=== PATIENT | female | born 1995 | race Caucasian/White ===

== ENCOUNTER 2018-11-03 19:02 | Emergency (ER) | payer BC ==
--- OUTSIDE RECORDS SUMMARY | 2018-11-03 19:05 | XMS REPORT ---
:1995 Author Organization eClinicalWorks Care Team Providers Name Role Phone Robert Gutierrez Provider Role Unavailable Allergies, Adverse Reactions, Alerts Substance Reaction Event Type N.K.D.A. Info Not Available Non Drug Allergy Problems Problem Type Condition Code Onset Dates Condition Status Assessment Generalized anxiety disorder F41.1 Active Assessment Attention deficit hyperactivity F90.2 Active disorder (ADHD), combined type Assessment 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 episode Problem Attention deficit hyperactivity F90.2 Active disorder (ADHD), combined type Problem 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 episode Problem Generalized anxiety disorder F41.1 Active Problem Migraine, unspecified, not G43.901 Active intractable, with status migrainosus Problem Low back pain, unspecified back M54.5 Active pain laterality, unspecified chronicity, with sciatica presence unspecified Problem Lumbar radiculopathy M54.16 Active Medications Medication Code System Code Instructions Start End Date Status Dosage Date Imitrex [facility] [id number] 50 MG Orally Active 1 tablet as Once a day needed Vyvanse [facility] [id number] 30 MG Orally May 15, Active 1 capsule Once a day 2018 in the morning Results No Known Results Summary Purpose eClinicalWorks Submission
--- OUTSIDE RECORDS SUMMARY | 2018-11-03 19:05 | XMS REPORT ---
:1995 Author Organization eClinicalWorks Care Team Providers Name Role Phone Matt Robert Provider Role Unavailable Allergies No Known Allergies Problems Problem Type Condition Code Onset Dates [...] Start End Date Status Dosage Date Imitrex [facility] 74612666990 50 MG Orally Active 1 tablet as Once a day needed Vyvanse [facility] [id number] 40 MG Orally Active 1 capsule Once a day in the morning Results No Known Results Summary Purpose eClinicalWorks Submission
[2018-11-03] MEDS ORDERED: DEXAMETHASONE 10 MG/ML VIAL ONE (19:44)
[2018-11-03] MEDS ORDERED: DIPHENHYDRAMINE 50 MG/ML VIAL ONE (19:45)
[2018-11-03] MEDS ORDERED: METOCLOPRAMIDE 10 MG/2mL INJ ONE (19:45)
[2018-11-03] MEDS ORDERED: KETOROLAC 30 MG/ML INJ ONE (19:45)
[2018-11-03] MEDS ORDERED: MAGNESIUM SULFATE 1 gm IVPB 1 GM/100 ML BAG IV ONE (19:45)
[2018-11-03 20:12] LABS: Urine Blood NEGATIVE (NEG); Urine Glucose NEGATIVE (NEG); Urine Protein NEGATIVE (NEG); Urine Specific Gravity 1.015 (1.005-1.030)
[2018-11-03 20:22] LABS: Absolute Lymphocytes (CBC) 2.4 K/uL (0.7-4.9); Absolute Monocytes 0.7 K/uL (0.1-1.3); Absolute Neutrophil 3.8 K/uL (1.8-8.0); Basophils % 0.4 % (0-1.3); Hematocrit 39.4 % (36.0-45.0); Lymphocytes % 34.1 % (15.3-44.8); MCH 29.1 pg (27.0-35.0); MCV 86.6 fL (80-100); MPV 9.4 fL (7.6-11.3); Monocytes % 9.2 % (3.3-12.3); RBC Red Blood Cell Count 4.55 M/uL (3.86-4.86)
--- NOTE | 2018-11-03 21:40 | RAD REPORT ---
EXAM DESCRIPTION: CT - Head Brain Wo Cont - 11/03/2018 9:34 pm CLINICAL HISTORY: Severe headache, "Worst headache of my life" COMPARISON: MRI November 2016 TECHNIQUE: Axial 5 mm thick images of the head were obtained without IV contrast. All CT scans are performed using dose optimization technique as appropriate and may include automated exposure control or mA/KV adjustment according to patient size. FINDINGS: No intracranial hemorrhage, mass, edema or shift of mid-line structures. No acute infarcti on changes seen. No abnormal extra-axial fluid collections. Ventricles are normal. Mastoid air cells and visualized portions of the paranasal sinuses are clear. No acute bony findings. No significant change from comparison. IMPRESSION: Negative non-contrast CT head examination.
[2018-11-03] MEDS ORDERED: MEPERIDINE HCL 25 MG/0.5 ML ONE (22:13)
[2018-11-03] MEDS ORDERED: NA CHLORIDE 0.9% 1,000 ML ONE (22:13)
[2018-11-03] MEDS ORDERED: ONDANSETRON 4 MG/2 ML VIAL ONE (22:13)
[2018-11-04] MEDS ORDERED: LIDOCAINE 1% MPF 5 ML VIAL ONE (00:47)
[2018-11-04] MEDS ORDERED: ONDANSETRON 4 MG/2 ML VIAL ONE (01:08)
[2018-11-04] MEDS ORDERED: HYDROMORPHONE HCL 0.5 MG/0.5 ML INJ ONE (01:08)
[2018-11-04 01:11] LABS: CSF Glucose 63 mg/dL (40-70)
[2018-11-04 01:47] LABS: Body Fluid Source CSF; Color of fluid Colorless (COLORLESS); Fluid Total Volume 7.5 ml
[2018-11-04 01:48] LABS: Appearance CLEAR (CLEAR); Body Fluid WBC 0 /mm^3
[2018-11-04 01:56] LABS: Appearance CLEAR (CLEAR); Body Fluid Source CSF; Body Fluid WBC 0 /mm^3; Color of fluid Colorless (COLORLESS)
--- NOTE | 2018-11-04 02:03 | ER ---
Nurse's Notes [facility] Name: Manuela Garzon Age: 22 yrs Sex: Female : 1995 Arrival Date: 11/03/2018 Time: 19:05 Bed 7 Private MD: Robert Gutierrez Diagnosis: Migraine without aura, intractable, with status migrainosus Presentation: 11/03 19:10 Presenting complaint: Patient states: Worst headache of life, started 8 days ago. tl2 Presenting with right sided weakness and right cheek numbness. Pt reports near syncopal episode today. Pt AOx4. speech is normal. Pt reports history of migraines but this episode is worse than previous. Transition of care: patient was not received from another setting of care. Onset of symptoms was October 26, 2018. Risk Assessment: Do you want to hurt yourself or someone else? Patient reports no desire to harm self or others. Initial Sepsis Screen: Does the patient meet any 2 criteria? No. Patient's initial sepsis screen is negative. Does the patient have a suspected source of infection? No. Patient's initial sepsis screen is negative. Care prior to arrival: None. 19:10 Method Of Arrival: Ambulatory tl2 19:10 Acuity: FRANCHESCA 3 tl2 Triage Assessment: 19:10 General: Appears in no apparent distress. uncomfortable, Behavior is cooperative, tl2 appropriate for age, anxious. General:. Pain: Complains of pain in headache, substernal chest pain Pain does not radiate. Pain currently is 10 out of 10 on a pain scale. Neuro: Level of Consciousness is awake, alert, obeys commands, Oriented to person, place, time, situation. Cardiovascular: Chest pain is described as severe, quality is pressure, is located in substernal area. Respiratory: Airway is patent Respiratory effort is even, unlabored, Respiratory pattern is regular, symmetrical. GI: No signs and/or symptoms were reported involving the gastrointestinal system. : No signs and/or symptoms were reported regarding the genitourinary system. Derm: Skin is pink, warm \T\ dry. 19:15 Headache History: The patient has had previous headaches and this one is more severe tl2 than previous episodes. 19:15 Pain: Also complains of nausea, inability to concentrate, right sided weakness and tl2 numbness in right cheek. Historical: - Allergies: 19:33 No Known Allergies; tl2 - Home Meds: 19:33 Adderall XR 10 mg Oral cp24 1 cap once daily [Active]; tl2 - PMHx: 19:33 Migraines; ADD/ADHD; tl2 - Immunization history:: Adult Immunizations up to date. - Social history:: Smoking status: Patient/guardian denies using tobacco. - Ebola Screening: : No symptoms or risks identified at this time. Screenin:16 Abuse screen: Denies threats or abuse. Nutritional screening: No deficits noted. tl2 Tuberculosis screening: No symptoms or risk factors identified. Fall Risk Gait- Impaired (20 pts.). Assessment: 19:17 Pain: Pain began 8 days ago, chest pain started today. tl2 21:02 Reassessment: Patient appears in no apparent distress at this time. Patient and/or tl2 family updated on plan of care and expected duration. Pain level reassessed. Patient is alert, oriented x 3, equal unlabored respirations, skin warm/dry/pink. Pt is resting, states the pain has decreased slightly but is still there. 22:09 Reassessment: Patient appears in no apparent distress at this time. Medicated pt per PA tl2 orders, will reevaluate in 30 minutes and notify PA. 23:00 Reassessment: Patient appears in no apparent distress at this time. Pt is to go to CT tl2 before LP procedure. Setup is at bedside. 11/04 00:07 Reassessment: awaiting PA to do LP procedure. tl2 01:30 Reassessment: Patient appears in no apparent distress at this time. Patient and/or tl2 family updated on plan of care and expected duration. Pain level reassessed. Patient is alert, oriented x 3, equal unlabored respirations, skin warm/dry/pink. Pt states pain has decreased, awaiting on CSF results. 02:36 Reassessment: Patient appears in no apparent distress at this time. Patient and/or tl2 family updated on plan of care and expected duration. Pain level reassessed. Patient is alert, oriented x 3, equal unlabored respirations, skin warm/dry/pink. pt verbalized understanding of discharge instructions, need for follow up and prescription usage Patient states feeling better. Vital Signs: 11/03 19:15 BP 137 / 94; Pulse 105; Resp 18; Temp 98.4(O); Pulse Ox 100% on R/A; Weight 77.11 kg; tl2 Height 5 ft. 8 in. (172.72 cm); Pain 10/10; 21:02 BP 106 / 64; Pulse 88; Resp 18; Pulse Ox 100% on R/A; tl2 21:56 BP 107 / 60; Pulse 74; Resp 18; Pulse Ox 98% on R/A; tl2 22:58 BP 123 / 72; Pulse 78; Resp 18; Pulse Ox 98% on R/A; tl2 11/04 00:03 BP 111 / 65; Pulse 80; Resp 18; Pulse Ox 97% ; ea 01:41 BP 119 / 67; Pulse 88; Resp 18; Pulse Ox 98% on R/A; tl2 01:52 Pain 4/10; ea 02:36 BP 125 / 51; Pulse 78; Resp 18; Pulse Ox 99% on R/A; Pain 2/10; tl2 11/03 19:15 Body Mass Index 25.85 (77.11 kg, 172.72 cm) tl2 ED Course: 11/03 19:05 Patient arrived in ED. mr 19:05 Robert Gutierrez DO is Private Physician. mr 19:13 Triage completed. tl2 19:15 Arm band placed on right wrist. tl2 19:16 Patient has correct armband on for positive identification. Bed in low position. Call tl2 light in reach. Side rails up X 1. Adult w/ patient. property assessment monitor on. Pulse ox on. NIBP on. 19:16 Patient maintains SpO2 saturation greater than 95% on room air. tl2 19:21 Jonn Ramirez PA is PHCP. jr8 19:21 Douglas Rios MD is Attending Physician. jr8 19:40 Inserted saline lock: 20 gauge in right antecubital area, using aseptic technique. tl2 Blood collected. 19:57 Anusha Bell, [place] is Primary Nurse. tl2 21:33 CT Head Brain wo Cont In Process Unspecified. EDMS 21:33 CT completed. Patient tolerated procedure well. Patient moved back from CT. bq 23:32 Head angio In Process Unspecified. EDMS 11/04 00:20 Assist provider with lumbar puncture: Set up LP tray. Performed by Jonn WEBSTER CSF tl2 is clear. Puncture site dressed with band aid, Procedure was successful. Patient tolerated well. 02:02 Alexander Rivera MD is Referral Physician. jr8 02:37 IV discontinued, intact, bleeding controlled, No redness/swelling at site. Pressure tl2 dressing applied. Administered Medications: 11/03 19:57 Drug: Magnesium Sulfate 1 grams Route: IVPB; Infused Over: 1 hrs; Site: right tl2 antecubital; 19:58 Drug: TORadol 30 mg Route: IVP; Site: right antecubital; tl2 22:12 Follow up: Response: No adverse reaction; Pain is unchanged, physician notified tl2 19:58 Drug: Benadryl 25 mg Route: IVP; Site: right antecubital; tl2 22:12 Follow up: Response: No adverse reaction tl2 19:58 Drug: Reglan 10 mg Route: IVP; Site: right antecubital; tl2 22:13 Follow up: Response: No adverse reaction tl2 19:58 Drug: Decadron - Dexamethasone 10 mg Route: IVP; Site: right antecubital; tl2 22:13 Follow up: Response: No adverse reaction tl2 22:09 Drug: Demerol 25 mg Route: IVP; Site: right antecubital; tl2 23:00 Follow up: Response: No adverse reaction; Pain is unchanged, physician notified tl2 22:10 Drug: Zofran 4 mg Route: IVP; Site: right antecubital; tl2 23:00 Follow up: Response: No adverse reaction tl2 22:11 Drug: NS 0.9% 1000 ml Route: IV; Rate: 1 bolus; Site: right antecubital; tl2 23:00 Follow up: IV Status: Completed infusion; IV Intake: 1000ml tl2 11/04 01:05 Drug: Zofran 4 mg Route: IVP; Site: right antecubital; ea 01:53 Follow up: Response: No adverse reaction ea 01:07 Drug: Dilaudid 0.5 mg Route: IVP; Site: right antecubital; ea 01:52 Follow up: Pain 4/10 Adult; Response: No adverse reaction; Pain is decreased ea Intake: 11/03 23:00 IV: 1000ml; Total: 1000ml. tl2 Outcome: 11/04 02:03 Discharge ordered by . jr8 02:37 Discharged to home ambulatory, with family. tl2 02:37 Condition: stable 02:37 Discharge instructions given to patient, Instructed on discharge instructions, follow up and referral plans. medication usage, Demonstrated understanding of instructions, follow-up care, medications, Prescriptions given X 2. 02:40 Patient left the ED. tl2 Signatures: Dispatcher [employer] EDPA Alta Herbert mr Jeannie, Jonn Gary PA PA jr8 Anusha Bell RN RN tl2 Raisa England RN RN ea Corrections: (The following items were deleted from the chart) 11/03 19:33 19:15 BP 137 / 94; Pulse 105bpm; Resp 18bpm; Pulse Ox 100% RA; 77.11 kg; Height 5 ft. 8 tl2 in.; BMI: 25.8; Pain 10/10; tl2 21:56 21:02 BP 106 / 64; Pulse 100bpm; Resp 18bpm; Pulse Ox 100% RA; tl2 tl2
--- NOTE | 2018-11-04 02:03 | EDPHYS ---
Physician Documentation [facility] Name: Manuela Garzon Age: 22 yrs Sex: Female : 1995 Arrival Date: 11/03/2018 Time: 19:05 Bed 7 Private MD: [facility] ED Physician Douglas Rios HPI: 11/03 22:03 This 22 yrs old Female presents to ER via Ambulatory with complaints of jr8 Migraine. 22:07 The patient describes the headache as pounding, a pressure, throbbing. Onset: The jr8 symptoms/episode began/occurred acutely, 8 day(s) ago. Associated signs and symptoms: Pertinent positives: nausea, paresthesias, Photophobia visual field changes, weakness. Severity of symptoms: At its worst the pain was moderate, in the emergency department the pain is unchanged. Headache History: The patient has had previous headaches and this one is different than previous episodes, and this one is more severe than previous episodes. The symptoms are alleviated by nothing. the symptoms are aggravated by lights, movement, noise, stress. The patient has not experienced similar symptoms in the past. The patient has not recently seen a physician. Had chest pain with it today. Historical: - Allergies: 19:33 No Known Allergies; tl2 - Home Meds: 19:33 Adderall XR 10 mg Oral cp24 1 cap once daily [Active]; tl2 - PMHx: 19:33 Migraines; ADD/ADHD; tl2 - Immunization history:: Adult Immunizations up to date. - Social history:: Smoking status: Patient/guardian denies using tobacco. - Ebola Screening: : No symptoms or risks identified at this time. ROS: 22:07 Eyes: Negative for injury, pain, redness, and discharge, ENT: Negative for injury, jr8 pain, and discharge, Neck: Negative for injury, pain, and swelling, Respiratory: Negative for shortness of breath, cough, wheezing, and pleuritic chest pain, Abdomen/GI: Negative for abdominal pain, nausea, vomiting, diarrhea, and constipation, Back: Negative for injury and pain, MS/Extremity: Negative for injury and deformity, Skin: Negative for injury, rash, and discoloration. 22:07 Cardiovascular: Positive for chest pain, Negative for edema, orthopnea, palpitations, paroxysmal nocturnal dyspnea. 22:07 Neuro: Positive for headache. Exam: 22:07 Eyes: Pupils equal round and reactive to light, extra-ocular motions intact. Lids and jr8 lashes normal. Conjunctiva and sclera are non-icteric and not injected. Cornea within normal limits. Periorbital areas with no swelling, redness, or edema. ENT: Nares patent. No nasal discharge, no septal abnormalities noted. Tympanic membranes are normal and external auditory canals are clear. Oropharynx with no redness, swelling, or masses, exudates, or evidence of obstruction, uvula midline. Mucous membranes moist. Neck: Trachea midline, no thyromegaly or masses palpated, and no cervical lymphadenopathy. Supple, full range of motion without nuchal rigidity, or vertebral point tenderness. No Meningismus. Cardiovascular: Regular rate and rhythm with a normal S1 and S2. No gallops, murmurs, or rubs. Normal PMI, no JVD. No pulse deficits. Respiratory: Lungs have equal breath sounds bilaterally, clear to auscultation and percussion. No rales, rhonchi or wheezes noted. No increased work of breathing, no retractions or nasal flaring. Abdomen/GI: Soft, non-tender, with normal bowel sounds. No distension or tympany. No guarding or rebound. No evidence of tenderness throughout. Back: No spinal tenderness. No costovertebral tenderness. Full range of motion. Skin: Warm, dry with normal turgor. Normal color with no rashes, no lesions, and no evidence of cellulitis. MS/ Extremity: Pulses equal, no cyanosis. Neurovascular intact. Full, normal range of motion. Neuro: Awake and alert, GCS 15, oriented to person, place, time, and situation. Cranial nerves II-XII grossly intact. Motor strength 5/5 in all extremities. Sensory grossly intact. Cerebellar exam normal. Normal gait. Vital Signs: 19:15 BP 137 / 94; Pulse 105; Resp 18; Temp 98.4(O); Pulse Ox 100% on R/A; Weight 77.11 kg; tl2 Height 5 ft. 8 in. (172.72 cm); Pain 10/10; 21:02 BP 106 / 64; Pulse 88; Resp 18; Pulse Ox 100% on R/A; tl2 21:56 BP 107 / 60; Pulse 74; Resp 18; Pulse Ox 98% on R/A; tl2 22:58 BP 123 / 72; Pulse 78; Resp 18; Pulse Ox 98% on R/A; tl2 11/04 00:03 BP 111 / 65; Pulse 80; Resp 18; Pulse Ox 97% ; ea 01:41 BP 119 / 67; Pulse 88; Resp 18; Pulse Ox 98% on R/A; tl2 01:52 Pain 4/10; ea 02:36 BP 125 / 51; Pulse 78; Resp 18; Pulse Ox 99% on R/A; Pain 2/10; tl2 11/03 19:15 Body Mass Index 25.85 (77.11 kg, 172.72 cm) tl2 MDM: 11/03 19:21 Patient medically screened. jr8 22:07 Data reviewed: vital signs, nurses notes, lab test result(s), EKG, radiologic studies, jr8 CT scan. Data interpreted: Pulse oximetry: on room air is 98 %. Interpretation: normal. Counseling: I had a detailed discussion with the patient and/or guardian regarding: the historical points, exam findings, and any diagnostic results supporting the discharge/admit diagnosis, lab results, radiology results. ED course: Initial treatment had helped but now coming back. Will try narcotic based medicine at this point. If with no relief, patient has been advised that lumbar puncture may be necessary . 11/04 02:01 Response to treatment: the patient's symptoms have mildly improved after treatment. ED jr8 course: Opening pressure was 17.5. No viral or bacterial CSF findings. Feeling better. Will have her f/u with [facility]. Knows to come back if worse . 11/03 19:22 Order name: CBC with Diff; Complete Time: 20:46 jr8 11/03 19:22 Order name: Basic Metabolic Panel; Complete Time: 20:13 jr8 11/03 20:03 Order name: Urine Dipstick--Ancillary (enter results); Complete Time: 20:13 eb 11/03 20:03 Order name: Urine --Ancillary (enter results); Complete Time: 20:13 eb 11/04 00:30 Order name: CSF Bacterial Antigens (tube 1); Complete Time: 01:54 tl2 11/04 00:30 Order name: Csf Culture tl2 11/03 21:13 Order name: CT Head Brain wo Cont; Complete Time: 21:44 tl2 11/03 22:49 Order name: Head angio EDMS 11/04 00:30 Order name: Fluid Cell Count,Body; Complete Time: 02:01 tl2 11/04 00:30 Order name: Spinal Fluid Profile; Complete Time: 01:54 2 11/03 19:22 Order name: IV; Complete Time: 19:32 8 11/03 19:22 Order name: Urine Test (obtain specimen); Complete Time: 19:59 8 11/03 19:22 Order name: Urine Dipstick-Ancillary (obtain specimen); Complete Time: 19:59 jr8 11/03 19:22 Order name: EKG - Nurse/Tech; Complete Time: 19:32 jr8 11/03 22:49 Order name: Lumbar Puncture Consent; Complete Time: 22:54 jr8 11/03 22:49 Order name: Lumbar Puncture Setup; Complete Time: 22:54 jr8 Administered Medications: 11/03 19:57 Drug: Magnesium Sulfate 1 grams Route: IVPB; Infused Over: 1 hrs; Site: right tl2 antecubital; 19:58 Drug: TORadol 30 mg Route: IVP; Site: right antecubital; tl2 22:12 Follow up: Response: No adverse reaction; Pain is unchanged, physician notified tl2 19:58 Drug: Benadryl 25 mg Route: IVP; Site: right antecubital; tl2 22:12 Follow up: Response: No adverse reaction tl2 19:58 Drug: Reglan 10 mg Route: IVP; Site: right antecubital; tl2 22:13 Follow up: Response: No adverse reaction tl2 19:58 Drug: Decadron - Dexamethasone 10 mg Route: IVP; Site: right antecubital; tl2 22:13 Follow up: Response: No adverse reaction tl2 22:09 Drug: Demerol 25 mg Route: IVP; Site: right antecubital; tl2 23:00 Follow up: Response: No adverse reaction; Pain is unchanged, physician notified tl2 22:10 Drug: Zofran 4 mg Route: IVP; Site: right antecubital; tl2 23:00 Follow up: Response: No adverse reaction tl2 22:11 Drug: NS 0.9% 1000 ml Route: IV; Rate: 1 bolus; Site: right antecubital; tl2 23:00 Follow up: IV Status: Completed infusion; IV Intake: 1000ml tl2 11/04 01:05 Drug: Zofran 4 mg Route: IVP; Site: right antecubital; ea 01:53 Follow up: Response: No adverse reaction ea 01:07 Drug: Dilaudid 0.5 mg Route: IVP; Site: right antecubital; ea 01:52 Follow up: Pain 4/10 Adult; Response: No adverse reaction; Pain is decreased ea Disposition: 11/04/18 02:03 Discharged to Home. Impression: Migraine without aura, intractable, with status migrainosus. - Condition is Stable. - Discharge Instructions: Migraine Headache, Recurrent Migraine Headache. - Prescriptions for Fioricet 50- 325-40 mg Oral tablet - take 2 tablet by ORAL route every 4 hours as needed not to exceed 6 tablets per 24hrs; 20 tablet. ketorolac 10 mg Oral tablet - take 1 tablet by ORAL route every 6 hours not to exceed 40mg in 24hrs for up to 5 days total use; 20 tablet. - Medication Reconciliation Form, Thank You Letter, Antibiotic Education, Prescription Opioid Use form. - Follow up: Alexander Rivera MD; When: 2 - 3 days; Reason: Recheck today's complaints, Continuance of care, Re-evaluation by your physician. - Problem is new. - Symptoms have improved. Addendum: 11/05/2018 06:11 Addendum: Procedure: Lumbar puncture. Dressed and cleaned with sterile technique. Lying j r8 in left lateral decubitus position. Opening pressure 17.5. Took approximately 8 ml of CSF for lab specimen. Band aid applied post procedure and was told to lay flat on back for 45 minutes. Patient tolerated procedure well . Signatures: Dispatcher [employer] EDMS Jonn Ramirez PA PA jr8 Anusha Bell RN RN tl2 Raisa England RN RN jos Corrections: (The following items were deleted from the chart) 11/03 22:08 22:03 The patient's problem is reported as jr8 jr8 11/04 02:40 02:03 11/04/2018 02:03 Discharged to Home. Impression: Migraine without aura, tl2 intractable, with status migrainosus. Condition is Stable. Forms are Medication Reconciliation Form, Thank You Letter, Antibiotic Education, Prescription Opioid Use. Follow up: Alexander Rivera; When: 2 - 3 days; Reason: Recheck today's complaints, Continuance of care, Re-evaluation by your physician. Problem is new. Symptoms have improved. jr8
--- NOTE | 2018-11-04 12:50 | RAD REPORT ---
EXAM DESCRIPTION: CT - Head angio - 11/04/2018 3:28 am CLINICAL HISTORY: headache Worst headache of life COMPARISON: Head Brain Wo Cont dated 11/03/2018 TECHNIQUE: CT angiography of the head was performed with MIPs. All CT scans are performed using dose optimization technique as appropriate and may include automated exposure control or mA/KV adjustment according to patient size. FINDINGS: No evidence of aneurysm is detected. No flow-limiting stenosis or vascular malformation id entified. Antegrade flow is seen in the vertebral arteries. The vertebral arteries are codominant. The visualized dural venous sinuses are patent. IMPRESSION: No significant flow abnormality is detected.
--- NOTE | 2018-11-04 17:28 | EKG ---
Test Date: 2018-11-03 Test Time: 19:28:18 Glass Driller: ELEANOR MEASUREMENT RESULTS: Intervals: Rate: 83 NH: 158 QRSD: 84 QT: 352 QTc: 413 [place]: P: 42 NH: 158 QRS: 52 T: 18 INTERPRETIVE STATEMENTS: Normal sinus rhythm Normal ECG Compared to ECG 06/08/2018 16:40:18 No significant changes Electronically Signed On 11-04-18 17:18:10 PHYSICAL THERAPY INSTRUCTOR by Leon Dudley
== END 2018-11-04 02:40 | disposition home or self-care (01) ==
LOC: ER 19:02
PROC: 009U3ZX Drainage of Spinal Canal, Percutaneous Approach, Diagnostic (ICD-10-PCS; principal; 2018-11-04)
DX: G43.911 Migraine, unspecified, intractable, with status migrainosus (principal); F90.9 Attention-deficit hyperactivity disorder, unspecified type
CPT/HCPCS: 36415; 62270; 70450; 70496; 80048; 81003; 81025; 82945; 84157; 85025; 86403; 87070; 89050; 93005; 96361; 96374; 96375; 99285; J1100; J1170; J2175; J2405; J2765; J3475; J7030; Q9967

== ENCOUNTER 2018-11-09 08:42 | Emergency (ER) | payer BC ==
--- OUTSIDE RECORDS SUMMARY | 2018-11-09 08:44 | XMS REPORT ---
[...] Dosage Date Imitrex [facility] [id number] 50 MG Orally Active 1 tablet as Once a day needed Vyvanse [facility] 06059391085 30 MG Orally May 15, Active 1 capsule Once a day 2018 in the morning Results No Known Results Summary Purpose eClinicalWorks Submission
--- OUTSIDE RECORDS SUMMARY | 2018-11-09 08:44 | XMS REPORT ---
[...] Date Imitrex [facility] 07259054481 50 MG Orally Active 1 tablet as Once a day needed Vyvanse [facility] 23867691853 40 MG Orally Active 1 capsule Once a day in the morning Results No Known Results Summary Purpose eClinicalWorks Submission
[2018-11-09] MEDS ORDERED: KETOROLAC 30 MG/ML INJ ONE (10:07)
[2018-11-09] MEDS ORDERED: ONDANSETRON 4 MG/2 ML VIAL ONE (10:07)
[2018-11-09] MEDS ORDERED: NA CHLORIDE 0.9% 1,000 ML ONE (10:08)
[2018-11-09 10:09] LABS: Absolute Lymphocytes (CBC) 2.4 K/uL (0.7-4.9); Absolute Monocytes 0.4 K/uL (0.1-1.3); Absolute Neutrophil 2.8 K/uL (1.8-8.0); Basophils % 0.3 % (0-1.3); Eosinophils % 2.5 % (0-4.4); Hematocrit 40.1 % (36.0-45.0); Lymphocytes % 41.2 % (15.3-44.8); MPV 8.5 fL (7.6-11.3); Monocytes % 7.5 % (3.3-12.3); RBC Red Blood Cell Count 4.62 M/uL (3.86-4.86)
[2018-11-09 10:25] LABS: ALT/SGPT 60 U/L (12-78); AST/SGOT 33 U/L (15-37); Albumin 3.7 g/dL (3.4-5.0); Alkaline Phosphatase 72 U/L (45-117); BUN Blood Urea Nitrogen 13 mg/dL (7-18); Bicarbonate 28 mmol/L (21-32); Bilirubin Total 0.1 mg/dL (0.2-1.0); C-Reactive Protein 3.12 mg/L (<3.00); Glucose Level 80 mg/dL (74-106); Potassium 4.2 mmol/L (3.5-5.1); Protein, Total 7.4 g/dL (6.4-8.2); Sodium Level 140 mmol/L (136-145)
--- NOTE | 2018-11-09 10:41 | RAD REPORT ---
EXAM DESCRIPTION: MRI - MRA Head Wo Cont - 11/09/2018 10:33 am CLINICAL HISTORY: Headache TECHNIQUE: Magnetic resonance angiogram was performed. 3D MIPS reconstruction performed FINDINGS: The anterior cerebral, middle cerebral, posterior cerebral, distal internal carotid and ba silar arteries do not demonstrate a significant stenosis. An aneurysm is not displayed. IMPRESSION: Unremarkable MRA brain.
[2018-11-09] MEDS ORDERED: DIPHENHYDRAMINE 50 MG/ML VIAL ONE (11:16)
[2018-11-09 12:26] LABS: Urine Blood 2+ (NEG); Urine Glucose NEGATIVE (NEG); Urine Protein NEGATIVE (NEG)
--- NOTE | 2018-11-09 12:53 | EDPHYS ---
Physician Documentation [facility] Name: Manuela Garzon Age: 22 yrs Sex: Female : 1995 Arrival Date: 11/09/2018 Time: 08:46 Bed 15 Private MD: Matt Count Includes [facility] ED Physician Douglas Rios HPI: 11/09 10:14 This 22 yrs old Female presents to ER via Ambulatory with complaints of sierra Headache, Dizziness, Nausea. 10:14 The patient complains of pain to the forehead, left temporal area and right temporal sierra area. The patient describes the headache as aching, a pressure. Onset: The symptoms/episode began/occurred 14 day(s) ago. Associated signs and symptoms: The patient has no apparent associated signs or symptoms. Severity of symptoms: At its worst the pain was moderate, severe, in the emergency department the pain is unchanged. Headache History: The patient has had previous headaches and this one is similar to previous episodes. The symptoms are alleviated by nothing. the symptoms are aggravated by nothing. The patient has not experienced similar symptoms in the past. Historical: - Allergies: 09:05 No Known Allergies; ss - Home Meds: 09:05 Adderall XR 10 mg Oral cp24 1 cap once daily [Active]; ss - PMHx: 09:05 ADD/ADHD; Migraines; ss - PSHx: 09:05 None; ss - Immunization history:: Adult Immunizations up to date. - Ebola Screening: : Patient denies exposure to infectious person Patient denies travel to an Ebola-affected area in the 21 days before illness onset. - Family history:: not pertinent. - Social history:: Smoking status: Patient/guardian denies using tobacco. ROS: 10:14 Constitutional: Negative for fever, chills, and weight loss, Eyes: Negative for injury, sierra pain, redness, and discharge, ENT: Negative for injury, pain, and discharge, Neck: Negative for injury, pain, and swelling, Cardiovascular: Negative for chest pain, palpitations, and edema, Respiratory: Negative for shortness of breath, cough, wheezing, and pleuritic chest pain, Abdomen/GI: Negative for abdominal pain, nausea, vomiting, diarrhea, and constipation, Back: Negative for injury and pain, : Negative for injury, bleeding, discharge, and swelling, MS/Extremity: Negative for injury and deformity, Skin: Negative for injury, rash, and discoloration, Psych: Negative for depression, anxiety, suicide ideation, homicidal ideation, and hallucinations, Allergy/Immunology: Negative for hives, rash, and allergies, Endocrine: Negative for neck swelling, polydipsia, polyuria, polyphagia, and marked weight changes, Hematologic/Lymphatic: Negative for swollen nodes, abnormal bleeding, and unusual bruising. 10:14 Neuro: Positive for headache, of the face and right temporal area and forehead. Exam: 10:14 Constitutional: This is a well developed, well nourished patient who is awake, alert, sierra and in no acute distress. Head/Face: Normocephalic, atraumatic. Eyes: Pupils equal round and reactive to light, extra-ocular motions intact. Lids and lashes normal. Conjunctiva and sclera are non-icteric and not injected. Cornea within normal limits. Periorbital areas with no swelling, redness, or edema. ENT: Nares patent. No nasal discharge, no septal abnormalities noted. Tympanic membranes are normal and external auditory canals are clear. Oropharynx with no redness, swelling, or masses, exudates, or evidence of obstruction, uvula midline. Mucous membranes moist. Neck: Trachea midline, no thyromegaly or masses palpated, and no cervical lymphadenopathy. Supple, full range of motion without nuchal rigidity, or vertebral point tenderness. No Meningismus. Chest/axilla: Normal chest wall appearance and motion. Nontender with no deformity. No lesions are appreciated. Cardiovascular: Regular rate and rhythm with a normal S1 and S2. No gallops, murmurs, or rubs. Normal PMI, no JVD. No pulse deficits. Respiratory: Lungs have equal breath sounds bilaterally, clear to auscultation and percussion. No rales, rhonchi or wheezes noted. No increased work of breathing, no retractions or nasal flaring. Abdomen/GI: Soft, non-tender, with normal bowel sounds. No distension or tympany. No guarding or rebound. No evidence of tenderness throughout. Back: No spinal tenderness. No costovertebral tenderness. Full range of motion. Female : Normal external genitalia. Skin: Warm, dry with normal turgor. Normal color with no rashes, no lesions, and no evidence of cellulitis. MS/ Extremity: Pulses equal, no cyanosis. Neurovascular intact. Full, normal range of motion. Neuro: Awake and alert, GCS 15, oriented to person, place, time, and situation. Cranial nerves II-XII grossly intact. Motor strength 5/5 in all extremities. Sensory grossly intact. Cerebellar exam normal. Normal gait. Psych: Awake, alert, with orientation to person, place and time. Behavior, mood, and affect are within normal limits. 10:14 Neck: ROM/movement: is normal, no acute changes, Meningeal signs: are not present, Kernig's sign is negative, Brudzinski's sign is negative. Vital Signs: 09:01 BP 122 / 71; Pulse 72; Resp 16; Temp 97.5(TE); Pulse Ox 100% on R/A; Pain 8/10; ss 10:00 BP 116 / 83; Pulse 73; Resp 14; Pulse Ox 98% on R/A; mh5 10:57 BP 110 / 80; Pulse 56; Resp 15; Pulse Ox 99% on R/A; mh5 12:30 BP 111 / 63; Pulse 65; Resp 17; Pulse Ox 100% ; mh5 14:02 BP 103 / 53; Pulse 68; Resp 15; Temp 98.2(O); Pulse Ox 100% on R/A; mh5 MDM: 08:49 Patient medically screened. [facility] 10:16 Data reviewed: vital signs, nurses notes, lab test result(s), EKG, radiologic studies, [facility] CT scan, plain films. 11/09 09:22 Order name: CBC with Diff; Complete Time: 10:[address] [facility] 11/09 09:22 Order name: Comprehensive Metabolic Panel; Complete Time: 10:[address] [facility] 11/09 09:22 Order name: Sed Rate; Complete Time: 10:[address] [facility] 11/09 09:22 Order name: CRP; Complete Time: 10:39 sierra 11/09 10:54 Order name: Urine Dipstick--Ancillary (enter results); Complete Time: 12:40 11/09 10:54 Order name: Urine --Ancillary (enter results); Complete Time: 12:40 11/09 09:50 Order name: MRA Head Wo Cont; Complete Time: 11:02 EDMS 11/09 09:22 Order name: Urine Dipstick-Ancillary (obtain specimen); Complete Time: 11: [facility] 11/09 09:22 Order name: Urine Test (obtain specimen); Complete Time: [facility] Administered Medications: 09:58 Drug: TORadol 30 mg Route: IVP; Site: right antecubital; ph 10:30 Follow up: Response: No adverse reaction; Pain is decreased ph 09:58 Drug: Zofran 4 mg Route: IVP; Site: right antecubital; ph 10:30 Follow up: Response: No adverse reaction; Nausea is decreased ph 11:22 Drug: NS 0.9% 1000 ml Route: IV; Rate: 1 bolus; Site: right antecubital; ph 13:00 Follow up: Response: No adverse reaction; IV Status: Completed infusion ph 11:22 Drug: Benadryl 50 mg Route: IVP; Site: right antecubital; ph 11:30 Follow up: Response: No adverse reaction ph 11:58 Not Given (Medication unavailable): Dihydroergotamine 1 mg IV at per protocol once ph 13:32 Drug: Reglan 10 mg Route: IVP; Site: right antecubital; ph 14:15 Follow up: Response: No adverse reaction; Pain is decreased ph 14:17 Drug: Topamax 25 mg Route: PO; ph 14:17 Follow up: Response: No adverse reaction; Medication administered at discharge. ph Disposition: 11/09/18 12:52 Discharged to Home. Impression: Headache, Migraine. - Condition is Stable. - Discharge Instructions: General Headache Without Cause, Migraine Headache, Migraine Headache, [id number], General Headache Without Cause, Acec-as-Iajq. - Prescriptions for Fioricet with Codeine 50- 325-40-30 mg Oral capsule - take 1 capsule by ORAL route every 4 hours as needed not to exceed 6 capsules per 24hrs; 30 capsule. Topamax 25 mg Oral tablet - take 1 tablet by ORAL route At bedtime in the morning and evening; 20 tablet. Zofran 4 mg Oral Tablet - take 1 tablet by ORAL route every 12 hours As needed; 20 tablet. - Work release form, Medication Reconciliation Form, Thank You Letter, Antibiotic Education, Prescription Opioid Use form. - Follow up: Count Includes [facility] Matt; When: 2 - 3 days; Reason: Recheck today's complaints, Continuance of care, Re-evaluation by your physician. - Problem is new. - Symptoms have improved. Signatures: Dispatcher [employer] EDDouglas Carrizales MD MD cha Smirch, Shelby, RN RN ss Anya Ndiaye RN RN ph Corrections: (The following items were deleted from the chart) 14:17 12:52 11/09/2018 12:52 Discharged to Home. Impression: Headache; Migraine. Condition is ph Stable. Discharge Instructions: General Headache Without Cause, Migraine Headache, Migraine Headache, [id number], General Headache Without Cause, [id number]. Prescriptions for Fioricet with Codeine 28-247-25-30 mg Oral capsule - take 1 capsule by ORAL route every 4 hours as needed not to exceed 6 capsules per 24hrs; 30 capsule, Topamax 25 mg Oral tablet - take 1 tablet by ORAL route At bedtime in the morning and evening; 20 tablet, Zofran 4 mg Oral Tablet - take 1 tablet by ORAL route every 12 hours As needed; 20 tablet. and Forms are Medication Reconciliation Form, Thank You Letter, Antibiotic Education, Prescription Opioid Use. Follow up: Robert Gutierrez; When: 2 - 3 days; Reason: Recheck today's complaints, Continuance of care, Re-evaluation by your physician. Problem is new. Symptoms have improved. sierra
--- NOTE | 2018-11-09 12:53 | ER ---
Nurse's Notes [facility] Name: Manuela Garzon Age: 22 yrs Sex: Female : 1995 Arrival Date: 11/09/2018 Time: 08:46 Bed 15 Private MD: Robert Gutierrez Diagnosis: Headache;Migraine Presentation: 11/09 09:02 Presenting complaint: Patient states: Severe headache x 14 days. Pt reports she was ss seen recently in ER for headache, but states that it is now much worse with nausea. Transition of care: patient was not received from another setting of care. Onset of symptoms was October 19, 2018. Risk Assessment: Do you want to hurt yourself or someone else? Patient reports no desire to harm self or others. Initial Sepsis Screen: Does the patient meet any 2 criteria? No. Patient's initial sepsis screen is negative. Does the patient have a suspected source of infection? No. Patient's initial sepsis screen is negative. Care prior to arrival: None. 09:02 Method Of Arrival: Ambulatory ss 09:02 Acuity: FRANCHESCA 3 ss Triage Assessment: 09:30 Headache History: The patient has had previous headaches and this one is similar to ph previous episodes, and this one is more severe than previous episodes. Historical: - Allergies: 09:05 No Known Allergies; ss - Home Meds: 09:05 Adderall XR 10 mg Oral cp24 1 cap once daily [Active]; ss - PMHx: 09:05 ADD/ADHD; Migraines; ss - PSHx: 09:05 None; ss - Immunization history:: Adult Immunizations up to date. - Ebola Screening: : Patient denies exposure to infectious person Patient denies travel to an Ebola-affected area in the 21 days before illness onset. - Family history:: not pertinent. - Social history:: Smoking status: Patient/guardian denies using tobacco. Screenin:37 Abuse screen: Denies threats or abuse. Denies injuries from another. Nutritional ph screening: No deficits noted. Tuberculosis screening: No symptoms or risk factors identified. Fall Risk None identified. Assessment: 09:10 General: Appears in no apparent distress. uncomfortable, slender, well groomed, ph Behavior is calm, cooperative, appropriate for age, Denies fever. Pain: Complains of pain in back and right temporal area and left temporal area and forehead. Neuro: Level of Consciousness is awake, alert, obeys commands, Oriented to person, place, time, situation, [place]ner are equal bilaterally Facial symmetry appears normal, Facial symmetry: tongue is midline, Pupils are PERRLA, Reports dizziness, headache photophobia. Cardiovascular: Capillary refill < 3 seconds in bilateral fingers Patient's skin is warm and dry. Respiratory: Airway is patent Respiratory effort is even, unlabored, Respiratory pattern is regular, symmetrical. GI: Reports nausea, vomiting, Patient currently denies abdominal pain. Derm: Skin is intact, is healthy with good turgor, Skin is pink, warm \\T\\ dry. Musculoskeletal: Circulation, motion, and sensation intact. Range of motion: intact in all extremities, Reports pain in lumbar area. 10:25 Reassessment: Patient appears in no apparent distress at this time. Patient and/or ph family updated on plan of care and expected duration. Pain level reassessed. Patient is alert, oriented x 3, equal unlabored respirations, skin warm/dry/pink. Pt taken to radiology via wheelchair for MRI. 11:35 Reassessment: Patient appears in no apparent distress at this time. Patient and/or ph family updated on plan of care and expected duration. Pain level reassessed. Patient is alert, oriented x 3, equal unlabored respirations, skin warm/dry/pink. Pt resting quietly w/ lights off in room, reports that back pain and nausea has improved after IV medications but still reports headache, VSS, awaiting MRI results, SO at bedside. 12:30 Reassessment: Patient appears in no apparent distress at this time. Patient and/or ph family updated on plan of care and expected duration. Pain level reassessed. Patient is alert, oriented x 3, equal unlabored respirations, skin warm/dry/pink. 13:33 Reassessment: Patient appears in no apparent distress at this time. Patient and/or ph family updated on plan of care and expected duration. Pain level reassessed. Patient is alert, oriented x 3, equal unlabored respirations, skin warm/dry/pink. Awaiting medication from pharmacy before d/c. 14:15 Reassessment: Patient appears in no apparent distress at this time. Patient and/or ph family updated on plan of care and expected duration. Pain level reassessed. Patient is alert, oriented x 3, equal unlabored respirations, skin warm/dry/pink. Pt reports that headache is still present but has improved, states, " I still feel it some but it's much better than it was." Pt d/s home w/ SO. Vital Signs: 09:01 BP 122 / 71; Pulse 72; Resp 16; Temp 97.5(TE); Pulse Ox 100% on R/A; Pain 8/10; ss 10:00 BP 116 / 83; Pulse 73; Resp 14; Pulse Ox 98% on R/A; mh5 10:57 BP 110 / 80; Pulse 56; Resp 15; Pulse Ox 99% on R/A; mh5 12:30 BP 111 / 63; Pulse 65; Resp 17; Pulse Ox 100% ; mh5 14:02 BP 103 / 53; Pulse 68; Resp 15; Temp 98.2(O); Pulse Ox 100% on R/A; mh5 ED Course: 08:46 Patient arrived in ED. sb2 08:46 Robert Gutierrez DO is Private Physician. sb2 08:49 Douglas Rios MD is Attending Physician. sierra 08:53 Anya Ndiaye, [place] is Primary Nurse. ph 09:04 Triage completed. ss 09:05 Arm band placed on right wrist. ss 09:30 Patient has correct armband on for positive identification. Bed in low position. Call ph light in reach. Side rails up X 1. Pulse ox on. NIBP on. Door closed. Noise minimized. Lights dimmed. Warm blanket given. 10:00 Initial lab(s) drawn, by me, sent to lab. Inserted saline lock: 20 gauge in right sv antecubital area, using aseptic technique. Blood collected. Flushed right antecubital with 5 ml normal saline. 10:20 MRA Head Wo Cont In Process Unspecified. EDMS 10:21 Patient moved to MRI via wheelchair. lc 12:52 Robert Gutierrez DO is Referral Physician. sierra 13:33 No provider procedures requiring assistance completed. ph 14:17 IV discontinued, intact, bleeding controlled, No redness/swelling at site. Pressure ph dressing applied. Administered Medications: 09:58 Drug: TORadol 30 mg Route: IVP; Site: right antecubital; ph 10:30 Follow up: Response: No adverse reaction; Pain is decreased ph 09:58 Drug: Zofran 4 mg Route: IVP; Site: right antecubital; ph 10:30 Follow up: Response: No adverse reaction; Nausea is decreased ph 11:22 Drug: NS 0.9% 1000 ml Route: IV; Rate: 1 bolus; Site: right antecubital; ph 13:00 Follow up: Response: No adverse reaction; IV Status: Completed infusion ph 11:22 Drug: Benadryl 50 mg Route: IVP; Site: right antecubital; ph 11:30 Follow up: Response: No adverse reaction ph 11:58 Not Given (Medication unavailable): Dihydroergotamine 1 mg IV at per protocol once ph 13:32 Drug: Reglan 10 mg Route: IVP; Site: right antecubital; ph 14:15 Follow up: Response: No adverse reaction; Pain is decreased ph 14:17 Drug: Topamax 25 mg Route: PO; ph 14:17 Follow up: Response: No adverse reaction; Medication administered at discharge. ph Outcome: 12:52 Discharge ordered by MD. esquivel 14:17 Patient left the ED. ph 14:17 Discharged to home ambulatory, with significant other. ph 14:17 Condition: good 14:17 Discharge instructions given to patient, Instructed on discharge instructions, follow up and referral plans. medication usage, Demonstrated understanding of instructions, follow-up care, medications, Prescriptions given X 2. Signatures: Dispatcher [employer] Lorri Zhu RN RN sv Anderson, Corey, MD MD cha Compean, Lorena lc Smirch, Shelby, RN RN ss Hall, Patricia, RN RN Fatimah Murillo [facility] Sari Rae
[2018-11-09] MEDS ORDERED: TOPIRAMATE 25 MG TAB PO SCH (13:30)
[2018-11-09] MEDS ORDERED: METOCLOPRAMIDE 10 MG/2mL INJ ONE (13:32)
[2018-11-09] MEDS ORDERED: NA CHLORIDE 0.9% 100 ML IV ONE (13:32)
== END 2018-11-09 14:17 | disposition home or self-care (01) ==
LOC: ER 08:42
DX: G43.909 Migraine, unspecified, not intractable, without status migrainosus (principal); F90.9 Attention-deficit hyperactivity disorder, unspecified type; Z79.899 Other long term (current) drug therapy
CPT/HCPCS: 36415; 70544; 80053; 81003; 81025; 85025; 85652; 86140; 96361; 96374; 96375; 99284; J2405; J2765; J7030

== ENCOUNTER 2019-10-14 09:43 | Emergency (ER) | payer BC ==
--- OUTSIDE RECORDS SUMMARY | 2019-10-14 09:45 | XMS REPORT ---
:1995 Author Organization [employer] Care Team Providers Name Role Phone Lola Gutierrezh Provider Role Unavailable Allergies, Adverse Reactions, Alerts Substance Reaction Event Type N.K.D.A. Info Not Available Non Drug Allergy Problems Problem Type Condition Code Onset Dates Condition Status Problem Migraine, unspecified, not G43.901 Active intractable, with status migrainosus Problem Low back pain, unspecified back M54.5 Active pain laterality, unspecified chronicity, with sciatica presence unspecified Problem Allergic rhinitis, unspecified J30.9 Active seasonality, unspecified trigger Problem 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 Active Problem Mild intermittent asthma without J45.20 Active complication Problem Generalized anxiety disorder F41.1 Active Problem Lumbar radiculopathy M54.16 Active Problem Attention deficit hyperactivity F90.2 Active disorder (ADHD), combined type Problem 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 episode Assessment Adult BMI 29.0-29.9 kg/sq m Z68.29 Active Assessment Allergic rhinitis, unspecified J30.9 Active seasonality, unspecified trigger Assessment Migraine, unspecified, not G43.901 Active intractable, with status migrainosus Assessment Generalized anxiety disorder F41.1 Active Assessment 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 Active Assessment 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 episode Assessment Mild intermittent asthma without J45.20 Active complication Assessment Attention deficit hyperactivity F90.2 Active disorder (ADHD), combined type Medications Medication Code Code Instructions Start End Status Dosage System Date Date Amphetamine-De [facility] 89184528161 10 MG Orally Sep 16, Active 1 tablet xtroamphetamin Twice a day 2018 e Fioricet/Codei [facility] 53007468554 06-114-10-30 MG Active 1 capsule ne Orally every 4 as needed hrs PRN SEVERE PAIN Imitrex [facility] 59597141038 50 MG Orally Active 1 tablet Once a day as needed at onset of migraine, may repeat after 2 hours. max 2 doses/24 hours Singulair [facility] 06995140407 10 MG Orally Active 1 tablet Once a day Albuterol [facility] [id number] 108 (90 Base) Active 2 puffs as Sulfate HFA MCG/ACT needed Inhalation every 6 hrs Results No Known Results Summary Purpose [employer] Submission
[2019-10-14] MEDS ORDERED: METHYLPREDNISOLONE 125 MG INJ ONE (10:18)
[2019-10-14] MEDS ORDERED: ALBUTEROL 2.5 MG/3 ML NEB SOL ONE (10:19)
[2019-10-14] MEDS ORDERED: IPRATROPIUM BROM 0.5MG/2.5ML ONE (10:19)
[2019-10-14 10:38] LABS: Basophils % 0.6 % (0-1.3); Hematocrit 38.3 % (36.0-45.0); Lymphocytes % 29.1 % (15.3-44.8); MPV 8.7 fL (7.6-11.3); RBC Red Blood Cell Count 4.43 M/uL (3.86-4.86)
[2019-10-14 10:53] LABS: BUN Blood Urea Nitrogen 7 mg/dL (7-18); Bicarbonate 28 mmol/L (21-32); Glucose Level 84 mg/dL (74-106); Potassium 3.8 mmol/L (3.5-5.1); Sodium Level 141 mmol/L (136-145)
[2019-10-14 11:18] LABS: Urine Blood NEGATIVE (NEG); Urine Glucose NEGATIVE (NEG); Urine Protein NEGATIVE (NEG); Urine pH 7.5 (5.0-7.0)
[2019-10-14] MEDS ORDERED: KETOROLAC 30 MG/ML INJ ONE (11:26)
--- NOTE | 2019-10-14 11:34 | RAD REPORT ---
EXAM DESCRIPTION: RAD - Chest Single View - 10/14/2019 11:27 am CLINICAL HISTORY: CHEST PAIN Chest pain. COMPARISON: No comparisonsChest Single View dated 08/04/2016 FINDINGS: Portable technique limits examination quality. The lungs are grossly clear. The heart is normal in size. No displaced fractures. IMPRESSION: No acute intrathoracic process suspected.
--- NOTE | 2019-10-14 12:04 | ER ---
Nurse's Notes [facility] Name: Manuela Garzon Age: 23 yrs Sex: Female : 1995 Arrival Date: 10/14/2019 Time: 09:46 Bed 16 Private MD: Robert Gutierrez Diagnosis: Bronchitis, not specified as acute or chronic;Reactive airway disease;Chest pain, unspecified Presentation: 10/14 09:50 Presenting complaint: Patient states: "Last week I had some hives but I am allergic to aa5 a lot of trees so I just thought it was allergies and then I started with a sinus headache, feeling a little short of breath, and sneezing". Pt reports being sent here by PCP for possible need of chest x-ray. Pt states "I always get bronchitis around this time of year". 09:50 Transition of care: patient was not received from another setting of care. Onset of aa5 symptoms was 2018. Care prior to arrival: None. 09:50 Acuity: FRANCHESCA 4 aa5 09:50 Method Of Arrival: Ambulatory aa5 09:59 Risk Assessment: Do you want to hurt yourself or someone else? Patient reports no tw2 desire to harm self or others. Care prior to arrival: None. 10:12 Initial Sepsis Screen: Does the patient meet any 2 criteria? No. Patient's initial tw2 sepsis screen is negative. Does the patient have a suspected source of infection? No. Patient's initial sepsis screen is negative. Triage Assessment: 10:13 General: Appears in no apparent distress. Behavior is calm, cooperative, appropriate tw2 for age. Pain: Denies pain. Respiratory: Reports shortness of breath cough that is Onset: The symptoms/episode began/occurred couple of days., the patient has mild shortness of breath. 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 - Social history:: Smoking status: . - Ebola Screening: : Patient denies travel to an Ebola-affected area in the 21 days before illness onset. Screenin:58 Abuse screen: Denies threats or abuse. Nutritional screening: No deficits noted. tw2 Tuberculosis screening: No symptoms or risk factors identified. Fall Risk None identified. Assessment: 09:50 General: Appears in no apparent distress. Behavior is calm, cooperative, appropriate tw2 for age. Neuro: Level of Consciousness is awake, alert, obeys commands, Oriented to person, place, time, situation. Cardiovascular: Heart tones S1 S2 Patient's skin is warm and dry. Rhythm is regular. Respiratory: Reports shortness of breath at rest cough that is non-productive, Airway is patent Respiratory effort is even, unlabored, Respiratory pattern is regular, symmetrical, Breath sounds are clear bilaterally. GI: No signs and/or symptoms were reported involving the gastrointestinal system. Abdomen is flat, Bowel sounds present X 4 quads. : No signs and/or symptoms were reported regarding the genitourinary system. EENT: Reports nasal congestion nasal discharge. Derm: No signs and/or symptoms reported regarding the dermatologic system. Musculoskeletal: Range of motion: intact in all extremities. 10:56 Reassessment: Patient appears in no apparent distress at this time. No changes from tw2 previously documented assessment. Patient and/or family updated on plan of care and expected duration. Pain level reassessed. Patient is alert, oriented x 3, equal unlabored respirations, skin warm/dry/pink. 11:59 Reassessment: Patient appears in no apparent distress at this time. No changes from tw2 previously documented assessment. Patient and/or family updated on plan of care and expected duration. Pain level reassessed. Patient is alert, oriented x 3, equal unlabored respirations, skin warm/dry/pink. Vital Signs: 10:12 BP 122 / 74; Pulse 78; Resp 17; Pulse Ox 99% on R/A; tw2 10:39 Temp 97.9(TE); tw2 10:56 BP 133 / 72; Pulse 100; Resp 17; Pulse Ox 100% on Nebulizer Mask; tw2 11:59 BP 119 / 72; Pulse 91; Resp 17; Pulse Ox 99% on R/A; tw2 ED Course: 09:46 Patient arrived in ED. mr 09:47 Robert Gutierrez DO is Private Physician. mr 09:58 Ana Grande, RN is Primary Nurse. tw2 09:58 Bed in low position. Call light in reach. tw2 09:59 Arm band placed on. tw2 10:01 Triage completed. aa5 10:03 Michael Irwin MD is Attending Physician. kdr 10:25 Inserted saline lock: 20 gauge in right antecubital area, using aseptic technique. tw2 Blood collected. 10:26 EKG done, by dialysis patient care technician. reviewed by Michael Irwin MD. at1 10:40 Radiology exam delayed due to patient receiving breathing treatment at this time. mh1 patient is not appropriately dressed for the exam at this time. 11:28 CXR XRAY In Process Unspecified. EDMS 12:01 Robert Gutierrez DO is Referral Physician. kdr 12:12 No provider procedures requiring assistance completed. IV discontinued, intact, tw2 bleeding controlled, No redness/swelling at site. Pressure dressing applied. Administered Medications: 10:30 Drug: Albuterol - atroVENT (3:1) (2.5 mg - 0.5 mg) 3 ml Route: Nebulizer; tw2 11:13 Follow up: Response: No adverse reaction tw2 10:30 Drug: SOLU-Medrol 125 mg Route: IVP; Site: right antecubital; tw2 11:13 Follow up: Response: No adverse reaction tw2 11:25 Drug: TORadol - Ketorolac 15 mg Route: IVP; Site: right antecubital; tw2 12:13 Follow up: Response: No adverse reaction tw2 Outcome: 12:03 Discharge ordered by . kdr 12:13 Discharged to home ambulatory. tw2 12:13 Condition: stable 12:13 Discharge instructions given to patient, Instructed on discharge instructions, follow up and referral plans. medication usage, Demonstrated understanding of instructions, follow-up care, medications, Prescriptions given X 3. 12:14 Patient left the ED. tw2 Signatures: Dispatcher [employer] EDMD Michael Irwin MD MD kdr Rivera, Alta Shayan Abarcaha 1 Rose Toro, RN RN aa5 Evonne Damon, deburring technician EKG Tat1 Ana Grande, RN RN tw2
--- NOTE | 2019-10-14 12:04 | EDPHYS ---
Physician Documentation [facility] Name: Manuela Garzon Age: 23 yrs Sex: Female : 1995 Arrival Date: 10/14/2019 Time: 09:46 Bed 16 Private MD: Matt [facility] ED Physician Michael Irwin HPI: 10/14 11:57 This 23 yrs old Female presents to ER via Ambulatory with complaints of kdr Breathing Difficulty. 11:57 The patient has shortness of breath at rest, with light activity. Onset: The kdr symptoms/episode began/occurred gradually, 1 week(s) ago. Duration: The symptoms are continuous, and are steadily getting worse. The patient's shortness of breath is aggravated by exertion, light activity. Associated signs and symptoms: Pertinent positives: chest pain, Headache and sinus congestion.. Severity of symptoms: At their worst the symptoms were moderate in the emergency department the symptoms are unchanged. The patient has experienced similar episodes in the past, a few times, States that she normally gets bronchitis around this time of year but that she thought this was just her allergies acting up since she has been exposed to allergens last week. Headache and sinus pressure has improved since yesterday but still feels generally weak and with diffuse anterior chest pain. The patient has not recently seen a physician. 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 - Social history:: Smoking status: . - Ebola Screening: : Patient denies travel to an Ebola-affected area in the 21 days before illness onset. ROS: 11:57 Constitutional: Negative for fever, chills, and weight loss, Eyes: Negative for injury, kdr pain, redness, and discharge, Neck: Negative for injury, pain, and swelling, Abdomen/GI: Negative for abdominal pain, nausea, vomiting, diarrhea, and constipation, Back: Negative for injury and pain, : Negative for injury, bleeding, discharge, and swelling, MS/Extremity: Negative for injury and deformity, Skin: Negative for injury, rash, and discoloration, Neuro: Negative for headache, weakness, numbness, tingling, and seizure activity. Psych: Negative for depression, anxiety, suicide ideation, homicidal ideation, and hallucinations, Allergy/Immunology: Negative for hives, rash, and allergies, Endocrine: Negative for neck swelling, polydipsia, polyuria, polyphagia, and marked weight changes, Hematologic/Lymphatic: Negative for swollen nodes, abnormal bleeding, and unusual bruising. 11:57 Cardiovascular: Positive for chest pain, with cough, with movement, Negative for edema, orthopnea, palpitations, paroxysmal nocturnal dyspnea. Exam: 11:57 Constitutional: This is a well developed, well nourished patient who is awake, alert, kdr and in no acute distress. Head/Face: Normocephalic, atraumatic. Eyes: Pupils equal round and reactive to light, extra-ocular motions intact. Lids and lashes normal. Conjunctiva and sclera are non-icteric and not injected. Cornea within normal limits. Periorbital areas with no swelling, redness, or edema. ENT: Nares patent. No nasal discharge, no septal abnormalities noted. Tympanic membranes are normal and external auditory canals are clear. Oropharynx with no redness, swelling, or masses, exudates, or evidence of obstruction, uvula midline. Mucous membranes moist. Neck: Trachea midline, no thyromegaly or masses palpated, and no cervical lymphadenopathy. Supple, full range of motion without nuchal rigidity, or vertebral point tenderness. No Meningismus. Chest/axilla: Normal chest wall appearance and motion. Nontender with no deformity. No lesions are appreciated. Cardiovascular: Regular rate and rhythm with a normal S1 and S2. No gallops, murmurs, or rubs. Normal PMI, no JVD. No pulse deficits. Respiratory: Lungs have equal breath sounds bilaterally, clear to auscultation and percussion. No rales, rhonchi or wheezes noted. No increased work of breathing, no retractions or nasal flaring. Abdomen/GI: Soft, non-tender, with normal bowel sounds. No distension or tympany. No guarding or rebound. No evidence of tenderness throughout. Back: No spinal tenderness. No costovertebral tenderness. Full range of motion. Skin: Warm, dry with normal turgor. Normal color with no rashes, no lesions, and no evidence of cellulitis. MS/ Extremity: Pulses equal, no cyanosis. Neurovascular intact. Full, normal range of motion. Neuro: Awake and alert, GCS 15, oriented to person, place, time, and situation. Cranial nerves II-XII grossly intact. Motor strength 5/5 in all extremities. Sensory grossly intact. Cerebellar exam normal. Normal gait. Psych: Awake, alert, with orientation to person, place and time. Behavior, mood, and affect are within normal limits. Vital Signs: 10:12 BP 122 / 74; Pulse 78; Resp 17; Pulse Ox 99% on R/A; tw2 10:39 Temp 97.9(TE); tw2 10:56 BP 133 / 72; Pulse 100; Resp 17; Pulse Ox 100% on Nebulizer Mask; tw2 11:59 BP 119 / 72; Pulse 91; Resp 17; Pulse Ox 99% on R/A; tw2 MDM: 11:57 Differential diagnosis: asthma, Bronchitis Myocardial Infarction Pulmonary Embolism. kdr Data reviewed: vital signs, nurses notes, lab test result(s), EKG, radiologic studies. Data interpreted: waste/materials exchange specialist: rate is 80 beats/min, Pulse oximetry: on room air is 100 %. Test interpretation: by ED physician or midlevel provider: ECG, plain radiologic studies. Counseling: I had a detailed discussion with the patient and/or guardian regarding: the historical points, exam findings, and any diagnostic results supporting the discharge/admit diagnosis, lab results, radiology results, the need for outpatient follow up. 12:03 Patient medically screened. [facility] 10/14 10:16 Order name: CBC with Diff; Complete Time: 11:07 kdr 10/14 10:16 Order name: Chem 7; Complete Time: 11:07 kdr 10/14 10:15 Order name: CXR XRAY kdr 10/14 11:13 Order name: Urine Dipstick--Ancillary (enter results); Complete Time: 11:52 em1 10/14 11:13 Order name: Urine --Ancillary (enter results); Complete Time: 11:52 em1 10/14 11:14 Order name: Flu; Complete Time: 11:52 kdr 10/14 10:15 Order name: EKG - Nurse/Tech; Complete Time: 10:15 kdr 10/14 10:16 Order name: IV Start; Complete Time: 11:13 tw2 10/14 10:16 Order name: Urine Dipstick-Ancillary (obtain specimen); Complete Time: 11:12 kdr 10/14 10:16 Order name: Urine Test (obtain specimen); Complete Time: 11:12 kdr Administered Medications: 10:30 Drug: Albuterol - atroVENT (3:1) (2.5 mg - 0.5 mg) 3 ml Route: Nebulizer; tw2 11:13 Follow up: Response: No adverse reaction tw2 10:30 Drug: SOLU-Medrol 125 mg Route: IVP; Site: right antecubital; tw2 11:13 Follow up: Response: No adverse reaction tw2 11:25 Drug: TORadol - Ketorolac 15 mg Route: IVP; Site: right antecubital; tw2 12:13 Follow up: Response: No adverse reaction tw2 Disposition: 10/14/19 12:03 Discharged to Home. Impression: Bronchitis, not specified as acute or chronic, Reactive airway disease, Chest pain, unspecified. - Condition is Stable. - Discharge Instructions: Chest Wall Pain, [id number], Acute Bronchitis, [id number]-hb-Gmav, Nonspecific Chest Pain, [id number]. - Prescriptions for ketorolac 10 mg Oral tablet - take 1 tablet by ORAL route every 6 hours As needed not to exceed 40 mg in 24hrs; 12 tablet. Pepcid 20 mg Oral Tablet - take 1 tablet by ORAL route every 12 hours for 5 days; 10 tablet. Albuterol Sulfate 90 mcg/actuation Inhalation - inhale 1-2 puff by INHALATION route every 4-6 hours As needed; 2 Inhaler. - Medication Reconciliation Form, Thank You Letter, School release form, Work release form form. - Follow up: Robert Gutierrez, DO; When: 2 - 3 days; Reason: If symptoms return, Further diagnostic work-up, Recheck today's complaints, Continuance of care, Re-evaluation by your physician. - Problem is an acute exacerbation. - Symptoms have improved. Signatures: Dispatcher [employer] EDMS Michael Irwin MD MD kdr Calderon, Audri RN RN aa5 Ana Grande RN RN tw2 Corrections: (The following items were deleted from the chart) 12:03 12:03 10/14/2019 12:03 Discharged to Home. Impression: Bronchitis, not specified as kdr acute or chronic; Reactive airway disease. Condition is Stable. Forms are Work release form, Medication Reconciliation Form, Thank You Letter, Antibiotic Education, Prescription Opioid Use. Follow up: [facility] Gutierrez; When: 2 - 3 days; Reason: If symptoms return, Further diagnostic work-up, Recheck today's complaints, Continuance of care, Re-evaluation by your physician. Problem is an acute exacerbation. Symptoms have improved. kdr 12:14 12:03 10/14/2019 12:03 Discharged to Home. Impression: Bronchitis, not specified as tw2 acute or chronic; Reactive airway disease; Chest pain, unspecified. Condition is Stable. Forms are Work release form, Medication Reconciliation Form, Thank You Letter, Antibiotic Education, Prescription Opioid Use. Follow up: [facility] Gutierrez; When: 2 - 3 days; Reason: If symptoms return, Further diagnostic work-up, Recheck today's complaints, Continuance of care, Re-evaluation by your physician. Problem is an acute exacerbation. Symptoms have improved. kdr
[2019-10-14 12:30] VITALS: TEMP 97.9
[2019-10-14 12:32] VITALS: BP 119/72; O2SAT 99
--- NOTE | 2019-10-14 16:46 | EKG ---
Test Date: 2019-10-14 Test Time: 10:19:34 Embroidery Cutter: DAYNA MEASUREMENT RESULTS: Intervals: Rate: 76 MO: 148 QRSD: 86 QT: 364 QTc: 409 [place]: P: 38 MO: 148 QRS: 30 T: 15 INTERPRETIVE STATEMENTS: Normal sinus rhythm with sinus arrhythmia Normal ECG Compared to ECG 11/03/2018 19:28:18 No significant changes Electronically Signed On 10-14-19 16:45:19 STOCKHOLDER by Josef Robles
== END 2019-10-14 12:14 | disposition home or self-care (01) ==
LOC: ER 09:43
DX: J40 Bronchitis, not specified as acute or chronic (principal); Z91.013 Allergy to seafood
CPT/HCPCS: 93005; 85025; 80048; 36415; 81025; 81003; 87804 ×2; 71045; 94640; 96375; 96374; 99284; J2930

== ENCOUNTER 2019-12-22 18:01 | Emergency (ER) | payer BC ==
--- OUTSIDE RECORDS SUMMARY | 2019-12-22 18:03 | XMS REPORT ---
:1995 Author Organization e[employer] Care Team Providers Name Role Phone Lola Gutierrezh Provider Role Unavailable Allergies, Adverse Reactions, Alerts Substance Reaction Event Type shellfish Info Not Available Drug Allergy Problems Problem Type Condition Code Onset Dates Condition Status Problem Migraine, unspecified, not G43.901 Active intractable, with status migrainosus Problem Low back pain, unspecified back M54.5 Active pain laterality, unspecified chronicity, with sciatica presence unspecified Assessment Attention deficit hyperactivity F90.2 Active disorder (ADHD), combined type Problem Allergic rhinitis, unspecified J30.9 Active seasonality, unspecified trigger Problem 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 19456275413 18-061-40-30 MG Active 1 capsule ne Orally every 4 as needed hrs PRN SEVERE PAIN Imitrex [facility] 34338559344 50 MG Orally Active 1 tablet Once a day as needed at onset of migraine, may repeat after 2 hours. max 2 doses/24 hours Amphetamine-De ND 33081530002 10 MG Orally Nov 26, Active 1 tablet xtroamphetamin Twice a day 2019 e Albuterol [facility] [id number] 108 (90 Base) Active 2 puffs as Sulfate HFA MCG/ACT needed Inhalation every 6 hrs Singulair [facility] 14343975094 10 MG Orally Active 1 tablet Once a day Results No Known Results Summary Purpose eClinicalWorks Submission
--- OUTSIDE RECORDS SUMMARY | 2019-12-22 18:03 | XMS REPORT ---
[...] End Status Dosage System Date Date Amphetamine-De [facility] [id number] 10 MG Orally Sep 16, Active 1 tablet xtroamphetamin Twice a day 2018 e Fioricet/Codei [facility] 85746051489 70-300-03-30 MG Active 1 capsule ne Orally every 4 as needed hrs PRN SEVERE PAIN Imitrex [facility] 47595610818 50 MG Orally Active 1 tablet Once a day as needed at onset of migraine, may repeat after 2 hours. max 2 doses/24 hours Singulair [facility] 37343431445 10 MG Orally Active 1 tablet Once a day Albuterol [facility] 33175383477 108 (90 Base) Active 2 puffs as Sulfate HFA MCG/ACT needed Inhalation every 6 hrs Results No Known Results Summary Purpose eClinicalWorks Submission
--- OUTSIDE RECORDS SUMMARY | 2019-12-22 18:03 | XMS REPORT ---
[...] Start End Status Dosage System Date Date Singulair [facility] 18731063163 10 MG Orally Active 1 tablet Once a day Fioricet/Codei [facility] 00293738937 27-880-71-30 MG Active 1 capsule ne Orally every 4 as needed hrs PRN SEVERE PAIN Imitrex [facility] 37372644865 50 MG Orally Active 1 tablet Once a day as needed at onset of migraine, may repeat after 2 hours. max 2 doses/24 hours Amphetamine-De ND 82650711652 10 MG Orally Oct 16, Active 1 tablet xtroamphetamin Twice a day 2018 e Albuterol [facility] 13889913723 108 (90 Base) Active 2 puffs as Sulfate HFA MCG/ACT needed Inhalation every 6 hrs Results No Known Results Summary Purpose eClinicalWorks Submission
[2019-12-22 18:28] LABS: Absolute Lymphocytes (CBC) 2.5 K/uL (0.7-4.9); Basophils % 0.5 % (0-1.3); Lymphocytes % 26.4 % (15.3-44.8); MPV 8.8 fL (7.6-11.3); RBC Red Blood Cell Count 4.67 M/uL (3.86-4.86)
[2019-12-22 18:46] LABS: ALT/SGPT 30 U/L (12-78); AST/SGOT 22 U/L (15-37); Albumin 3.9 g/dL (3.4-5.0); Alkaline Phosphatase 68 U/L (45-117); BUN Blood Urea Nitrogen 11 mg/dL (7-18); Bicarbonate 27 mmol/L (21-32); Bilirubin Direct < 0.1 mg/dL (0-0.2); Bilirubin Total 0.3 mg/dL (0.2-1.0); Glucose Level 91 mg/dL (74-106); Lipase 112 U/L (73-393); Potassium 3.6 mmol/L (3.5-5.1); Protein, Total 7.8 g/dL (6.4-8.2); Sodium Level 139 mmol/L (136-145)
[2019-12-22 18:54] LABS: Urine Bacteria <20 /HPF (<20); Urine Culture Reflex Order NOT NEEDED; Urine Mucus MOD /HPF (NONE SEEN); Urine RBC NONE SEEN /HPF (NONE SEEN)
[2019-12-22 19:06] LABS: Urine Blood NEGATIVE (NEG); Urine Glucose NEGATIVE (NEG); Urine Protein NEGATIVE (NEG); Urine Specific Gravity 1.025 (1.005-1.030); Urine pH 5.5 (5.0-7.0)
--- NOTE | 2019-12-22 19:29 | RAD REPORT ---
EXAM DESCRIPTION: CTAbdomen Pelvis W Contrast - 12/22/2019 7:22 pm CLINICAL HISTORY: Abdominal pain. ABD PAIN COMPARISON: CT ABD PELVIS W CONTRAST dated 12/06/2013 TECHNIQUE: Biphasic CT imaging of the abdomen and pelvis was performed with 100 ml non-ionic IV cont rast. All CT scans are performed using dose optimization technique as appropriate and may include automated exposure control or mA/KV adjustment according to patient size. FINDINGS: The lung bases are clear. The liver, spleen, pancreas, adrenal glands and kidneys are within normal limits. No bowel obstruction, free air, free fluid or abscess. Prominent stool is present in the colon. The a ppendix is normal. Small fat containing umbilical hernia. No evidence of significant lymphadenopathy. No suspicious bony findings. IMPRESSION: No acute intra-abdominal or pelvic finding.
--- NOTE | 2019-12-22 19:52 | RAD REPORT ---
EXAM DESCRIPTION: US - Pelvis Complete - 12/22/2019 7:39 pm CLINICAL HISTORY: RLQ abd pain, rule out torsion/cyst Pelvic pain. COMPARISON: Transvaginal Study Probe dated 09/11/2018; Abdomen Pelvis W Contrast dated 12/22/2019 FINDINGS: The uterus is normal in size, shape and echotexture. The uterus measures 6.2 x 4.3 x 3.1 c m. The endometrial stripe measures 8 mm, normal. Both ovaries are normal in size, shape and echotexture. The right ovary measures 3.7 x 2.9 x 2.6 cm. The left ovary measures 3.2 x 2.5 x 2.1 cm. No ovarian or parovarian lesions. No adnexal masses. Normal Doppler blood flow was demonstrated to both ovaries. No significant pelvic ascites. IMPRESSION: Unremarkable study.
--- NOTE | 2019-12-22 20:00 | ER ---
Nurse's Notes [facility] Name: Manuela Garzon Age: 24 yrs Sex: Female : 1995 Arrival Date: 12/22/2019 Time: 18:06 Bed 7 Private MD: Diagnosis: Unspecified abdominal pain;Nausea and vomiting Presentation: 12/22 18:07 Presenting complaint: Patient states: Woke up 1 hour ago with sudden onset of abdominal ss pain just above umbilicus. Pt also reports vomiting x 2. Phenergan 12.5 IVP and Toradol 30 mg IVP given en route to ED. Transition of care: patient was not received from another setting of care. Onset of symptoms was December 22, 2019. Risk Assessment: Do you want to hurt yourself or someone else? Patient reports no desire to harm self or others. Initial Sepsis Screen: Does the patient meet any 2 criteria? No. Patient's initial sepsis screen is negative. Does the patient have a suspected source of infection? No. Patient's initial sepsis screen is negative. Care prior to arrival: SEE TRIAGE NOTE. 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 - Coronavirus screen:: The patient has NOT traveled to [place], [place], or [place] in the past 14 days. Proceed with normal triage process as indicated. - Social history:: Smoking status: Patient denies any tobacco usage or history of. - Ebola Screening: : Patient denies exposure to infectious person Patient denies travel to an Ebola-affected area in the 21 days before illness onset. Screenin:25 Abuse screen: Denies threats or abuse. Denies injuries from another. Nutritional ph screening: No deficits noted. Tuberculosis screening: No symptoms or risk factors identified. Fall Risk None identified. Assessment: 18:23 General: Appears in no apparent distress. uncomfortable, slender, well groomed, ph Behavior is calm, cooperative, appropriate for age, Denies fever, chills. Pain: Complains of pain in umbilical area Pain radiates to abdomen diffusely. Neuro: Level of Consciousness is awake, alert, obeys commands, Oriented to person, place, time, situation. Cardiovascular: Capillary refill < 3 seconds in bilateral fingers Patient's skin is warm and dry. Respiratory: Airway is patent Respiratory effort is even, unlabored, Respiratory pattern is regular, symmetrical. GI: Abdomen is flat, non-distended, Bowel sounds present X 4 quads. Abd is soft X 4 quads Reports lower abdominal pain, upper abdominal pain, nausea, vomiting, Patient currently denies diarrhea. Derm: Skin is intact, is healthy with good turgor, Skin is pink, warm \T\ dry. Musculoskeletal: Circulation, motion, and sensation intact. Range of motion: intact in all extremities. 19:30 Reassessment: Patient appears in no apparent distress at this time. Patient and/or aa1 family updated on plan of care and expected duration. Pain level reassessed. Patient is alert, oriented x 3, equal unlabored respirations, skin warm/dry/pink. Awaiting CT results. 20:06 Reassessment: Patient appears in no apparent distress at this time. Patient is alert, aa1 oriented x 3, equal unlabored respirations, skin warm/dry/pink. Discussed d/c \T\ f/u instructions with pt; denies questions or concerns at this time. Ambulatory upon discharge with steady gait Patient states feeling better. Patient states symptoms have improved. Vital Signs: 18:10 BP 129 / 80; Pulse 85; Resp 15; Temp 98.3; Pulse Ox 100% on R/A; Weight 99.79 kg; Height 6 ft. 0 in. (182.88 cm); 18:10 Body Mass Index 29.84 (99.79 kg, 182.88 cm) ED Course: 18:06 Patient arrived in ED. ag5 18:09 Triage completed. 18:09 Kashif Stanford NP is PHCP. pm1 18:09 Cas Abdul MD is Attending Physician. pm1 18:10 Arm band placed on right wrist. ss 18:18 Anya Ndiaye, RN is Primary Nurse. ph 18:19 Inserted saline lock: 20 gauge in right antecubital area, using aseptic technique. ph Blood collected. 18:26 Patient has correct armband on for positive identification. Placed in gown. Bed in low ph position. Call light in reach. Side rails up X 1. Pulse ox on. NIBP on. Door closed. Noise minimized. Warm blanket given. Pillow given. 19:22 CT completed. Patient tolerated procedure well. Patient moved back from CT. bq 19:23 CT Abd/Pelvis - IV Contrast Only In Process Unspecified. EDMS 19:40 US Pelvis Complete In Process Unspecified. EDMS 20:07 No provider procedures requiring assistance completed. IV discontinued, intact, aa1 bleeding controlled, No redness/swelling at site. Pressure dressing applied. Administered Medications: 18:18 Drug: NS 0.9% 1000 ml Route: IV; Rate: 1000 ml; Site: right antecubital; ph 19:05 Follow up: IV Status: Completed infusion; IV Intake: 1000ml aa1 Intake: 19:05 IV: 1000ml; Total: 1000ml. aa1 Outcome: 19:59 Discharge ordered by MD. pm1 20:07 Discharged to home with family. aa1 20:07 Condition: good 20:07 Discharge instructions given to patient, family, Instructed on discharge instructions, follow up and referral plans. medication usage, Demonstrated understanding of instructions, follow-up care, medications, Prescriptions given X 3. 20:08 Patient left the ED. aa1 Signatures: Dispatcher [employer] EDNC Samantha Barahona RN RN aa1 Tana Dennis Shelby, RN RN ss Hall, Patricia, RN RN ph Kashif Stanford, PRESSFITTER PRESSFITTER pm1 Zeferino Schmitz ag5
--- NOTE | 2019-12-22 20:00 | EDPHYS ---
Physician Documentation [facility] Name: Manuela Garzon Age: 24 yrs Sex: Female : 1995 Arrival Date: 12/22/2019 Time: 18:06 Bed 7 Private MD: ED Physician Cas Abdul HPI: 12/22 18:10 This 24 yrs old Female presents to ER via EMS with complaints of Abdominal pm1 Pain. 18:10 The patient presents with abdominal pain in the epigastric area, in the left lower pm1 quadrant. Onset: The symptoms/episode began/occurred just prior to arrival. The symptoms do not radiate. Associated signs and symptoms: Pertinent positives: nausea and vomiting, Pertinent negatives: chest pain, constipation, diarrhea, dysuria, fever, shortness of breath. The symptoms are described as achy. Modifying factors: The symptoms are alleviated by Toradol and Phenergan in route. Severity of pain: in the emergency department the pain has improved. The patient has not experienced similar symptoms in the past. Patient woke up with pain to the epigastric area that moved down to her LLQ. Patient felt the sensation that is was gas and attempted to go to the restroom. She did not have a bowel movement at the restroom but had an episode of vomiting. 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 - Coronavirus screen:: The patient has NOT traveled to [place], [place], or [place] in the past 14 days. Proceed with normal triage process as indicated. - Social history:: Smoking status: Patient denies any tobacco usage or history of. - Ebola Screening: : Patient denies exposure to infectious person Patient denies travel to an Ebola-affected area in the 21 days before illness onset. ROS: 18:10 Constitutional: Negative for fever, chills, and weight loss, Cardiovascular: Negative pm1 for chest pain, palpitations, and edema, Respiratory: Negative for shortness of breath, cough, wheezing, and pleuritic chest pain. 18:10 Back: Negative for injury and pain, : Negative for injury, bleeding, discharge, and swelling, MS/Extremity: Negative for injury and deformity, Skin: Negative for injury, rash, and discoloration, Neuro: Negative for headache, weakness, numbness, tingling, and seizure. 18:10 Abdomen/GI: Positive for abdominal pain, nausea and vomiting, Negative for diarrhea, constipation. 18:10 All other systems are negative. Exam: 18:10 Constitutional: This is a well developed, well nourished patient who is awake, alert, pm1 and in no acute distress. Head/Face: Normocephalic, atraumatic. Neck: Trachea midline, no thyromegaly or masses palpated, and no cervical lymphadenopathy. Supple, full range of motion without nuchal rigidity, or vertebral point tenderness. No Meningismus. Chest/axilla: Normal chest wall appearance and motion. Nontender with no deformity. No lesions are appreciated. Cardiovascular: Regular rate and rhythm with a normal S1 and S2. No gallops, murmurs, or rubs. Normal PMI, no JVD. No pulse deficits. Respiratory: Lungs have equal breath sounds bilaterally, clear to auscultation and percussion. No rales, rhonchi or wheezes noted. No increased work of breathing, no retractions or nasal flaring. 18:10 Skin: Warm, dry with normal turgor. Normal color with no rashes, no lesions, and no evidence of cellulitis. MS/ Extremity: Pulses equal, no cyanosis. Neurovascular intact. Full, normal range of motion. 18:10 Abdomen/GI: Inspection: abdomen appears normal, Bowel sounds: normal, Palpation: soft, in all quadrants, mild abdominal tenderness, in the epigastric area and right lower quadrant, mass, is not appreciated, rebound tenderness, is not appreciated. 18:10 Back: pain, that is mild, of the left low back and right low back, normal spinal alignment noted. 18:10 Neuro: Orientation: is normal, Motor: is normal, moves all fours. Vital Signs: 18:10 BP 129 / 80; Pulse 85; Resp 15; Temp 98.3; Pulse Ox 100% on R/A; Weight 99.79 kg; ss Height 6 ft. 0 in. (182.88 cm); 18:10 Body Mass Index 29.84 (99.79 kg, 182.88 cm) ss MDM: 18:09 Patient medically screened. pm1 19:52 Data reviewed: vital signs. Data interpreted: Pulse oximetry: on room air is 100 %. pm1 Interpretation: normal. Counseling: I had a detailed discussion with the patient and/or guardian regarding: the historical points, exam findings, and any diagnostic results supporting the discharge/admit diagnosis, lab results, radiology results, the need for outpatient follow up, to return to the emergency department if symptoms worsen or persist or if there are any questions or concerns that arise at home. 12/22 18:10 Order name: Basic Metabolic Panel; Complete Time: 18:47 pm1 12/22 18:10 Order name: CBC with Diff; Complete Time: 18:38 pm1 12/22 18:10 Order name: Creatinine for Radiology; Complete Time: 18:41 pm1 12/22 18:10 Order name: Hepatic Function; Complete Time: 18:47 pm1 12/22 18:10 Order name: Lipase; Complete Time: 18:47 pm1 12/22 18:39 Order name: Urine Microscopic Only; Complete Time: 19:14 pm1 12/22 18:10 Order name: Urine Dipstick-Ancillary (obtain specimen); Complete Time: 18:45 pm1 12/22 18:10 Order name: Urine Test (obtain specimen); Complete Time: 18:44 pm1 12/22 18:10 Order name: IV Saline Lock; Complete Time: 18:18 pm1 12/22 18:10 Order name: CT Abd/Pelvis - IV Contrast Only; Complete Time: 19:34 pm1 12/22 18:45 Order name: US Pelvis Complete; Complete Time: 20:00 rn 12/22 18:46 Order name: Urine Dipstick--Ancillary (enter results); Complete Time: 19:14 ms 12/22 18:46 Order name: Urine --Ancillary (enter results); Complete Time: 19:14 ms 12/22 18:10 Order name: Labs collected and sent; Complete Time: 18:18 pm1 Administered Medications: 18:18 Drug: NS 0.9% 1000 ml Route: IV; Rate: 1000 ml; Site: right antecubital; ph 19:05 Follow up: IV Status: Completed infusion; IV Intake: 1000ml aa1 Disposition: 12/22/19 19:59 Discharged to Home. Impression: Unspecified abdominal pain, Nausea and vomiting. - Condition is Stable. - Discharge Instructions: Abdominal Pain, Adult, Nausea and Vomiting, Adult. - Prescriptions for Bentyl 20 mg Oral Tablet - take 1 tablet by ORAL route every 6 hours As needed; 20 tablet. Phenergan 25 mg Rectal Suppository - insert 1 suppository by RECTAL route every 6 hours As needed; 12 suppository. promethazine 25 mg Oral Tablet - take 1 tablet by ORAL route every 6 hours As needed; 20 tablet. - Medication Reconciliation Form, Thank You Letter, Antibiotic Education, Prescription Opioid Use form. - Follow up: Emergency Department; When: As needed; Reason: Worsening of condition. Follow up: Private Physician; When: 2 - 3 days; Reason: Recheck today's complaints, Continuance of care, Re-evaluation by your physician. - Problem is new. - Symptoms have improved. Addendum: 12/25/2019 22:09 Co-signature as Attending Physician, Cas Abdul MD. r n Signatures: Dispatcher [employer] EDSamantha Cline RN RN aa1 Cas Abdul MD MD rn Smirch, Shelby, RN RN ss Hall, Patricia, RN RN ph Marinas, Patrick, NIESHA BOTANY TECHNICIAN pm1 Corrections: (The following items were deleted from the chart) 12/22 20:02 19:59 12/22/2019 19:59 Discharged to Home. Impression: Other ovarian cysts - right; pm1 Unspecified abdominal pain; Nausea and vomiting. Condition is Stable. Forms are Medication Reconciliation Form, Thank You Letter, Antibiotic Education, Prescription Opioid Use. Follow up: Emergency Department; When: As needed; Reason: Worsening of condition. Follow up: Private Physician; When: 2 - 3 days; Reason: Recheck today's complaints, Continuance of care, Re-evaluation by your physician. Problem is new. Symptoms have improved. pm1 20:08 20:02 12/22/2019 19:59 Discharged to Home. Impression: Unspecified abdominal pain; aa1 Nausea and vomiting. Condition is Stable. Discharge Instructions: Abdominal Pain, Adult, Nausea and Vomiting, Adult, Ovarian Cyst. Prescriptions for Bentyl 20 mg Oral Tablet - take 1 tablet by ORAL route every 6 hours As needed; 20 tablet, Phenergan 25 mg Rectal Suppository - insert 1 suppository by RECTAL route every 6 hours As needed; 12 suppository, promethazine 25 mg Oral Tablet - take 1 tablet by ORAL route every 6 hours As needed; 20 tablet. and Forms are Medication Reconciliation Form, Thank You Letter, Antibiotic Education, Prescription Opioid Use. Follow up: Emergency Department; When: As needed; Reason: Worsening of condition. Follow up: Private Physician; When: 2 - 3 days; Reason: Recheck today's complaints, Continuance of care, Re-evaluation by your physician. Problem is new. Symptoms have improved. pm1
[2019-12-22 20:24] VITALS: BP 129/80; TEMP 98.3; O2SAT 100
== END 2019-12-22 20:08 | disposition home or self-care (01) ==
LOC: ER 18:01
DX: R11.2 Nausea with vomiting, unspecified (principal); F90.9 Attention-deficit hyperactivity disorder, unspecified type; J30.2 Other seasonal allergic rhinitis
CPT/HCPCS: 85025; 80048; 36415; 81025; 80076; 83690; 74177; 76856; 96360; 99284; Q9967; 81003; 81015

== ENCOUNTER 2020-09-21 13:13 | Emergency (ER) | payer BC ==
--- OUTSIDE RECORDS SUMMARY | 2020-09-21 13:14 | XMS REPORT | Continuity of Care Document ---
:1995 Author Organization [facility] t Address [address] [place] [address] Care Team Providers Name Role Phone Unavailable Unavailable Unavailable Payers Payer Name Policy Type Policy Number Effective Date Expiration Date S ource Problems This patient has no known problems. Allergies, Adverse Reactions, Alerts Allergy Allergy Status Severity Reaction(s) Onset Inactive Treating Comm ents Source Name Type Date Date Clinician iodine DA Active [place] 2019-11 [facility] 0-27 Clear 00:00: Russell 00 [facility] gluten FA Active SV 2019-11 [facility] 0-27 Clear 00:00: Russell 00 [facility] shellfis FA Active SV 2019-11 [facility] h 0-27 Clear derived 00:00: Russell 00 [facility] shellfis Adverse Active Info Not [facility] Reaction Available [facility] Medications Ordered Filled Start Stop Current Ordering Indication Dosage Frequency Signature Comments Components Source Medication Medication Date Date Medication? Clinician (SIG) Name Name Amoxicillin Amoxicillin 2019-0 2020- Yes Robert [address] [facility] 9- 09-14 Gutierrez [facility] Clavulanate Cl[facility]anate 00:00: 00:00 [facility] Albuterol Albuterol Yes Robert [address] [facility] Sulfate HFA Sulfate HFA 8-22 Gutierrez needed [facility] Imitrex Imitrex Yes Robert [address] [facility] Gutierrez as needed [facility] at onset [facility] migraine, Outpati may repeat ent after 2 Clinics hours. max 2 doses/24 hours Fioricet/Co Fioricet/Co Yes Robert [address] [facility] deine deine Gutierrez as needed [facility] Singulair Singulair Yes Robert [address] [facility] Gutierrez [facility] Procedures This patient has no known procedures. Encounters Start End Encounter Admission Attending Care Care Encounter Source Date/Time Date/Time Type Type Clinicians Facility Department ID 2020-09-18 2020-09-18 Outpatient [facility] [id number] 2020-09-18 2020-09-18 Outpatient [facility] [id number] [facility] 2020-08-08 2020-08-08 [facility] [id number] 2020-08-07 2020-08-07 Outpatient [facility] [id number] [facility] 2020-07-17 2020-07-17 [facility] [id number] [facility] 11:15:00 11:15:00 [facility] [employer] [facility] l Medicine Outpati ent Clinics 2020-07-17 2020-07-17 [facility] [id number] [facility] 11:10:00 11:10:00 t [employer] [facility] Family Medicine l Medicine Outpati ent Clinics 2020-06-24 2020-06-24 [facility] [id number] [facility] 16:00:00 16:00:00 t [employer] [facility] l Medicine Outpati ent Clinics 2020-03-24 2020-03-24 [facility] [id number] 13:00:00 13:00:00 t [employer] [facility] Medicine Medicine Outpati ent Clinics 2020-01-21 2020-01-21 [facility] [id number] 13:26:00 13:26:00 [place] [employer] s - Drive [facility] l Medicine Outpati ent Clinics 2019-12-24 2019-12-24 [facility] [id number] [address] 16:00:00 16:00:00 [place] [employer] [employer] - Drive [facility] Medicine Outpati ent Clinics 2019-11-26 2019-11-26 [facility] [id number] 10:30:00 10:30:00 [place] [employer] - Drive [facility] Medicine Outpati ent Clinics 2019-10-16 2019-10-16 [facility] [id number] 08:00:00 08:00:00 [place] [employer] [facility] Medicine Outpati ent Clinics 2019-09-16 2019-09-16 [facility] [id number] 15:15:00 15:15:00 [place] [employer] [facility] - Drive [facility] Medicine l Medicine Outpati ent Clinics 2019-09-11 2019-09-11 [facility] [id number] 17:08:00 17:08:00 [place] [employer] - Drive [facility] Medicine Outpati ent Clinics 2019-08-06 2019-08-06 [facility] [id number] [address] 08:00:00 08:00:00 [place] [employer] - Drive [facility] Medicine Medicine Outpati ent Clinics 2019-07-04 2019-07-04 [facility] [id number] 09:30:00 09:30:00 [place] [employer] - Drive [facility] Medicine Outpati ent Clinics 2019-06-25 2019-06-25 [facility] [id number] 14:45:00 14:45:00 [place] [employer] - Drive [facility] Medicine Outpati ent Clinics 2019-06-05 2019-06-05 [facility] [id number] 13:00:00 13:00:[address] Luke [address] - [address] [facility] Medicine l Medicine Outpati ent Clinics 2019-04-24 2019-04-24 [facility] [id number] 10:15:00 10:15:[address] Luke [address] - Drive [facility] Medicine l Medicine Outpati ent Clinics 2019-03-21 2019-03-21 [facility] [id number] 09:15:00 09:15:[address] Luke s - Drive [facility] Medicine l Medicine Outpati ent Clinics 2019-02-27 2019-02-27 [facility] [id number] 09:00:00 09:00:[address] Luke s - Drive [facility] Medicine l Medicine Outpati ent Clinics 2019-02-22 2019-02-22 [facility] [id number] 15:16:00 15:16:[address] Luke [address] - Drive [facility] Medicine l Medicine Outpati ent Clinics 2019-01-10 2019-01-10 [facility] [id number] 08:45:00 08:45:[address] Luke [address] - Drive [facility] Medicine l Medicine Outpati ent Clinics 2018-12-13 2018-12-13 [facility] [id number] 10:00:00 10:00:[address] Luke [address] - Drive [facility] Medicine l Medicine Outpati ent Clinics 2018-11-19 2018-11-19 [facility] [id number] 14:51:00 14:51:[address] Luke s - Drive [facility] Medicine l Medicine Outpati ent Clinics 2018-11-15 2018-11-15 [facility] [id number] 10:45:00 10:45:[address] Luke s - Drive [facility] Medicine l Medicine Outpati ent Clinics 2018-10-26 2018-10-26 [facility] [id number] 10:29:00 10:29:[address] Luke s - Drive [facility] Medicine l Medicine Outpati ent Clinics 2018-07-02 2018-07-02 [facility] [id number] [facility] 14:45:00 14:45:00 [facility] ent [facility] 2018-05-15 2018-05-15 Outpatient Timothy Aguirret [id number] [facility] [address] 14:15:00 14:15:00 [facility] Results Test Description Test Time Test Comments Results Result Comments Source Novel Coronavirus 2018 Inhouse 2020-09-09 09:59:00 Test Item Value Reference Range Interpretation Comme nts Novel Coronavirus 2018 Negative Negative Posit juan results are indicative of the Inhouse (test code = presenc e [id number] RNA, clinical COVNONPUI) correlation wit h patient historyand other diagnosti c information is necessary to de terminepatient infection status. Positiv e results do not rule outbacterial in fection or co-infection with other viru ses. Negative results do not preclude SA RS-CoV-2 infection andshould not b e used as the sole basis for patient man agementdecisions. Negative result s must be combined with otherclinical o bservations, patient history, and ep idemiologicalinformation. Detection of SA RS-CoV-2 RNA may be affected bysamp le collection methods, storage conditi ons, and/or stageof infection. Amber l RNA mutations, vaccinations, a ntiviraltherapeutics, antibiotics, ch emotherapeutic orimmunosuppres travis drugs have not been evaluated for e ffectson detection. Results are for the identification of SARS-CoV-2 RNA usingthe Electronifie M2000 System under th e FDA Emergency UseAuthorizatio n. The testing is performed by jamin eagleonnarielrained in the procedures for the Jorge M2000 moleculardiagno stic SARS-CoV-2 assay in vitro. Novel Coronavirus 2018 [id number] 09:58:00 Test Item Value Reference Range Interpretation Comments Novel Coronavirus Negative Negative Positive r esults are 2019 Inhouse (test indicativ e of the presence code = COVNONPUI) ofSARS-CoV -2 RNA, clinical correlation wit h patient historyand othe r diagnostic info rmation is necessary to determinepatien t infection status. Positiv e results do not rule out bacterial infection or co -infection with other viru ses. Negative result s do not preclude SARS-C oV-2 infection andsh ould not be used as the iliana e basis for patient managementdecis ions. Negative result s must be combined with otherclinical observations, p atient history, and epidemiological information . Detection of SARS-CoV-2 RNA may be affe cted bysample collec tion methods, storag e conditions, and /or stageof infection. Amber l RNA mutations, vacc inations, antiviraltherap eutics, antibiotics, chemotherapeuti c orimmunosuppres travis drugs have not been e valuated for effectson d etection. Results are for the identification of SARS-CoV-2 RNA usingthe FrameBuzz000 Sy stem under the FDA Emergen cy UseAuthorizatio n. The testing is perf ormed by personneltraine d in the procedures for the FrameBuzz000 molecular diagnostic SARS-CoV-2 assa y in vitro.
--- OUTSIDE RECORDS SUMMARY | 2020-09-21 13:14 | XMS REPORT ---
:1995 Author Organization [employer] Care Team Providers Name Role Phone Lola Gutierrezh Provider Role Unavailable Allergies, Adverse Reactions, Alerts Substance Reaction Event Type shellfish Info Not Available Drug Allergy Problems Problem Type Condition Code Onset Dates Condition Statu s Problem Migraine, unspecified, not G43.901 A ctive intractable, with status migrainosus Problem Low back pain, unspecified back M54.5 Active pain laterality, unspecified chronicity, with sciatica presence unspecified Problem Allergic rhinitis, unspecified J30.9 Active seasonality, unspecified trigger Problem 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 Problem Mild intermittent asthma without J45.20 Active [...] unspecified trigger Assessment Migraine, unspecified, not G43.901 A ctive intractable, with status migrainosus Assessment Generalized anxiety disorder F41.1 Active Assessment 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 Assessment 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 episode Assessment Mild intermittent asthma without J45.20 Active complication Assessment Attention deficit hyperactivity F90.2 Active disorder (ADHD), combined type Medications Medication Code Code Instructions Start End Status Dosage System Date Date Singulair [facility] 02274484336 10 MG Orally Active 1 tab let Once a day Amphetamine-De [facility] 62127791088 10 MG Orally Inactive 1 tablet xtroamphetamin Twice a day e Imitrex [facility] 24169818496 50 MG Orally Active 1 table t Once a day as needed at onset of migraine, may repeat after 2 hours. max 2 doses/24 hours Fioricet/Codei [facility] 38702468377 11-163-06-30 MG Activ e 1 capsule ne Orally every 4 as needed hrs PRN SEVERE PAIN Amphetamine-De [facility] 50345823031 10 MG Orally Inactive 1 tablet xtroamphetamin Twice a day e Albuterol [facility] 49497070670 108 (90 Base) Active 2 pu ffs as Sulfate HFA MCG/ACT needed Inhalation every 6 hrs Results No Known Results Summary Purpose [employer]ClinicalWorks Submission
--- OUTSIDE RECORDS SUMMARY | 2020-09-21 13:15 | XMS REPORT ---
:1995 Author Organization [facility] Address [address] [place] [place] [address] Care Team Providers Name Role Phone Gutierrez Unavailable [phone] PROBLEMS Type Condition ICD9-CM [id number] Onset Condition SNOMED Code Notes Code Code Dates Status Problem Low back pain, M54.5 Active 304832148 unspecified back pain laterality, unspecified chronicity, with sciatica presence unspecified Problem Migraine, G43.901 Active 245607730 unspecified, not intractable, with status migrainosus Problem Lumbar M54.16 Active 732647346 Involving radiculopathy RLE. Problem Allergic J30.9 Active 70194807 rhinitis, unspecified seasonality, unspecified trigger Problem Mild J45.20 Active 505184367 intermittent asthma without complication Problem Generalized F41.1 Active 86339127 anxiety disorder Problem Current moderate F32.1 Active 91375928 episode of major depressive disorder without prior episode Problem Attention F90.2 Active 09997480 deficit hyperactivity disorder (ADHD), combined type Problem Food sensitivity G44.89 Active 02046700 headache ALLERGIES Allergen (clinical drug Drug/Non Drug Allergy Reaction Allergy Type Onset Date Status ingredient) documented on EMR shellfish Unknown Drug Allergy Active ENCOUNTERS from 1996 to 2020-09-18 Encounter [facility] Date [facility] [address], [place] [address] IMMUNIZATIONS Vaccine Route Administration Date Status Kenalog (Triamcinolone) IM Intramuscular Oct 15, 2018 Adminis tered SOCIAL HISTORY Tobacco Use: Social History Observation Description Date Details (start date - stop date) Former Smoker Sex Assigned At : Social History Observation Description Sex Assigned At Unknown PHQ9 Question Answer Notes Little interest or pleasure in doing things Several days Feeling down, depressed, or hopeless Several days Trouble falling or staying asleep or sleeping too much Sever al days Feeling tired or having little energy Several days Poor appetite or overeating Several days Feeling bad about yourself, or that you are a failure, or barbosa ve Several days let yourself or your family down Trouble concentrating on things, such as reading the newspap er Several days or watching television Moving or speaking so slowly that other people could have Se veral days noticed; or the opposite, being so fidgety or restless that you have been moving around a lot more than usual Total Score 8 Interpretation Mild Depression Thoughts that you would be better off or of hurting Not at all yourself in some way Alcohol Screen Question Answer Notes Did you have a drink containing alcohol in the past year? No Points 0 Interpretation Negative Tobacco Use/Smoking Question Answer Notes Are you a former smoker REASON FOR REFERRAL No Information VITAL SIGNS No information MEDICATIONS Medication SIG (Take, Route, Start Date End Date Status Frequency, Duration) Albuterol Sulfate HFA 108 2 puffs as needed Active (90 Base) MCG/ACT Inhalation every 6 hrs for 30 days Imitrex 50 MG 1 tablet as needed at Activ e onset of migraine, may repeat after 2 hours. max 2 doses/24 hours Orally Once a day Singulair 10 MG 1 tablet Orally Once a Ac tive day for 90 days NEUROTIN Active Azithromycin 500 MG 1 tablet Orally Once a Sep, Sep, 0 Active day for 5 day(s) Symbicort 80-4.5 MCG/ACT 2 puffs Inhalation Once a Active day for 30 days Fioricet/Codeine 1 capsule as needed Acti ve 87-546-75-30 MG Orally every 4 hrs PRN SEVERE PAIN PROCEDURES No Information RESULTS No Results REASON FOR VISIT Headache MEDICAL (GENERAL) HISTORY Type Description Date Medical History Migraine, unspecified, not intractable, with status migrainosus Medical History Current moderate episode of major depres sive disorder without prior episode Medical History Generalized anxiety disorder Medical History Attention deficit hyperactivity disorder (ADHD), combined type Surgical History No Surgical history information Goals Section No Information Health Concerns No Information MEDICAL EQUIPMENT No Information MENTAL STATUS No Information FUNCTIONAL STATUS No Information ASSESSMENTS No Information PLAN OF TREATMENT Medication Medication Name Sig Start Date Stop Date Azithromycin 500 MG 1 tablet Orally Once a day for 5 day(s) 06 N 2019Sep, Next Appt Details Provider Name:Robert Gutierrez, 2020-12-04 0 8:30:00 AM, [address], [place], [address], Insurance Providers Payer Name Payer Payer Insured Name Patient Coverage Covera End Address Phone Relationship to Start Date Salvador e Insured [employer] [phone] Claudia Garzon [id number] [facility] [id number]
--- OUTSIDE RECORDS SUMMARY | 2020-09-21 13:15 | XMS REPORT ---
:1995 Author Organization [employer] Care Team Providers Name Role Phone Lola Gutierrezh Provider Role Unavailable Allergies No Known Allergies [...] Active depressive disorder without prior episode Medications No Known Medications Results No Known Results Summary Purpose eClinicalWorks Submission
--- OUTSIDE RECORDS SUMMARY | 2020-09-21 13:15 | XMS REPORT ---
:1995 Author Organization [facility] Address [address] [place], [address] [place] [address] Care Team Providers Name Role Phone Gutierrez Unavailable [phone] PROBLEMS Type Condition ICD9-CM RBQ30-RN Onset Condition SNOMED Code Notes Code Code Dates Status Problem Low back pain, M54.5 Active 785330055 unspecified back pain laterality, unspecified chronicity, with sciatica presence unspecified Problem Migraine, G43.901 Active 423731476 unspecified, not intractable, with status migrainosus Problem Lumbar M54.16 Active 428541807 Involving radiculopathy RLE. Problem Allergic J30.9 Active 67476540 rhinitis, unspecified seasonality, unspecified trigger Problem Mild J45.20 Active 210825677 intermittent asthma without complication Problem Generalized F41.1 Active 21155215 anxiety disorder Problem Current moderate F32.1 Active 16178285 episode of major depressive disorder without prior episode Problem Attention F90.2 Active 61634371 deficit hyperactivity disorder (ADHD), combined type Problem Food sensitivity G44.89 Active 54082703 headache ALLERGIES Allergen (clinical drug Drug/Non Drug Allergy Reaction Allergy Type Onset Date Status ingredient) documented on EMR shellfish Unknown Drug Allergy Active ENCOUNTERS from 1996 to 2020-08-12 Encounter Location Date Provider Diagnosis [facility] [address] [place] Jul, Robert Gutierrez Wel l adult on routine Family Medicine [address], health check Z00.00 ; [place] [address] Attention defi cit hyperactivity d isorder (ADHD), combine d type F90.2 ; Current moderate episod e of major depressiv e disorder withou t prior episode F32.1 ; Generalized anx iety disorder F41.1 ; Migraine, unspe cified, not intractable , with status migraino ariel G43.901 ; Mild intermittent as thma without complic ation J45.20 ; Food sensitivity hea dache G44.89 ; Allerg ic rhinitis, unspe cified seasonality, unspecified tri gger J30.9 and Adult BMI 29.0-29.9 kg/sq m Z68.29 IMMUNIZATIONS Vaccine Route Administration Date Status Kenalog [...] REASON FOR REFERRAL No Information VITAL SIGNS Height 70.00 in Jul, Weight 229.7 lbs Jul, Temperature 98.4 degrees Fahrenheit Jul, BMI 32.95 kg/m2 Jul, Oximetry 97 % Jul, Respiratory Rate 19 /min Jul, Blood pressure systolic 132 mm Hg Jul, Blood pressure diastolic 65 mm Hg Jul, MEDICATIONS Medication SIG (Take, Route, Frequency, Start Date End Date Status Duration) Imitrex 50 MG 1 tablet as needed at onset Active of migraine, may repeat after 2 hours. max 2 doses/24 hours Orally Once a day Albuterol Sulfate HFA 108 (90 2 puffs as needed Inhalation Active Base) MCG/ACT every 6 hrs for 30 days Symbicort 80-4.5 MCG/ACT 2 puffs Inhalation Once a day Active for 30 days Fioricet/Codeine 20-860-73-30 1 capsule as needed Orally Active MG every 4 hrs PRN SEVERE PAIN NEUROTIN Active Singulair 10 MG 1 tablet Orally Once a day Active for 90 days PROCEDURES No Information RESULTS Component Value Reference Range Lipid Panel With LDL/HDL Ratio Reviewed date:08/08/2020 17:53:38 Interpretation: Performing Lab:, [facility] [place], [facility] [place], [place] [id number], Phone - [phone], Director - Huy Cholesterol, Total 197 100-199 Triglycerides 109 0-149 HDL Cholesterol 51 >39 VLDL Cholesterol Gagandeep 20 5-40 LDL Chol Calc ([facility]) 126 0-99 Comment: LDL/HDL Ratio 2.5 0.0-3.2 Hemoglobin A1c Reviewed date:08/08/2020 17:53:38 Interpretation: Performing Lab:, [facility] [place], [facility] [place] [address], Phone - [phone], Director - Huy Hemoglobin A1c 5.0 4.8-5.6 Comp. Metabolic Panel (14) ([facility]) Reviewed date:08/08/2020 17:53:38 Interpretation: Performing Lab:, [facility] [place], [facility] [place], [place] [address], Phone - [phone], Director - Huy Glucose 80 65-99 BUN 9 6-20 Creatinine 0.73 0.57-1.00 eGFR If NonAfricn Am 116 >59 eGFR If Africn Am 134 >59 BUN/Creatinine Ratio 12 9-23 Sodium 139 134-144 Potassium 4.5 3.5-5.2 Chloride 103 96-106 Carbon Dioxide, Total 22 20-29 Calcium 9.7 8.7-10.2 Protein, Total 7.3 6.0-8.5 Albumin 4.5 3.9-5.0 Globulin, Total 2.8 1.5-4.5 A/G Ratio 1.6 1.2-2.2 Bilirubin, Total 0.4 0.0-1.2 Alkaline Phosphatase 71 39-117 AST (SGOT) 24 0-40 ALT (SGPT) 28 0-32 Uric Acid, Serum Reviewed date:08/08/2020 17:53:38 Interpretation: Performing Lab:, [facility] [address] [place], [place] [id number], Phone - [phone], Director - Huy Uric Acid 3.7 2.5-7.1 CBC With Differential/Platelet Reviewed date:08/08/2020 17:53:38 Interpretation: Performing Lab:, [facility] [address] [place], [place] [address], Phone - [phone], Director - Huy WBC 7.4 3.4-10.8 RBC 4.68 3.77-5.28 Hemoglobin 13.7 11.1-15.9 Hematocrit 41.6 34.0-46.6 MCV 89 79-97 MCH 29.3 26.6-33.0 MCHC 32.9 31.5-35.7 RDW 13.0 11.7-15.4 Platelets 358 150-450 Neutrophils 59 Not Estab. Lymphs 28 Not Estab. Monocytes 6 Not Estab. Eos 6 Not Estab. Basos 1 Not Estab. Immature Cells Neutrophils (Absolute) 4.4 1.4-7.0 Lymphs (Absolute) 2.1 0.7-3.1 Monocytes(Absolute) 0.5 0.1-0.9 Eos (Absolute) 0.4 0.0-0.4 Baso (Absolute) 0.0 0.0-0.2 Immature Granulocytes 0 Not Estab. Immature Grans (Abs) 0.0 0.0-0.1 NRBC Hematology Comments: Unable to Void Reviewed date:08/08/2020 17:53:38 Interpretation: Performing Lab:, [facility] [address] [place], [place] [address], Phone - [phone], Director - Huy Unable to Void TSH reflex to T4F Reviewed date:08/08/2020 17:53:38 Interpretation:miteshpa Performing Lab:, [facility], [facility] [address] [place], [place] [address], Phone - [phone], Director - Huy TSH 2.250 0.450-4.500 REASON FOR VISIT wellness + labs [facility] MEDICAL (GENERAL) HISTORY Type Description Date Medical [...] No Information FUNCTIONAL STATUS No Information ASSESSMENTS Encounter Date Diagnosis Notes Jul, Migraine, unspecified, not intractable, with status migrainosus (ICD-10 - G43.901) Jul, Generalized anxiety disorder (ICD-10 - F 41.1) Jul, Food sensitivity headache (ICD-10 - G44. 89) Jul, Well adult on routine health check (ICD- 10 - Z00.00) Jul, Mild intermittent asthma without complic ation (ICD-10 - J45.20) Jul, Current moderate episode of major depres sive disorder without prior episode (ICD-10 - F32.1) Jul, Attention deficit hyperactivity disorder (ADHD), combined type (ICD-10 - F90.2) Jul, Adult BMI 29.0-29.9 kg/sq m (ICD-10 - Z6 8.29) Jul, Allergic rhinitis, unspecified seasonali ty, unspecified trigger (ICD-10 - J30.9) PLAN OF TREATMENT Medication Medication Name Sig Start Date Stop Date Fioricet/Codeine 08-525-63-30 MG 1 capsule as needed Orally ever y 4 hrs PRN SEVERE PAIN Imitrex 50 MG 1 tablet as needed at onset of migraine, may repeat after 2 hours. max 2 doses/24 hours Orally Once a day Symbicort 80-4.5 MCG/ACT 2 puffs Inhalation Once a day for 30 days Singulair 10 MG 1 tablet Orally Once a day for 90 days Albuterol Sulfate HFA 108 (90 2 puffs as needed Inhalation Base) MCG/ACT every 6 hrs for 30 days Treatment Notes Assessment Notes Clinical Notes Well adult on routine health check -- Well Woman exam done w ithout Pap.-- Discussed importance of adequate calcium (3793-6541 mg per day) and vitamin D (5365-[address]98 units per day), regular aerobic exercise of 30-45 minutes of something aerobic at least 3-4 days per week, following healthy diet which is high in fruits and vegetables and limits saturated fats/ fried foods and processed foods/ carbohydrates.-- Encouraged monthly breast self exams. Discussed mammograms and compliance to [employer] [place] [employer] guidelines.-- Take daily Aspirin 81 mg (N/A)-- Consider having a flu vaccine every August or September.-- Reminder to always wear seat belts.-- A complete exam is suggested annually.-- PAP smears should be done q1-3 years depending on history. May decrease to 2-3 years after three consecutive normal PAP''''s as long as HPV negative.-- For colorectal cancer screening, return 1 stool hemoccult card (test for hidden blood). The [employer] [place] [employer] also suggests colonoscopy at age 50 and then every 5-10 years.-- It is suggested that lipids (fat and cholesterol) be checked on a yearly basis. The goal here would be to keep the bad cholesterol level (LDL) below 100.-- It is a good idea to have a complete eye exam a minimum of every 3 years. Increased eye pressure is called glaucoma and it is a common cause of blindness.-- Every 10 years, it is lewis to have a Adacel.-- Avoid excessive sun exposure. Discussed sunscreen. Denies abnormal moles. Attention deficit hyperactivity STOPPED ADDERALL 10 mg BID. Temp disorder (ADHD), combined type stopped while out of school. Extensively discussed side effect panel. Patient acceptable of risks. Will monitor closely. Rx monitored. -- Taking the medication exactly as prescribed (both the dose and the frequency) -- Letting the clinician know if the medication does not seem to be working -- Avoiding alcohol, tobacco, marijuana, and other illicit substances (may interact with stimulants and exacerbate attentional problems) -- Keeping the medication in a safe location-and not being coerced/tempted into selling it or giving it Current moderate episode of major Will monitor. No medicatio ns. , -- depressive disorder without prior Depression Education: Depr ession is episode a brain disease that makes you sad, but it is different than normal sadness. Depressed people feel down most of the time for at least 2 weeks. They also have at least one of these 2 symptoms: 1. They no longer enjoy or care about doing the things they used to like to do. 2. They feel sad, down, hopeless, or cranky most of the day, almost every day. It can also make you: lose or gain weight; sleep too much or too little; fell tired or like you have no energy; feel guilty or like you are worth nothing; forget things or feel confused; and think about or suicide. Medication and/or seeing a counselor (such as a psychiatrist, psychologist, nurse or hospice social worker) may be necessary to treat depression. Both treatments take time to work. If you ever feel like you might hurt yourself or some else, then call your doctor or call 911 or go to the ER. Generalized anxiety disorder Stable. Education given. -- Anx iety Education: Anxiety is a feeling of anxiousness or nervousness. Being extremely anxious or worried on most days for 6 months or longer is not normal. This is a type of anxiety disorder. This disorder can make it hard to do everyday tasks. Other types of anxiety include: post traumatic stress disorder, panic disorder, and phobias. Symptoms of anxiety may include: feeling worried or on the edge, trouble sleeping, or forgetting things. Feelings of stomach aches or chest tightness is another common symptom. Medicine, exercise, and other treatments like counseling, talk therapy, yoga, and massages maybe necessary to treat this disorder. Migraine, unspecified, not On Fioricet/Codiene + Imitrax. intractable, with status Managed by . Doing well. migrainosus Making dietary changes. Mild intermittent asthma without Start Symbicort and titrate as complication tolerated. Sample given. Side effect discussed. Education given. Food sensitivity headache Positive for Shrimp and environmental triggers. Unable to afford immunotherapy injections. Will look into sublingual. ?Lactose vs. Gluten intolerant. Will make dietary changes Allergic rhinitis, unspecified Continue. Ok to add antihista mine. seasonality, unspecified trigger Education given. Unable to get allergy drops treatment Only can make 1/3 Adult BMI 29.0-29.9 kg/sq m Counseling given. Treatment Notes Test Name Order Date UA/M w/rflx Culture, Comp 2020-08-12 Next Appt Details 4 Months TV Reason: Provider Name:Robert Gutierrez, 2020-12-04 0 8:30:00 AM, [address], [address], [place], [address], Insurance Providers Payer Name Payer Payer Insured Name Patient Coverage Covera ge End Address Phone Relationship to Start Date Salvador e Insured [employer] [phone] Claudia Garzon [id number] [address] [facility] [address]
--- OUTSIDE RECORDS SUMMARY | 2020-09-21 13:15 | XMS REPORT ---
:1995 Author Organization [facility] Address [address] [place], [place] [place] [address] Care Team Providers Name Role Phone Gutierrez Unavailable [phone] PROBLEMS Type Condition ICD9-CM [id number] Onset Condition SNOMED Code Notes Code Code Dates Status Problem Low back pain, M54.5 Active 559812665 unspecified back pain laterality, unspecified chronicity, with sciatica presence unspecified Problem Migraine, G43.901 Active 223367840 unspecified, not intractable, with status migrainosus Problem Lumbar M54.16 Active 348174296 Involving radiculopathy RLE. Problem Allergic J30.9 Active 62770865 rhinitis, unspecified seasonality, unspecified trigger Problem Mild J45.20 Active 394164932 intermittent asthma without complication Problem Generalized F41.1 Active 24454998 anxiety disorder Problem Current moderate F32.1 Active 87074299 episode of major depressive disorder without prior episode Problem Attention F90.2 Active 01746685 deficit hyperactivity disorder (ADHD), combined type Problem Food sensitivity G44.89 Active 93730800 headache ALLERGIES Allergen (clinical drug Drug/Non Drug Allergy Reaction Allergy Type Onset Date Status ingredient) documented on EMR shellfish Unknown Drug Allergy Active ENCOUNTERS from 1996 to 2020-08-10 Encounter Location Date Provider [facility] [address] Jul, [place] [address] IMMUNIZATIONS Vaccine Route Administration Date Status Kenalog [...] No information MEDICATIONS Medication SIG (Take, Route, Frequency, Start [...] a day Active for 30 days Fioricet/Codeine 10-060-19-30 1 capsule as needed Orally Active MG every 4 hrs PRN SEVERE PAIN NEUROTIN Active Singulair 10 MG 1 tablet Orally Once a day Active for 90 days PROCEDURES No Information RESULTS No Results REASON FOR VISIT Labs LDL MEDICAL (GENERAL) HISTORY Type Description Date Medical [...] Name Sig Start Date Stop Date Fioricet/Codeine 59-450-53-30 MG 1 capsule as needed Orally ever [...] MCG/ACT every 6 hrs for 30 days Next Appt Details Provider Name:[facility] Matt, 2020-12-04 0 8:30:00 AM, [address], [address], [place], [address], Insurance Providers Payer Name Payer Payer Insured Name Patient Coverage Covera End Address Phone Relationship to Start Date Salvador e Insured [employer] [phone] Claudia Garzon [id number] [address] [facility] [phone]
--- OUTSIDE RECORDS SUMMARY | 2020-09-21 13:15 | XMS REPORT ---
[...] unspecified chronicity, with sciatica presence unspecified Assessment Upper respiratory tract infection, J06.9 Active unspecified type Assessment Acute non-recurrent maxillary J01.00 Active sinusitis Problem Allergic rhinitis, unspecified J30.9 Active seasonality, [...] Start End Status Dosage System Date Date Fioricet/Codein [facility] 84152535385 08-781-48-30 MG Acti ve 1 capsule e Orally every 4 as needed hrs PRN SEVERE PAIN Albuterol [facility] 89840301643 108 (90 Base) Active 2 pu ffs as Sulfate HFA MCG/ACT needed Inhalation every 6 hrs Singulair [facility] 56712192673 10 MG Orally Active 1 tab let Once a day Amoxicillin-Pot [facility] 67343730378 875-125 MG Jul 17, Jul Active 1 tablet Clavulanate Orally every 12 2019 14, hrs 2019 Imitrex [facility] 38717342825 50 MG Orally Active 1 table t Once a day as needed at onset of migraine, may repeat after 2 hours. max 2 doses/24 hours Results No Known Results Summary Purpose eClinicalWorks Submission
--- OUTSIDE RECORDS SUMMARY | 2020-09-21 13:15 | XMS REPORT ---
:1995 Author Organization [facility] Address [address] [place], [place] [place] [address] Care Team Providers Name Role Phone Gutierrez Unavailable [phone] PROBLEMS Type Condition ICD9-CM RBY76-CR Onset Condition SNOMED Code Notes Code Code Dates Status Problem Low back pain, M54.5 Active 695205923 unspecified back pain laterality, unspecified chronicity, with sciatica presence unspecified Problem Migraine, G43.901 Active 801283193 unspecified, not intractable, with status migrainosus Problem Lumbar M54.16 Active 226193247 Involving radiculopathy RLE. Problem Allergic J30.9 Active 93294737 rhinitis, unspecified seasonality, unspecified trigger Problem Mild J45.20 Active 732398511 intermittent asthma without complication Problem Generalized F41.1 Active 39444625 anxiety disorder Problem Current moderate F32.1 Active 58313410 episode of major depressive disorder without prior episode Problem Attention F90.2 Active 40223679 deficit hyperactivity disorder (ADHD), combined type Problem Food sensitivity G44.89 Active 03916848 headache ALLERGIES Allergen (clinical drug Drug/Non Drug Allergy Reaction Allergy Type Onset Date Status ingredient) documented on EMR shellfish Unknown Drug Allergy Active ENCOUNTERS from 1996 to 2020-09-18 Encounter [facility] Date [facility] [address] [place] Sep, Robert Gutierrez Acu te non-recurrent Family Medicine [address] [place], [place] [address] J01.[address] respiratory tra ct infection, unspecified typ e J06.9 IMMUNIZATIONS Vaccine Route Administration Date Status Kenalog [...] slowly that other people could have Se ver days noticed; or the opposite, being so [...] No Information VITAL SIGNS Height 70.00 in Sep, Weight 230 lbs Sep, BMI 33.00 kg/m2 Sep, MEDICATIONS Medication SIG (Take, Route, Start Date [...] 500 MG 1 tablet Orally Once a Sep,Sep, 0 Active day for 5 day(s) Symbicort 80-4.5 MCG/ACT 2 puffs Inhalation Once a Active day for 30 days Fioricet/Codeine 1 capsule as needed Acti ve 86-697-24-30 MG Orally every 4 hrs PRN SEVERE PAIN PROCEDURES No Information RESULTS No Results REASON FOR VISIT sinus headache/pressure MEDICAL (GENERAL) HISTORY Type Description Date Medical [...] No Information ASSESSMENTS Encounter Date Diagnosis Notes Sep, Acute non-recurrent maxillary sinusitis (ICD-10 - J01.00) Sep, Upper respiratory tract infection, unspe cified type (ICD-10 - J06.9) PLAN OF TREATMENT Medication Medication Name Sig Start Date Stop Date Azithromycin 500 MG 1 tablet Orally Once a day for 5 day(s) 06 2019Sep, Treatment Notes Assessment Notes Clinical Notes Acute non-recurrent maxillary With the duration and severity of sinusitis symptoms/PE, will treat with Zithromax 5 days. Side effect discussed with patient. In addition, discussed supportive measures and home remedies for symptomatic relief. Increase hydration. Advised on signs/symptoms to monitor. If able to take, OK to use OTC Tylenol and/or NSAIDs for pain and fever, temporarily. It is important to rest and take your medication as recommended by the doctor. You should clean your hands frequently. You should remain indoors and cover your mouth when coughing. If necessary you may have to wear a mask to keep from infecting others. You should also change your toothbrush within 24-48 hours of starting any antibiotics. Salt water gargles three times a day is recommended for pharyngeal irritation and congestion. Nasal saline sprays three times a day to the nostrils may help with the nasal congestion. You may also take Mucinex OTC for chest congestion. If the symptoms persists or worsen after 24-48 hours especially if taking medication, then you are to call back for reevaluation or go to the ER. Next Appt Details prn Reason: Provider Name:Robert Gutierrez, 2020-12-04 0 8:30:00 AM, [address], [place], [address], Insurance Providers Payer Name Payer Payer Insured Name Patient Coverage Covera ge End Address Phone Relationship to Start Date Salvador e Insured [employer] [phone] Claudia Garzon [id number] [address] [facility] [id number]
[2020-09-21 14:07] LABS: Absolute Lymphocytes (CBC) 2.1 K/uL (0.7-4.9); Basophils % 0.3 % (0-1.3); Hematocrit 36.3 % (36.0-45.0); Lymphocytes % 22.1 % (15.3-44.8); MPV 8.9 fL (7.6-11.3); RBC Red Blood Cell Count 4.18 M/uL (3.86-4.86)
[2020-09-21 14:23] LABS: Potassium 3.8 mmol/L (3.5-5.1)
--- NOTE | 2020-09-21 14:27 | RAD REPORT ---
EXAM DESCRIPTION: CT - Facial Bones W/ Mpr - 09/21/2020 2:00 pm CLINICAL HISTORY: Nontraumatic right-sided facial swelling COMPARISON: None. TECHNIQUE: Axial 2 millimeter thick images of the facial bones were obtained with sagittal and coron al reconstruction imaging. All CT scans are performed using dose optimization technique as appropriate and may include automated exposure control or mA/KV adjustment according to patient size. FINDINGS: No facial bone fracture is identified. No acute facial bone finding seen. Frontal, ethmoid and sphenoid sinuses are clear. Left maxillary sinus is clear. Right maxillary sinus shows mucosal t hickening with an air-fluid level. No expansile or sclerotic bone change to the sinus trujillo. No globe or orbital content abnormality seen. No air or foreign body in the soft tissues. Patient has a piercing through the left-side of the nose. Soft tissues are prominent at the right-side base the nose extending to the medial upper lip on the right. Baseline for the patient is unknown. There is no abscess or drainable fluid collection. No ariel picious periodontal finding identifiable. Into the upper neck there are no abnormal lymph nodes. Parotid and submandibular glands show no suspi cious findings. Visualized nasopharynx soft tissues are unremarkable. Right-sided inferior turbinate is enlarged relative to the left mostly obscuring or obstructing the r ight nasal passage. No suspicious mass or polyposis appearance. IMPRESSION: Right maxillary acute sinusitis findings with no acute or destructive sinus wall finding . Soft tissues are prominent at the right-side base of the nose without air or foreign body identified. Inferior right turbinate is enlarged relative to the left partially obscuring the right nasal passage .
[2020-09-21] MEDS ORDERED: METOCLOPRAMIDE 10 MG/2mL INJ ONE (14:36)
[2020-09-21] MEDS ORDERED: MORPHINE 4 MG/ML SYR ONE (14:36)
--- NOTE | 2020-09-21 15:05 | EDPHYS ---
Physician Documentation [facility] Name: Manuela Garzon Age: 24 yrs Sex: Female : 1995 Arrival Date: 09/21/2020 Time: 13:14 Bed 2 Private MD: Matt [facility] ED Physician Michael Irwin HPI: 09/21 13:39 This 24 yrs old Female presents to ER via Ambulatory with complaints of kdr Facial Swelling. 13:39 The patient or guardian reports swelling. The complaints affect the right cheek. kdr Context of injury: The problem was sustained at home, resulted from. Onset: The symptoms/episode began/occurred gradually, 3 day(s) ago. Associated signs and symptoms: Pertinent positives: nausea, generalized weakness. Severity of symptoms: At their worst the symptoms were mild, moderate, in the emergency department the symptoms. The patient has not experienced similar symptoms in the past. The patient has not recently seen a physician. Historical: - Allergies: 13:36 SHELLFISH; bp 13:36 Iodine; bp 13:36 Gluten Protein; bp - Home Meds: 13:36 Zofran (as hydrochloride) 4 mg Oral tab 2 tabs every 8 hours [Active]; Phenergan Oral bp 12.5 mg as needed [Active]; Tramadol Oral [Active]; Neurontin Oral [Active]; Symbicort 160-4.5 mcg/actuation inhalation HFAA 2 puffs 2 times per day [Active]; - PMHx: 13:36 ADD/ADHD; Asthma; Migraines; seasonal allergies; bp - Immunization history:: Adult Immunizations up to date. - Social history:: Smoking status: Patient denies any tobacco usage or history of. ROS: 13:39 Constitutional: Negative for fever, chills, and weight loss, Eyes: Negative for injury, kdr pain, redness, and discharge, Neck: Negative for injury, pain, and swelling, Cardiovascular: Negative for chest pain, palpitations, and edema, Respiratory: Negative for shortness of breath, cough, wheezing, and pleuritic chest pain, Abdomen/GI: Negative for abdominal pain, nausea, vomiting, diarrhea, and constipation, Back: Negative for injury and pain, : Negative for injury, bleeding, discharge, and swelling, MS/Extremity: Negative for injury and deformity, Skin: Negative for injury, rash, and discoloration, Neuro: Negative for headache, weakness, numbness, tingling, and seizure activity. Psych: Negative for depression, anxiety, suicide ideation, homicidal ideation, and hallucinations, Allergy/Immunology: Negative for hives, rash, and allergies, Endocrine: Negative for neck swelling, polydipsia, polyuria, polyphagia, and marked weight changes, Hematologic/Lymphatic: Negative for swollen nodes, abnormal bleeding, and unusual bruising. 13:39 ENT: Positive for dental pain, sinus pain, Teeth pain Exam: 13:39 Constitutional: This is a well developed, well nourished patient who is awake, alert, kdr and in no acute distress. Eyes: Pupils equal round and reactive to light, extra-ocular motions intact. Lids and lashes normal. Conjunctiva and sclera are non-icteric and not injected. Cornea within normal limits. Periorbital areas with no swelling, redness, or edema. ENT: Nares patent. No nasal discharge, no septal abnormalities noted. Tympanic membranes are normal and external auditory canals are clear. Oropharynx with no redness, swelling, or masses, exudates, or evidence of obstruction, uvula midline. Mucous membranes moist. Neck: Trachea midline, no thyromegaly or masses palpated, and no cervical lymphadenopathy. Supple, full range of motion without nuchal rigidity, or vertebral point tenderness. No Meningismus. Chest/axilla: Normal chest wall appearance and motion. Nontender with no deformity. No lesions are appreciated. Cardiovascular: Regular rate and rhythm with a normal S1 and S2. No gallops, murmurs, or rubs. Normal PMI, no JVD. No pulse deficits. 13:39 Head/face: Noted is swelling, of the right cheek, Sinus tenderness, that is mild, is located over the right maxillary sinus. Vital Signs: 13:27 BP 110 / 69; Pulse 109; Resp 17; Temp 98.8; Pulse Ox 99% ; Weight 99.79 kg; Height 5 bp ft. 11 in. (180.34 cm); 14:45 BP 104 / 56; Pulse 72; Resp 16; Pulse Ox 96% ; bp 15:15 BP 100 / 53; Pulse 77; Resp 18; Temp 98.3; Pulse Ox 98% ; bp 13:27 Body Mass Index 30.68 (99.79 kg, 180.34 cm) bp MDM: 15:05 Patient medically screened. kdr 17:16 Data reviewed: vital signs, nurses notes, lab test result(s), radiologic studies. kdr Counseling: I had a detailed discussion with the patient and/or guardian regarding: the historical points, exam findings, and any diagnostic results supporting the discharge/admit diagnosis, lab results, radiology results, the need for outpatient follow up. 09/21 13:37 Order name: CBC with Diff; Complete Time: 14:30 kdr 09/21 13:37 Order name: Chem 7; Complete Time: 14:30 kdr 09/21 13:37 Order name: CT Facial Bones W/O Con; Complete Time: 14:30 kdr Administered Medications: 14:22 Drug: Reglan 10 mg Route: IVP; Site: right antecubital; aa5 15:26 Follow up: Response: No adverse reaction bp 14:24 Drug: morphine 4 mg Route: IVP; Site: right antecubital; aa5 15:25 Follow up: Response: No adverse reaction; Medication administered at discharge. bp 15:26 Follow up: Response: Pain is decreased bp 15:10 Drug: Augmentin 875 mg Route: PO; bp 15:26 Follow up: Response: No adverse reaction; Medication administered at discharge. bp Disposition: 09/21/20 15:05 Discharged to Home. Impression: Acute frontal sinusitis, unspecified, Acute frontal sinusitis. - Condition is Stable. - Discharge Instructions: Sinusitis, Adult, [id number]. - Prescriptions for Augmentin XR 1,000- 62.5 mg Oral Tablet Sustained Release 12 hr - take 2 tablet by ORAL route every 12 hours for 10 days; 40 tablet. - Medication Reconciliation Form, Thank You Letter, Antibiotic Education form. - Follow up: Robert Gutierrez DO; When: 2 - 3 days; Reason: If symptoms return, Further diagnostic work-up, Recheck today's complaints, Continuance of care, Re-evaluation by your physician. Follow up: Lorri Gallagher MD; When: 2 - 3 days; Reason: If symptoms return, Further diagnostic work-up, Recheck today's complaints, Continuance of care, Re-evaluation by your physician. - Problem is new. - Symptoms have improved. Signatures: Dispatcher [employer] EDMichael Julian, MD MD kdr Rose Toro, RN RN aa5 Bhanu Alvarado, RN RN bp Corrections: (The following items were deleted from the chart) 15:27 15:05 09/21/2020 15:05 Discharged to Home. Impression: Acute frontal sinusitis, bp unspecified; Acute frontal sinusitis. Condition is Stable. Forms are Medication Reconciliation Form, Thank You Letter, Antibiotic Education, Prescription Opioid Use. Follow up: Robert Gutierrez; When: 2 - 3 days; Reason: If symptoms return, Further diagnostic work-up, Recheck today's complaints, Continuance of care, Re-evaluation by your physician. Follow up: Lorri Gallagher; When: 2 - 3 days; Reason: If symptoms return, Further diagnostic work-up, Recheck today's complaints, Continuance of care, Re-evaluation by your physician. Problem is new. Symptoms have improved. kdr
--- NOTE | 2020-09-21 15:05 | ER ---
Nurse's Notes [facility] Name: Manuela Garzon Age: 24 yrs Sex: Female : 1995 Arrival Date: 09/21/2020 Time: 13:14 Bed 2 Private MD: Robert Gutierrez Diagnosis: Acute frontal sinusitis, unspecified;Acute frontal sinusitis Presentation: 09/21 13:27 Chief complaint: Patient states: R FACIAL SWELLING. Coronavirus screen: At this time, bp the client does not indicate any symptoms associated with coronavirus-19. Ebola Screen: No symptoms or risks identified at this time. Initial Sepsis Screen: Does the patient meet any 2 criteria? HR > 90 bpm. No. Patient's initial sepsis screen is negative. Does the patient have a suspected source of infection? No. Patient's initial sepsis screen is negative. Risk Assessment: Do you want to hurt yourself or someone else? Patient reports no desire to harm self or others. Onset of symptoms is unknown. 13:27 Method Of Arrival: Ambulatory bp 13:27 Acuity: FRANCHESCA 3 bp Triage Assessment: 13:36 General: Appears distressed, uncomfortable, ill, Behavior is cooperative, appropriate bp for age, anxious. Pain: Denies pain. EENT: SWELLING TO R FACE. Neuro: No deficits noted. Cardiovascular: Rhythm is sinus tachycardia. Respiratory: No deficits noted. GI: No signs and/or symptoms were reported involving the gastrointestinal system. : No signs and/or symptoms were reported regarding the genitourinary system. Derm: No deficits noted. Musculoskeletal: No deficits noted. Historical: - Allergies: 13:36 SHELLFISH; bp 13:36 Iodine; bp 13:36 Gluten Protein; bp - Home Meds: 13:36 Zofran (as hydrochloride) 4 mg Oral tab 2 tabs every 8 hours [Active]; Phenergan Oral bp 12.5 mg as needed [Active]; Tramadol Oral [Active]; Neurontin Oral [Active]; Symbicort 160-4.5 mcg/actuation inhalation HFAA 2 puffs 2 times per day [Active]; - PMHx: 13:36 ADD/ADHD; Asthma; Migraines; seasonal allergies; bp - Immunization history:: Adult Immunizations up to date. - Social history:: Smoking status: Patient denies any tobacco usage or history of. Screenin:30 Abuse screen: Denies threats or abuse. Denies injuries from another. Nutritional bp screening: No deficits noted. Tuberculosis screening: No symptoms or risk factors identified. Fall Risk None identified. Assessment: 13:30 General: SEE TRIAGE NOTE. bp 13:53 Reassessment: Patient is alert, oriented x 3, equal unlabored respirations, skin aa5 warm/dry/pink. Pt transported to CT via wheelchair. . 14:49 Reassessment: Patient appears in no apparent distress at this time. Patient and/or bp family updated on plan of care and expected duration. Pain level reassessed. Patient is alert, oriented x 3, equal unlabored respirations, skin warm/dry/pink. ALL CURRENT ORDERS COMPLETE. 15:22 Reassessment: PT D/C HOME AMBULATORY WITH FAMILY, DX WITH ACUTE FRONTAL SINUSITIS. bp Vital Signs: 13:27 BP 110 / 69; Pulse 109; Resp 17; Temp 98.8; Pulse Ox 99% ; Weight 99.79 kg; Height 5 bp ft. 11 in. (180.34 cm); 14:45 BP 104 / 56; Pulse 72; Resp 16; Pulse Ox 96% ; bp 15:15 BP 100 / 53; Pulse 77; Resp 18; Temp 98.3; Pulse Ox 98% ; bp 13:27 Body Mass Index 30.68 (99.79 kg, 180.34 cm) bp ED Course: 13:14 Patient arrived in ED. ag5 13:14 Robert Gutierrez DO is Private Physician. ag5 13:20 Bhanu Alvarado, [place] is Primary Nurse. bp 13:21 Michael Irwin MD is Attending Physician. kdr 13:28 Triage completed. bp 13:30 Patient has correct armband on for positive identification. Bed in low position. Call bp light in reach. Side rails up X2. 13:38 Arm band placed on. bp 13:50 Initial lab(s) drawn, by me, sent to lab. Inserted saline lock: 20 gauge in right aa5 antecubital area, using aseptic technique. Blood collected. 14:01 CT Facial Bones W/O Con In Process Unspecified. EDMS 14:[address] jg6 15:01 Robert Gutierrez DO is Referral Physician. kdr 15:05 Lorri Gallagher MD is Referral Physician. kdr 15:15 No provider procedures requiring assistance completed. IV discontinued, intact, bp bleeding controlled, No redness/swelling at site. Pressure dressing applied. Administered Medications: 14:22 Drug: Reglan 10 mg Route: IVP; Site: right antecubital; aa5 15:26 Follow up: Response: No adverse reaction bp 14:24 Drug: morphine 4 mg Route: IVP; Site: right antecubital; aa5 15:25 Follow up: Response: No adverse reaction; Medication administered at discharge. bp 15:26 Follow up: Response: Pain is decreased bp 15:10 Drug: Augmentin 875 mg Route: PO; bp 15:26 Follow up: Response: No adverse reaction; Medication administered at discharge. bp Outcome: 15:05 Discharge ordered by . kdr 15:15 Discharged to home ambulatory, with family. bp 15:15 Condition: stable 15:15 Discharge instructions given to patient, Instructed on discharge instructions, follow up and referral plans. medication usage, Demonstrated understanding of instructions, follow-up care, medications, Prescriptions given X 1. 15:27 Patient left the ED. bp Signatures: Dispatcher [employer] EDMS Michael Irwin MD MD kdr Rose Toro, RN RN aa5 Bhanu Alvarado, [place] RN Gissel Pompa [facility] [place]
[2020-09-21] MEDS ORDERED: AMOX/K CLAV 875 MG TAB ONE (15:29)
[2020-09-21 16:43] VITALS: BP 100/53; TEMP 98.3; O2SAT 98
== END 2020-09-21 15:27 | disposition home or self-care (01) ==
LOC: ER 13:13
DX: J01.10 Acute frontal sinusitis, unspecified (principal); J30.2 Other seasonal allergic rhinitis; F90.9 Attention-deficit hyperactivity disorder, unspecified type; Z91.013 Allergy to seafood; Z91.018 Allergy to other foods; Z91.048 Other nonmedicinal substance allergy status
CPT/HCPCS: 85025; 80048; 36415; 70486; 76377; 96375; 96374; 99285; J2765

== ENCOUNTER 2022-05-17 13:31 | Emergency (ER) | payer BC, OTHER ==
[2022-05-17 14:03] LABS: Urine Blood 1+ (Negative); Urine Glucose Negative (Negative); Urine Protein Negative (Negative); Urine Specific Gravity <=1.005 (1.005-1.030)
[2022-05-17] MEDS ORDERED: MORPHINE 4 MG/ML SYR ONE (14:09)
[2022-05-17] MEDS ORDERED: DIAZEPAM 5 MG TABLET ONE (14:09)
[2022-05-17] MEDS ORDERED: ONDANSETRON 4 MG/2 ML VIAL ONE (14:10)
[2022-05-17 14:14] LABS: Absolute Lymphocytes (CBC) 3.1 K/uL (0.7-4.9); Hematocrit 36.8 % (36.0-45.0); Lymphocytes % 38.6 % (15.3-44.8); MCV 85.9 fL (80-100); MPV 8.1 fL (7.6-11.3); RBC Red Blood Cell Count 4.28 M/uL (3.86-4.86)
--- NOTE | 2022-05-17 14:22 | RAD REPORT ---
EXAM DESCRIPTION: CT - Abdomen Pelvis Wo Contrast - 05/17/2022 2:09 pm CLINICAL HISTORY: Abdominal pain. Right flank pain COMPARISON: Abdomen Pelvis W Contrast dated 12/22/2019 TECHNIQUE: CT imaging of the abdomen and pelvis was performed without contrast. Solid organ, bowel a nd vascular assessment is limited due to lack of IV and oral contrast. All CT scans are performed using dose optimization technique as appropriate and may include automated exposure control or mA/KV adjustment according to patient size. FINDINGS: The lower lung muhammad are clear. The liver, spleen, pancreas, adrenal glands and kidneys are within normal limits for a limited non-co ntrast examination. No bowel obstruction, free air, free fluid or abscess. The appendix is normal. The osseous structures are within normal limits. IMPRESSION: No acute intra-abdominal or pelvic findings. A limited non-contrast examination was performed as detailed.
[2022-05-17 14:32] LABS: Albumin 3.8 g/dL (3.4-5.0); Bilirubin Total 0.3 mg/dL (0.2-1.0); Potassium 3.7 mmol/L (3.5-5.1); Protein, Total 7.6 g/dL (6.4-8.2)
[2022-05-17 15:13] LABS: Urine Bacteria <20 /HPF (<20); Urine RBC NONE SEEN /HPF (NONE SEEN)
--- NOTE | 2022-05-17 15:59 | RAD REPORT ---
EXAM DESCRIPTION: US - Pelvis Complete - 05/17/2022 3:42 pm CLINICAL HISTORY: ABD PAIN Pelvic pain. COMPARISON: Pelvis Complete dated 12/22/2019 FINDINGS: The uterus is normal in size, shape and echotexture. The uterus measures 6.8 x 5.6 x 3.2 c m. The endometrial stripe measures 8 mm, normal. Both ovaries are normal in size, shape and echotexture. The right ovary measures 3.2 x 2.7 x 2.1 cm. The left ovary measures 2.7 x 1.8 x 1.8 cm. No ovarian or parovarian lesions. No adnexal masses. Normal Doppler blood flow was demonstrated to both ovaries. No significant pelvic ascites. IMPRESSION: Unremarkable study.
--- NOTE | 2022-05-17 16:21 | EDPHYS ---
Physician Documentation [facility] Name: Manuela Garzon Age: 26 yrs Sex: Female : 1995 Arrival Date: 05/17/2022 Time: 13:33 Bed 19 Private MD: ED Physician Gilmer Siu HPI: 05/17 16:31 This 26 yrs old Female presents to ER via Ambulatory with complaints of Flank Pain. ms3 16:31 The patient complains of pain in the Right flank. The pain does not radiate. Onset: The ms3 symptoms/episode began/occurred 1 week(s) ago. Modifying factors: The symptoms are alleviated by nothing. the symptoms are aggravated by nothing. Associated signs and symptoms: Pertinent positives: nausea, Pertinent negatives: dysuria, fever, urinary frequency, vomiting. Severity of pain: At its worst the pain was severe in the emergency department the pain is unchanged. Patient seen at [facility] on 05/12/2022 and told she had hydronephrosis and possible passed kidney stone. She was also started on 10 days of Levoquin for UTI.. Historical: ROS: 16:32 Constitutional: Negative for fever, and chills. Eyes: Negative for injury, pain, ms3 redness, and discharge, Neck: Negative for injury, pain, and swelling, Cardiovascular: Negative for chest pain, and palpitations. Respiratory: Negative for shortness of breath, cough, wheezing, and pleuritic chest pain, Abdomen/GI: Negative for abdominal pain, nausea, vomiting, diarrhea, and constipation, MS/Extremity: Negative for injury and deformity, Skin: Negative for injury, rash, and discoloration, Psych: Negative for depression, anxiety, suicide ideation, homicidal ideation, and hallucinations. 16:32 Back: Positive for right flank pain. 16:32 All other systems are negative. Exam: 16:32 Constitutional: This is a well developed, well nourished patient who is awake, alert, ms3 and in no acute distress. Head/Face: Normocephalic, atraumatic. Neck: Trachea midline, no cervical lymphadenopathy. Supple, full range of motion without nuchal rigidity, or vertebral point tenderness. No Meningismus. Chest/axilla: Normal chest wall appearance and motion. Nontender with no deformity. Cardiovascular: Regular rate and rhythm with a normal S1 and S2. No gallops, murmurs, or rubs. Normal PMI, no JVD. No pulse deficits. Respiratory: Lungs have equal breath sounds bilaterally, clear to auscultation and percussion. No rales, rhonchi or wheezes noted. No increased work of breathing, no retractions or nasal flaring. 16:32 Skin: Warm, dry with normal turgor. Normal color with no rashes, no lesions, and no evidence of cellulitis. Neuro: Awake and alert, GCS 15, oriented to person, place, time, and situation. Cranial nerves II-XII grossly intact. Motor strength 5/5 in all extremities. Sensory grossly intact. Cerebellar exam normal. Normal gait. Psych: Awake, alert, with orientation to person, place and time. Behavior, mood, and affect are within normal limits. 16:32 Abdomen/GI: Inspection: abdomen appears normal, Bowel sounds: normal, Palpation: moderate abdominal tenderness, in the right lower quadrant and left lower quadrant. 16:32 Back: pain, that is moderate, of the right low back, CVA tenderness, is absent, muscle spasm, is appreciated in the right low back. MDM: 13:53 Patient medically screened. ms3 16:32 Differential diagnosis: nephrolithiasis, pyelonephritis, UTI. Data reviewed: vital ms3 signs, nurses notes, lab test result(s), radiologic studies, CT scan, ultrasound, and as a result, I will discharge patient. Counseling: I had a detailed discussion with the patient and/or guardian regarding: the historical points, exam findings, and any diagnostic results supporting the discharge/admit diagnosis, lab results, radiology results, the need for outpatient follow up, to return to the emergency department if symptoms worsen or persist or if there are any questions or concerns that arise at home. ED course: Discussed labs, US, CT, physical exam findings with patient. Patient to follow-up with primary care physician in 2 to 3 days. Patient understands and agrees with plan. All questions were answered. Return precautions discussed include worsening symptoms, or any other concerns. On reevaluation patient is alert and oriented x4, in no apparent distress, nontoxic-appearing, speaking full sentences, ambulatory in emergency department.. 05/17 13:37 Order name: CBC with Diff; Complete Time: 14:36 ms3 05/17 13:37 Order name: CMP; Complete Time: 14:36 ms3 05/17 13:54 Order name: CT Abd/Pelvis - Without Contrast; Complete Time: 14:36 ms3 05/17 14:03 Order name: Urine Dipstick-Ancillary; Complete Time: 14:36 EDMS 05/17 14:44 Order name: Urine Microscopic Only; Complete Time: 15:25 EDMS 05/17 13:37 Order name: IV Saline Lock; Complete Time: 13:58 ms3 05/17 13:37 Order name: Labs collected and sent; Complete Time: 13:58 ms3 05/17 15:43 Order name: Pelvis Complete; Complete Time: 16:10 EDMS Administered Medications: 14:15 Drug: morphine 4 mg Route: IVP; Infused Over: 4 mins; Site: right antecubital; barbosa 14:28 Follow up: Response: No adverse reaction barbosa 14:15 Drug: Valium (diazepam) 5 mg Route: PO; barbosa 14:28 Follow up: Response: No adverse reaction barbosa 14:28 Drug: Zofran (Ondansetron) 4 mg Route: IVP; Site: right antecubital; barbosa 14:28 Follow up: Response: No adverse reaction barbosa Disposition Summary: 05/17/22 16:20 Discharge Ordered Location: Home ms3 Problem: new ms3 Symptoms: are unchanged ms3 Condition: Stable ms3 Diagnosis - Low back pain ms3 - Muscle spasm of back ms3 - Lower abdominal pain, unspecified ms3 Followup: ms3 - With: Private Physician - When: 2 - 3 days - Reason: Re-evaluation by your physician Discharge Instructions: - Discharge Summary Sheet ms3 - Abdominal Pain, Adult ms3 - Acute Back Pain, Adult ms3 - Spasticity ms3 Forms: - Medication Reconciliation Form ms3 - Thank You Letter ms3 - Antibiotic Education ms3 - Prescription Opioid Use ms3 Prescriptions: - Cyclobenzaprine 5 mg Oral Tablet - take 1 tablet by ORAL route 3 times per day As needed; 15 tablet; Refills: 0, ms3 Product Selection Permitted - Tylenol-Codeine #3 300 mg-30 mg Oral - take 1 tablet by ORAL route every 4-6 hours; 18 tablet; Refills: 0, Product ms3 Selection Permitted Signatures: Dispatcher [facility] Gilmer Martínez DO DO ms3 Vonda Mix RN RN barbosa Corrections: (The following items were deleted from the chart) 14:44 13:37 URINALYSIS+U.LAB.BRZ ordered. EDMS EDMS 15:18 15:05 Pelvis Complete+US.RAD.BRZ ordered. EDMS EDMS 15:43 15:18 Transvaginal Study Probe ordered. EDMS EDMS 16:36 16:32 PMHx: Migraines; ms3 ms3 16:36 16:32 PMHx: ADD/ADHD; ms3 ms3 16:36 16:32 PMHx: Asthma; ms3 ms3 16:36 16:32 PMHx: seasonal allergies; ms3 ms3
--- NOTE | 2022-05-17 16:21 | ER ---
Nurse's Notes [facility] Name: Manuela Garzon Age: 26 yrs Sex: Female : 1995 Arrival Date: 05/17/2022 Time: 13:33 Bed 19 Private MD: Diagnosis: Low back pain;Muscle spasm of back;Lower abdominal pain, unspecified Presentation: 05/17 13:48 Chief complaint: Patient states: recently diagnosed with pyelonephritis, has been on iw antibiotics, still having a lot of kidney pain. Coronavirus screen: At this time, the client does not indicate any symptoms associated with coronavirus-19. Ebola Screen: Patient negative for fever greater than or equal to 101.5 degrees Fahrenheit, and additional compatible Ebola Virus Disease symptoms Patient denies exposure to infectious person. Patient denies travel to an Ebola-affected area in the 21 days before illness onset. No symptoms or risks identified at this time. Initial Sepsis Screen: Does the patient meet any 2 criteria? No. Patient's initial sepsis screen is negative. Does the patient have a suspected source of infection? No. Patient's initial sepsis screen is negative. Risk Assessment: Do you want to hurt yourself or someone else?. Onset of symptoms was May 17, 2022. 13:48 Method Of Arrival: Ambulatory iw 13:48 Acuity: FRANCHESCA 3 iw Historical: ED Course: 13:33 Patient arrived in ED. iw 13:35 Gilmer Siu DO is Attending Physician. ms3 13:48 Vonda Mix, RN is Primary Nurse. barbosa 13:49 Triage completed. iw 13:49 Arm band placed on. iw 13:58 Inserted saline lock: 20 gauge in right antecubital area, using aseptic technique. ld1 Blood collected. 14:11 CT Abd/Pelvis - Without Contrast In Process Unspecified. EDMS 15:43 Pelvis Complete In Process Unspecified. EDMS Administered Medications: 14:15 Drug: morphine 4 mg Route: IVP; Infused Over: 4 mins; Site: right antecubital; barbosa 14:28 Follow up: Response: No adverse reaction barbosa 14:15 Drug: Valium (diazepam) 5 mg Route: PO; barbosa 14:28 Follow up: Response: No adverse reaction barbosa 14:28 Drug: Zofran (Ondansetron) 4 mg Route: IVP; Site: right antecubital; barbosa 14:28 Follow up: Response: No adverse reaction barbosa Outcome: 16:20 Discharge ordered by ms3 17:35 Patient left the ED. iw Signatures: Dispatcher [employer] EDAmna Victoria RN RN iw Gilmer Siu DO DO ms3 Dawna uHff RN RN ld1 Vonda Mix RN RN barbosa Corrections: (The following items were deleted from the chart) 16:36 16:32 PMHx: Migraines; ms3 ms3 16:36 16:32 PMHx: ADD/ADHD; ms3 ms3 16:36 16:32 PMHx: Asthma; ms3 ms3 16:36 16:32 PMHx: seasonal allergies; ms3 ms3
== END 2022-05-17 17:35 | disposition home or self-care (01) ==
LOC: ER 13:31
DX: M62.830 Muscle spasm of back (principal); R10.30 Lower abdominal pain, unspecified
CPT/HCPCS: 85025; 36415; 80053; 74176; 76856; J2405; 81003; 81015

== ENCOUNTER 2023-03-21 01:12 | Emergency (ER) | payer OTHER ==
--- OUTSIDE RECORDS SUMMARY | 2023-03-21 01:16 | XMS REPORT | Continuity of Care Document ---
:1995 Author Organization [facility] t Address [address] [facility] [address] [place] [address] Care Team Providers Name Role Phone Robert Gutierrez Attending Clinician Unavailable Tito Sy Attending Clinician Unavailable SISSON_C Attending Clinician Unavailable Corkran_T Attending Clinician Unavailable Kirsten Gillespie Admitting Clinician Unavailable SISSON_C Admitting Clinician Unavailable Corkran_T Admitting Clinician Unavailable Payers Payer Name Policy Type Policy Number Effective Date Expiration Date S cherie [employer] 6 [id number] Common Spiri t [facility] Problems Condition Condition Condition Status Onset Resolution Last Treating Co mments Source Name Details Category Date Date Treatment Clinician Date Posttrauma Posttrauma Problem Active S weeny tic stress tic Stress - Co mmuni disorder Disorder 00:00: ty 00 [facility]osp[facility] Clin[facility] 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 Disorder - Commun i 00:00: ty 00 [facility] Clin[facility] Attention Attention Problem Active Swe john deficit Deficit - Communi hyperactiv Hyperactiv 00:00: ty ity ity 00 Hospita disorder Disorder l Clinics [id number] Adult BMI Problem Com mon 31.0-31.9 Spirit kg/sq [facility] [id number] Low back Problem Comm on pain, Spirit unspecifie - [facility]I d back pain [facility] laterality Medica l , Center unspecifie d chronicity , with sciatica presence unspecifie d [id number] Lumbar Problem Common radiculopa Spirit thy [facility] Status Migraine, Problem Common migrainosu unspecifie Sp madhu s d, not - [facility]I intractabl [facility], with [facility] status Medical migrainosu Center s [id number] Attention Problem Comm on deficit Spirit hyperactiv - CHI ity St disorder [facility] (ADHD), Medical combined Center type [id number] Generalize Problem Com mon d anxiety Spirit disorder - [facility] [id number] Allergic Problem Commo n rhinitis, Spirit unspecifie - CHI d St seasonalit [facility] y, Medical unspecifie Center d trigger [id number] Mild Problem Common intermitte Spirit nt asthma - [facility]I without complicati [facility] on Medical Center [id number] Chronic Problem Common maxillary Spirit sinusitis - [facility] [id number] Nausea Problem Common Spirit - [facility] [id number] Food Problem Common sensitivit Spirit y headache - [facility] [id number] Gastroente Problem Com mon ritis Spirit [facility] [id number] Current Problem Common moderate Spirit episode of - [facility] major [facility] prior episode [id number] Insomnia, Problem Com mon unspecifie Spirit d type - [facility] [id number] Spasm of Problem Comm on GI tract [facility] [id number] Bloody Problem Common diarrhea [facility] Allergies, Adverse Reactions, Alerts Allergy Allergy Status Severity Reaction(s) Onset Inactive Treating Comm ents Source Name Type Date Date Clinician iodine DA Active [place] 2019-11 [facility] 0-27 Clear 00:00: Russell [facility] gluten FA Active SV 2019-11 [facility] 0-27 Clear 00:00: Russell [facility] shellfis FA Active SV 2019-11 [facility] h 0-27 Clear derived 00:00: Russell [facility] iodine DA Active [place] itching 2019-11 [facility] 0-27 Clear 00:00: Russell [facility] gluten FA Active SV NAUSEA,VOMIT 2019-11 [facility] ING, GI 0-27 Clear IRRITATION, 00:00: Russell HEADACHE, 00 [facility] JOINT l SWELLING [facility] shellfis FA Active SV TONGUE 2019- [facility] h SWELLS, MILD 0-27 Nyla r derived SOB, 00:00: Russell SCRATCHY 00 [facility] Shells Shellfis Active Unknown Commo n h h [facility] Iodine Allergy Active [place] [facility] Hospita l Clinics Social History Social Habit Start Date Stop Date Quantity Comments Source History of Tobacco Use Co mmon [facility] Sex Assigned At Com mon [facility] Smoking Status Start Date Stop Date Source Current Some Day [place] [facility] Sm[facility] Clinics Former Smoker 2022-08-26 00:00:00 2022-08-26 00:00:00 Common S [facility] nter Medications Ordered Filled Start Stop Current Ordering Indication Dosage Frequency Signature Comments Components Source Medication Medication Date Date Medication? Clinician (SIG) Name Name Adderall XR Adderall XR No 1{capsu QD Adderall 10 MG 10 MG 9-16 le_in_t XR 10 MG 00:00: he_morn 00 ing} Adderall XR Adderall XR 2021- No 1{capsu QD Adderall 10 MG 10 MG 9-16 le_in_t XR 10 MG 00:00: he_morn 00 ing} Adderall XR Adderall XR 2021-0 No 1{capsu QD Adderall 20 MG 20 MG 2-18 le_in_t XR 20 MG 00:00: he_morn 00 ing} Adderall XR Adderall XR 2021-0 No 1{capsu QD Adderall 20 MG 20 MG 2-18 le_in_t XR 20 MG 00:00: he_morn 00 ing} Adderall XR Adderall XR 2021-0 No 1{capsu QD Adderall 20 MG 20 MG 1-19 le_in_t XR 20 MG 00:00: he_morn 00 ing} Adderall XR Adderall XR 2021-0 No 1{capsu QD Adderall 20 MG 20 MG 1-19 le_in_t XR 20 MG 00:00: he_morn 00 ing} Adderall XR Adderall XR 2020-11 No 1{capsu QD Adderall 20 MG 20 MG 2-13 le_in_t XR 20 MG 00:00: he_morn 00 ing} Adderall XR Adderall XR 2020-11 No 1{capsu QD Adderall 20 MG 20 MG 2-13 le_in_t XR 20 MG 00:00: he_morn 00 ing} Adderall XR Adderall XR 2020-11 No 1{capsu QD Adderall 20 MG 20 MG 0-27 le_in_t XR 20 MG 00:00: he_morn 00 ing} Adderall XR Adderall XR No 1{capsu QD Adderall 20 MG 20 MG 9-27 le_in_t XR 20 MG 00:00: he_morn 00 ing} Lyrica 50 Lyrica 50 No 1{capsu QD Lyrica 50 MG MG 9-09 le} MG 00:00: 00 Ondansetron Ondansetron No 1{table Ondansetro HCl 4 MG HCl 4 MG 6-09 t} n HCl 4 MG 00:00: 00 Ondansetron Ondansetron No 1{table Ondansetro HCl 4 MG HCl 4 MG 6-09 t} n HCl 4 MG 00:00: 00 Ondansetron Ondansetron No 1{table Ondansetro HCl 4 MG HCl 4 MG 6-09 t} n HCl 4 MG 00:00: 00 Amoxicillin Amoxicillin 2020-0 2020- No Robert 1 tablet Common -Pot -Pot 07-17 09-14 Gutierrez Spirit Clavulanate Clavulanate 00:00: 00:00 - CHI 00 :[address] [facility] Albuterol Albuterol 2018-0 Yes Robert 2 puffs as Common Sulfate HFA Sulfate HFA 07-04 Gutierrez needed Spirit 00:00: - CHI [address] [facility] Kenalog Kenalog 2017-11 No 40mg Common (Triamcinol (Triamcinol 2-03 S pirit one) one) 00:00: - CHI [address] [facility] Kenalog Kenalog 2017-11 No 40mg Common (Triamcinol (Triamcinol 2-03 S pirit one) one) 00:00: - CHI [address] [facility] Kenalog Kenalog 2018-1 No 40mg Common (Triamcinol (Triamcinol 2-03 S pirit one) one) 00:00: - CHI [address] [facility] Abilify 5 Abilify 5 No 1 Q1D Abilify 5 [place] mg tablet mg tablet mg tablet Communi Take 1 Take 1 Take 1 ty tablet tablet tablet Hospita every day every day every day l by oral by oral by oral Clinic s route. route. route. compounded compounded No compounded [place] medication medication medication Communi Semaglutide Semaglutide Semaglutid ty /B12 0.3 ml /B12 0.3 ml e/B12 0.3 Hospita SQ QW, SQ QW, ml SQ QW, l start at start at start at Cli nics 0.075 and 0.075 and 0.075 and increase increase increase weekly as weekly as weekly as tolerated. tolerated. tolerated. ondansetron ondansetron No 1 Q7H ondansetro [place] 4 mg 4 mg n 4 mg Communi disintegrat disintegrat disintegra ty ing tablet ing tablet ting Hos tim Place 1 Place 1 tablet l tablet tablet Place 1 Clinics every 6-8 every 6-8 tablet hours by hours by every 6-8 translingua translingua hours by l route as l route as translingu needed. needed. al route as needed. Xanax 0.5 Xanax 0.5 No 1 Xanax 0.5 [place] mg tablet mg tablet mg tablet Communi Take 1 Take 1 Take 1 ty tablet by tablet by tablet by Hospita oral route oral route oral route l as needed. as needed. as needed. Clinics Zoloft 50 Zoloft 50 No 1 Q1D Zoloft 50 [place] mg tablet mg tablet mg tablet Communi Take 1 Take 1 Take 1 ty tablet tablet tablet Hospita every day every day every day l by oral by oral by oral Clinic s route. route. route. Imitrex Imitrex Yes Robert 1 tablet Com mon Gutierrez as needed Spirit at onset - [facility] [place] may repeat Medical after 2 Center hours. max 2 doses/24 hours Fioricet/Co Fioricet/Co Yes Robert 1 capsule Common deine deine Gutierrez as needed [facility] Singulair Singulair Yes Robert 1 tablet Common Gutierrez [facility] Imitrex 50 Imitrex 50 No QD Imitrex 50 MG MG MG Symbicort Symbicort No 2{puffs QD Symbicort 80-4.5 80-4.5 } 80-4.5 MCG/ACT MCG/ACT MCG/ACT Singulair Singulair No 1{table QD Singulair 10 MG 10 MG t} 10 MG NEUROTIN NEUROTIN No NEUROTIN traZODone traZODone No 1{table QD traZODone HCl 50 MG HCl 50 MG t_at_be HCl 50 MG dtime_a s_neede d} Vistaril 50 Vistaril 50 No 1{capsu QID Vistaril MG MG le_as_n 50 MG eeded} Fioricet/Co Fioricet/Co No 1{capsu Fioricet/C deine deine le_as_n odeine 50-300-40-3 50-300-40-3 eeded} 50-300-40- 0 MG 0 MG 30 MG Ambien 10 Ambien 10 No 1{table QD Ambien 10 MG MG t_at_be MG dtime} Albuterol Albuterol No 2{puffs QID Albuterol Sulfate HFA Sulfate HFA _as_nee Sulfate 108 (90 108 (90 ded} HFA 108 Base) Base) (90 Base) MCG/ACT MCG/ACT MCG/ACT Adderall XR Adderall XR No 1{capsu QD Adderall 20 MG 20 MG le_in_t XR 20 MG he_morn ing} CeleXA 20 CeleXA 20 No 1{table QD CeleXA 20 MG MG t} MG Imitrex 50 Imitrex 50 No QD Imitrex 50 MG MG MG Symbicort Symbicort No 2{puffs QD Symbicort 80-4.5 80-4.5 } 80-4.5 MCG/ACT MCG/ACT MCG/ACT Singulair Singulair No 1{table QD Singulair 10 MG 10 MG t} 10 MG NEUROTIN NEUROTIN No NEUROTIN traZODone traZODone No 1{table QD traZODone HCl 50 MG HCl 50 MG t_at_be HCl 50 MG dtime_a s_neede d} Vistaril 50 Vistaril 50 No 1{capsu QID Vistaril MG MG le_as_n 50 MG eeded} Fioricet/Co Fioricet/Co No 1{capsu Fioricet/C deine deine le_as_n odeine 50-300-40-3 50-300-40-3 eeded} 50-300-40- 0 MG 0 MG 30 MG Ambien 10 Ambien 10 No 1{table QD Ambien 10 MG MG t_at_be MG dtime} Albuterol Albuterol No 2{puffs QID Albuterol Sulfate HFA Sulfate HFA _as_nee Sulfate 108 (90 108 (90 ded} HFA 108 Base) Base) (90 Base) MCG/ACT MCG/ACT MCG/ACT Adderall XR Adderall XR No 1{capsu QD Adderall 20 MG 20 MG le_in_t XR 20 MG he_morn ing} CeleXA 20 CeleXA 20 No 1{table QD CeleXA 20 MG MG t} MG Phenergan Phenergan No Phenergan 25mg 25mg 25mg traZODone traZODone No 1{table QD traZODone HCl 50 MG HCl 50 MG t_at_be HCl 50 MG dtime_a s_neede d} Vistaril 25 Vistaril 25 No 1{capsu QID Vistaril MG MG le_as_n 25 MG eeded} Singulair Singulair No 1{table QD Singulair 10 MG 10 MG t} 10 MG Albuterol Albuterol No 2{puffs QID Albuterol Sulfate HFA Sulfate HFA _as_nee Sulfate 108 (90 108 (90 ded} HFA 108 Base) Base) (90 Base) MCG/ACT MCG/ACT MCG/ACT Ambien 10 Ambien 10 No 1{table QD Ambien 10 MG MG t_at_be MG dtime} CeleXA 20 CeleXA 20 No 1{table QD CeleXA 20 MG MG t} MG Fioricet/Co Fioricet/Co No 1{capsu Fioricet/C deine deine le_as_n odeine 50-300-40-3 50-300-40-3 eeded} 50-300-40- 0 MG 0 MG 30 MG Toradol 10 Toradol 10 No Toradol 10 MG MG MG Phenergan Phenergan No Phenergan 25mg 25mg 25mg traZODone traZODone No 1{table QD traZODone HCl 50 MG HCl 50 MG t_at_be HCl 50 MG dtime_a s_neede d} Vistaril 25 Vistaril 25 No 1{capsu QID Vistaril MG MG le_as_n 25 MG eeded} Singulair Singulair No 1{table QD Singulair 10 MG 10 MG t} 10 MG Albuterol Albuterol No 2{puffs QID Albuterol Sulfate HFA Sulfate HFA _as_nee Sulfate 108 (90 108 (90 ded} HFA 108 Base) Base) (90 Base) MCG/ACT MCG/ACT MCG/ACT Ambien 10 Ambien 10 No 1{table QD Ambien 10 MG MG t_at_be MG dtime} CeleXA 20 CeleXA 20 No 1{table QD CeleXA 20 MG MG t} MG Fioricet/Co Fioricet/Co No 1{capsu Fioricet/C deine deine le_as_n odeine 50-300-40-3 50-300-40-3 eeded} 50-300-40- 0 MG 0 MG 30 MG Toradol 10 Toradol 10 No Toradol 10 MG MG MG Vistaril 25 Vistaril 25 No 1{capsu QID Vistaril MG MG le_as_n 25 MG eeded} Zoloft 50 Zoloft 50 No 1.5{tab QD Zoloft 50 MG MG let} MG Ambien 10 Ambien 10 No 1{table QD Ambien 10 MG MG t_at_be MG dtime} Albuterol Albuterol No 2{puffs QID Albuterol Sulfate HFA Sulfate HFA _as_nee Sulfate 108 (90 108 (90 ded} HFA 108 Base) Base) (90 Base) MCG/ACT MCG/ACT MCG/ACT Phenergan Phenergan No Phenergan 25mg 25mg 25mg Adderall XR Adderall XR No 1{capsu QD Adderall 20 MG 20 MG le_in_t XR 20 MG he_morn ing} Fioricet/Co Fioricet/Co No 1{capsu Fioricet/C deine deine le_as_n odeine 50-300-40-3 50-300-40-3 eeded} 50-300-40- 0 MG 0 MG 30 MG traZODone traZODone No 1{table QD traZODone HCl 50 MG HCl 50 MG t_at_be HCl 50 MG dtime_a s_neede d} Singulair Singulair No 1{table QD Singulair 10 MG 10 MG t} 10 MG Toradol 10 Toradol 10 No Toradol 10 MG MG MG Vistaril 25 Vistaril 25 No 1{capsu QID Vistaril MG MG le_as_n 25 MG eeded} Zoloft 50 Zoloft 50 No 1.5{tab QD Zoloft 50 MG MG let} MG Ambien 10 Ambien 10 No 1{table QD Ambien 10 MG MG t_at_be MG dtime} Albuterol Albuterol No 2{puffs QID Albuterol Sulfate HFA Sulfate HFA _as_nee Sulfate 108 (90 108 (90 ded} HFA 108 Base) Base) (90 Base) MCG/ACT MCG/ACT MCG/ACT Phenergan Phenergan No Phenergan 25mg 25mg 25mg Adderall XR Adderall XR No 1{capsu QD Adderall 20 MG 20 MG le_in_t XR 20 MG he_morn ing} Fioricet/Co Fioricet/Co No 1{capsu Fioricet/C deine deine le_as_n odeine 50-300-40-3 50-300-40-3 eeded} 50-300-40- 0 MG 0 MG 30 MG traZODone traZODone No 1{table QD traZODone HCl 50 MG HCl 50 MG t_at_be HCl 50 MG dtime_a s_neede d} Singulair Singulair No 1{table QD Singulair 10 MG 10 MG t} 10 MG Toradol 10 Toradol 10 No Toradol 10 MG MG MG NEUROTIN NEUROTIN No NEUROTIN Vistaril 50 Vistaril 50 No 1{capsu QID Vistaril MG MG le_as_n 50 MG eeded} CeleXA 20 CeleXA 20 No 1{table QD CeleXA 20 MG MG t} MG traZODone traZODone No 1{table QD traZODone HCl 50 MG HCl 50 MG t_at_be HCl 50 MG dtime_a s_neede d} Symbicort Symbicort No 2{puffs QD Symbicort 80-4.5 80-4.5 } 80-4.5 MCG/ACT MCG/ACT MCG/ACT Fioricet/Co Fioricet/Co No 1{capsu Fioricet/C deine deine le_as_n odeine 50-300-40-3 50-300-40-3 eeded} 50-300-40- 0 MG 0 MG 30 MG Singulair Singulair No 1{table QD Singulair 10 MG 10 MG t} 10 MG Albuterol Albuterol No 2{puffs QID Albuterol Sulfate HFA Sulfate HFA _as_nee Sulfate 108 (90 108 (90 ded} HFA 108 Base) Base) (90 Base) MCG/ACT MCG/ACT MCG/ACT Ambien 10 Ambien 10 No 1{table QD Ambien 10 MG MG t_at_be MG dtime} Imitrex 50 Imitrex 50 No QD Imitrex 50 MG MG MG Immunizations Ordered Immunization Filled Immunization Date Status Commen ts Source Name Name Sumeet Fay 2018-10-15 Completed [facility] (Triamcinolone) (Triamcinolone) 11:33:00 - CH I [facility] Vital Signs Vital Name Observation Time Observation Value Comments Source BP Diastolic 2023-01-11 00:00:00 81 mm[Hg] [facility] s Height 2023-01-11 00:00:00 72 [in_i] [facility] s BMI (Body Mass 2023-01-11 00:00:00 32.8 kg/m2 [facility] s BP Systolic 2023-01-11 00:00:00 124 mm[Hg] [facility] s Body Weight 2023-01-11 00:00:00 3872 [oz_av] [facility] s height 2022-07-29 08:00:00 70.00 [in_i] Common S pirit [facility] weight 2022-07-29 08:00:00 220 [lb_av] Common S pirit [facility] bmi 2022-07-29 08:00:00 31.56 kg/m2 Common S pirit - [facility] blood pressure 2022-07-29 08:00:00 122 mm[Hg] Common Spirit - systolic [facility] blood pressure 2022-07-29 08:00:00 67 mm[Hg] Common Spirit - diastolic [facility] height 2021-12-01 13:50:00 70.00 [in_i] [facility] weight 2021-12-01 13:50:00 220.2 [lb_av] [facility] Spirit - [facility] temperature 2021-12-01 13:50:00 98.1 [degF] [facility] bmi 2021-12-01 13:50:00 31.59 kg/m2 [facility] oximetry 2021-12-01 13:50:00 97 % [facility] respiratory rate 2021-12-01 13:50:00 17 /min Comm on [facility] blood pressure 2021-12-01 13:50:00 121 mm[Hg] Common Spirit - systolic [facility] blood pressure 2021-12-01 13:50:00 65 mm[Hg] Common Spirit - diastolic [facility] height 2021-10-25 08:40:00 70.00 [in_i] [facility] weight 2021-10-25 08:40:00 220 [lb_av] [facility] temperature 2021-10-25 08:40:00 98.3 [degF] [facility] S pirit [facility] bmi 2021-10-25 08:40:00 31.56 kg/m2 [facility] blood pressure 2021-10-25 08:40:00 118 mm[Hg] Common [facility] - systolic [facility] blood pressure 2021-10-25 08:40:00 72 mm[Hg] Common [facility] - diastolic [facility] height 2021-08-09 08:00:00 70.00 [in_i] [facility] weight 2021-08-09 08:00:00 227 [lb_av] [facility] temperature 2021-08-09 08:00:00 97 [degF] [facility] bmi 2021-08-09 08:00:00 32.57 kg/m2 [facility] Procedures This patient has no known procedures. Encounters Start End Encounter Admission Attending Care Care Encounter Source Date/Time Date/Time Type Type Clinicians Facility Department ID 2022-08-26 Outpatient Gutierrez, STLMLC STLMLC [id number] Common 10:26:01 [facility] [address] [facility] 2021-12-08 Outpatient Gutierrez, STLMLC STLMLC [id number] Common 13:19:33 Robert [facility] 2021-12-08 Outpatient Gutierrez, STLMLC STLMLC [id number] Common 13:18:51 Robert 10810 [facility] 2021-12-08 Outpatient Gutierrez, STLMLC STLMLC [id number] Common 13:17:54 Robert 03399 [facility] 2021-12-08 Outpatient Gutierrez, STLMLC STLMLC [id number] Common 12:59:24 Robert 08338 [facility] 2021-12-08 Outpatient Gutierrez, STLMLC STLMLC [id number] Common 12:58:49 Robert 64416 [facility] 2021-12-08 Outpatient Gutierrez, STLMLC STLMLC [id number] Common 12:26:05 Robert 40482 [facility] 2021-12-08 Outpatient Gutierrez, STLMLC STLMLC [id number] Common 12:23:58 Robert 27379 [facility] 2021-12-08 Outpatient Gutierrez, STLMLC STLMLC [id number] Common 12:13:27 Robert 13461 [facility] 2021-12-08 Outpatient Gutierrez, STLMLC STLMLC [id number] Common 12:08:34 Robert 09749 [facility] 2021-12-08 Outpatient Gutierrez, STLMLC STLMLC [id number] Common 11:20:59 Robert 06775 [facility] 2021-12-08 Outpatient Gutierrez, STLMLC STLMLC [id number] Common 11:06:22 Robert 98090 [facility] 2021-12-08 Outpatient Gutierrez, STLMLC STLC [id number] Common 11:06:13 Robert 05853 [facility] 2021-12-08 Outpatient Gutierrez, STLMLC STLC [id number] Common 11:00:26 Robert 33703 [facility] 2020-09-11 Inpatient Tito Anne HCATO DAYS [id number] [facility] 11:30:00 [facility] 2023-01-11 2023-01-11 [facility] 2022 [place] 00:00:00 00:00:00 0301 Commun i ty Hospita l [facility] 2023-01-11 2023-01-11 [facility] [place] - Lori [place] 00:00:00 00:00:00 Isidoro Maradiaga MSN, LAND LEVELER, Hospital - ty SPEARER-C: [address] [place] [facility] s [address], [facility] [address], [place] Maradi[place] MSN, SPEARER-C [id number] , Ph. 2023-01-03 2023-01-03 Outpatient JALEN_C [facility] 2022 [place] 00:00:00 00:00:00 0221 Commun i ty Hospita l [facility] 2022-08-29 2022-08-29 (TEL) STLMLC STLMLC [id number] Co mmon 00:00:00 00:00:00 [facility] 2022-07-29 2022-07-29 OFFICE STLMLC STLMLC [id number] Co mmon 00:00:00 00:00:00 VISIT EST Spir it PT LEVEL 3 - [facility] 2022-05-17 2022-05-17 (TEL) STLMLC STLMLC [id number] Co mmon 00:00:00 00:00:00 [facility] 2021-12-01 2021-12-01 PREV VISIT STLMLC STLMLC [id number] Common 00:00:00 00:00:00 EST AGE Jovanni 18-39 - [facility] 2021-10-29 2021-10-29 (TEL) STLMLC STLMLC [id number] Co mmon 00:00:00 00:00:00 [facility] 2021-10-25 2021-10-25 OFFICE STLMLC STLMLC [id number] Co mmon 00:00:00 00:00:00 VISIT Spirit ESTAB PT - CHI LEVEL [address] [facility] 2021-08-09 2021-08-09 OFFICE STLMLC STLMLC [id number] Co mmon 00:00:00 00:00:00 VISIT Spirit ESTAB PT - CHI LEVEL [address] [facility] 2021-07-28 2021-07-28 Outpatient Corkran_T VFP VFP [id number] [facility] 04:34:00 04:34:00 [id number] Family Practic e 2021-07-21 2021-07-21 Outpatient STLMLC STLMLC [id number] Common 00:00:00 00:00:00 [facility] 2021-05-24 2021-05-24 Outpatient STLMLC STLMLC [id number] Common 00:00:00 00:00:00 [facility] 2021-05-07 2021-05-07 Outpatient STLMLC STLMLC [id number] Common 00:00:00 00:00:00 [facility] 2021-04-26 2021-04-26 Outpatient STLMLC STLMLC [id number] Common 00:00:00 00:00:00 [facility] 2021-04-21 2021-04-21 Outpatient STLMLC STLMLC [id number] Common 00:00:00 00:00:00 [facility] 2021-03-29 2021-03-29 Outpatient STLMLC STLMLC [id number] Common 00:00:00 00:00:00 [facility] 2021-03-16 2021-03-16 Outpatient STLMLC STLMLC [id number] Common 00:00:00 00:00:00 [facility] 2020-12-11 2020-12-11 Outpatient STLMLC STLMLC [id number] Common 00:00:00 00:00:00 [facility] 2020-10-28 2020-10-28 Outpatient STLMLC STLMLC [id number] Common 00:00:00 00:00:00 [facility] 2020-10-27 2020-10-27 Outpatient STLMLC STLMLC [id number] Common 00:00:00 00:00:00 [facility] 2020-10-27 2020-10-27 Outpatient STLMLC STLMLC [id number] Common 00:00:00 00:00:00 [facility] 2020-10-05 2020-10-05 Outpatient STLMLC STLMLC [id number] Common 00:00:00 00:00:00 [facility] 2020-09-18 2020-09-18 Outpatient STLMLC STLMLC [id number] Common 00:00:00 00:00:00 [facility] 2020-09-18 2020-09-18 Outpatient STLMLC STLMLC [id number] Common 00:00:00 00:00:00 [facility] 2020-09-08 2020-09-08 Outpatient Tito Sy HCACL LABO [id number] [facility] 18:47:00 18:47:00 29 [facility] 2020-08-08 2020-08-08 Outpatient STLMLC STLMLC [id number] Common 00:00:00 00:00:00 [facility] 2020-08-07 2020-08-07 Outpatient STLMLC STLMLC [id number] Common 00:00:00 00:00:00 [facility] 2020-07-17 2020-07-17 [facility] [id number] Common 11:15:00 11:15:[address] [facility] 2020-07-17 2020-07-17 [facility] [id number] Common 11:10:00 11:10:[address] [facility] 2020-06-24 2020-06-24 [facility] [id number] Common 16:00:00 16:00:[address] [facility] 2020-03-24 2020-03-24 [facility] [id number] Common 13:00:00 13:00:[address] [facility] 2020-01-21 2020-01-21 [facility] [id number] Common 13:26:00 13:26:[address] [facility] 2019-12-24 2019-12-24 [facility] [id number] Common 16:00:00 16:00:[address] [facility] 2019-11-26 2019-11-26 [facility] [id number] Common 10:30:00 10:30:[address] [facility] 2019-10-16 2019-10-16 [facility] [id number] Common 08:00:00 08:00:[address] [facility] 2019-09-16 2019-09-16 [facility] [id number] Common 15:15:00 15:15:[address] [facility] 2019-09-11 2019-09-11 [facility] [id number] Common 17:08:00 17:08:[address] [facility] 2019-08-06 2019-08-06 [facility] [id number] Common 08:00:00 08:00:[address] [facility] 2019-07-04 2019-07-04 [facility] [id number] Common 09:30:00 09:30:[address] [facility] 2019-06-25 2019-06-25 [facility] [id number] Common 14:45:00 14:45:[address] [facility] 2019-06-05 2019-06-05 [facility] [id number] Common 13:00:00 13:00:[address] [facility] 2019-04-24 2019-04-24 [facility] [id number] Common 10:15:00 10:15:[address] [facility] 2019-03-21 2019-03-21 [facility] [id number] Common 09:15:00 09:15:[address] [facility] 2019-02-27 2019-02-27 [facility] [id number] Common 09:00:00 09:00:[address] [facility] 2019-02-22 2019-02-22 [facility] [id number] Common 15:16:00 15:16:[address] [facility] 2019-01-10 2019-01-10 [facility] [id number] Common 08:45:00 08:45:[address] [facility] 2018-12-13 2018-12-13 [facility] [id number] Common 10:00:00 10:00:[address] [facility] 2018-11-19 2018-11-19 [facility] [id number] Common 14:51:00 14:51:[address] [facility] 2018-11-15 2018-11-15 Outpatient [facility] [id number] Common 10:45:00 10:45:[address] [facility] 2018-10-26 2018-10-26 [facility] [id number] Common 10:29:00 10:29:[address] [facility] 2018-07-02 2018-07-02 [facility] [id number] Common 14:45:00 14:45:[address] [facility] 2018-05-15 2018-05-15 Outpatient [facility] [id number] Common 14:15:00 14:15:[address] [facility] Results Test Description Test Time Test Comments Results Result Comments Source Novel Coronavirus 2019 Inhouse 2020-09-09 09:59:00 Test Item Value Reference Range Interpretation Comme nts Novel Coronavirus 2019 Negative Negative Posit juan results are indicative of the Inhouse (test code = presenc e [id number] RNA, clinical COVNONPUI) correlation wit h patient [...] for the identification of SARS-CoV-2 RNA usingthe [employer] System under th e FDA Emergency UseAuthorizatio n. The testing is performed by jamin pittman in the procedures for the Jorge M2000 moleculardiagno stic SARS-CoV-2 assay in vitro. Novel Coronavirus 2018 [id number] 09:58:00 Test Item Value Reference Range Interpretation [...] for the identification of SARS-CoV-2 RNA usingthe [employer] Sy stem under the FDA Emergen cy UseAuthorizatio n. The testing is perf ormed by brnat parikh in the procedures for the Jorge M2000 molecular diagnostic SARS-CoV-2 assa y in vitro.
[2023-03-21 01:48] LABS: Specific Gravity 1.015 (1.005-1.030)
[2023-03-21 01:49] LABS: Specific Gravity 1.015 (1.005-1.030); Urine Bacteria None Seen /HPF (<20); Urine Bilirubin NEGATIVE (Negative); Urine Blood 3+ (OVER) (Negative); Urine Clarity Clear (Clear); Urine Color Light-Yellow (Yellow); Urine Glucose NEGATIVE (Negative); Urine Protein NEGATIVE (Negative); Urine Urobilinogen Normal (Normal); Urine pH 7.5 (5.0-7.0)
[2023-03-21 01:53] LABS: Absolute Lymphocytes (CBC) 3.2 K/uL (0.7-4.9); Hematocrit 38.8 % (36.0-45.0); Lymphocytes % 29.7 % (15.3-44.8); MCV 85.1 fL (80-100); RBC Red Blood Cell Count 4.57 M/uL (3.86-4.86)
[2023-03-21 02:19] LABS: Potassium 3.6 mEq/L (3.5-5.1)
--- NOTE | 2023-03-21 02:42 | EDPHYS ---
Physician Documentation [facility] Name: Manuela Garzon Age: 27 yrs Sex: Female : 1995 Arrival Date: 03/21/2023 Time: 01:12 Bed 13 Private MD: ED Physician Viktor Calvo HPI: 03/21 01:41 This 27 yrs old Female presents to ER via Ambulatory with complaints of Vaginal kb Bleeding. 01:41 The patient presents to the emergency department with abdominal pain, that started kb today, described as crampy, vaginal bleeding, that is light, with clots. The estimated gestational age is 11 weeks. course: care: private OB physician, Ultrasound: the patient had an ultrasound, which was normal. Previous pregnancies: in previous pregnancies patient has had. Associated signs and symptoms: Pertinent positives: abdominal pain, vaginal bleeding. The patient has not experienced similar symptoms in the past. The patient has not recently seen a physician. Pt reports she has had intermittent spotting, but tonight she passed a clot and some bright red blood so she wanted to get checked. Last US was at 6 weeks and had FHT present. Has follow up with OB today. 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 - Social history:: Smoking status: Patient denies any tobacco usage or history of. ROS: 01:40 Constitutional: Negative for fever, chills, and weight loss. kb 01:40 Abdomen/GI: Positive for abdominal cramps. 01:40 : Positive for vaginal bleeding. 01:40 All other systems are negative. Exam: 01:40 Constitutional: This is a well developed, well nourished patient who is awake, alert, kb and in no acute distress. Head/Face: Normocephalic, atraumatic. ENT: Moist Mucous membranes Cardiovascular: Regular rate and rhythm with a normal S1 and S2. No gallops, murmurs, or rubs. No pulse deficits. Respiratory: Respirations even and unlabored. No increased work of breathing. Talking in full sentences Abdomen/GI: Soft, non-tender. No distention Skin: Warm, dry with normal turgor. Normal color. MS/ Extremity: Pulses equal, no cyanosis. Neurovascular intact. Full, normal range of motion. Neuro: Awake and alert, GCS 15, oriented to person, place, time, and situation. Moves all extremities. Normal gait. Vital Signs: 01:23 BP 127 / 93; Pulse 104; Resp 19; Pulse Ox 100% ; kd3 01:32 Resp 19; Temp 98.8(O); Weight 108.86 kg; Height 6 ft. 0 in. ; kd3 03:09 BP 139 / 77; Pulse 82; Resp 18 S; Pulse Ox 100% on R/A; as6 01:32 Body Mass Index 32.55 (108.86 kg, 182.88 cm) kd3 MDM: 01:15 Patient medically screened. kb 01:40 Data reviewed: vital signs, nurses notes. kb 01:42 Differential diagnosis: threatened Ab, inevitable Ab, complete Ab. Transition of care: kb After a detail discussion of the patient's case, care is transferred to Viktor Calvo MD. 02:37 Differential diagnosis: ectopic , menometrorrhagia, molar preganancy, ovarian sp4 cyst. Data reviewed: lab test result(s), Beta HCG: CBC, electrolytes, hepatic panel, radiologic studies, ultrasound. Consideration of Admission/Observation Escalation of care including admission/observation considered. ED course: He blood counts are normal, hCG level 3905 , ultrasound revealed an intrauterine 8 weeks 6 days estimated gestational age with no heart tones consistent with loss/miscarriage in progress. ED course: Patient was advised to see her [employer]ACH [employer] doctor as scheduled today this morning. . 03/21 01:15 Order name: Abo/rh Typing; Complete Time: 02:33 kb 03/21 01:15 Order name: Basic Metabolic Panel; Complete Time: 02:33 kb 03/21 01:15 Order name: CBC with Diff; Complete Time: 01:57 kb 03/21 01:15 Order name: Test, Urine; Complete Time: 01:53 kb 03/21 01:15 Order name: Quantitative Hcg; Complete Time: 02:33 kb 03/21 01:15 Order name: Urinalysis w/ reflexes; Complete Time: 01:53 kb 03/21 01:15 Order name: US Transvaginal Ob kb 03/21 01:15 Order name: IV Saline Lock; Complete Time: 01:38 kb 03/21 01:15 Order name: Labs collected and sent; Complete Time: 01:38 kb 03/21 01:15 Order name: NPO; Complete Time: 01:25 kb Administered Medications: No medications were administered Disposition: 02:37 Co-signature as Attending Physician, Viktor Calvo MD I agree with the assessment sp4 and plan of care. I reviewed the patient's care provided by Advanced Practice Provider \T\ agree w/ the diagnosis \T\ care plan. I personally saw the pt \T\ performed a substantive portion of the visit, incldng all aspects of the (History/Exam/Medical Decision Making). Disposition Summary: 03/21/23 02:42 Discharge Ordered Location: Home sp4 Problem: new sp4 Symptoms: are unchanged sp4 Condition: Stable sp4 Diagnosis - Incomplete spontaneous without complication sp4 - Incomplete miscarriage. Vaginal bleeding in sp4 Followup: sp4 - With: Private Physician - When: Today - Reason: Recheck today's complaints Discharge Instructions: - Discharge Summary Sheet sp4 - Incomplete Miscarriage sp4 Forms: - Work release form kd3 - Thank You Letter sp4 Signatures: Dispatcher [employer] Vanessa Gonzalez, JESSICA-Feliz LOPEZ-Shanice Stringer RN RN kd3 Viktor Calvo MD MD sp4
--- NOTE | 2023-03-21 02:42 | ER ---
Nurse's Notes [facility] Name: Manuela Garzon Age: 27 yrs Sex: Female : 1995 Arrival Date: 03/21/2023 Time: 01:12 Bed 13 Private MD: Diagnosis: Incomplete spontaneous without complication;Incomplete miscarriage. Vaginal bleeding in Presentation: 03/21 01:23 Chief complaint: Patient states: I am 11 and a half weeks and I started kd3 bleeding a lot with clots. I have had some spotting here and there but tonight it has suddenly gotten worse. Coronavirus screen: Vaccine status:. Ebola Screen: No symptoms or risks identified at this time. Initial Sepsis Screen: Does the patient meet any 2 criteria? No. Patient's initial sepsis screen is negative. Does the patient have a suspected source of infection? No. Patient's initial sepsis screen is negative. Risk Assessment: Do you want to hurt yourself or someone else? Patient reports no desire to harm self or others. Onset of symptoms was March 21, 2023. 01:23 Method Of Arrival: Ambulatory kd3 01:23 Acuity: FRANCHESCA 3 kd3 Triage Assessment: 01:25 General: Appears in no apparent distress. Behavior is calm, cooperative. Pain: kd3 Complains of pain in right lower quadrant and left lower quadrant. : Reports vaginal bleeding that is with clots. 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 - Social history:: Smoking status: Patient denies any tobacco usage or history of. Screenin:08 [facility] ED Fall Risk Assessment (Adult) Score/Fall Risk Level 0 - 2 = Low Risk. Abuse as6 screen: Denies threats or abuse. Denies injuries from another. Nutritional screening: No deficits noted. Tuberculosis screening: No symptoms or risk factors identified. Assessment: 01:30 General: Appears in no apparent distress. Behavior is calm, cooperative, Smells of. as6 Pain: Complains of pain in left lower quadrant and right lower quadrant Quality of pain is described as crampy. : Reports cramping, in bilateral lower quadrant(s) lower back vaginal bleeding that is with clots. Vital Signs: 01:23 BP 127 / 93; Pulse 104; Resp 19; Pulse Ox 100% ; kd3 01:32 Resp 19; Temp 98.8(O); Weight 108.86 kg; Height 6 ft. 0 in. ; kd3 03:09 BP 139 / 77; Pulse 82; Resp 18 S; Pulse Ox 100% on R/A; as6 01:32 Body Mass Index 32.55 (108.86 kg, 182.88 cm) kd3 ED Course: 01:15 Patient arrived in ED. ag3 01:15 Vanessa Preston FNP-C is PHCP. kb 01:15 Viktor Calvo MD is Attending Physician. kb 01:24 Nitesh Messina, RN is Primary Nurse. as6 01:25 Triage completed. kd3 01:25 Arm band placed on left wrist. kd3 01:32 Urinalysis w/ reflexes Sent. kd3 01:32 Test, Urine Sent. kd3 01:38 Inserted saline lock: 20 gauge in right antecubital area, using aseptic technique. as6 Blood collected. 02:06 US Transvaginal Ob In Process Unspecified. EDMS 03:08 No provider procedures requiring assistance completed. IV discontinued, intact, as6 bleeding controlled, No redness/swelling at site. Pressure dressing applied. 03:09 Placed in gown. Bed in low position. Call light in reach. as6 Administered Medications: No medications were administered Medication: 03:09 VIS not applicable for this client. as6 Outcome: 02:42 Discharge ordered by . sp4 03:10 Discharged to home ambulatory. as6 03:10 Condition: stable 03:10 Discharge instructions given to patient, Instructed on discharge instructions, follow up and referral plans. Demonstrated understanding of instructions, follow-up care. 03:11 Patient left the ED. as6 Signatures: Dispatcher [employer] EDNV Vanessa Preston FNP-C FNP-Ivana Mckeon 3 Nitesh Messina, RN RN as6 Shanice Carbone RN [place] kd3 Viktor Calvo MD MD sp4
[2023-03-21 03:25] VITALS: O2SAT 100
[2023-03-21 03:31] VITALS: TEMP 98.8
[2023-03-21 03:37] VITALS: BP 139/77
--- NOTE | 2023-03-21 16:06 | RAD REPORT ---
EXAM DESCRIPTION: US , Transvaginal CLINICAL HISTORY: The patient is 27 years old and is Female; Abd cramping, ;Vaginal bleeding [facility] MAIN TECHNIQUE: Real-time transvaginal obstetrical ultrasound of the maternal pelvis and a first trimeste r with image documentation. Transvaginal imaging was used for better evaluation of the fe tus and adnexa. COMPARISON: No relevant prior studies available. FINDINGS: GESTATION: Single IUP with no heart tones identified, estimated gestational age 8 weeks 6 days +/- 6 days by CRL (2.4 cm). Irregular gestational sac, extending into the inferior uterine segment. PLACENTA/AMNIOTIC FLUID: Small subchorionic hematoma. UTERUS/CERVIX: Unremarkable. No myometrial mass. The uterus measures 11.5 x 7 x 7.8 cm. OVARIES: Neither ovary is positively identified. No mass. FREE FLUID: No abnormal adnexal masses or free fluid. IMPRESSION: Single IUP with no heart tones identified, estimated gestational age 8 weeks 6 day s +/- 6 days by CRL (2.4 cm). Findings most consistent with first trimester loss. Electronically signed by: Armando Salvador MD 03/21/2023 2:31 AM CDT Due to temporary technical issues with the PACS/Fluency reporting system, reports are being signed by the in house radiologists without review as a courtesy to insure prompt reporting. The interpreting radiologist is fully responsible for the content of the report.
== END 2023-03-21 03:11 | disposition home or self-care (01) ==
LOC: ER 01:12
DX: O03.9 Complete or unspecified spontaneous abortion without complication (principal); Z3A.08 8 weeks gestation of pregnancy
CPT/HCPCS: 36415; 76817; 80048; 81001; 81025; 84702; 85025; 86900; 86901; 99284

== ENCOUNTER 2023-03-25 10:57 | Emergency (ER) | payer OTHER ==
--- OUTSIDE RECORDS SUMMARY | 2023-03-25 11:01 | XMS REPORT | Continuity of Care Document ---
:1995 Author Organization [facility] t Address [address] [place] [address] Care Team Providers Name Role Phone Robert Gutierrez Primary Care Physician Robert Gutierrez Attending Clinician Unavailable Tito Sy Attending Clinician Unavailable ANYI SANCHEZ Attending Clinician Unavailable Raj Jorgensen DO Attending Clinician Elise Pinedo Attending Clinician Anyi Sanchez MD Attending Clinician SISSON_Feliz Attending Clinician Unavailable Corkran_T Attending Clinician Unavailable Kirsten Gillespie Admitting Clinician Unavailable ANYI SANCHEZ Admitting Clinician Unavailable Anyi Sanchez MD Admitting Clinician SISSON_C Admitting Clinician Unavailable Corkran_T Admitting Clinician Unavailable Payers Payer Name Policy Type Policy Number Effective Date Expiration Date S cherie BAKER SAVERUSLAN [id number] 2023 00:00:00 [employer] 6 [id number] Common Spiri t [facility] Problems Condition Condition Condition Status Onset Resolution Last Treating Co mments Source Name Details Category Date Date Treatment Clinician Date Miscarriag Miscarriag Disease Active U nivers e e 03-21 ity of 00:00: [place] [facility] Obesity Obesity Disease Active Univers (BMI (BMI 03-21 ity of 30-39.9) 30-39.9) 00:00: [place] [facility] Posttrauma Posttrauma Problem Active S weeny tic stress tic Stress 01-11 Co mmuni disorder Disorder 00:00: [facility]osp[facility] Clinics 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 Disorder 01-11 Commun i 00:00: [facility] Clinics Attention Attention Problem Active Swe john deficit Deficit 01-11 Communi hyperactiv Hyperactiv 00:00: ty ity ity 00 Hospita disorder Disorder l Clinics [id number] Low back Problem Comm on pain, Spirit unspecifie - [facility]I d back [facility] pain [facility] laterality Medica l , Center unspecifie d chronicity , with sciatica presence unspecifie d [id number] Lumbar Problem Common radiculopa Spirit thy - [facility] Status Migraine, Problem Common migrainosu unspecifie Sp madhu s d, not - CHI intractabl [facility] e, with [facility] status Medical migrainosu Center s [id number] Attention Problem Comm on deficit Spirit hyperactiv - CHI ity St disorder [facility] (ADHD), Medical combined Center type [id number] Generalize Problem Com mon d anxiety Spirit disorder - [facility] [id number] Allergic Problem Commo n rhinitis, Spirit unspecifie - CHI d [facility] seasonalit [facility] y, Medical unspecifie Center d trigger [id number] Mild Problem Common intermitte Spirit nt asthma - CHI without St complicati [facility] on Medical Center [id number] Chronic Problem Common maxillary Spirit sinusitis - [facility] [id number] Nausea Problem Common Spirit - CHI [facility] [id number] Food Problem Common sensitivit Spirit y headache - [facility] [id number] Gastroente Problem Com mon ritis Spirit - [facility] [id number] Current Problem Common moderate Spirit episode of - CHI major St depressive [facility] disorder Medical without Center prior episode [id number] Insomnia, Problem Com mon unspecifie Spirit d type - [facility] [id number] Spasm of Problem Comm on GI tract [facility] [id number] Bloody Problem Common diarrhea [facility] Allergies, Adverse Reactions, Alerts Allergy Allergy Status Severity Reaction(s) Onset Inactive Treating Comm ents Source Name Type Date Date Clinician IODINE DRUG Active Other-Cmnt Univer s INGREDI 03-21 ity of 00:00: [place] 00 [facility] Iodine Propensi Active Other - See Uni vers ty to comments 03-21 ity of adverse 00:00: [place] reaction 00 [facility] Branch iodine DA Active [place] 2019-11 [facility] 0-27 Clear 00:00: [place] 00 [facility] gluten FA Active SV 2019-11 [facility] 0-27 Clear 00:00: [place] 00 [facility] shellfis FA Active SV 2019-11 [facility] h 0-27 Clear derived 00:00: [place] 00 [facility] iodine DA Active [place] itching 2019-11 [facility] 0-27 Clear 00:00: [place] 00 [facility] gluten FA Active SV NAUSEA,VOMIT 2019-11 [facility] ING, GI 0-27 Clear IRRITATION, 00:00: [place] HEADACHE, 00 [facility] JOINT SWELLING [facility] shellfis FA Active SV TONGUE 2019-11 [facility] h SWELLS, MILD 0-27 Nyla r derived SOB, 00:00: [place] [facility] Shellfis Shellfis Active Unknown Commo n h h [facility] Iodine Allergy Active [place] to Communi substan ty e Hospita l Clinics Social History Social Habit Start Date Stop Date Quantity Comments Source History of Common Spirit - Tobacco Use [facility] Exposure to 2023-03-11 2023-03-21 Not sure [facility] SARS-CoV-2 00:00:00 08:38:00 [facility] (event) Branch Alcohol intake 2023-03-21 2023-03-21 Ex-drinker [facility] 00:00:00 00:00:00 (finding) [facility] Sex Assigned At [birth year] Universit y of 00:00:00 00:00:00 [facility] Smoking Status Start Date Stop Date Source Current Some Day Smoker [facility] Tobacco smoking [facility] xa consumption unknown Medical Bran ch Former Smoker 2022-08-26 00:00:00 2022-08-26 Common Spiri t - [facility] St 00:00:00 [facility] Ce nter Medications Ordered Filled Start Stop Current Ordering Indication Dosage Frequency Signature Comments Components Source Medication Medication Date Date Medication? Clinician (SIG) Name Name SERTraline Yes 150mg Take 1.5 Un sherly (ZOLOFT) 5-10 tablets by ity o f 100 mg 09:03: mouth at [place] tablet 54 bedtime. Medical Branch [id number] IV Yes 1000mL at 125 [facility] ers infusion 5-10 mL/hr, IV ity of 1,000 mL 02:15: [place] CONTINUOUS Medical , Starting Branch on [facility] 03/21/23 at 2115, Until Discontinu ed, Routine SERTraline Yes 150mg 150 mg, Uni vers (ZOLOFT) 5-10 Oral, QHS, ity o f tablet 150 02:00: First dose [place] mg 00 on [facility] 03/21/23 at Branch 2100, Until Discontinu ed, Routine ondansetron Yes 4mg 4 mg, Slow Univers (ZOFRAN 5-10 IV Push, ity of (PF)) 01:47: Q6HPRN, [place] injection 4 43 Starting Medi ronda mg on [facility] 03/21/23 at 2046, Until Discontinu ed, Routine, Nausea and Vomiting (N/V) ibuprofen Yes 600mg 600 mg, [facility] ers (IBU) 5-10 Oral, ity of tablet 600 01:08: Q6[place]PRN, [place] mg [address] [facility] 03/21/23 at 2007, Until Discontinu ed, Routine, pain tranexamic 2022- No 1000mg 1,000 mg, Univers acid 03-21 Intravenou ity of (CYKLOKAPRO 18:45: 18:45 s, ONCE, 1 [place] N) 1,000 mg 00 :01 dose, On Medi ronda in NaCl [facility] 03/21/23 Branch 0.9% (NS) at 1345, 10 mL Administer piggyback over 10 Minutes, 10 mL miSOPROStoL 2022- No 800ug 800 mcg, Univers (CYTOTEC) 03-21 Vaginal, ity o f tablet 800 18:45: 18:18 ONCE, 1 [place] as mcg 00 :00 dose, On Medical Mon03/21/23 Branch at 1345, Routine ketorolac 2022- No 30mg 30 mg, Unive rs (TORADOL) 03-21 Slow IV ity of injection 18:45: 17:55 Push, ONCE [place] 30 mg 00 :00 NOW, 1 Medical dose, On Branch Mon03/21/23 at 1345, Routine ondansetron 2022- No 4mg 4 mg, Slow Univers (ZOFRAN 03-21 IV Push, ity of (PF)) 17:05: 17:05 ONCE, 1 [place] injection 4 00 :00 dose, On Medi ronda mg Mon03/21/23 Branch at 1215, VLADIMIR Adderall XR Adderall XR No 1{capsu QD Adderall 10 MG 10 MG 9-16 le_in_t XR 10 MG 00:00: he_morn 00 ing} Adderall XR Adderall XR No 1{capsu QD Adderall 10 MG 10 MG 9-16 le_in_t XR 10 MG 00:00: he_morn 00 ing} Adderall XR Adderall XR 2021- No 1{capsu QD Adderall 20 MG 20 MG 2-18 le_in_t XR 20 MG 00:00: he_morn 00 ing} Adderall XR Adderall XR 2021- No 1{capsu QD Adderall 20 MG 20 MG 2-18 le_in_t XR 20 MG 00:00: he_morn 00 ing} Adderall XR Adderall XR 2021- No 1{capsu QD Adderall 20 MG 20 MG 1-19 le_in_t XR 20 MG 00:00: he_morn 00 ing} Adderall XR Adderall XR 2021- No 1{capsu QD Adderall 20 MG 20 [...] Clavulanate 00:00: 00:00 - CHI 00 :00 [facility] Albuterol Albuterol 2018-0 Yes Robert 2 puffs as Common Sulfate HFA Sulfate HFA 8-22 Gutierrez needed Spirit 00:00: - CHI 00 [facility] 2017-11 No 40mg Common (Triamcinol (Triamcinol 2-03 S pirit one) one) 00:00: - CHI [facility] 2017-11 No 40mg Common (Triamcinol (Triamcinol 2-03 S pirit one) one) 00:00: - CHI [facility] Kenalog Kenalog 2018-1 No 40mg Common (Triamcinol (Triamcinol 2-03 S pirit one) one) 00:00: - CHI 00 [facility] Abilify 5 Abilify 5 No 1 Q1D Abilify 5 [place] mg tablet mg tablet mg tablet Communi Take 1 Take 1 Take 1 ty tablet tablet tablet Hospita every day every day every day l by oral by oral by oral Clinic s route. route. route. compounded compounded No compounded [place] medication medication medication Communi Semaglutide Semaglutide Semaglutid ty /B12 0.3 ml /B12 0.3 ml e/B12 0.3 Hospita SQ QW, SQ QW, ml SQ QW, l start at start at start at Cli nics 0.075 and 0.075 and 0.075 and increase increase increase weekly as weekly as weekly as tolerated. tolerated. tolerated. ondansetron ondansetron No 1 Q7H ondansetro [place] 4 mg 4 mg n 4 mg [...] 0.5 Xanax 0.5 No 1 Xanax 0.5 [place] mg tablet mg tablet mg tablet Communi Take 1 Take 1 Take 1 ty tablet by tablet by tablet by Hospita oral route oral route oral route l as needed. as needed. as needed. Clinics Zoloft 50 Zoloft 50 No 1 Q1D Zoloft 50 [place] mg tablet mg tablet mg tablet Communi Take 1 Take 1 Take 1 ty tablet tablet tablet Hospita every day every day every day l by oral by oral by oral Clinic s route. route. route. Imitrex Imitrex Yes Robert 1 tablet Com mon Gutierrez as needed Spirit at onset - [facility] of [facility] may repeat Medical after 2 Center hours. max 2 doses/24 hours Fioricet/Co Fioricet/Co Yes Robert 1 capsule Common deine deine Gutierrez as needed Spirit - [facility] Singulair Singulair Yes Robert 1 tablet Common Gutierrez Spirit - [facility] Imitrex 50 Imitrex 50 No [...] Completed Common Spirit (Triamcinolone) (Triamcinolone) 11:33:00 - [facility] Vital Signs Vital Name Observation Time Observation Value Comments Source Systolic blood 2023-03-22 12:48:00 109 mm[Hg] Univer sity of pressure [facility] Diastolic blood 2023-03-22 12:48:00 59 mm[Hg] Unive rsity of pressure [facility] Heart rate 2023-03-22 12:48:00 67 /min [facility] Respiratory rate 2023-03-22 12:48:00 14 /min [facility] Body temperature 2023-03-22 10:00:[address] [facility] Oxygen saturation in 2023-03-22 10:00:00 100 /min University of Arterial blood by [facility] Pulse oximetry Branch Body height 2023-03-21 13:40:00 182.9 [facility] weight 2023-03-21 13:40:00 108.863 kg [facility] BMI 2023-03-21 13:40:00 32.55 kg/m2 [facility] BP Diastolic 2023-01-11 00:00:00 81 mm[Hg] [facility] Height 2023-01-11 00:00:00 72 [in_i] [facility] BMI (Body Mass 2023-01-11 00:00:00 32.8 kg/m2 [facility] BP Systolic 2023-01-11 00:00:00 124 mm[Hg] [facility] Body Weight 2023-01-11 00:00:00 3872 [oz_av] [facility] height 2022-07-29 08:00:00 70.00 [in_i] [facility] weight 2022-07-29 08:00:00 220 [lb_av] [facility] bmi 2022-07-29 08:00:00 31.56 kg/m2 [facility] blood pressure 2022-07-29 08:00:00 122 mm[Hg] Common Spirit - systolic [facility] blood pressure 2022-07-29 08:00:00 67 mm[Hg] Common Spirit - diastolic [facility] height 2021-12-01 13:50:00 70.00 [in_i] Common S [facility] weight 2021-12-01 13:50:00 220.2 [lb_av] Common Spirit - [facility] temperature 2021-12-01 13:50:00 98.1 [degF] Common [facility] bmi 2021-12-01 13:50:00 31.59 kg/m2 [facility] oximetry 2021-12-01 13:50:00 97 % [facility] respiratory rate 2021-12-01 13:50:00 17 /min Comm on Spirit - [facility] blood pressure 2021-12-01 13:50:00 121 mm[Hg] Common [facility] - systolic [facility] blood pressure 2021-12-01 13:50:00 65 mm[Hg] Common Spirit - diastolic [facility] height 2021-10-25 08:40:00 70.00 [in_i] [facility] weight 2021-10-25 08:40:00 220 [lb_av] [facility] temperature 2021-10-25 08:40:00 98.3 [degF] [facility] bmi 2021-10-25 08:40:00 31.56 kg/m2 [facility] blood pressure 2021-10-25 08:40:00 118 mm[Hg] Common [facility] - systolic [facility] blood pressure 2021-10-25 08:40:00 72 mm[Hg] Common [facility] - diastolic [facility] height 2021-08-09 08:00:00 70.00 [in_i] [facility] weight 2021-08-09 08:00:00 227 [lb_av] [facility] temperature 2021-08-09 08:00:00 97 [degF] [facility] bmi 2021-08-09 08:00:00 32.57 kg/m2 [facility] Procedures Procedure Date / Time Performing Clinician Source Performed CBC WITH DIFF 2023-03-22 00:21:00 Anyi Sanchez [facility] PREPARE PACKED RBC 2023-03-21 20:29:31 Elise Rehman [facility] TRANSFUSE PACKED RBC 2023-03-21 18:48:00 Elise Rehman [facility] CBC WITH DIFF 2023-03-21 16:46:00 Elise Rehman [facility] US FIRST 2023-03-21 16:21:29 Elise Rehman [facility] TRIMESTER LESS THAN 14 Medical B ranch WEEKS WITH TRANSVAGINAL ABORH CONFIRMATION (LAB 2023-03-21 16:10:00 Elise Rehman [facility] ONLY) [facility] TOTAL BETA HCG ASSAY 2023-03-21 14:14:00 Elise Rehman [facility] CBC WITH DIFF 2023-03-21 14:14:00 Elise Rehman [facility] HB ABO GROUPING 2023-03-21 14:14:00 Elise Rehman [facility] COMP. METABOLIC PANEL 2023-03-21 14:14:00 Elise Rehman [facility] ([id number]) [facility] CRITICAL CARE 2023-03-21 13:32:00 Elise Rehman [facility] Encounters Start End Encounter Admission Attending Care Care Encounter Source Date/Time Date/Time Type Type Clinicians Facility Department ID 2022-08-26 Outpatient Gutierrez, STLMLC STLMLC [id number] Common 10:26:01 Robert [id number] [facility] 2021-12-08 Outpatient Gutierrez, STLMLC STLMLC [id number] Common 13:19:33 Robert [id number] [facility] 2021-12-08 Outpatient Gutierrez, STLMLC STLMLC [id number] Common 13:18:51 Robert [id number] [facility] 2021-12-08 Outpatient Gutierrez, STLMLC STLMLC [id number] Common 13:17:54 Robert [id number] [facility] 2021-12-08 Outpatient Gutierrez, STLMLC STLMLC [id number] Common 12:59:24 Robert [id number] [facility] 2021-12-08 Outpatient Gutierrez, STLMLC STLMLC [id number] Common 12:58:49 Robert [id number] [facility] 2021-12-08 Outpatient Gutierrez, STLMLC STLMLC [id number] Common 12:26:05 Robert [id number] [facility] 2021-12-08 Outpatient Gutierrez, STLMLC STLC [id number] Common 12:23:58 Robert [id number] [facility] 2021-12-08 Outpatient Gutierrez, STLMLC STLC [id number] Common 12:13:27 Robert [id number] [facility] 2021-12-08 Outpatient Gutierrez, STLMLC STLC [id number] Common 12:08:34 Robert [id number] [facility] 2021-12-08 Outpatient Gutierrez, STLMLC STLC [id number] Common 11:20:59 Robert [id number] [facility] 2021-12-08 Outpatient Gutierrez, STLMLC STLC [id number] Common 11:06:22 Robert [id number] [facility] 2021-12-08 Outpatient Gutierrez, STLMLC STLC [id number] Common 11:06:13 Robert [id number] [facility] 2021-12-08 [facility] [id number] Common 11:00:26 Robert [id number] [facility] 2020-09-11 Inpatient Tito Anne HCATO DAYS [id number] [facility] 11:30:00 [facility] [place] [facility] 2023-03-21 2023-03-22 Outpatient X DANIEL [facility] AYAAN [id number] Univers 08:37:00 08:30:00 ANYI ware [facility] 2023-03-21 2023-03-22 Emergency Raj Jorgensen [facility] [id number] Univers 08:37:00 08:30:00 Elise Rehman [id number] chaz Anyi Sanchez [id number] [facility] [id number] [facility] 083 Branch 2023-01-11 2023-01-11 Outpatient SISSON_C 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 2023-01-03 2023-01-03 Outpatient SISSON_[facility] 2022 [place] 00:00:00 00:00:00 0221 Commun i ty Hospita l [facility] 2022-08-29 2022-08-29 (TEL) STLMLC STLMLC [id number] Co mmon 00:00:00 00:00:00 [facility] 2022-07-29 2022-07-29 OFFICE STLMLC STLMLC [id number] Co mmon 00:00:00 00:00:00 VISIT EST Spir it PT LEVEL 3 - [facility] 2022-05-17 2022-05-17 (TEL) STLMLC STLMLC [id number] Co mmon 00:00:00 00:00:00 [facility] 2021-12-01 2021-12-01 PREV VISIT STLMLC STLMLC [id number] Common 00:00:00 00:00:00 EST AGE Spirit 18-39 - CHI [facility] 2021-10-29 2021-10-29 (TEL) STLMLC STLMLC [id number] Co mmon 00:00:00 00:00:00 [facility] 2021-10-25 2021-10-25 OFFICE STLMLC STLMLC [id number] Co mmon 00:00:00 00:00:00 VISIT Spirit ESTAB PT - CHI LEVEL 4 [facility] 2021-08-09 2021-08-09 OFFICE STLMLC STLMLC [id number] Co mmon 00:00:00 00:00:00 VISIT Spirit ESTAB PT - CHI LEVEL 4 [facility] 2021-07-28 2021-07-28 Outpatient Corkran_T VFP VFP [id number] Village 04:34:00 04:34:00 [id number] Family Practic e 2021-07-21 2021-07-21 Outpatient STLMLC STLMLC [id number] Common 00:00:00 00:00:00 [facility] 2021-05-24 2021-05-24 Outpatient STLMLC STLMLC [id number] Common 00:00:00 00:00:00 [facility] 2021-05-07 2021-05-07 Outpatient STLMLC STLMLC [id number] Common 00:00:00 00:00:00 [facility] 2021-04-26 2021-04-26 Outpatient STLMLC STLMLC [id number] Common 00:00:00 00:00:00 [facility] 2021-04-21 2021-04-21 Outpatient STLMLC STLMLC [id number] Common 00:00:00 00:00:00 [facility] 2021-03-29 2021-03-29 Outpatient STLMLC STLMLC [id number] Common 00:00:00 00:00:00 [facility] 2021-03-16 2021-03-16 Outpatient STLMLC STLMLC [id number] Common 00:00:00 00:00:00 [facility] 2020-12-11 2020-12-11 Outpatient STLMLC STLMLC [id number] Common 00:00:00 00:00:00 [facility] 2020-10-28 2020-10-28 Outpatient STLMLC STLMLC [id number] Common 00:00:00 00:00:00 [facility] 2020-10-27 2020-10-27 Outpatient STLMLC STLMLC [id number] Common 00:00:00 00:00:00 [facility] 2020-10-27 2020-10-27 Outpatient STLMLC STLMLC [id number] Common 00:00:00 00:00:00 [facility] 2020-10-05 2020-10-05 Outpatient STLMLC STLMLC [id number] Common 00:00:00 00:00:00 [facility] 2020-09-18 2020-09-18 Outpatient STLMLC STLMLC [id number] Common 00:00:00 00:00:00 [facility] 2020-09-18 2020-09-18 Outpatient STLMLC STLMLC [id number] Common 00:00:00 00:00:00 [facility] 2020-09-08 2020-09-08 Outpatient Tiot Sy HCACL LABO [id number] [id number] [facility] 18:47:00 18:47:00 29 [facility] 2020-08-08 2020-08-08 Outpatient STLMLC STLMLC [id number] Common 00:00:00 00:00:00 [facility] 2020-08-07 2020-08-07 Outpatient STLMLC STLMLC [id number] Common 00:00:00 00:00:00 [facility] 2020-07-17 2020-07-17 [facility] [id number] Common 11:15:00 11:15:00 [facility] Spir it Road [facility] 2020-07-17 2020-07-17 [facility] [id number] Common 11:10:00 11:10:[address] [facility] 2020-06-24 2020-06-24 [facility] [id number] Common 16:00:00 16:00:[address] [facility] 2020-03-24 2020-03-24 [facility] [id number] Common 13:00:00 13:00:[address] [facility] 2020-01-21 2020-01-21 [facility] [id number] Common 13:26:00 13:26:[address] [facility] 2019-12-24 2019-12-24 [facility] [id number] Common 16:00:00 16:00:[address] [facility] 2019-11-26 2019-11-26 [facility] [id number] Common 10:30:00 10:30:[address] [facility] 2019-10-16 2019-10-16 [facility] [id number] Common 08:00:00 08:00:[address] [facility] 2019-09-16 2019-09-16 [facility] [id number] Common 15:15:00 15:15:[address] [facility] 2019-09-11 2019-09-11 [facility] [id number] Common 17:08:00 17:08:[address] [facility] 2019-08-06 2019-08-06 [facility] [id number] Common 08:00:00 08:00:[address] [facility] 2019-07-04 2019-07-04 [facility] [id number] Common 09:30:00 09:30:[address] [facility] 2019-06-25 2019-06-25 [facility] [id number] Common 14:45:00 14:45:[address] [facility] 2019-06-05 2019-06-05 [facility] [id number] Common 13:00:00 13:00:[address] [facility] 2019-04-24 2019-04-24 [facility] [id number] Common 10:15:00 10:15:[address] [facility] 2019-03-21 2019-03-21 [facility] [id number] Common 09:15:00 09:15:[address] [facility] 2019-02-27 2019-02-27 [facility] [id number] Common 09:00:00 09:00:[address] [facility] 2019-02-22 2019-02-22 [facility] [id number] Common 15:16:00 15:16:[address] [facility] 2019-01-10 2019-01-10 [facility] [id number] Common 08:45:00 08:45:[address] [facility] 2018-12-13 2018-12-13 [facility] [id number] Common 10:00:00 10:00:[address] [facility] 2018-11-19 2018-11-19 [facility] [id number] Common 14:51:00 14:51:[address] [facility] 2018-11-15 2018-11-15 [facility] [id number] Common 10:45:00 10:45:[address] [facility] 2018-10-26 2018-10-26 [facility] [id number] Common 10:29:00 10:29:[address] [facility] 2018-07-02 2018-07-02 [facility] [id number] Common 14:45:00 14:45:[address] [facility] 2018-05-15 2018-05-15 [facility] [id number] Common 14:15:00 14:15:[address] Sp[address] [facility] Results Test Description Test Time Test Comments Results Result Comments Source Prepare Packed RBC (in units), 2 Units 2023-03-21 20:29:31 Test Item Value Reference Range Interpretation Comme nts Cross Match Result (test code = Compatible 4409) ISBT Blood Type Code (test code = 6200 552635) Unit Blood Type (test code = 4410) A Pos Unit Number (test code = 4411) [id number] Blood Expiration Date & Time (test [id number] code = 820318) Status Information (test code = Issued 4411) Product Identification (test code = Red Blood Cells 3) Product Code (test code = 4414) [id number] Performed at [facility] Laboratory Services - [facility] Blood [address] [place] [id number] Free: [phone] 266IA No. [id number] [facility] WITH [id number] 17:28:33 Test Item Value Reference Range Interpretation Comments WBC (test code = 10.02 See_Comment [Automated 3407-2) message] The sy stem which generated this result transmitted reference range : 4.30 - 11.10 10*3/?L. The reference range was not used to interpret this result as normal/abnormal . RBC (test code = 3.45 See_Comment L [Automated 819-8) message] The sy stem which generated this result transmitted reference range : 3.93 - 5.25 10*6/?L. The reference range was not used to interpret this result as normal/abnormal . HGB (test code = 9.8 g/dL 11.6-15.0 L 718-7) HCT (test code = 29.3 % 35.7-45.2 L 4544-3) MCV (test code = 84.9 fL 80.6-95.5 787-2) MCH (test code = 28.4 pg 25.9-32.8 785-6) MCHC (test code = 33.4 g/dL 31.6-35.1 786-4) RDW-SD (test code = 42.7 fL 39.0-49.9 73628-2) RDW-CV (test code = 13.6 % 12.0-15.5 788-0) PLT (test code = 324 See_Comment [Automated 777-3) message] The sy stem which generated this result transmitted reference range : 166 - 358 10*3/ ?L. The reference r christie was not used to interpret this result as normal/abnormal . MPV (test code = 11.0 fL 9.5-12.9 57042-0) NRBC/100 WBC (test 0.0 See_Comment [Automat ed code = 4575177636) message] The system which generated this result transmitted reference range : 0.0 - 10.0 /100 WBCs. The refer ence range was not u sed to interpret th is result as normal/abnormal . NRBC x10^3 (test code See_Comment [Auto mated = 2217384644) message] The s ystem which generated this result transmitted reference range : 10*3/?L. The reference range was not used to interpret this result as normal/abnormal . GRAN MAT (NEUT) % 74.5 % (test code = 770-8) IMM GRAN % (test code 0.40 % = 7530518805) LYMPH % (test code = 21.0 % 736-9) MONO % (test code = 3.8 % 5905-5) EOS % (test code = 0.1 % 713-8) BASO % (test code = 0.2 % 706-2) GRAN MAT x10^3(ANC) 7.47 10*3/uL 1.88-7.09 H (test code = 2255530723) IMM GRAN x10^3 (test 0.04 10*3/uL 0.00-0.06 code = 2594640591) LYMPH x10^3 (test code 2.10 10*3/uL 1.32-3.29 = 731-0) MONO x10^3 (test code 0.38 10*3/uL 0.33-0.92 = 742-7) EOS x10^3 (test code = 0.03-0.39 L 711-2) BASO x10^3 (test code 0.01-0.07 = 704-7) Lab Interpretation Abnormal (test code = 25993-8) [facility] BETA HCG [id number] 15:38:52 Test Item Value Reference Range Interpretation Comments BETA HCG (test 3120.10 See_Comment [Automated m essage] code = The system [facility] h 5730200631) generated this result transmit altagracia reference range : Non- fe male and male patien ts: <5 mIU/mL. The reference range was not used to interpret this result as normal/abnormal . IDRIS (test code Gestational Age ? ? = IDRIS) ?Range (mIU/mL) 1-10 ?Weeks ?[id number] Weeks ?59095-50888045-82 Weeks ?1069-86679379-00 Weeks ?2903-533217 Biotin has been reported to cause a negative bias, interpret results relative to patient's use of biotin. [facility]. METABOLIC PANEL (85610)2023-03-21 15:14:31 Test Item Value Reference Range Interpretation Comments NA (test code = 137 mmol/L 135-145 1331442802) K (test code = 4.1 mmol/L 3.5-5.0 1948727741) CL (test code = 107 mmol/L 98-108 9306520752) CO2 TOTAL (test code = 21 mmol/L 23-31 L 4852179585) AGAP (test code = 9 2-16 8101100704) BUN (test code = 6 mg/dL 7-23 L 6922492125) GLUCOSE (test code = 108 mg/dL 70-110 9866261295) CREATININE (test code = 0.60 mg/dL 0.50-1.04 5295062727) TOTAL BILI (test code = 0.5 mg/dL 0.1-1.4 2058118373) CALCIUM (test code = 8.7 mg/dL 8.6-10.6 3691361584) T PROTEIN (test code = 6.3 g/dL 6.3-8.2 6469937781) ALBUMIN (test code = 3.6 g/dL 3.5-5.0 9043382796) ALK PHOS (test code = 48 U/L 34-122 7706177026) ALTv (test code = 23 U/L 5-35 1742-6) AST(SGOT) (test code = 26 U/L 13-40 2237943484) eGFR (test code = 120.8 mL/min/1.73m2 8302743148) IDRIS (test code = IDRIS) Association of Glomerular Filtration Rate (GFR) and Staging of Kidney Disease* + --+ --+ ------+| GFR (mL/min/1.73 m2) ?| With Kidney Damage ?| ?Without Kidney Damage+ --------+ --------+ +| ?>90 ?| ?Stage one ?| ? Normal ?+ ---+ ---+ -------+| ?60-89 ?| ?Stage two ?| ? Decreased GFR ? + --+ --+ ------+| ?30-59 ?| ?Stage three ?| ? Stage three ? + --+ --+ ------+| ?15-29 ?| ?Stage four ? | ? Stage four ?+ ---+ ---+ -------+| ?<15 (or dialysis) ? ?| ?Stage five ? | ? Stage five ?+ ---+ ---+ -------+ *Each stage assumes the associated GFR level has been in effect for at least three months. ?Stages 1 to 5, with or without kidney disease, indicate chronic kidney disease. Notes: Determination of stages one and two (with eGFR >59mL/min/1.73 m2) requires estimation of kidney damage for at least three months as defined by structural or functional abnormalities of the kidney, manifested by either:Pathological abnormalities or Markers of kidney damage (including abnormalities in the composition of the blood or urine or abnormalities in imaging tests). Lab Interpretation Abnormal (test code = 35359-7) [facility] WITH [id number] 15:10:37 Test Item Value Reference Range Interpretation Comments WBC (test code = 10.84 See_Comment [Automated 8604-2) message] The sy stem which generated this result transmitted reference range : 4.30 - 11.10 10*3/?L. The reference range was not used to interpret this result as normal/abnormal . RBC (test code = 3.90 See_Comment L [Automated 165-8) message] The sy stem which generated this result transmitted reference range : 3.93 - 5.25 10*6/?L. The reference range was not used to interpret this result as normal/abnormal . HGB (test code = 11.4 g/dL 11.6-15.0 L 718-7) HCT (test code = 32.6 % 35.7-45.2 L 4544-3) MCV (test code = 83.6 fL 80.6-95.5 787-2) MCH (test code = 29.2 pg 25.9-32.8 785-6) MCHC (test code = 35.0 g/dL 31.6-35.1 786-4) RDW-SD (test code = 42.1 fL 39.0-49.9 06503-5) RDW-CV (test code = 13.8 % 12.0-15.5 788-0) PLT (test code = 348 See_Comment [Automated 777-3) message] The sy stem which generated this result transmitted reference range : 166 - 358 10*3/ ?L. The reference r christie was not used to interpret this result as normal/abnormal . MPV (test code = 10.5 fL 9.5-12.9 03807-7) NRBC/100 WBC (test 0.0 See_Comment [Automat ed code = 3965479009) message] The system which generated this result transmitted reference range : 0.0 - 10.0 /100 WBCs. The refer ence range was not u sed to interpret th is result as normal/abnormal . NRBC x10^3 (test code See_Comment [Auto mated = 4586754176) message] The s ystem which generated this result transmitted reference range : 10*3/?L. The reference range was not used to interpret this result as normal/abnormal . GRAN MAT (NEUT) % 77.7 % (test code = 770-8) IMM GRAN % (test code 0.40 % = 6397142047) LYMPH % (test code = 16.0 % 736-9) MONO % (test code = 5.2 % 5905-5) EOS % (test code = 0.4 % 713-8) BASO % (test code = 0.3 % 706-2) GRAN MAT x10^3(ANC) 8.44 10*3/uL 1.88-7.09 H (test code = 3685574704) IMM GRAN x10^3 (test 0.04 10*3/uL 0.00-0.06 code = 4324794825) LYMPH x10^3 (test code 1.73 10*3/uL 1.32-3.29 = 731-0) MONO x10^3 (test code 0.56 10*3/uL 0.33-0.92 = 742-7) EOS x10^3 (test code = 0.04 10*3/uL 0.03-0.39 711-2) BASO x10^3 (test code 0.03 10*3/uL 0.01-0.07 = 704-7) Lab Interpretation Abnormal (test code = 70318-0) [facility] [id number] 14:43:00 Test Item Value Reference Range Interpretation Comments ABO & RH (test code = 20) A Positive IAT (test code = 1185) Negative [facility] Coronavirus 2018 [id number] 09:59:00 Test Item Value Reference Range Interpretation Comments [...] the identification of SARS-CoV-2 RNA usingthe Jorge M2000 Sy stem under the FDA Emergen cy UseAuthorizatio n. The testing is perf ormed by personneltraleroy d in the procedures for the Jorge M2000 molecular diagnostic SARS-CoV-2 assa y in vitro. Novel Coronavirus 2018 [id number] 09:58:00 Test Item Value Reference Range Interpretation [...] for the identification of SARS-CoV-2 RNA usingthe travelfox M2000 Sy stem under the FDA Emergen cy UseAuthorizatio n. The testing is perf ormed by personneltraine d in the procedures for the travelfox M2000 molecular diagnostic SARS-CoV-2 assa y in vitro."
[2023-03-25] MEDS ORDERED: METOCLOPRAMIDE 10 MG/2mL INJ ONE (11:34)
[2023-03-25] MEDS ORDERED: KETOROLAC 30 MG/ML INJ ONE (11:35)
[2023-03-25] MEDS ORDERED: NA CHLORIDE 0.9% 500 ML ONE (11:35)
[2023-03-25 11:37] LABS: Absolute Lymphocytes (CBC) 2.7 K/uL (0.7-4.9); Hematocrit 30.5 % (36.0-45.0); MCV 85.7 fL (80-100); MPV 7.9 fL (7.6-11.3); RBC Red Blood Cell Count 3.56 M/uL (3.86-4.86)
--- NOTE | 2023-03-25 11:46 | RAD REPORT ---
EXAM DESCRIPTION: RAD - Chest Single View - 03/25/2023 11:36 am CLINICAL HISTORY: CHEST PAIN COMPARISON: Chest Single View dated 08/18/2022; Chest Single View dated 10/14/2019; Chest Single View dated 08/04/2016 FINDINGS: Lines: None. Lungs: No evidence of edema or pneumonia. Pleural: No significant pleural effusions or pneumothorax. Cardiac: The heart size is within normal limits. Mediastinum: Within normal limits. Bones: No acute fractures. Other: None IMPRESSION: No acute cardiopulmonary disease.
[2023-03-25 11:55] LABS: Albumin 3.5 g/dL (3.4-5.0); Bilirubin Total 0.2 mg/dL (0.2-1.0); Potassium 3.6 mEq/L (3.5-5.1); Protein, Total 7.2 g/dL (6.4-8.2)
--- NOTE | 2023-03-25 12:38 | RAD REPORT ---
EXAM DESCRIPTION: US - Transvaginal OB - 03/25/2023 12:28 pm CLINICAL HISTORY: sp miscarriage, eval retained POC COMPARISON: Transvaginal OB dated 03/21/2023 FINDINGS: The uterus measures 8.2 cm. Trace fluid within endometrial canal. No evidence of retained products. Left ovary visualized and measuring 1.8 x 1.4 x 1 cm volume of 1.3 cc. Vascular flow is pre sent. The right ovary was obscured by bowel gas. IMPRESSION: No evidence of retained products of conception. Trace fluid within the endometrial canal .
--- NOTE | 2023-03-25 13:40 | EDPHYS ---
Physician Documentation [facility] Name: Manuela Garzon Age: 27 yrs Sex: Female : 1995 Arrival Date: 03/25/2023 Time: 10:57 Bed 7 Private MD: ED Physician Marv Biswas HPI: 03/25 11:35 This 27 yrs old Female presents to ER via Ambulatory with complaints of bs3 Weakness and palpitations. 11:35 HerPatient notes that she was recently and had a miscarriage she was seen here bs3 several days ago, globin here was reportedly 12 and then she had increased bleeding and went to an outside facility where her hemoglobin was 9 they remove the clot from her os and kept her overnight and give her 2 units of blood her repeat hemoglobin was 9 upon discharge since then she has felt uneasy palpitations generalized weakness slight headache she felt cold last night as well as warm today she does palpitations and chest pain as well as dyspnea on exertion. Historical: - Allergies: 11:34 Iodine; ld1 - PMHx: 11:34 Anxiety; Asthma; depressive disorder; Migraine; PTSD; ld1 - Immunization history:: Adult Immunizations up to date, Client reports receiving the 2nd dose of the Covid vaccine. - Social history:: Smoking status: Reported history of juuling and/or vaping. Patient/guardian denies using alcohol. ROS: 11:39 Constitutional: Negative for fever, chills bs3 11:39 All other systems are negative. Exam: 11:39 Constitutional: This is a well developed, well nourished patient who is awake, alert, bs3 and in no acute distress. Head/Face: Normocephalic, atraumatic. Eyes: Pupils equal round and reactive to light, extra-ocular motions intact. Lids and lashes normal. ENT: mmm, no posterior phyarngeal erythema Neck: Trachea midline, no thyromegaly, no neck stiffness Chest/axilla: Normal chest wall appearance and motion. Nontender with no deformity. No lesions are appreciated. Cardiovascular: Regular rate and rhythm with a normal S1 and S2. symmetric pulses in upper extremities Respiratory: Lungs have equal breath sounds bilaterally, clear to auscultation, no respiratory distress Abdomen/GI: Soft, non-tender, no rebound or guarding Skin: Warm, dry with normal turgor. Normal color with no rashes, no lesions, and no evidence of cellulitis. MS/ Extremity: Pulses equal, no cyanosis. Neurovascular intact. Full, normal range of motion. Neuro: Awake and alert, GCS 15, oriented to person, place, time, and situation. Cranial nerves II-XII grossly intact. Motor strength 5/5 in all extremities. Sensory grossly intact. Psych: Awake, alert, with orientation to person, place and time. Behavior, mood, and affect are within normal limits. 11:39 Normal sinus rhythm at [address] elevations or depressions QTc 426 as interpreted by bs3 myself Vital Signs: 11:32 BP 120 / 81; Pulse 97; Resp 16; Temp 99(R); Pulse Ox 100% on R/A; Weight 108.86 kg; ld1 Height 6 ft. 0 in. ; Pain 0/10; 12:43 BP 100 / 53; Pulse 88; Resp 20; Pulse Ox 100% on R/A; ld1 13:27 BP 95 / 55; Pulse 73; Resp 18; Pulse Ox 98% on R/A; ld1 14:03 BP 97 / 62; Pulse 75; Resp 18; Temp 98.4(O); Pulse Ox 100% on R/A; ld1 11:32 Body Mass Index 32.55 (108.86 kg, 182.88 cm) ld1 11:32 Pain Scale: Adult ld1 MDM: 13:38 Data reviewed: vital signs, nurses notes. ED course: Work-up was nondiagnostic patient bs3 reassessed feeling better still not great unclear etiology she does get tachycardic with standing advised to take iron and given very strict return precautions. 13:39 Patient medically screened. [facility] 03/25 11:03 Order name: CBC with Diff; Complete Time: 12:00 [facility] 03/25 11:03 Order name: Comprehensive Metabolic Panel; Complete Time: 12:00 [facility] 03/25 11:03 Order name: HCG-Quantitative; Complete Time: 12:00 [facility] 03/25 11:03 Order name: Type And Screen; Complete Time: 13:38 [facility] 03/25 11:20 Order name: Troponin High Sensitivity; Complete Time: 12:56 [facility] 03/25 12:00 Order name: D-Dimer; Complete Time: 12:56 [facility] 03/25 11:20 Order name: XRAY Chest (1 view); Complete Time: 12:00 bs3 03/25 11:39 Order name: US Transvaginal Ob; Complete Time: 12:56 bs3 03/25 11:20 Order name: EKG - Nurse/Tech; Complete Time: 11:36 bs3 Administered Medications: 11:36 Drug: NS 0.9% IV 500 ml Route: IV; Rate: bolus; Site: right antecubital; ld1 13:07 Follow up: Response: No adverse reaction; IV Status: Completed infusion; IV Intake: kr3 500ml 11:36 Drug: metoCLOPramide IVP 10 mg Route: IVP; Site: right antecubital; ld1 13:06 Follow up: Response: No adverse reaction kr3 11:36 Drug: Ketorolac IVP 15 mg Route: IVP; Site: right antecubital; ld1 13:06 Follow up: Response: No adverse reaction kr3 Disposition Summary: 03/25/23 13:39 Discharge Ordered Location: Home bs3 Problem: new bs3 Symptoms: have improved bs3 Condition: Stable bs3 Diagnosis - Muscle weakness (generalized) bs3 Followup: bs3 - With: Private Physician - When: 2 - 3 days - Reason: Re-evaluation by your physician Discharge Instructions: - Discharge Summary Sheet bs3 - Weakness bs3 Forms: - Work release form bs3 - Medication Reconciliation Form bs3 - Thank You Letter bs3 - Antibiotic Education bs3 - Prescription Opioid Use bs3 Prescriptions: - ondansetron 8 mg Oral tablet,disintegrating - take 1 tablet by ORAL route every 8 hours for 5 days; 12 tablet; Refills: 0, bs3 Product Selection Permitted Signatures: Dispatcher [employer] EDDawna Talavera RN RN ld1 Marv Biswas MD MD bs3 Sherri Monzon RN kr3 Corrections: (The following items were deleted from the chart) 11:40 11:35 Patient notes that she was recently and had a miscarriage she was seen bs3 here several days ago. bs3
--- NOTE | 2023-03-25 13:40 | ER ---
Nurse's Notes [facility] Name: Manuela Garzon Age: 27 yrs Sex: Female : 1995 Arrival Date: 03/25/2023 Time: 10:57 Bed 7 Private MD: Diagnosis: Muscle weakness (generalized) Presentation: 03/25 11:32 Chief complaint: Patient states: Miscarriage on Monday03/21/23. C/O shortness of ld1 breath, abdominal cramping, chest pain. Coronavirus screen: At this time, the client does not indicate any symptoms associated with coronavirus-19. Ebola Screen: No symptoms or risks identified at this time. Initial Sepsis Screen: Does the patient meet any 2 criteria? No. Patient's initial sepsis screen is negative. Does the patient have a suspected source of infection? No. Patient's initial sepsis screen is negative. Risk Assessment: Do you want to hurt yourself or someone else? Patient reports no desire to harm self or others. Onset of symptoms was March 25, 2023. 11:32 Method Of Arrival: Ambulatory ld1 11:32 Acuity: FRANCHESCA 3 ld1 Triage Assessment: 11:34 General: Appears in no apparent distress. comfortable, Behavior is calm, cooperative, ld1 appropriate for age. Pain: Denies pain. EENT: No signs and/or symptoms were reported regarding the EENT system. Neuro: Level of Consciousness is awake, alert, obeys commands, Oriented to person, place, time, situation, Appropriate for age. Neuro: Reports headache weakness. Cardiovascular: Capillary refill < 3 seconds Patient's skin is warm and dry. Rhythm is sinus rhythm. Respiratory: Airway is patent Respiratory effort is even, unlabored. GI: Abdomen is flat, non-distended, Reports cramping. : Reports cramping, vaginal bleeding that is. Derm: No signs and/or symptoms reported regarding the dermatologic system. Musculoskeletal: No signs and/or symptoms reported regarding the musculoskeletal system. Historical: - Allergies: 11:34 Iodine; ld1 - PMHx: 11:34 Anxiety; Asthma; depressive disorder; Migraine; PTSD; ld1 - Immunization history:: Adult Immunizations up to date, Client reports receiving the 2nd dose of the Covid vaccine. - Social history:: Smoking status: Reported history of juuling and/or vaping. Patient/guardian denies using alcohol. Screenin:35 [facility] ED Fall Risk Assessment (Adult) History of falling in the last 3 months, ld1 including since admission No falls in past 3 months (0 pts). Abuse screen: Denies threats or abuse. Denies injuries from another. Nutritional screening: No deficits noted. Tuberculosis screening: No symptoms or risk factors identified. Assessment: 11:35 Reassessment: See triage assessment. ld1 12:42 Reassessment: Patient appears in no apparent distress at this time. No changes from ld1 previously documented assessment. Patient and/or family updated on plan of care and expected duration. Pain level reassessed. Vital Signs: 11:32 BP 120 / 81; Pulse 97; Resp 16; Temp 99(R); Pulse Ox 100% on R/A; Weight 108.86 kg; ld1 Height 6 ft. 0 in. ; Pain 0/10; 12:43 BP 100 / 53; Pulse 88; Resp 20; Pulse Ox 100% on R/A; ld1 13:27 BP 95 / 55; Pulse 73; Resp 18; Pulse Ox 98% on R/A; ld1 14:03 BP 97 / 62; Pulse 75; Resp 18; Temp 98.4(O); Pulse Ox 100% on R/A; ld1 11:32 Body Mass Index 32.55 (108.86 kg, 182.88 cm) ld1 11:32 Pain Scale: Adult ld1 ED Course: 11:00 Patient arrived in ED. eb 11:00 Marv Biswas MD is Attending Physician. eb 11:34 Triage completed. ld1 11:34 Arm band placed on right wrist. EKG completed in triage. Results shown to MD. ld1 11:35 Patient has correct armband on for positive identification. Placed in gown. Bed in low ld1 position. Call light in reach. Side rails up X2. cardiac monitor on. Pulse ox on. NIBP on. Door closed. Noise minimized. Warm blanket given. 11:35 No provider procedures requiring assistance completed. Inserted saline lock: 20 gauge ld1 in right antecubital area, using aseptic technique. Blood collected. 11:36 Type And Screen Sent. ld1 11:36 HCG-Quantitative Sent. ld1 11:36 CBC with Diff Sent. ld1 11:36 Comprehensive Metabolic Panel Sent. ld1 11:36 Troponin High Sensitivity Sent. ld1 11:37 XRAY Chest (1 view) In Process Unspecified. EDMS 12:30 US Transvaginal Ob In Process Unspecified. EDMS 12:42 Dawna Siu, RN is Primary Nurse. ld1 14:03 IV discontinued, intact, bleeding controlled, No redness/swelling at site. ld1 Administered Medications: 11:36 Drug: NS 0.9% IV 500 ml Route: IV; Rate: bolus; Site: right antecubital; ld1 13:07 Follow up: Response: No adverse reaction; IV Status: Completed infusion; IV Intake: kr3 500ml 11:36 Drug: metoCLOPramide IVP 10 mg Route: IVP; Site: right antecubital; ld1 13:06 Follow up: Response: No adverse reaction kr3 11:36 Drug: Ketorolac IVP 15 mg Route: IVP; Site: right antecubital; ld1 13:06 Follow up: Response: No adverse reaction kr3 Medication: 11:35 VIS not applicable for this client. ld1 Intake: 13:07 IV: 500ml; Total: 500ml. kr3 Outcome: 13:39 Discharge ordered by . bs3 14:03 Discharged to home ambulatory, with family. ld1 14:03 Condition: stable 14:03 Discharge instructions given to patient, family, Instructed on discharge instructions, follow up and referral plans. medication usage, Demonstrated understanding of instructions, follow-up care, medications, Prescriptions given X 1. 14:03 Patient left the ED. ld1 Signatures: Dispatcher [employer] [facility] Darlin Burch Dawna Siu, RN RN ld1 Sherri Monzon RN RN kr3 Marv Biswas MD MD bs3
[2023-03-25 14:14] VITALS: BP 97/62; TEMP 98.4; O2SAT 100
--- NOTE | 2023-03-28 07:50 | EKG ---
Test Date: 2023-03-25 Test Time: 11:07:20 Financial Manager: Yaritza CLEMENTE MEASUREMENT RESULTS: Intervals: Rate: 99 SC: 126 QRSD: 84 QT: 332 QTc: 426 [place]: P: 73 SC: 126 QRS: 90 T: 40 INTERPRETIVE STATEMENTS: Normal sinus rhythm ST abnormality, possible digitalis effect Abnormal ECG Compared to ECG 08/18/2022 22:53:24 ST (T wave) deviation now present Electronically Signed On 03-28-23 07:46:30 CDT by Leon Dudley
== END 2023-03-25 14:03 | disposition home or self-care (01) ==
LOC: ER 10:57
DX: M62.81 Muscle weakness (generalized) (principal); R00.2 Palpitations; Z91.048 Other nonmedicinal substance allergy status
CPT/HCPCS: 96361; 93005; 85025; 36415; 86900; 86850; 86901; 85379; 84702; 84484; 80053; 71045; 76817; 96375; 96374; 99285; J2765; J7040

== ENCOUNTER → 2023-11-28 | Emergency (ER) | payer OTHER ==
[~2023-11-28] MED LIST: ONDANSETRON 4 MG/2 ML VIAL ONE
--- OUTSIDE RECORDS SUMMARY | 2023-11-28 08:30 | XMS REPORT | Continuity of Care Document ---
Author Name Unknown Address [address] [facility] [address] [place] [address] [facility] thconnect Address [address] [facility] [place] [address] Care Team Providers Care Public Improvement Inspector Name Role Phone GutierrezLolakaushik Ruffin Primary Care Physician [phone] GutierrezRobert Attending Clinician Unavailable Tito Sy Attending Clinician Unavailable JUJU BOOKER Attending Clinician Unavailable Juju Booker MD Attending Clinician [phone] Doctor Unassigned, [place] Attending Clinician U Chelo Villa Attending Clinician UnavailANYI Chavira Attending Clinician Unavailable Raj Jorgensen DO Attending Clinician [phone] OriElise Nam Attending Clinician [phone] Anyi Hammer MD Attending Clinician [phone] BRODY Attending Clinician Unavailable Kg Attending Clinician Unavailable Kirsten Gillespie Admitting Clinician Unavailable JUJU BOOKER Admitting Clinician Unavailable Clotilde Robles Admitting Clinician UnavailANYI Vega Admitting Clinician Unavailable Anyi Hammer MD Admitting Clinician [phone] SISSON_C Admitting Clinician Unavailable Corkran_T Admitting Clinician Unavailable Payers Payer Name Policy Type Policy Number Effective Date Expirati on Date Source ALL ALBER 53 [id number] 2019 00:00:00 [facility] [place] [address] [id number] [facility] Problems Condition Name Condition Details Condition Category Status Onset Date Resolution Date Last Treatment Date Treating Clinician Comments Source Miscarriag e Miscarriag e Disease Active 03-21 00:00: 00 [facility] Obesity (BMI 30-39.9) Obesity (BMI 30-39.9) Disease Active 03-21 00:00: 00 [facility] Posttrauma tic stress disorder Posttrauma tic Stress Disorder Problem Active [facility] Depressive disorder Depressive Disorder Problem Active 01-11 [facility]: [facility] Attention deficit hyperactiv ity disorder Attention Deficit Hyperactiv ity Disorder Problem Active 01-11 00:00: 00 [facility] [id number] Chronic fatigue Problem [facility] [id number] Low back pain, unspecifie d back pain laterality , unspecifie d chronicity , with sciatica presence unspecifie d Problem [facility] [id number] Lumbar radiculopa thy Problem [facility] Status migrainosu s Migraine, unspecifie d, not intractabl e, with status migrainosu s Problem [facility] [id number] Attention deficit hyperactiv ity disorder (ADHD), combined type Problem [facility] [id number] Generalize d anxiety disorder Problem [facility] [id number] Allergic rhinitis, unspecifie d seasonalit y, unspecifie d trigger Problem [facility] [id number] Mild intermitte nt asthma without complicati on Problem [facility] [id number] Chronic maxillary sinusitis Problem [facility] [id number] Nausea Problem [facility] [id number] Food sensitivit y headache Problem [facility] [id number] Gastroente ritis Problem [facility] [id number] Current moderate episode of major depressive disorder without prior episode Problem [facility] [id number] Insomnia, unspecifie d type Problem [facility] [id number] Spasm of GI tract Problem [facility] [id number] Bloody diarrhea Problem [facility] Allergies, Adverse Reactions, Alerts Allergy Name Allergy Type Status Severity Reaction(s) Onset Date Inactive Date Treating Clinician Comments Source IODINE DRUG INGREDI Active Other-Cmnt 03-21 00:00: 00 [facility] Iodine Propensi ty to adverse reaction s Active Other - See comments 03-21 00:00: 00 [facility] iodine DA Active [place] itching 2019-11 0 00:00: 00 [facility] gluten FA Active SV 2019-11 00:00: 00 [facility] shellfis h derived FA Active SV 2019-11 00:00: 00 [facility] gluten FA Active SV NAUSEA,VOMIT ING, GI IRRITATION, HEADACHE, JOINT SWELLING 2019-11 0 00:00: 00 [facility] shellfis h derived FA Active SV TONGUE SWELLS, MILD SOB, SCRATCHY THROAT 2019-11 0 00:00: 00 [facility] iodine DA Active [place] 2019-11 00:00: 00 [facility] Shellfis h Shellfis h Active Unknown [facility] Iodine Allergy to substanc e Active [facility] Social History Social Habit Start Date Stop Date Quantity Comments Source Gender identity [facility] History of tobacco use Cigarette Smoker [facility] Alcohol intake 2023-04-19 00:00:00 2023-04-19 00:00:00 Ex-drinker (finding) [facility] History of Social function 2023-04-19 00:00:00 2023-04-19 00:00:00 [facility] Tobacco use and exposure 2023-04-19 00:00:00 2023-04-19 00:00:00 Smokeless tobacco non-user [facility] Exposure to SARS-CoV-2 (event) 2023-03-11 00:00:00 2023-03-21 08:38:[address] [facility] Sex Assigned At 1995 00:00:00 1995 00:00:00 [facility] Smoking Status Start Date Stop Date Source Current Some Day Smoker [facility] Ex-smoker 2023-04-19 00:00:00 2023-04-19 00:00:00 [facility] Tobacco smoking consumption unknown [facility] Medications Ordered Medication Name Filled Medication Name Start Date Stop Date Current Medication? Ordering Clinician Indication Dosage Frequency Signature (SIG) Comments Components Source Vitamin D3 1.25 MG (54957 UT) Vitamin D3 1.25 MG (90484 UT) 04-20 00:00: 00 No 1{capsu le} Vitamin D3 1.25 MG (41033 UT) Vitamin D3 1.25 MG (86780 UT) Vitamin D3 1.25 MG (77105 UT) 04-20 00:00: 00 No 1{capsu le} Vitamin D3 1.25 MG (81173 UT) Vitamin D3 1.25 MG (51567 UT) Vitamin D3 1.25 MG (11526 UT) 04-20 00:00: 00 No 1{capsu le} Vitamin D3 1.25 MG (92208 UT) Vitamin D3 1.25 MG (22138 UT) Vitamin D3 1.25 MG (38728 UT) 04-20 00:00: 00 No 1{capsu le} Vitamin D3 1.25 MG (57718 UT) ALPRAZolam 0.5 mg tablet 04-19 14:26: 38 Yes .5mg Take 1 tablet by mouth as needed. [facility] ALPRAZolam 0.5 mg tablet 04-19 14:26: 38 Yes .5mg Take 1 tablet by mouth as needed. [facility] ALPRAZolam 0.5 mg tablet 04-19 14:26: 38 Yes .5mg Take 1 tablet by mouth as needed. [facility] ALPRAZolam 0.5 mg tablet 04-19 14:26: 38 Yes .5mg Take 1 tablet by mouth as needed. [facility] ALPRAZolam 0.5 mg tablet 04-19 14:26: 38 Yes .5mg Take 1 tablet by mouth as needed. [facility] SERTraline 100 mg tablet 04-19 14:26: 37 Yes 150mg Take 1.5 tablets by mouth at bedtime. [facility] SERTraline 100 mg tablet 04-19 14:26: 37 Yes 150mg Take 1.5 tablets by mouth at bedtime. [facility] SERTraline 100 mg tablet 04-19 14:26: 37 Yes 150mg Take 1.5 tablets by mouth at bedtime. [facility] SERTraline 100 mg tablet 04-19 14:26: 37 Yes 150mg Take 1.5 tablets by mouth at bedtime. [facility] SERTraline 100 mg tablet 0 04-19 14:26: 37 Yes 150mg Take 1.5 tablets by mouth at bedtime. [facility] SERTraline (ZOLOFT) 100 mg tablet 0 03-22 09:03: 54 Yes 150mg Take 1.5 tablets by mouth at bedtime. [facility] SERTraline (ZOLOFT) 100 mg tablet 0 03-22 09:03: 54 Yes 150mg Take 1.5 tablets by mouth at bedtime. [facility] SERTraline (ZOLOFT) 100 mg tablet 0 03-22 09:03: 54 Yes 150mg Take 1.5 tablets by mouth at bedtime. [facility] SERTraline (ZOLOFT) 100 mg tablet 0 03-22 09:03: 54 Yes 150mg Take 1.5 tablets by mouth at bedtime. [facility] [id number] IV infusion 1,000 mL 03-22 02:15: 00 Yes 1000mL at 125 mL/hr, IV Infusion, CONTINUOUS , Starting on Mon03/21/23 at 211, Until Discontinu ed, Routine [facility] SERTraline (ZOLOFT) tablet 150 mg 03-22 02:00: 00 Yes 150mg 150 mg, Oral, QHS, First dose on Mon03/21/23 at 2100, Until Discontinu ed, Routine [facility] ondansetron (ZOFRAN (PF)) injection 4 mg 03-22 01:47: 43 Yes 4mg 4 mg, Slow IV Push, Q6HPRN, Starting on Mon03/21/23 at 2046, Until Discontinu ed, Routine, Nausea and Vomiting (N/V) [facility] ibuprofen (IBU) tablet 600 mg 03-22 01:08: 15 Yes 600mg 600 mg, Oral, Q6HPRN, Starting on Mon03/21/23 at 2007, Until Discontinu ed, Routine, pain [facility] tranexamic acid (CYKLOKAPRO N) 1,000 mg in NaCl 0.9% (NS) 10 mL piggyback 03-21 18:45: 00 03-21 18:45 :01 No 1000mg 1,000 mg, Intravenou s, ONCE, 1 dose, On Mon03/21/23 at 1345, Administer over 10 Minutes, 10 mL [facility] miSOPROStoL (CYTOTEC) tablet 800 mcg 03-21 18:45: 00 03-21 18:18 :00 No 800ug 800 mcg, Vaginal, ONCE, 1 dose, On Mon03/21/23 at 1345, Routine [facility] ketorolac (TORADOL) injection 30 mg 03-21 18:45: 00 03-21 17:55 :00 No 30mg 30 mg, Slow IV Push, ONCE NOW, 1 dose, On Mon03/21/23 at 1345, Routine [facility] ondansetron (ZOFRAN (PF)) injection 4 mg 03-21 17:05: 00 03-21 17:05 :00 No 4mg 4 mg, Slow IV Push, ONCE, 1 dose, On Mon03/21/23 at 1215, VLADIMIR [facility] Adderall XR 10 MG Adderall XR 10 MG 0 - 00:00: 00 No 1{capsu le_in_t he_morn ing} QD Adderall XR 10 MG Adderall XR 10 MG Adderall XR 10 MG 0 -16 00:00: 00 No 1{capsu le_in_t he_morn ing} QD Adderall XR 10 MG Adderall XR 20 MG Adderall XR 20 MG 2-18 00:00: 00 No 1{capsu le_in_t he_morn ing} QD Adderall XR 20 MG Adderall XR 20 MG Adderall XR 20 MG 2-18 00:00: 00 No 1{capsu le_in_t he_morn ing} QD Adderall XR 20 MG Adderall XR 20 MG Adderall XR 20 MG 1- 00:00: 00 No 1{capsu le_in_t he_morn ing} QD Adderall XR 20 MG Adderall XR 20 MG Adderall XR 20 MG 1- 00:00: 00 No 1{capsu le_in_t he_morn ing} QD Adderall XR 20 MG Adderall XR 20 MG Adderall XR 20 MG 2020-11 2- 00:00: 00 No 1{capsu le_in_t he_morn ing} QD Adderall XR 20 MG Adderall XR 20 MG Adderall XR 20 MG 2020-11 2- 00:00: 00 No 1{capsu le_in_t he_morn ing} QD Adderall XR 20 MG Adderall XR 20 MG Adderall XR 20 MG 2020-11 0- 00:00: 00 No 1{capsu le_in_t he_morn ing} QD Adderall XR 20 MG Adderall XR 20 MG Adderall XR 20 MG 9- 00:00: 00 No 1{capsu le_in_t he_morn ing} QD Adderall XR 20 MG Lyrica 50 MG Lyrica 50 MG - 00:00: 00 No 1{capsu le} QD Lyrica 50 MG Ondansetron HCl 4 MG Ondansetron HCl 4 MG 0 6 00:00: 00 No 1{table t} Ondansetro n HCl 4 MG Ondansetron HCl 4 MG Ondansetron HCl 4 MG 04-21 00:00: 00 No 1{table t} Ondansetro n HCl 4 MG Ondansetron HCl 4 MG Ondansetron HCl 4 MG 0 04-21 00:00: 00 No 1{table t} Ondansetro n HCl 4 MG Amoxicillin -Pot Clavulanate Amoxicillin -Pot Clavulanate 2019-0 9- 00:00: 00 07-27 00:00 :00 No Robert Gutierrez 1 tablet [facility] Albuterol Sulfate HFA Albuterol Sulfate HFA 2018-0 8-22 00:00: 00 Yes Robert Gutierrez 2 puffs as needed [facility] Kenalog (Triamcinol one) Kenalog (Triamcinol one) 2017-11 00:00: 00 No 40mg [facility] Kenalog (Triamcinol one) Kenalog (Triamcinol one) 2017-11 00:00: 00 No 40mg [facility] Kenalog (Triamcinol one) Kenalog (Triamcinol one) 2017-11 00:00: 00 No 40mg [facility] Kenalog (Triamcinol one) Kenalog (Triamcinol one) 2017-11 00:00: 00 No 40mg [facility] Kenalog (Triamcinol one) Kenalog (Triamcinol one) 2017-11 00:00: 00 No 40mg [facility] Kenalog (Triamcinol one) Kenalog (Triamcinol one) 2017-11 00:00: 00 No 40mg [facility] Kenalog (Triamcinol one) Kenalog (Triamcinol one) 2017-11 00:00: 00 No 40mg [facility] Abilify 5 mg tablet Take 1 tablet every day by oral route. Abilify 5 mg tablet Take 1 tablet every day by oral route. No 1 Q1D Abilify 5 mg tablet Take 1 tablet every day by oral route. [facility] compounded medication Semaglutide /B12 0.3 ml SQ QW, start at 0.075 and increase weekly as tolerated. compounded medication Semaglutide /B12 0.3 ml SQ QW, start at 0.075 and increase weekly as tolerated. No compounded medication Semaglutid e/B12 0.3 ml SQ QW, start at 0.075 and increase weekly as tolerated. [facility] ondansetron 4 mg disintegrat ing tablet Place 1 tablet every 6-8 hours by translingua l route as needed. ondansetron 4 mg disintegrat ing tablet Place 1 tablet every 6-8 hours by translingua l route as needed. No 1 Q7H ondansetro n 4 mg disintegra ting tablet Place 1 tablet every 6-8 hours by translingu al route as needed. [facility] Xanax 0.5 mg tablet Take 1 tablet by oral route as needed. Xanax 0.5 mg tablet Take 1 tablet by oral route as needed. No 1 Xanax 0.5 mg tablet Take 1 tablet by oral route as needed. [facility] Zoloft 50 mg tablet Take 1 tablet every day by oral route. Zoloft 50 mg tablet Take 1 tablet every day by oral route. No 1 Q1D Zoloft 50 mg tablet Take 1 tablet every day by oral route. [facility] Imitrex Imitrex Yes Robert Gutierrez 1 tablet as needed at onset of migraine, may repeat after 2 hours. max 2 doses/24 hours [facility] Fioricet/Co deine Fioricet/Co deine Yes Robert Gutierrez 1 capsule as needed [facility] Singulair Singulair Yes Robert Gutierrez 1 tablet [facility] Imitrex 50 MG Imitrex 50 MG No QD Imitrex 50 MG Symbicort 80-4.5 MCG/ACT Symbicort 80-4.5 MCG/ACT No 2{puffs } QD Symbicort 80-4.5 MCG/ACT Singulair 10 MG Singulair 10 MG No 1{table t} QD Singulair 10 MG NEUROTIN NEUROTIN No NEUROTIN traZODone HCl 50 MG traZODone HCl 50 MG No 1{table t_at_be dtime_a s_neede d} QD traZODone HCl 50 MG Vistaril 50 MG Vistaril 50 MG No 1{capsu le_as_n eeded} QID Vistaril 50 MG Fioricet/Co deine 50-300-40-3 0 MG Fioricet/Co deine 50-300-40-3 0 MG No 1{capsu le_as_n eeded} Fioricet/C odeine 50-300-40- 30 MG Ambien 10 MG Ambien 10 MG No 1{table t_at_be dtime} QD Ambien 10 MG Albuterol Sulfate HFA 108 (90 Base) MCG/ACT Albuterol Sulfate HFA 108 (90 Base) MCG/ACT No 2{puffs _as_nee ded} QID Albuterol Sulfate HFA 108 (90 Base) MCG/ACT Adderall XR 20 MG Adderall XR 20 MG No 1{capsu le_in_t he_morn ing} QD Adderall XR 20 MG CeleXA 20 MG CeleXA 20 MG No 1{table t} QD CeleXA 20 MG Imitrex 50 MG Imitrex 50 MG No QD Imitrex 50 MG Symbicort 80-4.5 MCG/ACT Symbicort 80-4.5 MCG/ACT No 2{puffs } QD Symbicort 80-4.5 MCG/ACT Singulair 10 MG Singulair 10 MG No 1{table t} QD Singulair 10 MG NEUROTIN NEUROTIN No NEUROTIN traZODone HCl 50 MG traZODone HCl 50 MG No 1{table t_at_be dtime_a s_neede d} QD traZODone HCl 50 MG Vistaril 50 MG Vistaril 50 MG No 1{capsu le_as_n eeded} QID Vistaril 50 MG Fioricet/Co deine 50-300-40-3 0 MG Fioricet/Co deine 50-300-40-3 0 MG No 1{capsu le_as_n eeded} Fioricet/C odeine 50-300-40- 30 MG Ambien 10 MG Ambien 10 MG No 1{table t_at_be dtime} QD Ambien 10 MG Albuterol Sulfate HFA 108 (90 Base) MCG/ACT Albuterol Sulfate HFA 108 (90 Base) MCG/ACT No 2{puffs _as_nee ded} QID Albuterol Sulfate HFA 108 (90 Base) MCG/ACT Adderall XR 20 MG Adderall XR 20 MG No 1{capsu le_in_t he_morn ing} QD Adderall XR 20 MG CeleXA 20 MG CeleXA 20 MG No 1{table t} QD CeleXA 20 MG Phenergan 25mg Phenergan 25mg No Phenergan 25mg traZODone HCl 50 MG traZODone HCl 50 MG No 1{table t_at_be dtime_a s_neede d} QD traZODone HCl 50 MG Vistaril 25 MG Vistaril 25 MG No 1{capsu le_as_n eeded} QID Vistaril 25 MG Singulair 10 MG Singulair 10 MG No 1{table t} QD Singulair 10 MG Albuterol Sulfate HFA 108 (90 Base) MCG/ACT Albuterol Sulfate HFA 108 (90 Base) MCG/ACT No 2{puffs _as_nee ded} QID Albuterol Sulfate HFA 108 (90 Base) MCG/ACT Ambien 10 MG Ambien 10 MG No 1{table t_at_be dtime} QD Ambien 10 MG CeleXA 20 MG CeleXA 20 MG No 1{table t} QD CeleXA 20 MG Fioricet/Co deine 50-300-40-3 0 MG Fioricet/Co deine 50-300-40-3 0 MG No 1{capsu le_as_n eeded} Fioricet/C odeine 50-300-40- 30 MG Toradol 10 MG Toradol 10 MG No Toradol 10 MG Phenergan 25mg Phenergan 25mg No Phenergan 25mg traZODone HCl 50 MG traZODone HCl 50 MG No 1{table t_at_be dtime_a s_neede d} QD traZODone HCl 50 MG Vistaril 25 MG Vistaril 25 MG No 1{capsu le_as_n eeded} QID Vistaril 25 MG Singulair 10 MG Singulair 10 MG No 1{table t} QD Singulair 10 MG Albuterol Sulfate HFA 108 (90 Base) MCG/ACT Albuterol Sulfate HFA 108 (90 Base) MCG/ACT No 2{puffs _as_nee ded} QID Albuterol Sulfate HFA 108 (90 Base) MCG/ACT Ambien 10 MG Ambien 10 MG No 1{table t_at_be dtime} QD Ambien 10 MG CeleXA 20 MG CeleXA 20 MG No 1{table t} QD CeleXA 20 MG Fioricet/Co deine 50-300-40-3 0 MG Fioricet/Co deine 50-300-40-3 0 MG No 1{capsu le_as_n eeded} Fioricet/C odeine 50-300-40- 30 MG Toradol 10 MG Toradol 10 MG No Toradol 10 MG Vistaril 25 MG Vistaril 25 MG No 1{capsu le_as_n eeded} QID Vistaril 25 MG Zoloft 50 MG Zoloft 50 MG No 1.5{tab let} QD Zoloft 50 MG Ambien 10 MG Ambien 10 MG No 1{table t_at_be dtime} QD Ambien 10 MG Albuterol Sulfate HFA 108 (90 Base) MCG/ACT Albuterol Sulfate HFA 108 (90 Base) MCG/ACT No 2{puffs _as_nee ded} QID Albuterol Sulfate HFA 108 (90 Base) MCG/ACT Phenergan 25mg Phenergan 25mg No Phenergan 25mg Adderall XR 20 MG Adderall XR 20 MG No 1{capsu le_in_t he_morn ing} QD Adderall XR 20 MG Fioricet/Co deine 50-300-40-3 0 MG Fioricet/Co deine 50-300-40-3 0 MG No 1{capsu le_as_n eeded} Fioricet/C odeine 50-300-40- 30 MG traZODone HCl 50 MG traZODone HCl 50 MG No 1{table t_at_be dtime_a s_neede d} QD traZODone HCl 50 MG Singulair 10 MG Singulair 10 MG No 1{table t} QD Singulair 10 MG Toradol 10 MG Toradol 10 MG No Toradol 10 MG Vistaril 25 MG Vistaril 25 MG No 1{capsu le_as_n eeded} QID Vistaril 25 MG Zoloft 50 MG Zoloft 50 MG No 1.5{tab let} QD Zoloft 50 MG Ambien 10 MG Ambien 10 MG No 1{table t_at_be dtime} QD Ambien 10 MG Albuterol Sulfate HFA 108 (90 Base) MCG/ACT Albuterol Sulfate HFA 108 (90 Base) MCG/ACT No 2{puffs _as_nee ded} QID Albuterol Sulfate HFA 108 (90 Base) MCG/ACT Phenergan 25mg Phenergan 25mg No Phenergan 25mg Adderall XR 20 MG Adderall XR 20 MG No 1{capsu le_in_t he_morn ing} QD Adderall XR 20 MG Fioricet/Co deine 50-300-40-3 0 MG Fioricet/Co deine 50-300-40-3 0 MG No 1{capsu le_as_n eeded} Fioricet/C odeine 50-300-40- 30 MG traZODone HCl 50 MG traZODone HCl 50 MG No 1{table t_at_be dtime_a s_neede d} QD traZODone HCl 50 MG Singulair 10 MG Singulair 10 MG No 1{table t} QD Singulair 10 MG Toradol 10 MG Toradol 10 MG No Toradol 10 MG traZODone HCl 50 MG traZODone HCl 50 MG No 1{table t_at_be dtime_a s_neede d} QD traZODone HCl 50 MG Adderall XR 20 MG Adderall XR 20 MG No 1{capsu le_in_t he_morn ing} QD Adderall XR 20 MG Vistaril 25 MG Vistaril 25 MG No 1{capsu le_as_n eeded} QID Vistaril 25 MG Adderall XR 10 MG Adderall XR 10 MG No 1{capsu le_in_t he_morn ing} QD Adderall XR 10 MG Zoloft 100 MG Zoloft 100 MG No 1.5{tab let} QD Zoloft 100 MG Albuterol Sulfate HFA 108 (90 Base) MCG/ACT Albuterol Sulfate HFA 108 (90 Base) MCG/ACT No 2{puffs _as_nee ded} QID Albuterol Sulfate HFA 108 (90 Base) MCG/ACT Ambien 10 MG Ambien 10 MG No 1{table t_at_be dtime} QD Ambien 10 MG Xanax 0.5 MG Xanax 0.5 MG No 1{table t} BID Xanax 0.5 MG Toradol 10 MG Toradol 10 MG No Toradol 10 MG Fioricet/Co deine 50-300-40-3 0 MG Fioricet/Co deine 50-300-40-3 0 MG No 1{capsu le_as_n eeded} Fioricet/C odeine 50-300-40- 30 MG Singulair 10 MG Singulair 10 MG No 1{table t} QD Singulair 10 MG Phenergan 25mg Phenergan 25mg No Phenergan 25mg traZODone HCl 50 MG traZODone HCl 50 MG No 1{table t_at_be dtime_a s_neede d} QD traZODone HCl 50 MG Adderall XR 20 MG Adderall XR 20 MG No 1{capsu le_in_t he_morn ing} QD Adderall XR 20 MG Vistaril 25 MG Vistaril 25 MG No 1{capsu le_as_n eeded} QID Vistaril 25 MG Adderall XR 10 MG Adderall XR 10 MG No 1{capsu le_in_t he_morn ing} QD Adderall XR 10 MG Zoloft 100 MG Zoloft 100 MG No 1.5{tab let} QD Zoloft 100 MG Albuterol Sulfate HFA 108 (90 Base) MCG/ACT Albuterol Sulfate HFA 108 (90 Base) MCG/ACT No 2{puffs _as_nee ded} QID Albuterol Sulfate HFA 108 (90 Base) MCG/ACT Ambien 10 MG Ambien 10 MG No 1{table t_at_be dtime} QD Ambien 10 MG Xanax 0.5 MG Xanax 0.5 MG No 1{table t} BID Xanax 0.5 MG Toradol 10 MG Toradol 10 MG No Toradol 10 MG Fioricet/Co deine 50-300-40-3 0 MG Fioricet/Co deine 50-300-40-3 0 MG No 1{capsu le_as_n eeded} Fioricet/C odeine 50-300-40- 30 MG Singulair 10 MG Singulair 10 MG No 1{table t} QD Singulair 10 MG Phenergan 25mg Phenergan 25mg No Phenergan 25mg traZODone HCl 50 MG traZODone HCl 50 MG No 1{table t_at_be dtime_a s_neede d} QD traZODone HCl 50 MG Adderall XR 20 MG Adderall XR 20 MG No 1{capsu le_in_t he_morn ing} QD Adderall XR 20 MG Vistaril 25 MG Vistaril 25 MG No 1{capsu le_as_n eeded} QID Vistaril 25 MG Adderall XR 10 MG Adderall XR 10 MG No 1{capsu le_in_t he_morn ing} QD Adderall XR 10 MG Zoloft 100 MG Zoloft 100 MG No 1.5{tab let} QD Zoloft 100 MG Albuterol Sulfate HFA 108 (90 Base) MCG/ACT Albuterol Sulfate HFA 108 (90 Base) MCG/ACT No 2{puffs _as_nee ded} QID Albuterol Sulfate HFA 108 (90 Base) MCG/ACT Ambien 10 MG Ambien 10 MG No 1{table t_at_be dtime} QD Ambien 10 MG Xanax 0.5 MG Xanax 0.5 MG No 1{table t} BID Xanax 0.5 MG Toradol 10 MG Toradol 10 MG No Toradol 10 MG Fioricet/Co deine 50-300-40-3 0 MG Fioricet/Co deine 50-300-40-3 0 MG No 1{capsu le_as_n eeded} Fioricet/C odeine 50-300-40- 30 MG Singulair 10 MG Singulair 10 MG No 1{table t} QD Singulair 10 MG Phenergan 25mg Phenergan 25mg No Phenergan 25mg traZODone HCl 50 MG traZODone HCl 50 MG No 1{table t_at_be dtime_a s_neede d} QD traZODone HCl 50 MG Adderall XR 20 MG Adderall XR 20 MG No 1{capsu le_in_t he_morn ing} QD Adderall XR 20 MG Vistaril 25 MG Vistaril 25 MG No 1{capsu le_as_n eeded} QID Vistaril 25 MG Adderall XR 10 MG Adderall XR 10 MG No 1{capsu le_in_t he_morn ing} QD Adderall XR 10 MG Zoloft 100 MG Zoloft 100 MG No 1.5{tab let} QD Zoloft 100 MG Albuterol Sulfate HFA 108 (90 Base) MCG/ACT Albuterol Sulfate HFA 108 (90 Base) MCG/ACT No 2{puffs _as_nee ded} QID Albuterol Sulfate HFA 108 (90 Base) MCG/ACT Ambien 10 MG Ambien 10 MG No 1{table t_at_be dtime} QD Ambien 10 MG Xanax 0.5 MG Xanax 0.5 MG No 1{table t} BID Xanax 0.5 MG Toradol 10 MG Toradol 10 MG No Toradol 10 MG Fioricet/Co deine 50-300-40-3 0 MG Fioricet/Co deine 50-300-40-3 0 MG No 1{capsu le_as_n eeded} Fioricet/C odeine 50-300-40- 30 MG Singulair 10 MG Singulair 10 MG No 1{table t} QD Singulair 10 MG Phenergan 25mg Phenergan 25mg No Phenergan 25mg NEUROTIN NEUROTIN No NEUROTIN Vistaril 50 MG Vistaril 50 MG No 1{capsu le_as_n eeded} QID Vistaril 50 MG CeleXA 20 MG CeleXA 20 MG No 1{table t} QD CeleXA 20 MG traZODone HCl 50 MG traZODone HCl 50 MG No 1{table t_at_be dtime_a s_neede d} QD traZODone HCl 50 MG Symbicort 80-4.5 MCG/ACT Symbicort 80-4.5 MCG/ACT No 2{puffs } QD Symbicort 80-4.5 MCG/ACT Fioricet/Co deine 50-300-40-3 0 MG Fioricet/Co deine 50-300-40-3 0 MG No 1{capsu le_as_n eeded} Fioricet/C odeine 50-300-40- 30 MG Singulair 10 MG Singulair 10 MG No 1{table t} QD Singulair 10 MG Albuterol Sulfate HFA 108 (90 Base) MCG/ACT Albuterol Sulfate HFA 108 (90 Base) MCG/ACT No 2{puffs _as_nee ded} QID Albuterol Sulfate HFA 108 (90 Base) MCG/ACT Ambien 10 MG Ambien 10 MG No 1{table t_at_be dtime} QD Ambien 10 MG Imitrex 50 MG Imitrex 50 MG No QD Imitrex 50 MG Vital Signs Vital Name Observation Time Observation Value Comments S ourthor Systolic blood pressure 2023-04-19 19:29:00 118 mm[Hg] [facility] Diastolic blood pressure 2023-04-19 19:29:00 78 mm[Hg] [facility] Heart rate 2023-04-19 19:29:00 85 /min [facility] Body temperature 2023-04-19 19:29:[address] [facility] Body height 2023-04-19 19:29:00 182.9 cm [facility] Body weight 2023-04-19 19:29:00 105.688 kg [facility] BMI 2023-04-19 19:29:00 31.60 kg/m2 [facility] Oxygen saturation in Arterial blood by Pulse oximetry 2023-04-19 19:29:00 100 /min [facility] height 2023-04-06 08:50:00 70.00 [in_i] Com [facility] weight 2023-04-06 08:50:00 230 [lb_av] Comm on [facility] temperature 2023-04-06 08:50:00 96.5 [degF] Com [facility] bmi 2023-04-06 08:50:00 33 kg/m2 Commo n [facility] oximetry 2023-04-06 08:50:00 100 % Commo n [facility] respiratory rate 2023-04-06 08:50:00 16 /min [facility] blood pressure systolic 2023-04-06 08:50:00 119 mm[Hg] [facility] blood pressure diastolic 2023-04-06 08:50:00 76 mm[Hg] [facility] Systolic blood pressure 2023-03-22 12:48:00 109 mm[Hg] [facility] Diastolic blood pressure 2023-03-22 12:48:00 59 mm[Hg] [facility] Heart rate 2023-03-22 12:48:00 67 /min [facility] rate 2023-03-22 12:48:00 14 /min [facility] Body temperature 2023-03-22 10:00:[address] [facility] Oxygen saturation in Arterial blood by Pulse oximetry 2023-03-22 10:00:00 100 /min [facility] Body height 2023-03-21 13:40:00 182.9 cm [facility] Body weight 2023-03-21 13:40:00 108.863 kg [facility] BMI 2023-03-21 13:40:00 32.55 kg/m2 [facility] BP Diastolic 2023-01-11 00:00:00 81 mm[Hg] [facility] Height 2023-01-11 00:00:00 72 [in_i] [facility] BMI (Body Mass Index) 2023-01-11 00:00:00 32.8 kg/m2 [facility] BP Systolic 2023-01-11 00:00:00 124 mm[Hg] [facility] Body Weight 2023-01-11 00:00:00 3872 [oz_av] [facility] height 2022-07-29 08:00:00 70.00 [in_i] Com [facility] weight 2022-07-29 08:00:00 220 [lb_av] Comm on [facility] bmi 2022-07-29 08:00:00 31.56 kg/m2 Comm on [facility] blood pressure systolic 2022-07-29 08:00:00 122 mm[Hg] Common [facility] blood pressure diastolic 2022-07-29 08:00:00 67 mm[Hg] Common [facility] height 2021-12-01 13:50:00 70.00 [in_i] Com [facility] weight 2021-12-01 13:50:00 220.2 [lb_av] Co mmon [facility] temperature 2021-12-01 13:50:00 98.1 [degF] Com [facility] bmi 2021-12-01 13:50:00 31.59 kg/m2 Comm on [facility] oximetry 2021-12-01 13:50:00 97 % Commo n [facility] respiratory rate 2021-12-01 13:50:00 17 /min Common [facility] blood pressure systolic 2021-12-01 13:50:00 121 mm[Hg] [facility] blood pressure diastolic 2021-12-01 13:50:00 65 mm[Hg] Common [facility] height 2021-10-25 08:40:00 70.00 [in_i] Com [facility] weight 2021-10-25 08:40:00 220 [lb_av] Comm on [facility] temperature 2021-10-25 08:40:00 98.3 [degF] Com [facility] bmi 2021-10-25 08:40:00 31.56 kg/m2 Comm on [facility] blood pressure systolic 2021-10-25 08:40:00 118 mm[Hg] Common [facility] blood pressure diastolic 2021-10-25 08:40:00 72 mm[Hg] Common [facility] height 2021-08-09 08:00:00 70.00 [in_i] Com [facility] weight 2021-08-09 08:00:00 227 [lb_av] Comm on [facility] temperature 2021-08-09 08:00:00 97 [degF] Comm on [facility] bmi 2021-08-09 08:00:00 32.57 kg/m2 Comm on [facility] Procedures Procedure Date / Time Performed Performing Clinician Source INSURANCE CORRESPONDENCE 2023-04-20 05:01:00 Doc tor Unassigned, [place] [facility] CONSENT/REFUSAL FOR DIAGNOSIS AND TREATMENT 2023-04-19 19:02:17 Doctor Unassigned, [place] [facility] REFERRAL- REQUEST/RESPONSE 2023-04-07 05:01:00 Doctor Unassigned, [place] [facility] CBC WITH DIFF 2023-03-22 00:21:00 Anyi [facility] PREPARE PACKED RBC 2023-03-21 20:29:[address] [facility] TRANSFUSE PACKED RBC 2023-03-21 18:48:[address] [facility] CBC WITH DIFF 2023-03-21 16:46:00 Elise Rehman [facility] US FIRST TRIMESTER LESS THAN 14 WEEKS WITH TRANSVAGINAL 2023-03-21 16:21:29 Elise Rehman [facility] ABORH CONFIRMATION (LAB ONLY) 2023-03-21 16:10:[address] [facility] COMP. METABOLIC PANEL (56143) 2023-03-21 14:14:[address] [facility] TOTAL BETA HCG ASSAY 2023-03-21 14:14:[address] [facility] CBC WITH DIFF 2023-03-21 14:14:00 Elise Rehman [facility] HB ABO GROUPING 2023-03-21 14:14:00 [facility] 2023-03-21 13:32:00 Elise Rehman [facility] Encounters Start Date/Time End Date/Time Encounter Type Admission Type Attending [facility] Care Facility Care Department Encounter ID Source 2023-05-23 09:03:00 Outpatient Gutierrez, Robert STLC STLC [id number] [facility] 2023-04-07 13:54:00 Outpatient Gutierrez, Robert STLC STLC [id number] [facility] 2023-04-06 08:51:00 Outpatient Gutierrez, Robert STLC STLC [id number] [facility] 2022-08-26 10:26:01 Outpatient Gutierrez, Robert STLC STLMLC [id number] [facility] 2021-12-08 13:19:33 Outpatient Gutierrez, Robert STLC STLMLC [id number] [facility] 2021-12-08 13:18:51 Outpatient Gutierrez, Robert STLC STLC [id number] [facility] 2021-12-08 13:17:54 Outpatient Gutierrez, Robert STLC STLMLC [id number] [facility] 2021-12-08 12:59:24 Outpatient Gutierrez, Robert STLMLC STLMLC [id number] [facility] 2021-12-08 12:58:49 Outpatient Gutierrez, Robert STLC STLMLC [id number] [facility] 2021-12-08 12:26:05 Outpatient Gutierrez, Robert STLC STLMLC [id number] [facility] 2021-12-08 12:23:58 Outpatient Gutierrez, Robert STLC STLMLC [id number] [facility] 2021-12-08 12:13:27 Outpatient Gutierrez, Robert STLC STLMLC [id number] [facility] 2021-12-08 12:08:34 Outpatient Gutierrez, Robert [facility] STLC [id number] [facility] 2021-12-08 11:20:59 Outpatient Gutierrez, Robert STLC STLMLC [id number] [facility] 2021-12-08 11:06:22 Outpatient Gutierrez, Robert STLC STLMLC [id number] [facility] 2021-12-08 11:06:13 Outpatient Gutierrez, Robert [facility] STLC [id number] [facility] 2021-12-08 11:00:26 Outpatient Gutierrez, Robert STLC STLC [id number] [facility] 2020-09-11 11:30:00 Inpatient Tito Anne HCATO DAYS [id number] [facility] 2023-05-05 00:00:00 2023-05-05 00:00:00 Patient Secure Pete Burkkennyrene [facility] [id number] 350.1.13.10 4.2.7.2.686 [id number] [facility] 2023-05-02 08:00:00 2023-05-02 23:59:00 [facility] [id number] [facility] 2023-04-25 10:45:18 2023-04-25 23:59:00 Outpatient R [facility] [id number] [facility] 2023-04-25 00:00:00 2023-04-25 00:00:00 Patient Secure Msg [facility] 1.840.114 350.1.13.10 4.2.7.2.686 [id number] [facility] 2023-04-20 00:00:00 2023-04-20 00:00:00 (TEL) STLMLC [facility] [id number] Common [facility] 2023-04-20 00:00:00 2023-04-20 00:00:00 Orders Only Doctor Unassigned, [place] [facility] 1.84.114 350.1.13.10 4.2.7.2.686 [id number] [facility] 2023-04-19 14:40:00 2023-04-19 15:12:16 Outpatient R [facility] [id number] [facility] 2023-04-19 14:40:00 2023-04-19 15:12:16 Office Visit [facility] 1.840.114 350.1.13.10 4.2.7.2.686 [id number] [facility] 2023-04-19 00:00:00 2023-04-19 00:00:00 Orders Only Doctor Unassigned, [place] [facility] 1.2840.114 350.1.13.10 4.2.7.2.686 [id number] [facility] 2023-04-07 00:00:00 2023-04-07 00:00:00 (TEL) [facility] STLC [id number] [facility] 2023-04-07 00:00:00 2023-04-07 00:00:00 Orders Only Doctor Unassigned, [place] [facility] 1..114 350.1.13.10 4.2.7.2.686 [id number] [facility] 2023-04-07 00:00:00 2023-04-07 00:00:00 Telephone Juju Booker [facility] 1..114 350.1.13.10 4.2.7.2.686 [id number] [facility] 2023-04-06 00:00:00 2023-04-06 00:00:00 OFFICE VISIT ESTAB PT LEVEL 4 STLC [facility] [id number] [facility] 2023-04-05 00:00:00 2023-04-05 00:00:00 (TEL) [facility] STLC [id number] [facility] 2023-04-04 12:57:00 2023-04-04 18:18:00 Emergency EM Chelo Barn[facility] [id number] 2023-03-21 08:37:00 2023-03-22 08:30:00 Outpatient X ANYI [facility] AYAAN [id number] [facility] 2023-03-21 08:37:00 2023-03-22 08:30:00 Emergency Raj Jorgensen K Paige Adum, Vivian L [facility] 1.84.114 350.1.13.10 4.2.7.2.686 [id number] [facility] 2023-01-11 00:00:00 2023-01-11 00:00:00 Outpatient SISSON_C [facility] [id number] [facility] 2023-01-11 00:00:00 2023-01-11 00:00:00 Abby Maradiaga, MSN, ICE CREAM FREEZER HELPER, PRINTING PRESSMAN-C: [address], [address] [place] [address] , Ph. [facility], Abby Maradiaga, MSN, PRINTING PRESSMAN-C [id number] [facility] 2023-01-03 00:00:00 2023-01-03 00:00:00 Outpatient SISSON_C [facility] 022 [facility] 2022-08-29 00:00:00 2022-08-29 00:00:00 (TEL) STLMLC STLMLC [id number] [facility] 2022-07-29 00:00:00 2022-07-29 00:00:00 OFFICE VISIT EST PT LEVEL 3 STLMLC STLMLC [id number] [facility] 2022-05-17 00:00:00 2022-05-17 00:00:00 (TEL) STLMLC STLMLC [id number] [facility] 2021-12-01 00:00:00 2021-12-01 00:00:00 PREV VISIT EST AGE 18-39 STLMLC STLMLC [id number] [facility] 2021-10-29 00:00:00 2021-10-29 00:00:00 (TEL) STLMLC STLMLC [id number] [facility] 2021-10-25 00:00:00 2021-10-25 00:00:00 OFFICE VISIT ESTAB PT LEVEL 4 STLMLC STLMLC [id number] [facility] 2021-08-09 00:00:00 2021-08-09 00:00:00 OFFICE VISIT ESTAB PT LEVEL 4 STLMLC STLMLC [id number] [facility] 2021-07-28 04:34:00 2021-07-28 04:34:00 Outpatient Corkran_T VFP VFP [id number] [facility] 2021-07-21 00:00:00 2021-07-21 00:00:00 Outpatient STLMLC STLMLC [id number] [facility] 2021-05-24 00:00:00 2021-05-24 00:00:00 Outpatient STLMLC STLMLC [id number] [facility] 2021-05-07 00:00:00 2021-05-07 00:00:00 Outpatient STLMLC STLMLC [id number] [facility] 2021-04-26 00:00:00 2021-04-26 00:00:00 Outpatient STLMLC STLMLC [id number] [facility] 2021-04-21 00:00:00 2021-04-21 00:00:00 Outpatient STLMLC STLMLC [id number] [facility] 2021-03-29 00:00:00 2021-03-29 00:00:00 Outpatient STLMLC STLMLC [id number] [facility] 2021-03-16 00:00:00 2021-03-16 00:00:00 Outpatient STLMLC STLMLC [id number] [facility] 2020-12-11 00:00:00 2020-12-11 00:00:00 Outpatient STLMLC STLMLC [id number] [facility] 2020-10-28 00:00:00 2020-10-28 00:00:00 Outpatient STLMLC STLMLC [id number] [facility] 2020-10-27 00:00:00 2020-10-27 00:00:00 Outpatient STLMLC STLMLC [id number] [facility] 2020-10-27 00:00:00 2020-10-27 00:00:00 Outpatient STLMLC STLMLC [id number] [facility] 2020-10-05 00:00:00 2020-10-05 00:00:00 Outpatient STLMLC STLMLC [id number] [facility] 2020-09-18 00:00:00 2020-09-18 00:00:00 Outpatient STLMLC STLMLC [id number] [facility] 2020-09-18 00:00:00 2020-09-18 00:00:00 Outpatient STLMLC STLMLC [id number] [facility] 2020-09-08 18:47:00 2020-09-08 18:47:00 Outpatient Tito Sy HCACL LABO [id number] [facility] 2020-08-08 00:00:00 2020-08-08 00:00:00 Outpatient STLMLC STLMLC [id number] [facility] 2020-08-07 00:00:00 2020-08-07 00:00:00 Outpatient STLMLC STLMLC [id number] [facility] 2020-07-17 11:15:00 2020-07-17 11:15:[address] [facility] [address] [facility] [place] [facility] [id number] [facility] 2020-07-17 11:10:00 2020-07-17 11:10:[address] [facility] [facility] [id number] [facility] 2020-06-24 16:00:00 2020-06-24 16:00:[address] [facility] [address] [id number] [facility] 2020-03-24 13:00:00 2020-03-24 13:00:[address] [facility] [address] [facility] [id number] [facility] 2020-01-21 13:26:00 2020-01-21 13:26:[address] [facility] [address] [id number] [facility] 2019-12-24 16:00:00 2019-12-24 16:00:[address] [facility] [address] [place] [facility] [id number] [facility] 2019-11-26 10:30:00 2019-11-26 10:30:[address] [facility] [address] [place] [facility] [id number] [facility] 2019-10-16 08:00:00 2019-10-16 08:00:[address] [facility] [address] [place] [facility] [id number] [facility] 2019-09-16 15:15:00 2019-09-16 15:15:[address] [facility] [facility] [address] [facility] [place] [facility] [id number] [facility] 2019-09-11 17:08:00 2019-09-11 17:08:[address] [facility] [address] [facility] [place] [facility] [id number] [facility] 2019-08-06 08:00:00 2019-08-06 08:00:[address] [facility] [address] [facility] [place] [facility] [id number] [facility] 2019-07-04 09:30:00 2019-07-04 09:30:[address] [facility] [facility] [address] [place] [facility] [id number] [facility] 2019-06-25 14:45:00 2019-06-25 14:45:[address] [facility] [address] [place] [facility] [id number] [facility] 2019-06-05 13:00:00 2019-06-05 13:00:[address] [facility] [address] [facility] [place] [facility] [id number] [facility] 2019-04-24 10:15:00 2019-04-24 10:15:[address] [facility] [facility] [address] [facility] [facility] [id number] [facility] 2019-03-21 09:15:00 2019-03-21 09:15:[address] [facility] [facility] [address] [place] [facility] [id number] [facility] 2019-02-27 09:00:00 2019-02-27 09:00:[address] [facility] [address] [place] [facility] [id number] [facility] 2019-02-22 15:16:00 2019-02-22 15:16:[address] [facility] [facility] [address] [facility] [place] [facility] [id number] [facility] 2019-01-10 08:45:00 2019-01-10 08:45:[address] [facility] [address] [id number] [facility] 2018-12-13 10:00:00 2018-12-13 10:00:[address] [facility] [address] [place] [facility] [id number] [facility] 2018-11-19 14:51:00 2018-11-19 14:51:[address] [facility] [facility] [id number] [facility] 2018-11-15 10:45:00 2018-11-15 10:45:[address] [facility] [facility] [address] [facility] [id number] [facility] 2018-10-26 10:29:00 2018-10-26 10:29:[address] [facility] [facility] [address] [facility] [facility] [id number] [facility] 2018-07-02 14:45:00 2018-07-02 14:45:[address] [facility] [facility] [address] [facility] [id number] [facility] 2018-05-15 14:15:00 2018-05-15 14:15:[address] [facility] [facility] [address] [facility] [facility] [id number] [facility] Results Test Description Test Time Test Comments Results Result Co mments Source Comp. Metabolic Panel (14) (CMP)2023-04-06 00:00:00* Test Item Value Reference Range Interpretation Comme nts A/G Ratio (test code = 1759-0) 2.1 1.2-2.2 Albumin (test code = 1751-7) 4.4 g/dL See_Comment [Automated messa ge] The system which generated this result transmitted reference range: 3.9-5.0 g/dL. The reference range was not used to interpret this result as normal/abnormal. Alkaline Phosphatase (test code = 6768-6) 75 IU/L See_Comment [Automated message] The system which generated this result transmitted reference range: 44-121 IU/L. The reference range was not used to interpret this result as normal/abnormal. ALT (SGPT) (test code = 1742-6) 12 IU/L See_Comment [Automated messa ge] The system which generated this result transmitted reference range: 0-32 IU/L. The reference range was not used to interpret this result as normal/abnormal. AST (SGOT) (test code = 1920-8) 14 IU/L See_Comment [Automated official.fma ge] The system which generated this result transmitted reference range: 0-40 IU/L. The reference range was not used to interpret this result as normal/abnormal. Bilirubin, Total (test code = 1975-2) <0.2 mg/dL See_Comment [Automated official.fma ge] The system which generated this result transmitted reference range: 0.0-1.2 mg/dL. The reference range was not used to interpret this result as normal/abnormal. BUN (test code = 3094-0) 10 mg/dL See_Comment [Automated official.fma ge] The system which generated this result transmitted reference range: 6-20 mg/dL. The reference range was not used to interpret this result as normal/abnormal. BUN/Creatinine Ratio (test code = 3097-3) 13 9-23 Calcium (test code = 18807-9) 9.9 mg/dL See_Comment [Automated official.fma ge] The system which generated this result transmitted reference range: 8.7-10.2 mg/dL. The reference range was not used to interpret this result as normal/abnormal. Carbon Dioxide, Total (test code = 2027-9) 24 mmol/L See_Comment [Automated message] The system which generated this result transmitted reference range: 20-29 mmol/L. The reference range was not used to interpret this result as normal/abnormal. Chloride (test code = 2075-0) 104 mmol/L See_Comment [Automated official.fma ge] The system which generated this result transmitted reference range: 96-106 mmol/L. The reference range was not used to interpret this result as normal/abnormal. Creatinine (test code = 2160-0) 0.75 mg/dL See_Comment [Automated messa ge] The system which generated this result transmitted reference range: 0.57-1.00 mg/dL. The reference range was not used to interpret this result as normal/abnormal. Globulin, Total (test code = 44859-9) 2.1 g/dL See_Comment [Automated messa ge] The system which generated this result transmitted reference range: 1.5-4.5 g/dL. The reference range was not used to interpret this result as normal/abnormal. Glucose (test code = 2345-7) 88 mg/dL See_Comment [Automated messa ge] The system which generated this result transmitted reference range: 70-99 mg/dL. The reference range was not used to interpret this result as normal/abnormal. Potassium (test code = 2823-3) 5.3 mmol/L See_Comment H [Automated messa ge] The system which generated this result transmitted reference range: 3.5-5.2 mmol/L. The reference range was not used to interpret this result as normal/abnormal. Protein, Total (test code = 2885-2) 6.5 g/dL See_Comment [Automated messa ge] The system which generated this result transmitted reference range: 6.0-8.5 g/dL. The reference range was not used to interpret this result as normal/abnormal. Sodium (test code = 2951-2) 139 mmol/L See_Comment [Automated messa ge] The system which generated this result transmitted reference range: 134-144 mmol/L. The reference range was not used to interpret this result as normal/abnormal. CBC With Differential/[id number] 00:00:00* Test Item Value Reference Range Interpretation Comme nts Baso (Absolute) (test code = 704-7) 0.0 x10E3/uL See_Comment [Automated messa ge] The system which generated this result transmitted reference range: 0.0-0.2 x10E3/uL. The reference range was not used to interpret this result as normal/abnormal. Basos (test code = 706-2) 0 % Not Estab. % Eos (test code = 713-8) 2 % Not Estab. % Eos (Absolute) (test code = 711-2) 0.1 x10E3/uL See_Comment [Automated messa ge] The system which generated this result transmitted reference range: 0.0-0.4 x10E3/uL. The reference range was not used to interpret this result as normal/abnormal. Hematocrit (test code = 4544-3) 35.0 % See_Comment [Automated messa ge] The system which generated this result transmitted reference range: 34.0-46.6 %. The reference range was not used to interpret this result as normal/abnormal. Hematology Comments: (test code = 04308-8) Hemoglobin (test code = 718-7) 11.0 g/dL See_Comment L [Automated messa ge] The system which generated this result transmitted reference range: 11.1-15.9 g/dL. The reference range was not used to interpret this result as normal/abnormal. Immature Cells (test code = UNLOINC) Immature Grans (Abs) (test code = 56264-1) 0.0 x10E3/uL See_Comment [Automated message] The system which generated this result transmitted reference range: 0.0-0.1 x10E3/uL. The reference range was not used to interpret this result as normal/abnormal. Immature Granulocytes (test code = 25949-2) 0 % Not Estab. % Lymphs (test code = 736-9) 35 % Not Estab. % Lymphs (Absolute) (test code = 731-0) 2.7 x10E3/uL See_Comment [Automated m essage] The system which generated this result transmitted reference range: 0.7-3.1 x10E3/uL. The reference range was not used to interpret this result as normal/abnormal. MCH (test code = 785-6) 27.7 pg See_Comment [Automated messa ge] The system which generated this result transmitted reference range: 26.6-33.0 pg. The reference range was not used to interpret this result as normal/abnormal. MCHC (test code = 786-4) 31.4 g/dL See_Comment L [Automated messa ge] The system which generated this result transmitted reference range: 31.5-35.7 g/dL. The reference range was not used to interpret this result as normal/abnormal. MCV (test code = 787-2) 88 fL See_Comment [Automated messa ge] The system which generated this result transmitted reference range: 79-97 fL. The reference range was not used to interpret this result as normal/abnormal. Monocytes (test code = 5905-5) 7 % Not Estab. % Monocytes(Absolute) (test code = 742-7) 0.5 x10E3/uL See_Comment [Automated m essage] The system which generated this result transmitted reference range: 0.1-0.9 x10E3/uL. The reference range was not used to interpret this result as normal/abnormal. Neutrophils (test code = 770-8) 56 % Not Estab. % Neutrophils (Absolute) (test code = 751-8) 4.3 x10E3/uL See_Comment [Automated messa ge] The system which generated this result transmitted reference range: 1.4-7.0 x10E3/uL. The reference range was not used to interpret this result as normal/abnormal. NRBC (test code = 46466-6) Platelets (test code = 777-3) 537 x10E3/uL See_Comment H [Automated messa ge] The system which generated this result transmitted reference range: 150-450 x10E3/uL. The reference range was not used to interpret this result as normal/abnormal. RBC (test code = 789-8) 3.97 x10E6/uL See_Comment [Automated messa ge] The system which generated this result transmitted reference range: 3.77-5.28 x10E6/uL. The reference range was not used to interpret this result as normal/abnormal. RDW (test code = 788-0) 13.4 % See_Comment [Automated messa ge] The system which generated this result transmitted reference range: 11.7-15.4 %. The reference range was not used to interpret this result as normal/abnormal. WBC (test code = 6690-2) 7.8 x10E3/uL See_Comment [Automated messa ge] The system which generated this result transmitted reference range: 3.4-10.8 x10E3/uL. The reference range was not used to interpret this result as normal/abnormal. Vitamin D, 92-Jzapwhx9418-70-25 00:00:00* Test Item Value Reference Range Interpretation Comme [facility] Vitamin D, 25-Hydroxy (test code = 1989-3) 17.9 ng/mL See_Comment L [Automated [employer]] The system which generated this result transmitted reference range: 30.0-100.0 ng/mL. The reference range was not used to interpret this result as normal/abnormal. TSH reflex to [id number] 00:00:00* Test Item Value Reference Range Interpretation Comme [facility] TSH (test code = 79507-0) 3.580 uIU/mL See_Comment [Automated official.fma MDVIP] The system which generated this result transmitted reference range: 0.450-4.500 uIU/mL. The reference range was not used to interpret this result as normal/abnormal. TROPONIN-I (HIGH SENSITIVITY)2023-04-04 16:15:00* Test Item Value Reference Range Interpretation Comme [facility] TROPONIN-I (HIGH SENSITIVITY) (test code = TROPI) 5.7 pg/mL <51.4 N Please Note:New method is in use for measuring Troponin Oct 28 2021Units are pg/mL which differs from the prior testmethodology (ng/mL) by a factor of 1000. [id number] 16:08:00* Test Item Value Reference Range Interpretation Comme [facility] LIPASE (test code = LIP) 131 units/L 73-393 N B-TYPE NATRIURETIC [id number] 15:43:00* Test Item Value Reference [facility]ation [facility] NATRI[facility]TIC PEPTIDE ( test code = BNP) 2.69 pg/mL 0-100 N D-DIMER [id number] 15:09:00* Test Item Value Reference Range Interpretation Comme [facility] D-DIMER QUANT (test code = DDIMER) 219 ng/mLDDU <255 Reference Range in : <570 ng/ml A positive test does not provide a definitive diagnosis ofDVT and indicates the need for follow up clinical studies. The predictive value of a negative test is 98% for rulingout DVT. HCG [id number] 15:05:00* Test Item Value Reference Range Interpretation Comme nts HCG SERUM (test code = HCG) 7 INTERPRETATION:V ALUES BETWEEN 15-20 milliInternational units/mL NEED TO BERETESTED WITHIN 48 HOURS. All units for these ranges are in milliInternationalunits/mL0-1 WK AFTER CONCEPTION 0-50 1-2 WKS AFTER CONCEPTION 40-3002-3 WKS AFTER CONCEPTION 100-1,0003-4 WKS AFTER CONCEPTION 500-6,0001-2 MONTHS AFTER CONCEPTION 5,000-200,0002-3 MONTHS AFTER CONCEPTION 10,000-100,0002ND TRIMESTER 3,000-50,0003RD TRIMESTER 1,000-50,000 SPECIMENS WITH AN HCG LEVEL FROM 0-6 milliInternationalunits/mL SHOULD BE CONSIDERED NEGATIVE COMPREHENSIVE METABOLIC [id number] 14:57:00* Test Item Value Reference Range Interpretation Comme nts SODIUM (test code = NA) 140 mEq/L 135-145 N POTASSIUM (test code = K) 4.0 mEq/L 3.5-5.0 N CHLORIDE (test code = CL) 104 mEq/L 100-115 N CARBON DIOXIDE (test code = CO2) 28 mEq/L 22-31 N ANION GAP (test code = GAP) 12.20 10-20 N GLUCOSE (test code = GLU) 93 mg/dL 65-110 N BLOOD UREA NITROGEN (test code = BUN) 7 mg/dL 7-18 N GLOMERULAR FILTRATION RATE (test code = GFR) 104 ml/min >60 N The Glomerular Filtration Rate is a calculated parameterbased on serum Creatinine, patient age and sex. GFR valuesless than 60 mL/min/1.73 square meters are indicative ofChronic Kidney Disease. Values less than 15 mL/min/1.73square meters indicate Kidney failure. The calculation forGFR is based on the CKD-EPI (2020) calculation. This formulais race indifferent and is the recommended formula for GFRby the National Kidney Foundation for Adults.The GFR will not calculate if the sex is unknown or if thepatient's age is <18 years. CREATININE (test code = CREAT) 0.8 mg/dL 0.5-1.0 N TOTAL PROTEIN (test code = PROT) 7.7 gm/dL 6.3-8.2 N ALBUMIN (test code = ALB) 3.9 gm/dL 3.4-4.8 N CALCIUM (test code = CA) 9.8 mg/dL 8.4-10.2 N BILIRUBIN TOTAL (test code = BILT) 0.2 mg/dL 0.2-1.0 N SGOT/AST (test code = AST) 14 units/L 15-37 L SGPT/ALT (test code = ALT) 19 units/L 12-78 N ALKALINE PHOSPHATASE TOTAL (test code = ALKP) 80 units/L 46-116 N URINALYSIS [id number] 14:49:00* Test Item Value Reference Range Interpretation Comme nts UA COLOR (test code = COLU) STRAW YELLOW UA APPEARANCE (test code = APPU) CLEAR CLEAR UA GLUCOSE DIPSTICK (test co de = DGLUU) NEGATIVE NEG UA BILIRUBIN DIPSTICK (test code = BILU) NEGATIVE NEG UA KETONE DIPSTICK (test cod e = KETU) NEGATIVE NEG UA SPECIFIC GRAVITY (test co de = SGU) 1.004 1.001-1.035 N UA BLOOD DIPSTICK (test code = TAMMI) NEG NEG UA PH DIPSTICK (test code = JOE) 7.0 5-9 UA PROTEIN DIPSTICK (test co de = PROU) NEGATIVE NEG UA UROBILINIOGEN DIPSTICK (test code = URO) NEGATIVE mg/dL NEG UA NITRITE DIPSTICK (test co de = SHANI) NEG NEG UA LEUKOCYTE ESTERASE DIPSTI CK (test code = LEUU) 2+ NEG A UA WBC (test code = WBCU) 6-10 #/hpf NONE SEEN A UA RBC (test code = RBCU) 0-2 #/hpf NONE SEEN UA EPITHELIAL CELLS (test co de = EPIU) RARE #/HPF RARE-FEW CBC W/AUTO [id number] 14:38:00* Test Item Value Reference Range Interpretation Comme nts WHITE BLOOD CELL (test code = WBC) 8.4 K/mm3 6.5-12.3 N RED BLOOD CELL (test code = RBC) 3.98 M/mm3 3.51-4.69 N HEMOGLOBIN (test code = HGB) 11.2 g/dL 10.1-13.8 N HEMATOCRIT (test code = HCT) 34.2 % 32.5-41.8 N MEAN CELL VOLUME (test code = MCV) 85.9 fL 84.6-96.6 N MEAN CELL HGB (test code = MCH) 28.1 pg 27.3-33.9 N MEAN CELL HGB CONCETRATION ( test code = MCHC) 32.7 gm/dL 32.0-34.2 N RED CELL DISTRIBUTION WIDTH (test code = RDW) 13.3 % 12.2-16.3 N PLATELET COUNT (test code = PLT) 537 K/mm3 134-363 H MEAN PLATELET VOLUME (test c ode = MPV) 9.9 fL 9.2-12.7 N NEUTROPHIL % (test code = NT%) 65.1 % 57.9-77.3 N LYMPHOCYTE % (test code = LY%) 28.7 % 14.5-29.7 N MONOCYTE % (test code = MO%) 4.5 % 3.6-10.2 N EOSINOPHIL % (test code = EO%) 1.1 % 0.0-3.0 N BASOPHIL % (test code = BA%) 0.4 % 0.1-0.9 N NEUTROPHIL # (test code = NT#) 5.4 K/mm3 LYMPHOCYTE # (test code = LY#) 2.4 K/mm3 MONOCYTE # (test code = MO#) 0.4 K/mm3 EOSINOPHIL # (test code = EO#) 0.09 K/mm3 BASOPHIL # (test code = BA#) 0.0 K/mm3 RBC MORPHOLOGY REQUIRED (bhavana t code = RBCM) NORMAL NORMAL PLATELET MORPHOLOGY REQUIRED (test code = PLTMR) NORMAL NORMAL - XR CHEST 2 [id number] 00:00:00 [facility] 1995 Sex: F Patient Name: LUIS MANUEL GARZON Unit No: [id number] EXAMS: CPT CODE: [id number] XR CHEST 2 V 65514 PROCEDURE INFORMATION: Exam: XR Chest Exam date and time: 04/04/2023 3:54 PM Age: 27 years old Clinical indication: Angina; Patient HX: HX of miscarriage 03/21, chest pain TECHNIQUE: Imaging protocol: Radiologic exam of the chest. Views: 2 views. PA and Lateral COMPARISON: No relevant prior studies available. FINDINGS: Lungs: No focal consolidation. Pleural spaces: No pleural effusion or pneumothorax. Heart/Mediastinum: No cardiomegaly. Midline trachea. Bones/joints: No acute abnormalities. IMPRESSION: No acute cardiopulmonary findings. at 1618 Reported and signed by: Kieran Maldonado MD CC: Chelo Barnard MD; Clotilde Robles MD Technologist: Zina Leal, RT Trnscrbd D/ (4218) GCD.CPS Orig Print D/T: S: 04/04/2023 (0144) [facility] NAME: LUIS MANUEL GARZON Radiology Department PHYS: Chelo Downs MD [address] : 1995 AGE: 27 SEX: F [place], [place] [address] LOC: GINO PHONE #: [phone] EXAM DATE: 04/04/2023 STATUS: REG ER FAX #: [phone] RAD NO: Page 1 Signed Report Prepare Packed RBC (in units), 2 [id number] 20:29:31* Test Item Value Reference Range Interpretation Comme nts Cross Match Result (test code = 4409) Compatible ISBT Blood Type Code (test code = 072139) 6200 Unit Blood Type (test code = 4410) A Pos Unit Number (test code = 4411) [id number] Blood Expiration Date & Time (test code = 845168) [id number] Status Information (test code = 4412) Issued Product Identification (test code = 4413) Red Blood Cells Product Code (test code = 4414) [id number] Performed at [facility] [[email or web address]] Laboratory Services - [facility] Blood [address] [place] [id number] Free: [phone] No. [id number] [facility] WITH [id number] 17:28:33* Test Item Value Reference Range Interpretation Comme nts WBC (test code = 6690-2) 10.02 See_Comment [Automated messa ge] The system which generated this result transmitted reference range: 4.30 - 11.10 10*3/?L. The reference range was not used to interpret this result as normal/abnormal. RBC (test code = 789-8) 3.45 See_Comment L [Automated messa ge] The system which generated this result transmitted reference range: 3.93 - 5.25 10*6/?L. The reference range was not used to interpret this result as normal/abnormal. HGB (test code = 718-7) 9.8 g/dL 11.6-15.0 L HCT (test code = 4544-3) 29.3 % 35.7-45.2 L MCV (test code = 787-2) 84.9 fL 80.6-95.5 MCH (test code = 785-6) 28.4 pg 25.9-32.8 MCHC (test code = 786-4) 33.4 g/dL 31.6-35.1 RDW-SD (test code = 32192-4) 42.7 fL 39.0-49.9 RDW-CV (test code = 788-0) 13.6 % 12.0-15.5 PLT (test code = 777-3) 324 See_Comment [Automated messa ge] The system which generated this result transmitted reference range: 166 - 358 10*3/?L. The reference range was not used to interpret this result as normal/abnormal. MPV (test code = 22768-5) 11.0 fL 9.5-12.9 NRBC/100 WBC (test code = 4959772274) 0.0 See_Comment [Automated me ssage] The system which generated this result transmitted reference range: 0.0 - 10.0 /100 WBCs. The reference range was not used to interpret this result as normal/abnormal. NRBC x10^3 (test code = 0476848051) See_Comment [Automated official.fma ge] The system which generated this result transmitted reference range: 10*3/?L. The reference range was not used to interpret this result as normal/abnormal. GRAN MAT (NEUT) % (test code = 770-8) 74.5 % IMM GRAN % (test code = 7908465636) 0.40 % LYMPH % (test code = 736-9) 21.0 % MONO % (test code = 5905-5) 3.8 % EOS % (test code = 713-8) 0.1 % BASO % (test code = 706-2) 0.2 % GRAN MAT x10^3(ANC) (test code = 2794358256) 7.47 10*3/uL 1.88-7.09 H IMM GRAN x10^3 (test code = 4134464233) 0.04 10*3/uL 0.00-0.06 LYMPH x10^3 (test code = 731-0) 2.10 10*3/uL 1.32-3.29 MONO x10^3 (test code = 742-7) 0.38 10*3/uL 0.33-0.92 EOS x10^3 (test code = 711-2) 0.03-0.39 L BASO x10^3 (test code = 704-7) 0.01-0.07 Lab Interpretation (test code = 27515-7) Abnormal [facility] BETA HCG [id number] 15:38:52* Test Item Value Reference Range Interpretation Comme nts BETA HCG (test code = 7290555890) 3120.10 See_Comment [Automated official.fma ge] The system which generated this result transmitted reference range: Non- female and male patients: <5 mIU/mL. The reference range was not used to interpret this result as normal/abnormal. IDRIS (test code = IDRIS) Gestational Age ?Range (mIU/mL) 1-10 ?Weeks ?29-44484189-62 Weeks ?25386-99328667-52 Weeks ?6810-27899919-05 Weeks ?2552-886306 Biotin has been reported to cause a negative bias, interpret results relative to patient's use of biotin. [facility]. METABOLIC PANEL (32372)2023-03-21 15:14:31* Test Item Value Reference Range Interpretation Comme nts NA (test code = 5263707932) 137 mmol/L 135-145 K (test code = 1050720029) 4.1 mmol/L 3.5-5.0 CL (test code = 3097735208) 107 mmol/L 98-108 CO2 TOTAL (test code = 9912292138) 21 mmol/L 23-31 L AGAP (test code = 1710945690) 9 2-16 BUN (test code = 3951726199) 6 mg/dL 7-23 L GLUCOSE (test code = 8575349775) 108 mg/dL 70-110 CREATININE (test code = 1345439227) 0.60 mg/dL 0.50-1.04 TOTAL BILI (test code = 0815433408) 0.5 mg/dL 0.1-1.1 CALCIUM (test code = 5208613739) 8.7 mg/dL 8.6-10.6 T PROTEIN (test code = 0016916293) 6.3 g/dL 6.3-8.2 ALBUMIN (test code = 0856682979) 3.6 g/dL 3.5-5.0 ALK PHOS (test code = 6959146906) 48 U/L 34-122 ALTv (test code = 1742-6) 23 U/L 5-35 AST(SGOT) (test code = 3471149560) 26 U/L 13-40 eGFR (test code = 3493059802) 120.8 mL/min/1.73m2 IDRIS (test code = IDRIS) Association of [...] or abnormalities in imaging tests). Lab Interpretation (test code = 07541-3) Abnormal [facility] WITH [id number] 15:10:37* Test Item Value Reference Range Interpretation Comme nts WBC (test code = 6690-2) 10.84 See_Comment [Automated [employer]] The system which generated this result transmitted reference range: 4.30 - 11.10 10*3/?L. The reference range was not used to interpret this result as normal/abnormal. RBC (test code = 789-8) 3.90 See_Comment L [[employer]] The system which generated this result transmitted reference range: 3.93 - 5.25 10*6/?L. The reference range was not used to interpret this result as normal/abnormal. HGB (test code = 718-7) 11.4 g/dL 11.6-15.0 L HCT (test code = 4544-3) 32.6 % 35.7-45.2 L MCV (test code = 787-2) 83.6 fL 80.6-95.5 MCH (test code = 785-6) 29.2 pg 25.9-32.8 MCHC (test code = 786-4) 35.0 g/dL 31.6-35.1 RDW-SD (test code = 64456-7) 42.1 fL 39.0-49.9 RDW-CV (test code = 788-0) 13.8 % 12.0-15.5 PLT (test code = 777-3) 348 See_Comment [Automated messa ge] The system which generated this result transmitted reference range: 166 - 358 10*3/?L. The reference range was not used to interpret this result as normal/abnormal. MPV (test code = 71522-9) 10.5 fL 9.5-12.9 NRBC/100 WBC (test code = 2016152888) 0.0 See_Comment [Automated [employer] ssage] The system which generated this result transmitted reference range: 0.0 - 10.0 /100 WBCs. The reference range was not used to interpret this result as normal/abnormal. NRBC x10^3 (test code = 8631132344) See_Comment [Automated messa ge] The system which generated this result transmitted reference range: 10*3/?L. The reference range was not used to interpret this result as normal/abnormal. GRAN MAT (NEUT) % (test code = 770-8) 77.7 % IMM GRAN % (test code = 9934859803) 0.40 % LYMPH % (test code = 736-9) 16.0 % MONO % (test code = 5905-5) 5.2 % EOS % (test code = 713-8) 0.4 % BASO % (test code = 706-2) 0.3 % GRAN MAT x10^3(ANC) (test code = 0504629007) 8.44 10*3/uL 1.88-7.09 H IMM GRAN x10^3 (test code = 5389710295) 0.04 10*3/uL 0.00-0.06 LYMPH x10^3 (test code = 731-0) 1.73 10*3/uL 1.32-3.29 MONO x10^3 (test code = 742-7) 0.56 10*3/uL 0.33-0.92 EOS x10^3 (test code = 711-2) 0.04 10*3/uL 0.03-0.39 BASO x10^3 (test code = 704-7) 0.03 10*3/uL 0.01-0.07 Lab Interpretation (test code = 62068-9) [facility]normal [facility] [id number] 14:43:00 * Test Item Value Reference Range Interpretation Comme nts ABO & RH (test code = 20) A Positive IAT (test code = 1185) Negative [facility] 2019 Rukejrn3708-71-18 09:59:00* Test Item Value Reference Range Interpretation Comme nts Novel Coronavirus 2019 Inhouse (test code = COVNONPUI) Negative Negative Positive resul ts are indicative of the presence hsKKRL-HyZ-8 RNA, clinical correlation with patient historyand other diagnostic information is necessary to determinepatient infection status. Positive results do not rule outbacterial infection or co-infection with other viruses. Negative results do not preclude SARS-CoV-2 infection andshould not be used as the sole basis for patient managementdecisions. Negative results must be combined with otherclinical observations, patient history, and epidemiologicalinformation . Detection of SARS-CoV-2 RNA may be affected bysample collection methods, storage conditions, and/or stageof infection. Viral RNA mutations, vaccinations, antiviraltherapeutics, antibiotics, chemotherapeutic orimmunosuppressant drugs have not been evaluated for effectson detection. Results are for the identification of SARS-CoV-2 RNA usingthe [employer] M2000 System under the FDA Emergency UseAuthorization. The testing is performed by personneltrained in the procedures for the [employer] M2000 moleculardiagnostic SARS-CoV-2 assay in vitro. Novel Coronavirus 2018 Qvcgnsv9402-05-92 09:58:00* Test Item Value Reference Range Interpretation Comme nts Novel Coronavirus 2019 Inhouse (test code = COVNONPUI) Negative Negative Positive resul ts are indicative of the presence pkDRLK-TsX-0 RNA, clinical correlation with patient historyand other diagnostic information is necessary to determinepatient infection status. Positive results do not rule outbacterial infection or co-infection with other viruses. Negative results do not preclude SARS-CoV-2 infection andshould not be used as the sole basis for patient managementdecisions. Negative results must be combined with otherclinical observations, patient history, and epidemiologicalinformation . Detection of SARS-CoV-2 RNA may be affected bysample collection methods, storage conditions, and/or stageof infection. Viral RNA mutations, vaccinations, antiviraltherapeutics, antibiotics, chemotherapeutic orimmunosuppressant drugs have not been evaluated for effectson detection. Results are for the identification of SARS-CoV-2 RNA usingthe [employer] M2000 System under the FDA Emergency UseAuthorization. The testing is performed by personneltrained in the procedures for the [employer] M2000 moleculardiagnostic SARS-CoV-2 assay in vitro. Notes Date/Time Note Provider Source 2023-04-04 15:14:00 [id number] DOnSnLgJZZQAHg+fLViFE3WhNEWqv Gpc/j2XRIL2CS8EWaXq2WV0hGd64993-97-42F06:14:00 [facility] ([facility])EMERGENCY PROVIDER REPORTREPORT#:[id number] REPORT STATUS: SignedDATE:04/04/23 TIME: 151 PATIENT: LUIS MANUEL GARZON UNIT #: [id number]#: [id number] ROOM/BED:AGE: 27 SEX: F PCP PHYS: Severino Gutierrez AUTHOR: Chelo Barnard MD * ALL edits or amendments must be made on the electronic/computer document * HPI-Chest Pain 40 and Over Free Text HPI NotesFree Text HPI Dvwub27-hfbx-ppv female with a history of psychiatric disorders, with recent miscarriage presents with chest pain, shortness of breath, dizziness upon standing. On March 21 patient was 11 weeks and had a spontaneous miscarriage. Patient suffered heavy hemorrhagic bleeding with TXA and 2 units of PRBCs. Patient was having chest pain at this time but it was regarded as anxiety driven versus symptomatic anemia driven. Patient was discharged home. Patient has had persistent chest pain shortness of breath and lightheadedness since the event and arrives today for evaluation. On the patient was seen in the emergency room and had an ultrasound that revealed no retained products of conception. GeneralInitial Greet Date/Time 04/04/23 1306 PresentationChief Complaint Chest pain, Nausea, Shortness of breathSudden in Onset? No)( Migration/Movement None Risk-Chest Pain 40 and Over Risk Stratification)( Coronary Artery Disease No risk factors)( Thoracic Aortic Dissection No risk factors)( Pulmonary Embolism No risk factors)( AMI-Aspirin Aspirin Last 24 Hrs None)( HEART for MACE )( HEART for MACE Response Value History Low index of suspicion 0 Total 0 Past Medical History - AdultStated Complaint MISCARRIAGE 03/21,CHEST PAIN,BODYACHES,SPOTTINGAllergiesCoded Allergies:gluten (Severe, NAUSEA, VOMITING, GI IRRITATION, HEADACHE, JOINT SWELLING 09/08/20)shellfish derived (Severe, TONGUE SWELLS, MILD SOB, SCRATCHY THROAT 09/08/20)iodine (Mild, itching 09/08/20) Home MedicationsReported MedicationsSERTRALINE (ZOLOFT) 150 MG PO DAILY PNV WITH CA/IRON/FA/DHA (PRENATE ESSENTIAL) 1 CAP PO DAILY ALPRAZolam (XANAX) 1 MG PO BEDTIME PRN PRN INSOMNIA Discontinued Reported MedicationsGABAPENTIN (NEURONTIN) 300 MG PO TID IBUPROFEN (MOTRIN) 800 MG PO TID BUDESONIDE/FORMOTEROL FUMARATE (SYMBICORT 80/4.5 MCG/ACT) 2 PUFF INH DAILY MONTELUKAST (SINGULAIR) 10 MG PO DAILY ONDANSETRON (ZOFRAN) 8 MG PO Q12H PRN PRN NAUSEA SUMAtriptan (IMITREX) 100 MG PO ONCE PRN MIGRAINE AMPHETAMINE/DEXTROAMPHETAMINE SALTS (ADDERALL) 10 MG PO BID [NURTEC] 1 TAB SL PRN PRN MIGRAINE traMADol (ULTRAM) 50 MG PO PRN PAIN Smoking status for patients 13 years old or older: Never Smoker Physical Exam Vital SignsVital SignsFirst Documented: Result Date Time Pulse Ox 99 04/04 1303 B/P 123/88 04/04 1303 B/P Mean 99 04/04 1303 O2 Delivery Room air 04/04 1303 Temp 36.8 04/04 1303 Pulse 81 04/04 1303 Resp 17 04/04 1303 Last Documented: Result Date Time Pulse Ox 99 04/04 1303 B/P 123/88 04/04 1303 B/P Mean 99 04/04 1303 O2 Delivery Room air 04/04 1303 Temp 36.8 04/04 1303 Pulse 81 04/04 1303 Resp 17 04/04 1303 Review of Vital Signs Reviewed, Vital signs normal Focused PEGeneral/Const General/Const Awake, Alert, No acute distress, Well appearing, Well developed, Well hydrated, Well nourishedEyes Eyes EOMIResp/Chest Respiratory/Chest Breath sounds NL, Breath sounds = bilat, No respiratory distress, No rales, No rhonchi, No wheezing, No retractionsCardiovascular Cardiovascular Heart rate NL, Regular rhythm, Heart sounds NL, No gallop, No murmurs, No rubsAbdomen/GI Abdomen/GI Soft, Non-tender, No guarding, No rebound Text/Dict NotesMinimal suprapubic discomfort with palpationMS Back Back Full range of motion, Painless range of motion, Non-tenderMS Lower Extrem Lower Ext/Pelvis/MS Inspection NL, Full range of motion, No swelling, Non-tender, No erythemaSkin Skin Color NL, No rashNeurologic Neurologic Oriented X3, Speech NL, No motor deficits, No sensory deficits, CNII - XII intact Interpretation Diagnostics Lab Results InterpretationResultsLaboratory Tests 04/04/23 1419:[Embedded Image Not Available]Laboratory Tests: 04/04 04/04 04/04 04/04 1419 1419 1419 1419 Chemistry Sodium (135 - 145 mEq/L) 140 Potassium (3.5 - 5.0 mEq/L) 4.0 Chloride (100 - 115 mEq/L) 104 Carbon Dioxide (22 - 31 mEq/L) 28 Anion Gap (10 - 20) 12.20 BUN (7 - 18 mg/dL) 7 Creatinine (0.5 - 1.0 mg/dL) 0.8 Glomerular Filtr Rate (>60 ml/min) 104 Glucose (65 - 110 mg/dL) 93 Calcium (8.4 - 10.2 mg/dL) 9.8 Total Bilirubin (0.2 - 1.0 mg/dL) 0.2 AST (15 - 37 units/L) 14 L ALT (12 - 78 units/L) 19 Total Alk Phosphatase (46 - 116 units/L) 80 Troponin I High Sens (<51.4 pg/mL) 5.7 B-Natriuretic Peptide (0 - 100 pg/mL) 2.69 Total Protein (6.3 - 8.2 gm/dL) 7.7 Albumin (3.4 - 4.8 gm/dL) 3.9 Lipase (73 - 393 units/L) 131 Coagulation D-Dimer (<255 ng/mLDDU) 219 Hematology WBC (6.5 - 12.3 K/mm3) 8.4 RBC (3.51 - 4.69 M/mm3) 3.98 Hgb (10.1 - 13.8 g/dL) 11.2 Hct (32.5 - 41.8 %) 34.2 MCV (84.6 - 96.6 fL) 85.9 MCH (27.3 - 33.9 pg) 28.1 MCHC (32.0 - 34.2 gm/dL) 32.7 RDW (12.2 - 16.3 %) 13.3 Plt Count (134 - 363 K/mm3) 537 H MPV (9.2 - 12.7 fL) 9.9 Neut % (Auto) (57.9 - 77.3 %) 65.1 Lymph % (Auto) (14.5 - 29.7 %) 28.7 [place] % (Auto) (3.6 - 10.2 %) 4.5 Eos % (Auto) (0.0 - 3.0 %) 1.1 Baso % (Auto) (0.1 - 0.9 %) 0.4 Neut # (Auto) (K/mm3) 5.4 Lymph # (Auto) (K/mm3) 2.4 [place] # (Auto) (K/mm3) 0.4 Eos # (Auto) (K/mm3) 0.09 Baso # (Auto) (K/mm3) 0.0 Miscellaneous Maternal Serum HCG 7 Urines Urine Color (YELLOW) STRAW Urine Appearance (CLEAR) CLEAR Urine pH (5 - 9) 7.0 Ur Specific [place] (1.001 - 1.035) 1.004 Urine Protein (NEG) NEGATIVE Urine Glucose (UA) (NEG) NEGATIVE Urine Ketones (NEG) NEGATIVE Urine Blood (NEG) NEG Urine Nitrite (NEG) NEG Urine Bilirubin (NEG) NEGATIVE Urine Urobilinogen (NEG mg/dL) NEGATIVE Ur Leukocyte Esterase (NEG) 2+ H Urine RBC (NONE SEEN #/hpf) 0-2 Urine WBC (NONE SEEN #/hpf) 6-10 H Ur Epithelial Cells (RARE - FEW #/HPF) RARE Recent Impressions:RADIOLOGY - XR CHEST 2 V 04/04 1550 Report Impression - Status: SIGNED Entered: 04/04/2023 1619 IMPRESSION: No acute cardiopulmonary findings. Impression By: Nito Maldonado MD ECG #1 InterpretationText/Dict NoteNormal sinus rhythm heart rate 80 WV 156 QRS 82 QT 354 QTc 4-week Re-Evaluation MDM Free Text MDM NotesFree Text MDM [id number] female with recent miscarriage requiring 2 units of PRBCs and 6 today presents with persistent chest pain and shortness of breath with dyspnea on exertion and orthostatic sensation. Will check labs, chest x-ray, EKG. Willadminister Toradol, Tylenol, Zofran, fluids for symptom relief Re-Evaluation/Progress #1Text/Dict NotePatient is feeling well. Vital signs are stable. Chest x-ray unremarkable. Lab work unremarkable. EKG normal. Advised for patient to follow-up with PCP. Cardiology referral provided.Time of Re-Eval 1624Re-Eval Status Improved Chest Pain MDM NoteThe patient is resting comfortably and feels better, is alert and in no distress. The repeat examination is unremarkable and benign. The electrocardiogram shows no signs of acute ischemia and the history, exam, diagnostic testing and current condition do not suggest that this patient is having an acute myocardial infarction, significant arrhythmia, unstable angina, esophageal perforation, pulmonary embolism, aortic dissection, pneumothorax, severe pneumonia, sepsis or other significant pathology that would warrant further testing, continued ED treatment, admission, or cardiology or other specialist consultation at this point. The vital signs have been stable. The patient's condition is stable and appropriate for discharge. 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 The patient and/or caregivers have expressed a clear and thorough understanding and agree to follow up as instructed. Low Risk R/O ACS/AZ NoteI discussed with the patient and/or caregiver the rapid rule-out protocol for acute coronary syndrome and myocardial infarction and that, given the findings during this ED evaluation, there is no clinical, ECG or laboratory evidence of injury to the heart. I further explained that there is no currently validated protocol that can reliably risk stratify a patient into the very low risk category of less than a 1-2% possibility of significant cardiac disease. Therefore it remains possible that there is underlying pathology that may develop into an acute coronary syndrome at some time in the future. I discussed this with the patient and/or caregivers at length, as well as the necessary steps that may include follow-up, stress testing, cardiac imaging and further lab evaluation for further assessment. The patient and/or caregivers have expressed a clear and thorough understanding and agree to follow up as instructed. PE R/O MDM NoteThere is no historical, physical exam, laboratory or imaging data that would indicate a need to consider or further evaluate the patient for pulmonary embolism at this time. I am no longer considering pulmonary embolism in the differential diagnosis. I have applied a properly developed and validated evidence-based risk stratification protocol to this patient's presentation. I have identified the patient as low risk for PE via either my gestalt based on the patient's history and physical examination, or through application of the Well's PE rule (or other validated PE risk stratification tool). Having determined that the patient is 'low risk' for PE based on the above, I then applied the PERC scoring tool. The eight PERC criteria are negative: age < 50 years, pulse < 100 bpm, Nicholas(2) > 94%, no unilateral leg swelling, no hemoptysis,no recent trauma or surgery, no prior PE or DVT and no hormone use. Based upon this process, this patient is very low risk for a PE with less than a 2% chance of having a pulmonary embolism. ED CourseMedication(s) OrderedMedication(s) Ordered:Central Nervous System Agents Sig/Alex Start time Last Medication Dose Route Stop Time Status Admin Acetaminophen 650 MG X1ED STA 04/04 1540 DC PO 04/04 1541 Ketorolac 30 MG X1ED STA 04/04 1540 DC Tromethamine IV 04/04 1541 Electrolytic, Caloric, And Rik Sig/Alex Start time Last Medication Dose Route Stop Time Status Admin Sodium Chloride 1,000 ML X1ED STA 04/04 1540 DC IV 04/04 1541 Gastrointestinal Drugs Sig/Alex Start time Last Medication Dose Route Stop Time Status Admin Ondansetron HCl 4 MG X1ED STA 04/04 1541 DC IV 04/04 1542 Patient Discharge Departure Vital Signs/ConditionVital SignsFirst Documented: Result Date Time Pulse Ox 99 04/04 1303 B/P 123/88 04/04 1303 B/P Mean 99 04/04 1303 O2 Delivery Room air 04/04 1303 Temp 36.8 04/04 1303 Pulse 81 04/04 1303 Resp 17 04/04 1303 Last Documented: Result Date Time Pulse Ox 99 04/04 1303 B/P 123/88 04/04 1303 B/P Mean 99 04/04 1303 O2 Delivery Room air 04/04 1303 Temp 36.8 04/04 1303 Pulse 81 04/04 1303 Resp 17 04/04 1303 All vital signs available at the time of this entry have been reviewed. Clinical ImpressionClinical ImpressionPrimary Impression: Chest pain Disposition DecisionDischarge )( Discharged to Home Yes )( Time 1624 )( Date 04/04/23 Discharge/Care Plan(Auto) PrescriptionsCurrent Visit ScriptsIBUPROFEN (MOTRIN) 800 MG PO TID PRN PRN PAIN IBUPROFEN (MOTRIN) 800 MG PO TID PRN PRN PAIN #20 TABS ONDANSETRON ODT (ZOFRAN ODT) 4 MG PO Q6H PRN PRN NAUSEA/VOMITING ONDANSETRON ODT (ZOFRAN ODT) 4 MG PO Q6H PRN PRN NAUSEA/VOMITING #8 TABS Patient Instructions ED Chest Pain, NoncardiacAdditional InstructionsYou may take Motrin 800 mg every 8 hours as needed for pain. May use Zofran every 6-8 hours for nausea. Please follow-up with your primary care doctor. Follow-up with cardiology per referral provided. Return immediately for any worsening symptoms.ReferralsProvider Referral: Halima Bah MD Address: [address] [place] [address] [address] [place] [id number] Provider Referral: Cedrick Oropeza MD Address: [address] [facility] [address] [place] [address] Provider Referral: Cheko Moore MD Address: [address] [facility] [address] [place] [address] Provider Referral: Samantha Jarrell MD Address: [address] [place] [address] Provider Referral: Parish López Jr, MD Address: [address] [facility] [address] [place] [address] Provider Referral: Skinny Emery MD Address: [address] [place] [address] [address] [place] [id number] Provider Referral: Antonio Cota APRN Address: [address] [place] [address], [address] [place] [address] Provider Referral: Adama Kauffman MD Address: [address] [place] [address] [address] [place] [address] Provider Referral: Usama Cleaning MD Address: [address], [address] [place] [address] Provider Referral: Helio Esposito MD Address: [address] [place] [address] Provider Referral: Josef Islas MD Address: [address] [place] [address] Provider Referral: Qamar Roy MD Address: [address] [place] [address] Provider Referral: Roberto Nunes MD Address: [address] [place] [address] Provider Referral: Leonarda Beck MD Address: [address] [facility] [address] [place] [address] Provider Referral: Marcos Arteaga Address: [address] [place] [address] [address] [place] [address] Departure FormsWORK/SCHOOL EXCUSE VARIABLE Discharge NoteI have spoken with the patient and/or caregivers. I have explained the patient'scondition, diagnoses and treatment plan based on the information available to meat this time. I have answered the patient's and/or caregiver's questions and addressed any concerns. The patient and/or caregivers have as good an understanding of the patient's diagnosis, condition and treatment plan as can beexpected at this point. The vital signs have been stable. The patient's condition is stable and appropriate for discharge from the emergency department. The patient will pursue further outpatient evaluation with the primary care physician or other designated or consulting physician as outlined in the discharge instructions. The patient and/or caregivers are agreeable to this planof care and follow-up instructions have been explained in detail. The patient and/or caregivers have received these instructions in written format and have expressed an understanding of the discharge instructions. The patient and/or caregivers are aware that any significant change in condition or worsening of symptoms should prompt an immediate return to this or the closest emergency department or a call to 911. at 1628RPT #:[id number] OF REPORTThe [facility] department [id number]:14:00F.[id number] ilable for patient [id number]:28:17 [facility] 2023-04-04 13:21:00 [id number] [id number]:21:95112 5-0010 [facility] [address] [place] [address] PATIENT NAME: LUIS MANUEL GARZON ADMIT DATE: 04/04/23ACCOUNT NO: [id number] ROOM NO: AGE: 27 SEX: F ADMITTING PHYSICIAN: ATTENDING PHYSICIAN: Chelo Barnard MD Order:[id number] Reason : CHEST PAIN Test Date/Time Stamp:MonApr 04 2023 13:21:34Blood Pressure : / mmHGVent. Rate : 080 BPM Atrial Rate : 080 BPM P-R Int : 156 ms QRS Dur : 082 ms QT Int : 354 ms P-R-T Axes : 040 042 020 degrees QTc Int : 408 ms Normal sinus rhythmNormal ECGNo previous ECGs availableConfirmed by MURRAY MARAVILLA, KAILA ([id number]) on 04/06/2023 7:49:03 AM Referred By: Self Referred Confirmed by:KAILA ROACH MD at 0749 PATIENT NAME: LUIS MANUEL GARZON .[id number] AVAvailable for patient [id number]:49:26 [facility] 2020-09-14 09:49:00 [id number] Gohmpg1juMctyVXBQe107M+[id number]:4 [id number] [facility] [address] [place] [address] PATIENT NAME: LUIS MANUEL GARZON ADMIT DATE: 09/11/20ACCOUNT NO: [id number] ROOM NO: AGE: 24 REPORT TYPE: OPERATIVE REPORT SEX: F ADMITTING PHYSICIAN: ATTENDING PHYSICIAN:Tito Sy MD OPERATION DATE: 09/11/2020 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 SURGEON: Tito Sy MD. MOSAIC WORKER: None. TYPE OF ANESTHESIA: General and local. COMPLICATIONS: None. ESTIMATED BLOOD LOSS: Trace. INDICATIONS FOR PROCEDURE: Luis Manuel Garzon is a 24-year-old female who wasinjured at work. She had a lot of ulnar-sided wrist pain and was havingparesthesias. EMG revealed distal ulnar nerve compression at the wrist. Wetried to treat her nonoperatively by using medications as well as wrist bracingwithout much improvement in her pain. Ultimately decided on surgery. PROCEDURE IN DETAIL: The patient was seen in the preoperative anesthesia careunit and the left wrist was marked. She was then brought back to the operatingroom and placed supine. A left upper arm tourniquet was placed and she wasprepped and draped in the usual sterile fashion. The tourniquet was theninflated to 250 mmHg. I made a curvilinear incision in the palm and followed the flexor carpi ulnarisproximal to the wrist crease. Dissection just radial to the FCU was performedand I was able to find the neurovascular bundle. This was straight distally.Both the superficial and the deep branches of the ulnar nerve were traced andthe tight fascia was released over the top. I was able to find the leading edgeof the components and was able to release that to expose the deep branch of theulnar nerve. There was no further compression after this was performed. Thepatient was then thoroughly irrigated and local anesthetic was performed. Keyshawnen was able to place the patient in an ulnar gutter splint after her skin wasclosed. The patient tolerated the procedure without any complications and afterthe tourniquet was deflated, she had brisk cap refill x5. PATIENT NAME: LUIS MANUEL GARZON Dictated By: Tito Sy MD WT: OP:RUBIA/HERIBERTO/NTSDD: 09/14/2020 09:49:40DT: 09/14/2020 10:52:45Conf#: [id number]#: [id number] Authenticated and Edited by Tito Sy MD On 09/14/20 2:14:51 PM at 1418 PATIENT NAME: LUIS MANUEL GARZON [id number]:52:00Y.[id number] lable for patient [id number]:18:20 [facility]"
[2023-11-28 09:04] LABS: Specific Gravity 1.017 (1.005-1.030)
[2023-11-28 09:07] LABS: Absolute Lymphocytes (CBC) 2.2 K/uL (0.7-4.9); Hematocrit 37.6 % (36.0-45.0); MCV 82.9 fL (80-100); MPV 7.9 fL (7.6-11.3); Platelets 383 thou/uL (152-406); RBC Red Blood Cell Count 4.53 M/uL (3.86-4.86); Specific Gravity 1.017 (1.005-1.030); Urine Bacteria None Seen /HPF (<20); Urine Bilirubin NEGATIVE (Negative); Urine Blood 1+ (Negative); Urine Clarity Clear (Clear); Urine Color Light-Yellow (Yellow); Urine Glucose NEGATIVE (Negative); Urine Protein NEGATIVE (Negative); Urine RBC <5 /HPF (None Seen); Urine Urobilinogen Normal (Normal)
[2023-11-28 09:22] LABS: Potassium 3.8 mEq/L (3.5-5.1)
--- NOTE | 2023-11-28 09:33 | RAD REPORT ---
EXAM DESCRIPTION: US - Transvaginal OB - 11/28/2023 9:23 am CLINICAL HISTORY: VAGINAL BLEEDING COMPARISON: <Comparisons> FINDINGS: The endometrium appears thickened. There is a tiny cystic structure seen within the fundal endometrium. The maternal adnexa and ovaries are within normal limits. Normal Doppler blood flow was demonstrated to both ovaries. IMPRESSION: Endometrial stripe appears thickened with a tiny cystic structure. This is potentially a n early IUP. However, the stage is difficult to ascertain with certainty. Advise serial HCG measureme nts and follow-up pelvic sonography in 7-12 days.
--- NOTE | 2023-11-28 09:57 | EDPHYS ---
Physician Documentation [facility] Name: Manuela Garzon Age: 27 yrs Sex: Female : 1995 Arrival Date: 11/28/2023 Time: 08:24 Bed 14 Private MD: ED Physician Cas Abdul HPI: 11/28 09:01 This 27 yrs old Female presents to ER via Ambulatory with complaints of Vaginal rn Bleeding, + Preg <12wks. 09:02 The patient presents to the emergency department with vaginal bleeding, that is light, rn with no clots. The estimated gestational age is 6 weeks. course: care: at a clinic, Leakage of Fluid: none appreciated, Ultrasound: the patient has not had an ultrasound. Previous pregnancies: in previous pregnancies patient has had. The patient has experienced a previous episode. The patient has been recently seen by a physician:. Patient reports approximately 6 weeks by dates. Has had light vaginal bleeding without clots or passage of tissue that began last night. No trauma. Does report increased urinary frequency. No fever. Since beginning of has been having right flank pain and right-sided abdominal pain, seen by her private OB, told beta was doubling and was a normal without complication. Patient has had miscarriage in the past.. 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 - Family history:: not pertinent. - Social history:: Smoking status: Patient denies any tobacco usage or history of. - Hospitalizations: : No recent hospitalization is reported. ROS: 09:02 Constitutional: Negative for fever, chills, and weight loss, Cardiovascular: Negative rn for chest pain, palpitations, and edema, Respiratory: Negative for shortness of breath, cough, wheezing, and pleuritic chest pain, Abdomen/GI: Positive for lower abdominal cramps : Positive for light vaginal bleeding Exam: 09:02 Constitutional: This is a well developed, well nourished patient who is awake, alert, rn and in no acute distress. Cardiovascular: Regular rate and rhythm. No pulse deficits. Abdomen/GI: Soft, nontender. No distention. Neuro: Awake and alert, GCS 15 Vital Signs: 08:43 BP 115 / 78; Pulse 88; Resp 18; Pulse Ox 100% ; ap3 09:56 BP 118 / 74; Pulse 77; Resp 18; Pulse Ox 99% on R/A; mb9 MDM: 08:27 Patient medically screened. rn 09:06 ED course: Patient reports small gush of blood this morning, bright red and has rn decreased since then.. 09:55 Differential diagnosis: ectopic . Data reviewed: vital signs, nurses notes, engineering intern test result(s), radiologic studies, ultrasound, and as a result, I will discharge patient. Counseling: I had a detailed discussion with the patient and/or guardian regarding the historical points, exam findings, and any diagnostic results supporting the discharge/admit diagnosis, lab results, radiology results, the need for outpatient follow up, to return to the emergency department if symptoms worsen or persist or if there are any questions or concerns that arise at home. Special discussion: I discussed with the patient/guardian in detail that at this point there is no indication for admission to the hospital. It is understood, however, that if the symptoms persist or worsen the patient needs to return immediately for re-evaluation. Based on the history and exam findings, there is no indication for further emergent testing or inpatient evaluation. I discussed with the patient/guardian the need to see the OB Gyne specialist for further evaluation of the symptoms. ED course: Patient with low beta-hCG, does not seem appropriate rise as 10 days ago was 180. Ultrasound shows intrauterine cystic structure, all things considered possible threatened miscarriage. Will discharge with repeat beta in 48 hours and ultrasound. I have personally reviewed all of the results, including but not limited to blood tests and imaging deemed necessary to safely discharge this patient at this time. All results given to and printed out for patient. I personally went over all the results with the patient and answered all questions. Patient will follow-up with PCP and or specialist as discussed. Return precautions given and understood.. 11/28 08:43 Order name: Abo/rh Typing; Complete Time: :34 rn 11/28 08:43 Order name: Basic Metabolic Panel; Complete Time: : rn 11/28 08:43 Order name: CBC with Diff; Complete Time: rn 11/28 08:43 Order name: Test, Urine; Complete Time: :14 rn 11/28 08:43 Order name: Quantitative Hcg; Complete Time: 09:34 rn 11/28 08:43 Order name: Urinalysis w/ reflexes; Complete Time: 09:14 rn 11/28 08:43 Order name: US Transvaginal Ob; Complete Time: 09:34 rn 11/28 08:43 Order name: IV Saline Lock; Complete Time: 08:56 rn 11/28 08:43 Order name: Labs collected and sent; Complete Time: 08:56 rn 11/28 08:43 Order name: NPO; Complete Time: 08:43 rn Administered Medications: 09:06 Drug: Ondansetron IVP 4 mg IVP once; over 2 minutes Route: IVP; Site: right antecubital;mb9 09:23 Follow up: Response: No adverse reaction mb9 Disposition Summary: 11/28/23 09:56 Discharge Ordered Notes: Location: Home rn Problem: new rn Symptoms: are unchanged rn Condition: Stable rn Diagnosis - Threatened rn Followup: rn - With: Private Physician - When: 48 Hours - Reason: Recheck today's complaints, Repeat Beta-HCG (48 Hours), Re-evaluation by your physician Discharge Instructions: - Discharge Summary Sheet rn - Threatened Miscarriage rn - Vaginal Bleeding During , First Trimester rn Forms: - Medication Reconciliation Form rn - Thank You Letter rn - Antibiotic english language learner teacher - Prescription Opioid Use rn - Patient Portal Instructions rn - Leadership Thank You Letter rn - Work release form mb9 Signatures: Dispatcher [employer] Amna Ram RN Cas Jones MD MD rn Breneman, Mary Beth RN RN mb9
--- NOTE | 2023-11-28 09:57 | ER ---
Nurse's Notes [facility] Name: Manuela Garzon Age: 27 yrs Sex: Female : 1995 Arrival Date: 11/28/2023 Time: 08:24 Bed 14 Private MD: Diagnosis: Threatened Presentation: 11/28 08:37 Chief complaint: Patient states: is approx 6 weeks , started having light iw spotting yesterday, today she felt a gush and there was bright red blood in her pad, also having some right sided abd pain. Coronavirus screen: At this time, the client does not indicate any symptoms associated with coronavirus-19. Ebola Screen: Patient negative for fever greater than or equal to 101.5 degrees Fahrenheit, and additional compatible Ebola Virus Disease symptoms Patient denies exposure to infectious person. Patient denies travel to an Ebola-affected area in the 21 days before illness onset. No symptoms or risks identified at this time. Initial Sepsis Screen: Does the patient meet any 2 criteria? No. Patient's initial sepsis screen is negative. Does the patient have a suspected source of infection? No. Patient's initial sepsis screen is negative. Risk Assessment: Do you want to hurt yourself or someone else? Patient reports no desire to harm self or others. Onset of symptoms was November 28, 2023. 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 - Family history:: not pertinent. - Social history:: Smoking status: Patient denies any tobacco usage or history of. - Hospitalizations: : No recent hospitalization is reported. Screenin:42 [facility] ED Fall Risk Assessment (Adult) History of falling in the last 3 months, ap3 including since admission No falls in past 3 months (0 pts). Abuse screen: Denies threats or abuse. Nutritional screening: No deficits noted. Tuberculosis screening: No symptoms or risk factors identified. Assessment: 08:41 General: Appears in no apparent distress. Behavior is calm, cooperative, appropriate ap3 for age. Pain: Complains of pain in back and right lower quadrant Pain began gradually. Neuro: Level of Consciousness is awake, alert, obeys commands, Oriented to person, place, time, situation. Cardiovascular: Patient's skin is warm and dry. Respiratory: Airway is patent Respiratory effort is even, unlabored, Respiratory pattern is regular, symmetrical. : Reports vaginal bleeding that is. 09:09 Reassessment: pt taken to ultrasound via wheelchair. mb9 09:56 Reassessment: No changes from previously documented assessment. Patient and/or family mb9 updated on plan of care and expected duration. Pain level reassessed. Patient is alert, oriented x 3, equal unlabored respirations, skin warm/dry/pink. Vital Signs: 08:43 BP 115 / 78; Pulse 88; Resp 18; Pulse Ox 100% ; ap3 09:56 BP 118 / 74; Pulse 77; Resp 18; Pulse Ox 99% on R/A; mb9 ED Course: 08:26 Patient arrived in ED. im 08:27 Cas Abdul MD is Attending Physician. rn 08:38 Triage completed. iw 08:39 Arm band placed on. iw 08:41 Evonne Garrison, RN is Primary Nurse. ap3 08:45 Patient has correct armband on for positive identification. Bed in low position. Call ap3 light in reach. Side rails up X 1. Adult w/ patient. Pulse ox on. NIBP on. 08:55 Initial lab(s) drawn, by mo, sent to lab. Urine collected: clean catch specimen. ap3 Inserted saline lock: 24 gauge in right antecubital area, using aseptic technique. Blood collected. 08:56 Abo/rh Typing Sent. ap3 08:56 Basic Metabolic Panel Sent. ap3 08:56 CBC with Diff Sent. ap3 08:56 Test, Urine Sent. ap3 08:56 Quantitative Hcg Sent. ap3 08:56 Urinalysis w/ reflexes Sent. ap3 09:07 Primary Nurse role handed off by Evonne Garrison, [place] mb9 09:07 Alta Mcguire, RN is Primary Nurse. mb9 09:08 No provider procedures requiring assistance completed. mb9 09:25 US Transvaginal Ob In Process Unspecified. EDMS 10:06 IV discontinued, intact, bleeding controlled, No redness/swelling at site. Pressure mb9 dressing applied. Administered Medications: 09:06 Drug: Ondansetron IVP 4 mg IVP once; over 2 minutes Route: IVP; Site: right antecubital;elan 09:23 Follow up: Response: No adverse reaction mb9 Medication: 08:43 VIS not applicable for this client. ap3 Outcome: 09:56 Discharge ordered by . rn 10:06 Discharged to home ambulatory, with family, elan 10:06 Condition: stable 10:06 Discharge instructions given to patient, Instructed on discharge instructions, follow up and referral plans. Demonstrated understanding of instructions, follow-up care, 10:06 Patient left the ED. [email or web address] Signatures: Dispatcher [employer] EDMS Amna Schulz RN RN iw Cas Abdul MD MD rn Prokisch, Amanda, RN RN ap3 Alta Mcguire RN RN mb9 Mallory Chahal Corrections: (The following items were deleted from the chart) 10:06 09:56 Pulse 77bpm; Resp 18bpm; Pulse Ox 99% RA; mb9 mb9
[2023-11-28 10:34] VITALS: BP 118/74; O2SAT 99
== END ==
LOC: ER 08:24
DX: O20.0 Threatened abortion (principal); Z91.048 Other nonmedicinal substance allergy status
CPT/HCPCS: 85025; 81001; 80048; 36415; 86900; 81025; 86901; 84702; 76817; J2405

== ENCOUNTER → 2024-01-04 | Emergency (ER) | payer OTHER, SELFPAY ==
[~2024-01-04] MED LIST changes: +HYDROCODONE/APAP 7.5/325 MG TAB ONE; +IBUPROFEN 400 MG TAB ONE
--- OUTSIDE RECORDS SUMMARY | 2024-01-04 00:36 | XMS REPORT | Continuity of Care Document ---
Author Name Unknown Address [address] [facility] [address] [place] [address] [facility] thconnect Address [address] [facility]. [address] [place] [address] Care Team Providers Care Learning Support Assistant Name Role Phone GutierrezLolakaushik Ruffin Primary Care Physician [phone] GutierrezRobert abernathy Attending Clinician Unavailable Tito Sy Attending Clinician Unavailable JUJU BOOKER Attending Clinician Unavailable Juju Booker MD Attending Clinician [phone] Doctor Unassigned, Sterrett Attending Clinician U Chelo Villa Attending Clinician UnavailANYI Chavira Attending Clinician Unavailable Raj Jorgensen DO Attending Clinician [phone] OriElise Nam Attending Clinician [phone] Anyi Hammer MD Attending Clinician [phone] BRODY Attending Clinician Unavailable Kg Attending Clinician Unavailable Kirsten Gillespie Admitting Clinician Unavailable JUJU BOOKER Admitting Clinician Unavailable Clotilde Robles Admitting Clinician UnavailANYI Vega Admitting Clinician Unavailable Anyi Hammer MD Admitting Clinician [phone] SISSON_C Admitting Clinician Unavailable Corkran_T Admitting Clinician Unavailable Payers Payer Name Policy Type Policy Number Effective Date Expirati on Date Source ALL ALBER 53 [id number] 2019 00:00:00 [facility] [place] [address] [id number] [facility] Problems Condition Name Condition Details Condition Category Status Onset Date Resolution Date Last Treatment Date Treating Clinician Comments Source Miscarriag e Miscarriag e Disease Active 03-21 00:00: 00 [facility] acute hospital Obesity (BMI 30-39.9) Obesity (BMI 30-39.9) Disease Active 03-21 00:00: 00 General acute hospital Posttrauma tic stress disorder Posttrauma tic Stress Disorder Problem Active 01-11 [facility]00[facility] Depressive disorder Depressive Disorder Problem Active 01-11 00:00: 00 [facility] Attention deficit hyperactiv ity disorder Attention Deficit Hyperactiv ity Disorder Problem Active 01-11 00:00: 00 [facility] Clin[facility] [id number] Chronic fatigue Problem [facility] [id number] Low back pain, unspecifie d back pain laterality , unspecifie d chronicity , with sciatica presence unspecifie d Problem [facility] [id number] Lumbar radiculopa thy Problem [facility] Status migrainosu s Migraine, unspecifie d, not intractabl e, with status migrainosu s Problem [facility] [id number] Attention deficit hyperactiv ity disorder (ADHD), combined type Problem [facility] [id number] Generalize d anxiety disorder Problem [facility] [id number] Allergic rhinitis, unspecifie d seasonalit y, unspecifie d trigger Problem [facility] [id number] Mild intermitte nt asthma without complicati on Problem [facility] [id number] Chronic maxillary sinusitis Problem [facility] [id number] Nausea Problem [facility] [id number] Food sensitivit y headache Problem [facility] [id number] Gastroente ritis Problem [facility] [id number] Current moderate episode of major depressive disorder without prior episode Problem [facility] [id number] Insomnia, unspecifie d type Problem [facility] [id number] Spasm of GI tract Problem [facility] [id number] Bloody diarrhea Problem [facility] Allergies, Adverse Reactions, Alerts Allergy Name Allergy Type Status Severity Reaction(s) Onset Date Inactive Date Treating Clinician Comments Source IODINE DRUG INGREDI Active Other-Cmnt 03-21 00:00: 00 General acute hospital Iodine Propensi ty to adverse reaction s Active Other - See comments 03-21 00:00: 00 [facility] acute hospital iodine DA Active ND 2019-11 0 00:00: 00 [facility] gluten FA Active SV 2019-11 0 00:00: 00 [facility] shellfis h derived FA Active SV 2019-11 0 00:00: 00 [facility] iodine DA Active ND itching 2019-11 0 00:00: 00 [facility] Active SV NAUSEA,VOMIT ING, GI IRRITATION, HEADACHE, JOINT SWELLING 2019-11 0 00:00: 00 [facility] shellfis h derived FA Active SV TONGUE SWELLS, MILD SOB, SCRATCHY THROAT 2019-11 0 00:00: 00 [facility] Shellfis h Shellfis h Active Unknown [facility] Iodine Allergy to substanc e Active [facility] Social History Social Habit Start Date Stop Date Quantity Comments Source Gender identity [facility] Sexual [facility] History of tobacco use Cigarette Smoker [facility] Alcohol intake 2023-04-19 00:00:00 2023-04-19 00:00:00 Ex-drinker (finding) [facility] History of Social function 2023-04-19 00:00:00 2023-04-19 00:00:00 [facility] Tobacco use and exposure 2023-04-19 00:00:00 2023-04-19 00:00:00 Smokeless tobacco non-user [facility] Exposure to SARS-CoV-2 (event) 2023-03-11 00:00:00 2023-03-21 08:38:00 Not sure [facility] Sex Assigned At 1995 00:00:00 1995 00:00:00 [facility] Smoking Status Start Date Stop Date Source Current Some Day Smoker [facility] Ex-smoker 2023-04-19 00:00:00 2023-04-19 00:00:00 [facility] Tobacco smoking consumption unknown [facility] Medications Ordered Medication Name Filled Medication Name Start Date Stop Date Current Medication? Ordering Clinician Indication Dosage Frequency Signature (SIG) Comments Components Source Vitamin D3 1.25 MG (45078 UT) Vitamin D3 1.25 MG (61134 UT) 04-20 00:00: 00 No 1{capsu le} Vitamin D3 1.25 MG (97245 UT) Vitamin D3 1.25 MG (55712 UT) Vitamin D3 1.25 MG (11383 UT) 04-20 00:00: 00 No 1{capsu le} Vitamin D3 1.25 MG (86876 UT) Vitamin D3 1.25 MG (38775 UT) Vitamin D3 1.25 MG (91703 UT) 04-20 00:00: 00 No 1{capsu le} Vitamin D3 1.25 MG (15203 UT) Vitamin D3 1.25 MG (25999 UT) Vitamin D3 1.25 MG (45664 UT) 04-20 00:00: 00 No 1{capsu le} Vitamin D3 1.25 MG (30522 UT) ALPRAZolam 0.5 mg tablet 04-19 14:26: 38 Yes .5mg Take 1 tablet by mouth as needed. General acute hospital ALPRAZolam 0.5 mg tablet 04-19 14:26: 38 Yes .5mg Take 1 tablet by mouth as needed. General acute hospital ALPRAZolam 0.5 mg tablet 04-19 14:26: 38 Yes .5mg Take 1 tablet by mouth as needed. [facility] acute hospital ALPRAZolam 0.5 mg tablet 04-19 14:26: 38 Yes .5mg Take 1 tablet by mouth as needed. [facility] acute hospital ALPRAZolam 0.5 mg tablet 04-19 14:26: 38 Yes .5mg Take 1 tablet by mouth as needed. [facility] acute hospital SERTraline 100 mg tablet 04-19 14:26: 37 Yes 150mg Take 1.5 tablets by mouth at bedtime. General acute hospital SERTraline 100 mg tablet 04-19 14:26: 37 Yes 150mg Take 1.5 tablets by mouth at bedtime. General acute hospital SERTraline 100 mg tablet 04-19 14:26: 37 Yes 150mg Take 1.5 tablets by mouth at bedtime. [facility] acute hospital SERTraline 100 mg tablet 04-19 14:26: 37 Yes 150mg Take 1.5 tablets by mouth at bedtime. General acute hospital SERTraline 100 mg tablet 0 04-19 14:26: 37 Yes 150mg Take 1.5 tablets by mouth at bedtime. [facility] acute hospital SERTraline (ZOLOFT) 100 mg tablet 0 03-22 09:03: 54 Yes 150mg Take 1.5 tablets by mouth at bedtime. General acute hospital SERTraline (ZOLOFT) 100 mg tablet 0 03-22 09:03: 54 Yes 150mg Take 1.5 tablets by mouth at bedtime. General acute hospital SERTraline (ZOLOFT) 100 mg tablet 0 03-22 09:03: 54 Yes 150mg Take 1.5 tablets by mouth at bedtime. General acute hospital SERTraline (ZOLOFT) 100 mg tablet 0 03-22 09:03: 54 Yes 150mg Take 1.5 tablets by mouth at bedtime. General acute hospital D5W-LR IV infusion 1,000 mL 03-22 02:15: 00 Yes 1000mL at 125 mL/hr, IV Infusion, CONTINUOUS , Starting on Mon03/21/23 at 211, Until Discontinu ed, [facility] S[facility] (ZOLOFT) tablet 150 mg 03-22 02:00: 00 Yes 150mg 150 mg, Oral, QHS, First dose on Mon03/21/23 at 2100, Until Discontinu ed, Routine [facility] ondansetron (ZOFRAN (PF)) injection 4 mg 03-22 01:47: 43 Yes 4mg 4 mg, Slow IV Push, Q6HPRN, Starting on Mon03/21/23 at 2046, Until Discontinu ed, Routine, Nausea and Vomiting (N/V) [facility] ibupro[facility] (IBU) tablet 600 mg 03-22 01:08: 15 Yes 600mg 600 mg, Oral, Q6HPRN, Starting on Mon03/21/23 at 2007, Until Discontinu ed, Routine, pain [facility] tranexamic acid (CYKLOKAPRO N) 1,000 mg in NaCl 0.9% (NS) 10 mL piggyback 03-21 18:45: 00 03-21 18:45 :01 No 1000mg 1,000 mg, Intravenou s, ONCE, 1 dose, On Mon03/21/23 at 1345, Administer over 10 Minutes, 10 mL [facility] miSOPROStoL (CYTOTEC) tablet 800 mcg 03-21 18:45: 00 03-21 18:18 :00 No 800ug 800 mcg, Vaginal, ONCE, 1 dose, On Mon03/21/23 at 1345, Routine [facility] ketorolac (TORADOL) injection 30 mg 03-21 18:45: 00 03-21 17:55 :00 No 30mg 30 mg, Slow IV Push, ONCE NOW, 1 dose, On Mon03/21/23 at 1345, Routine [facility] ondansetron (ZOFRAN (PF)) injection 4 mg 03-21 17:05: 00 03-21 17:05 :00 No 4mg 4 mg, Slow IV Push, ONCE, 1 dose, On Mon03/21/23 at 1215, VLADIMIR [facility] Adderall XR 10 MG Adderall XR 10 [...] 00:00 :00 No Robert Gutierrez 1 tablet [facility] Albuterol Sulfate HFA Albuterol Sulfate HFA 2018-0 8-22 00:00: 00 Yes Robert Gutierrez 2 puffs as needed [facility] Kenalog (Triamcinol one) Kenalog (Triamcinol one) 2017-11 00:00: 00 No 40mg [facility] Kenalog (Triamcinol one) Kenalog (Triamcinol one) 2017-11 00:00: 00 No 40mg [facility] Kenalog (Triamcinol one) Kenalog (Triamcinol one) 2017-11 00:00: 00 No 40mg [facility] Kenalog (Triamcinol one) Kenalog (Triamcinol one) 2017-11 00:00: 00 No 40mg [facility] Kenalog (Triamcinol one) Kenalog (Triamcinol one) 2017-11 00:00: 00 No 40mg [facility] Kenalog (Triamcinol one) Kenalog (Triamcinol one) 2017-11 00:00: 00 No 40mg [facility] Kenalog (Triamcinol one) Kenalog (Triamcinol one) 2017-11 00:00: 00 No 40mg [facility] compounded medication Semaglutide /B12 0.3 ml SQ QW, start at 0.075 and increase weekly as tolerated. compounded medication Semaglutide /B12 0.3 ml SQ QW, start at 0.075 and increase weekly as tolerated. No compounded medication Semaglutid e/B12 0.3 ml SQ QW, start at 0.075 and increase weekly as tolerated. [facility] ondansetron 4 mg disintegrat ing tablet Place 1 tablet every 6-8 hours by translingua l route as needed. ondansetron 4 mg disintegrat ing tablet Place 1 tablet every 6-8 hours by translingua l route as needed. No 1 Q7H ondansetro n 4 mg disintegra ting tablet Place 1 tablet every 6-8 hours by translingu al route as needed. [facility] Xanax 0.5 mg tablet Take 1 tablet by oral route as needed. Xanax 0.5 mg tablet Take 1 tablet by oral route as needed. No 1 Xanax 0.5 mg tablet Take 1 tablet by oral route as needed. [facility] Zoloft 50 mg tablet Take 1 tablet every day by oral route. Zoloft 50 mg tablet Take 1 tablet every day by oral route. No 1 Q1D Zoloft 50 mg tablet Take 1 tablet every day by oral route. [facility] Imitrex Imitrex Yes Robert Gutierrez 1 tablet as needed at onset of migraine, may repeat after 2 hours. max 2 doses/24 hours [facility] Fioricet/Co deine Fioricet/Co deine Yes Robert Gutierrez 1 capsule as needed [facility] Singulair Singulair Yes Robert Gutierrez 1 tablet [facility] Imitrex 50 MG Imitrex 50 MG No [...] 50 MG No QD Imitrex 50 MG Abilify 5 mg tablet Take 1 tablet every day by oral route. Abilify 5 mg tablet Take 1 tablet every day by oral route. No 1 Q1D Abilify 5 mg tablet Take 1 tablet every day by oral route. Lori Mclean [facility] Vital Signs Vital Name Observation Time Observation Value Comments S cherie Systolic blood pressure 2023-04-19 19:29:00 118 mm[Hg] [facility] Diastolic blood pressure 2023-04-19 19:29:00 78 mm[Hg] [facility] Heart rate 2023-04-19 19:29:00 85 /min [facility] Body temperature 2023-04-19 19:29:00 36.94 Marcia [facility] Body height 2023-04-19 19:29:00 182.9 cm [facility] Body weight 2023-04-19 19:29:00 105.688 kg [facility] BMI 2023-04-19 19:29:00 31.60 kg/m2 [facility] Oxygen saturation in Arterial blood by Pulse oximetry 2023-04-19 19:29:00 100 /min [facility] height 2023-04-06 08:50:00 70.00 [in_i] Com [facility] weight 2023-04-06 08:50:00 230 [lb_av] [facility] temperature 2023-04-06 08:50:00 96.5 [degF] Com [facility] bmi 2023-04-06 08:50:00 33 kg/m2 [facility] oximetry 2023-04-06 08:50:00 100 % [facility] respiratory rate 2023-04-06 08:50:00 16 /min [facility] blood pressure systolic 2023-04-06 08:50:00 119 mm[Hg] [facility] blood pressure diastolic 2023-04-06 08:50:00 76 mm[Hg] [facility] Systolic blood pressure 2023-03-22 12:48:00 109 mm[Hg] [facility] Diastolic blood pressure 2023-03-22 12:48:00 59 mm[Hg] [facility] Heart rate 2023-03-22 12:48:00 67 /min [facility] Respiratory rate 2023-03-22 12:48:00 14 /min [facility] Body temperature 2023-03-22 10:00:00 37.22 Marcia [facility] Oxygen saturation in Arterial blood by Pulse oximetry 2023-03-22 10:00:00 100 /min [facility] Body height 2023-03-21 13:40:00 182.9 cm [facility] Body weight 2023-03-21 13:40:00 108.863 kg [facility] BMI 2023-03-21 13:40:00 32.55 kg/m2 [facility] BP Diastolic 2023-01-11 00:00:00 81 mm[Hg] [facility] Height 2023-01-11 00:00:00 72 [in_i] [facility] BMI (Body Mass Index) 2023-01-11 00:00:00 32.8 kg/m2 [facility] BP Systolic 2023-01-11 00:00:00 124 mm[Hg] [facility] Weight 2023-01-11 00:00:00 3872 [oz_av] [facility] height 2022-07-29 08:00:00 70.00 [in_i] [facility] weight 2022-07-29 08:00:00 220 [lb_av] [facility] bmi 2022-07-29 08:00:00 31.56 kg/m2 [facility] blood pressure systolic 2022-07-29 08:00:00 122 mm[Hg] [facility] blood pressure diastolic 2022-07-29 08:00:00 67 mm[Hg] Common [facility] height 2021-12-01 13:50:00 70.00 [in_i] Com [facility] weight 2021-12-01 13:50:00 220.2 [lb_av] Co mmon [facility] temperature 2021-12-01 13:50:00 98.1 [degF] Com [facility] bmi 2021-12-01 13:50:00 31.59 kg/m2 [facility] oximetry 2021-12-01 13:50:00 97 % Commo n [facility] respiratory rate 2021-12-01 13:50:00 17 /min [facility] blood pressure systolic 2021-12-01 13:50:00 121 mm[Hg] [facility] blood pressure diastolic 2021-12-01 13:50:00 65 mm[Hg] Common [facility] height 2021-10-25 08:40:00 70.00 [in_i] Com [facility] weight 2021-10-25 08:40:00 220 [lb_av] [facility] temperature 2021-10-25 08:40:00 98.3 [degF] Com [facility] bmi 2021-10-25 08:40:00 31.56 kg/m2 [facility] blood pressure systolic 2021-10-25 08:40:00 118 mm[Hg] [facility] blood pressure diastolic 2021-10-25 08:40:00 72 mm[Hg] Common [facility] height 2021-08-09 08:00:00 70.00 [in_i] Com [facility] weight 2021-08-09 08:00:00 227 [lb_av] [facility] temperature 2021-08-09 08:00:00 97 [degF] [facility] bmi 2021-08-09 08:00:00 32.57 kg/m2 [facility] Procedures Procedure Date / Time Performed Performing Clinician Source INSURANCE CORRESPONDENCE 2023-04-20 05:01:00 Doc tor Unassigned, Sterrett [facility] CONSENT/REFUSAL FOR DIAGNOSIS AND TREATMENT 2023-04-19 19:02:17 Doctor Unassigned, Sterrett [facility] REFERRAL- REQUEST/RESPONSE 2023-04-07 05:01:00 Doctor Unassigned, Sterrett [facility] CBC WITH DIFF 2023-03-22 00:21:00 Anyi Hammer [facility] PREPARE PACKED RBC 2023-03-21 20:29:31 Elise Rehman [facility] TRANSFUSE PACKED RBC 2023-03-21 18:48:00 Elise Rehman [facility] CBC WITH DIFF 2023-03-21 16:46:00 Elise Rehman [facility] US FIRST TRIMESTER LESS THAN 14 WEEKS WITH TRANSVAGINAL 2023-03-21 16:21:29 Elise Rehman [facility] ABORH CONFIRMATION (LAB ONLY) 2023-03-21 16:10:00 Elise Rehman [facility] COMP. METABOLIC PANEL (39495) 2023-03-21 14:14:00 Elise Rehman [facility] TOTAL BETA HCG ASSAY 2023-03-21 14:14:00 Elise Rehman [facility] CBC WITH DIFF 2023-03-21 14:14:00 Elise Rehman [facility] HB ABO GROUPING 2023-03-21 14:14:00 [facility] 2023-03-21 13:32:00 Elise Rehman [facility] Encounters Start Date/Time End Date/Time Encounter Type Admission Type Attending [facility] Care Facility Care Department Encounter ID Source 2023-05-23 09:03:00 Outpatient Gutierrez, Robert [facility] [id number] [facility] 2023-04-07 13:54:00 Outpatient Gutierrez, Robert [facility] [id number] [facility] 2023-04-06 08:51:00 Outpatient Gutierrez, Robert [facility] [id number] [facility] 2022-08-26 10:26:01 Outpatient Gutierrez, Robert ST[facility] STLMLC [id number] [facility] 2021-12-08 13:19:33 Outpatient Gutierrez, Robert [facility] STLMLC [id number] [facility] 2021-12-08 13:18:51 Outpatient Gutierrez, Robert [facility] [id number] [facility] 2021-12-08 13:17:54 Outpatient Gutierrez, Robert ST[facility] STLMLC [id number] [facility] 2021-12-08 12:59:24 Outpatient Gutierrez, Robert STLMLC STLMLC [id number] [facility] 2021-12-08 12:58:49 Outpatient Gutierrez, Robert STLC STLMLC [id number] [facility] 2021-12-08 12:26:05 Outpatient Gutierrez, Robert ST[facility] STLMLC [id number] [facility] 2021-12-08 12:23:58 Outpatient Gutierrez, Robert ST[facility] STLMLC [id number] [facility] 2021-12-08 12:13:27 Outpatient Gutierrez, Robert ST[facility] STLMLC [id number] [facility] 2021-12-08 12:08:34 [facility]rez, [facility] [id number] [facility] 2021-12-08 11:20:59 Outpatient Gutierrez, Robert STLC STLMLC [id number] [facility] 2021-12-08 11:06:22 Outpatient Gutierrez, Robert [facility] STLMLC [id number] [facility] 2021-12-08 11:06:13 Outpatient Gutierrez, Robert [facility] STLC [id number] [facility] 2021-12-08 11:00:26 Outpatient Gutierrez, Robert [facility] ST[facility] [id number] [facility] 2020-09-11 11:30:00 Inpatient Tito Anne HCATO DAYS [id number] [facility] 2023-05-05 00:00:00 2023-05-05 00:00:00 Patient Secure Pete Burkkennyrene [facility] [id number] General acute hospital 2023-05-02 08:00:00 2023-05-02 23:59:00 [facility] R [id number] [facility] 2023-04-25 10:45:18 2023-04-25 23:59:00 Outpatient R [facility] [id number] General acute hospital 2023-04-25 00:00:00 2023-04-25 00:00:00 Patient Secure Msg [facility] BUILDING [id number] General acute hospital 2023-04-20 00:00:00 2023-04-20 00:00:00 (TEL) ST[facility]MLC [facility] [id number] [facility] 2023-04-20 00:00:00 2023-04-20 00:00:00 Orders Only Doctor Unassigned, Sterrett [facility] [id number] [id number] [id number] General acute hospital 2023-04-19 14:40:00 2023-04-19 15:12:16 Outpatient R [facility] [id number] General acute hospital 2023-04-19 14:40:00 2023-04-19 15:12:16 Office Visit [facility] BUILDING [id number] [id number] General acute hospital 2023-04-19 00:00:00 2023-04-19 00:00:00 Orders Only Doctor Unassigned, Sterrett [facility] [id number] [id number] 4.2.7.2.686 [id number] General acute hospital 2023-04-07 00:00:00 2023-04-07 00:00:00 (TEL) [facility] STLC [id number] [facility] 2023-04-07 00:00:00 2023-04-07 00:00:00 Orders Only Doctor Unassigned, Sterrett [facility] 1..114 350.1.13.10 4.2.7.2.686 [id number] General acute hospital 2023-04-07 00:00:00 2023-04-07 00:00:00 Telephone Juju Booker [facility] PROFESSIO [facility] 1..114 350.1.13.10 [id number] [id number] General acute hospital 2023-04-06 00:00:00 2023-04-06 00:00:00 OFFICE VISIT ESTAB PT LEVEL 4 [facility] [id number] [facility] 2023-04-05 00:00:00 2023-04-05 00:00:00 (TEL) [facility] STLC [id number] [facility] 2023-04-04 12:57:00 2023-04-04 18:18:00 Emergency EM Chelo Barnard [facility] [id number] [facility] 2023-03-21 08:37:00 2023-03-22 08:30:00 Outpatient X ANYI [facility] AYAAN [id number] General acute hospital 2023-03-21 08:37:00 2023-03-22 08:30:00 Emergency Raj Jorgensen K Paige Adum, Vivian L [facility] [id number] [id number] [id number] General acute hospital 2023-01-11 00:00:00 2023-01-11 00:00:00 Outpatient SISSON_C [facility] [id number] [facility] 2023-01-11 00:00:00 2023-01-11 00:00:00 Abby Maradiaga, MSN, PROJECT MANAGER/DESIGN MANAGER, AIR TWISTER WINDER-C: [address], [address] [place], [place] [address] , Ph[address] [facility], Abby Maradiaga, MSN, AIR TWISTER WINDER-C [id number] [facility] 2023-01-03 00:00:00 2023-01-03 00:00:00 Outpatient SISSON_C [facility] 022 [facility] 2022-08-29 00:00:00 2022-08-29 00:00:00 (TEL) STLMLC STLMLC [id number] [facility] 2022-07-29 00:00:00 2022-07-29 00:00:00 OFFICE VISIT EST PT LEVEL 3 STLMLC STLMLC [id number] [facility] 2022-05-17 00:00:00 2022-05-17 00:00:00 (TEL) STLMLC STLMLC [id number] [facility] 2021-12-01 00:00:00 2021-12-01 00:00:00 PREV VISIT EST AGE 18-39 STLMLC STLMLC [id number] [facility] 2021-10-29 00:00:00 2021-10-29 00:00:00 (TEL) STLMLC STLMLC [id number] [facility] 2021-10-25 00:00:00 2021-10-25 00:00:00 OFFICE VISIT ESTAB PT LEVEL 4 STLMLC STLMLC [id number] [facility] 2021-08-09 00:00:00 2021-08-09 00:00:00 OFFICE VISIT ESTAB PT LEVEL 4 STLMLC STLMLC [id number] [facility] 2021-07-28 04:34:00 2021-07-28 04:34:00 Outpatient Corkran_T VFP VFP [id number] [facility] 2021-07-21 00:00:00 2021-07-21 00:00:00 Outpatient STLMLC STLMLC [id number] [facility] 2021-05-24 00:00:00 2021-05-24 00:00:00 Outpatient STLMLC STLMLC [id number] [facility] 2021-05-07 00:00:00 2021-05-07 00:00:00 Outpatient STLMLC STLMLC [id number] [facility] 2021-04-26 00:00:00 2021-04-26 00:00:00 Outpatient STLMLC STLMLC [id number] [facility] 2021-04-21 00:00:00 2021-04-21 00:00:00 Outpatient STLMLC STLMLC [id number] [facility] 2021-03-29 00:00:00 2021-03-29 00:00:00 Outpatient STLMLC STLMLC [id number] [facility] 2021-03-16 00:00:00 2021-03-16 00:00:00 Outpatient STLMLC STLMLC [id number] [facility] 2020-12-11 00:00:00 2020-12-11 00:00:00 Outpatient STLMLC STLMLC [id number] [facility] 2020-10-28 00:00:00 2020-10-28 00:00:00 Outpatient STLMLC STLMLC [id number] [facility] 2020-10-27 00:00:00 2020-10-27 00:00:00 Outpatient STLMLC STLMLC [id number] [facility] 2020-10-27 00:00:00 2020-10-27 00:00:00 Outpatient STLMLC STLMLC [id number] [facility] 2020-10-05 00:00:00 2020-10-05 00:00:00 Outpatient STLMLC STLMLC [id number] [facility] 2020-09-18 00:00:00 2020-09-18 00:00:00 Outpatient STLMLC STLMLC [id number] [facility] 2020-09-18 00:00:00 2020-09-18 00:00:00 Outpatient STLMLC STLMLC [id number] [facility] 2020-09-08 18:47:00 2020-09-08 18:47:00 Outpatient Tito Sy HCACL LABO [id number] 29 [facility] 2020-08-08 00:00:00 2020-08-08 00:00:00 Outpatient STLMLC STLMLC [id number] [facility] 2020-08-07 00:00:00 2020-08-07 00:00:00 Outpatient STLMLC STLMLC [id number] [facility] 2020-07-17 11:15:00 2020-07-17 11:15:00 [facility] [address] [facility] [facility] [id number] [facility] 2020-07-17 11:10:00 2020-07-17 11:10:[address] [facility] [id number] [facility] 2020-06-24 16:00:00 2020-06-24 16:00:[address] [facility] [facility] [id number] [facility] 2020-03-24 13:00:00 2020-03-24 13:00:00 [facility] [place] [facility] [id number] [facility] 2020-01-21 13:26:00 2020-01-21 13:26:[address] [facility] [facility] [place] [facility] [id number] [facility] 2019-12-24 16:00:00 2019-12-24 16:00:00 [facility] [facility] [place] [id number] [facility] 2019-11-26 10:30:00 2019-11-26 10:30:[address] [facility] [facility] [place] [facility] [id number] [facility] 2019-10-16 08:00:00 2019-10-16 08:00:[address] [facility] [facility] [place] [facility] [id number] [facility] 2019-09-16 15:15:00 2019-09-16 15:15:[address] [facility] [facility] [place] [facility] [id number] [facility] 2019-09-11 17:08:00 2019-09-11 17:08:[address] [facility] [facility] [place] [facility] [id number] [facility] 2019-08-06 08:00:00 2019-08-06 08:00:00 [facility] [facility] [place] [facility] [id number] [facility] 2019-07-04 09:30:00 2019-07-04 09:30:00 [facility] [facility] [place] [facility] [id number] [facility] 2019-06-25 14:45:00 2019-06-25 14:45:00 [address] [facility] [place] [facility] [id number] [facility] 2019-06-05 13:00:00 2019-06-05 13:00:00 [address] [facility] [place] [facility] [id number] [facility] 2019-04-24 10:15:00 2019-04-24 10:15:[address] [facility] [facility] [place] [facility] [id number] [facility] 2019-03-21 09:15:00 2019-03-21 09:15:[address] [facility] [place] [facility] [id number] [facility] 2019-02-27 09:00:00 2019-02-27 09:00:00 [facility] [place] [facility] [id number] [facility] 2019-02-22 15:16:00 2019-02-22 15:16:00 [facility] [place] [facility] [id number] [facility] 2019-01-10 08:45:00 2019-01-10 08:45:00 [address] [facility] [facility] [place] [facility] [id number] [facility] 2018-12-13 10:00:00 2018-12-13 10:00:00 [facility] [place] [facility] [id number] [facility] 2018-11-19 14:51:00 2018-11-19 14:51:00 [address] [facility] [facility] [place] [facility] [id number] [facility] 2018-11-15 10:45:00 2018-11-15 10:45:00 [facility] [place] [facility] [id number] [facility] 2018-10-26 10:29:00 2018-10-26 10:29:[address] [facility] [place] [facility] [id number] [facility] 2018-07-02 14:45:00 2018-07-02 14:45:[address] [facility] [facility] [place] [facility] [id number] [facility] 2018-05-15 14:15:00 2018-05-15 14:15:00 [address] [facility] [facility] [id number] [facility] Results Test Description Test Time Test [...] code = 1920-8) 14 IU/L See_Comment [Automated CEED Techa ge] The system which generated this result transmitted reference range: 0-40 IU/L. The reference range was not used to interpret this result as normal/abnormal. Bilirubin, Total (test code = 1975-2) <0.2 mg/dL See_Comment [Automated CEED Techa ge] The system which generated this result transmitted reference range: 0.0-1.2 mg/dL. The reference range was not used to interpret this result as normal/abnormal. BUN (test code = 3094-0) 10 mg/dL See_Comment [Automated CEED Techa ge] The system which generated this result transmitted reference range: 6-20 mg/dL. The reference range was not used to interpret this result as normal/abnormal. BUN/Creatinine Ratio (test code = 3097-3) 13 9-23 Calcium (test code = 87773-4) 9.9 mg/dL See_Comment [Automated CEED Techa ge] The system which generated this result [...] code = 2075-0) 104 mmol/L See_Comment [Automated CEED Techa ge] The system which generated this result transmitted reference range: 96-106 mmol/L. The reference range was not used to interpret this result as normal/abnormal. Creatinine (test code = 2160-0) 0.75 mg/dL See_Comment [Automated messa ge] The system which generated this result transmitted reference range: 0.57-1.00 mg/dL. The reference range was not used to interpret this result as normal/abnormal. Globulin, Total (test code = 78322-6) 2.1 g/dL See_Comment [Automated messa ge] The [...] interpret this result as normal/abnormal. CBC With Differential/Efpapcmo4438-71-40 00:00:00* Test Item Value Reference Range Interpretation [...] as normal/abnormal. Hematology Comments: (test code = 68993-7) Hemoglobin (test code = 718-7) 11.0 g/dL See_Comment L [Automated messa ge] The system which generated this result transmitted reference range: 11.1-15.9 g/dL. The reference range was not used to interpret this result as normal/abnormal. Immature Cells (test code = UNLOINC) Immature Grans (Abs) (test code = 55171-6) 0.0 x10E3/uL See_Comment [Automated message] The system which generated this result transmitted reference range: 0.0-0.1 x10E3/uL. The reference range was not used to interpret this result as normal/abnormal. Immature Granulocytes (test code = 88498-7) 0 % Not Estab. % Lymphs (test [...] result as normal/abnormal. NRBC (test code = 94987-2) Platelets (test code = 777-3) 537 x10E3/uL [...] interpret this result as normal/abnormal. Vitamin D, 56-Cfasvct3754-56-25 00:00:00* Test Item Value Reference Range Interpretation Comme [facility] Vitamin D, 25-Hydroxy (test code = 1989-3) 17.9 ng/mL See_Comment L [Automated Adfaces] The system which generated this result transmitted reference range: 30.0-100.0 ng/mL. The reference range was not used to interpret this result as normal/abnormal. TSH reflex to [id number] 00:00:00* Test Item Value Reference Range Interpretation Comme [facility] TSH (test code = 92736-7) 3.580 uIU/mL See_Comment [Automated CEED Techa (In[employer]Touch Network] The system which generated this result transmitted reference range: 0.450-4.500 uIU/mL. The reference range was not used to interpret this result as normal/abnormal. TROPONIN-I (HIGH SENSITIVITY)2023-04-04 16:15:00* Test Item Value Reference Range Interpretation Comme [facility] TROPONIN-I (HIGH SENSITIVITY) (test code = TROPI) 5.7 pg/mL <51.4 N Please Note:New method is in use for measuring Troponin Oct 28 2021Units are pg/mL which differs from the prior testmethodology (ng/mL) by a factor of 1000. VCLHFE3035-53-42 16:08:00* Test Item Value Reference Range Interpretation Comme [facility] LIPASE (test code = LIP) 131 units/L 73-393 N B-TYPE NATRIURETIC MFMNUYQ8743-72-37 15:43:00* Test Item Value Reference [facility]ation [facility] NATRI[facility]TIC PEPTIDE ( test code = BNP) 2.69 pg/mL 0-100 N D-DIMER OCNGM0088-53-94 15:09:00* Test Item Value Reference Range Interpretation Comme [facility] D-DIMER QUANT (test code = DDIMER) 219 ng/mLDDU <255 Reference Range in : <570 ng/ml A positive test does not provide a definitive diagnosis ofDVT and indicates the need for follow up clinical studies. The predictive value of a negative test is 98% for rulingout DVT. HCG EJOYH7767-17-68 15:05:00* Test Item Value Reference Range Interpretation [...] milliInternationalunits/mL SHOULD BE CONSIDERED NEGATIVE COMPREHENSIVE METABOLIC [id number] 14:57:00* Test Item Value Reference Range Interpretation [...] = ALKP) 80 units/L 46-116 N URINALYSIS AZZOIPLO0684-45-74 14:49:00* Test Item Value Reference Range Interpretation [...] = EPIU) RARE #/HPF RARE-FEW CBC W/AUTO SPJK4166-82-63 14:38:00* Test Item Value Reference Range Interpretation [...] PLTMR) NORMAL NORMAL - XR CHEST 2 [id number] 00:00:00 [facility] 1995 Sex: F Patient Name: LUIS MANUEL GARZON Unit No: [id number] EXAMS: CPT CODE: [id number] XR CHEST 2 V 71956 PROCEDURE INFORMATION: Exam: XR Chest Exam date [...] MD Technologist: Zina Leal, RT Trnscrbd D/ (6738) GCD.CPS Orig Print D/T: S: 04/04/2023 (8187) [facility] NAME: LUIS MANUEL GARZON Radiology Department PHYS: Chelo Downs MD [address] : 1995 AGE: 27 SEX: F [place], [place] [address] LOC: GINO PHONE #: [phone] EXAM DATE: 04/04/2023 STATUS: REG ER FAX #: [phone] RAD NO: Page 1 Signed Report Prepare Packed RBC (in units), 2 Fpjso6756-75-81 20:29:31* Test Item Value Reference Range Interpretation Comme nts Cross Match Result (test code = 4409) Compatible ISBT Blood Type Code (test code = 304959) 6200 Unit Blood Type (test code = 4410) A Pos Unit Number (test code = 4411) [id number] Blood Expiration Date & Time (test code = 884175) [id number] Status Information (test code = 4412) Issued Product Identification (test code = 4413) Red Blood Cells Product Code (test code = 4414) [id number] Performed at [facility] Laboratory Services - [facility] Blood [address] [place] [address]Ztcx Free: [phone] No. [id number] [facility] WITH [id number] 17:28:33* Test Item Value Reference Range Interpretation [...] 33.4 g/dL 31.6-35.1 RDW-SD (test code = 88455-4) 42.7 fL 39.0-49.9 RDW-CV (test code = 788-0) 13.6 % 12.0-15.5 PLT (test code = 777-3) 324 See_Comment [Automated messa ge] The system which generated this result transmitted reference range: 166 - 358 10*3/?L. The reference range was not used to interpret this result as normal/abnormal. MPV (test code = 24754-0) 11.0 fL 9.5-12.9 NRBC/100 WBC (test code = 1337730418) 0.0 See_Comment [Automated me ssage] The system which generated this result transmitted reference range: 0.0 - 10.0 /100 WBCs. The reference range was not used to interpret this result as normal/abnormal. NRBC x10^3 (test code = 0001606089) See_Comment [Automated CEED Techa ge] The system which generated this result transmitted reference range: 10*3/?L. The reference range was not used to interpret this result as normal/abnormal. GRAN MAT (NEUT) % (test code = 770-8) 74.5 % IMM GRAN % (test code = 2525289818) 0.40 % LYMPH % (test code = 736-9) 21.0 % MONO % (test code = 5905-5) 3.8 % EOS % (test code = 713-8) 0.1 % BASO % (test code = 706-2) 0.2 % GRAN MAT x10^3(ANC) (test code = 3206619284) 7.47 10*3/uL 1.88-7.09 H IMM GRAN x10^3 (test code = 9665391498) 0.04 10*3/uL 0.00-0.06 LYMPH x10^3 (test code = 731-0) 2.10 10*3/uL 1.32-3.29 MONO x10^3 (test code = 742-7) 0.38 10*3/uL 0.33-0.92 EOS x10^3 (test code = 711-2) 0.03-0.39 L BASO x10^3 (test code = 704-7) 0.01-0.07 Lab Interpretation (test code = 81955-0) Abnormal [facility] BETA HCG [id number] 15:38:52* Test Item Value Reference Range Interpretation Comme nts BETA HCG (test code = 3495596324) 3120.10 See_Comment [Automated CEED Techa ge] The system which generated this result transmitted reference range: Non- female and male patients: <5 mIU/mL. The reference range was not used to interpret this result as normal/abnormal. IDRIS (test code = IDRIS) Gestational Age ?Range (mIU/mL) 1-10 ?Weeks ?01-18515037-45 Weeks ?32784-21479948-01 Weeks ?9162-34568444-88 Weeks ?0159-919775 Biotin has been reported to cause a negative bias, interpret results relative to patient's use of biotin. [facility]. METABOLIC PANEL (79870)2023-03-21 15:14:31* Test Item Value Reference Range Interpretation Comme nts NA (test code = 3066135630) 137 mmol/L 135-145 K (test code = 8156119722) 4.1 mmol/L 3.5-5.0 CL (test code = 4343721408) 107 mmol/L 98-108 CO2 TOTAL (test code = 0776995258) 21 mmol/L 23-31 L AGAP (test code = 7754801885) 9 2-16 BUN (test code = 6630912672) 6 mg/dL 7-23 L GLUCOSE (test code = 7576016640) 108 mg/dL 70-110 CREATININE (test code = 7661980260) 0.60 mg/dL 0.50-1.04 TOTAL BILI (test code = 2979688245) 0.5 mg/dL 0.1-1.1 CALCIUM (test code = 5677544566) 8.7 mg/dL 8.6-10.6 T PROTEIN (test code = 5138354577) 6.3 g/dL 6.3-8.2 ALBUMIN (test code = 6644738513) 3.6 g/dL 3.5-5.0 ALK PHOS (test code = 7919712289) 48 U/L 34-122 ALTv (test code = 1742-6) 23 U/L 5-35 AST(SGOT) (test code = 4248364788) 26 U/L 13-40 eGFR (test code = 3257209206) 120.8 mL/min/1.73m2 IDRIS (test code = IDRIS) [...] imaging tests). Lab Interpretation (test code = 81665-9) Abnormal [facility] WITH [id number] 15:10:37* Test Item Value Reference Range Interpretation Comme nts WBC (test code = 6690-2) 10.84 See_Comment [Automated Adfaces] The system which generated this result transmitted reference range: 4.30 - 11.10 10*3/?L. The reference range was not used to interpret this result as normal/abnormal. RBC (test code = 789-8) 3.90 See_Comment L [[place]] The system which generated this result transmitted [...] 35.0 g/dL 31.6-35.1 RDW-SD (test code = 15489-9) 42.1 fL 39.0-49.9 RDW-CV (test code = 788-0) 13.8 % 12.0-15.5 PLT (test code = 777-3) 348 See_Comment [Automated messa ge] The system which generated this result transmitted reference range: 166 - 358 10*3/?L. The reference range was not used to interpret this result as normal/abnormal. MPV (test code = 24759-4) 10.5 fL 9.5-12.9 NRBC/100 WBC (test code = 4251392657) 0.0 See_Comment [Automated iSites ssage] The system which generated this result transmitted reference range: 0.0 - 10.0 /100 WBCs. The reference range was not used to interpret this result as normal/abnormal. NRBC x10^3 (test code = 3993007346) See_Comment [Automated messa ge] The system which generated this result transmitted reference range: 10*3/?L. The reference range was not used to interpret this result as normal/abnormal. GRAN MAT (NEUT) % (test code = 770-8) 77.7 % IMM GRAN % (test code = 0074113010) 0.40 % LYMPH % (test code = 736-9) 16.0 % MONO % (test code = 5905-5) 5.2 % EOS % (test code = 713-8) 0.4 % BASO % (test code = 706-2) 0.3 % GRAN MAT x10^3(ANC) (test code = 6478562157) 8.44 10*3/uL 1.88-7.09 H IMM GRAN x10^3 (test code = 1599212833) 0.04 10*3/uL 0.00-0.06 LYMPH x10^3 (test code = 731-0) 1.73 10*3/uL 1.32-3.29 MONO x10^3 (test code = 742-7) 0.56 10*3/uL 0.33-0.92 EOS x10^3 (test code = 711-2) 0.04 10*3/uL 0.03-0.39 BASO x10^3 (test code = 704-7) 0.03 10*3/uL 0.01-0.07 Lab Interpretation (test code = 33942-2) Abnormal [facility] [place] [facility] - ONCE [id number] 14:43:00 * Test Item Value Reference Range Interpretation Comme nts ABO & RH (test code = 20) A Positive IAT (test code = 1185) Negative [facility] [place] [facility] Coronavirus 2019 Isafxkk8348-23-21 09:59:00* Test Item Value Reference Range Interpretation Comme nts Novel Coronavirus 2019 Inhouse (test code = COVNONPUI) Negative Negative Positive resul ts are indicative of the presence ztIURP-CmY-8 RNA, clinical correlation with patient historyand other [...] for the identification of SARS-CoV-2 RNA usingthe FAD ? IO M2000 System under the FDA Emergency UseAuthorization. The testing is performed by personneltrained in the procedures for the Jorge M2000 moleculardiagnostic SARS-CoV-2 assay in vitro. Novel Coronavirus 2018 Qmtedbu5011-21-57 09:58:00* Test Item Value Reference Range Interpretation Comme nts Novel Coronavirus 2019 Inhouse (test code = COVNONPUI) Negative Negative Positive resul ts are indicative of the presence szAUTN-ZtN-9 RNA, clinical correlation with patient historyand other [...] Notes Date/Time Note Provider Source 2023-04-04 15:14:00 [id number] DOnSnLgJZZQAHg+kDUwTO1UdYDHlu Gpc/c1WIQM6LL6FKrBy6PM6zZc92757-32-01J91:14:00 [facility])EMERGENCY PROVIDER REPORTREPORT#:[id number] REPORT STATUS: SignedDATE:04/04/23 TIME: 151 PATIENT: LUIS MANUEL GARZON UNIT #: [id number]#: [id number] ROOM/BED:AGE: 27 SEX: F PCP PHYS: Severino Gutierrez AUTHOR: Chelo Barnard MD * ALL edits or amendments must be made on the electronic/computer document * HPI-Chest Pain 40 and Over Free Text HPI NotesFree Text HPI Hasip64-cvid-wyz female with a history of psychiatric disorders, [...] % (Auto) (14.5 - 29.7 %) 28.7 Archer % (Auto) (3.6 - 10.2 %) 4.5 Eos % (Auto) (0.0 - 3.0 %) 1.1 Baso % (Auto) (0.1 - 0.9 %) 0.4 Neut # (Auto) (K/mm3) 5.4 Lymph # (Auto) (K/mm3) 2.4 Archer # (Auto) (K/mm3) 0.4 Eos # (Auto) (K/mm3) 0.09 Baso # (Auto) (K/mm3) 0.0 Miscellaneous Maternal Serum HCG 7 Urines Urine Color (YELLOW) STRAW Urine Appearance (CLEAR) CLEAR Urine pH (5 - 9) 7.0 Ur Specific [place] (1.001 - 1.035) 1.004 Urine Protein (NEG) [...] InterpretationText/Dict NoteNormal sinus rhythm heart rate 80 WI 156 QRS 82 QT 354 QTc 4-week Re-Evaluation MDM Free Text MDM NotesFree Text MDM Xfxta22-wnzj-hsw female with recent miscarriage requiring 2 units [...] primary care physician, other designated physician or grocery checker. The patient and/or caregivers have expressed a clear and thorough understanding and agree to follow up as instructed. Low Risk R/O ACS/ND NoteI discussed with the patient and/or caregiver [...] worsening symptoms.ReferralsProvider Referral: Halima Bah MD Address: [address] [place] [address] [address] [place] [id number] Provider Referral: Cedrick Oropeza MD Address: [address] [facility] [address] [place] [address] Provider Referral: Cheko Moore MD Address: [address] [facility] [address] [place] [address] Provider Referral: Samantha Jarrell MD Address: [address] [place] [address] Provider Referral: Parish López Jr, MD Address: [address] [facility] [address] [place] [address] Provider Referral: Skinny Emery MD Address: [address] [place] [address] [address] [place] [id number] Provider Referral: Antonio Cota APRN Address: [address] [place] [address], [address] [place] [address] Provider Referral: Adama Kauffman MD Address: [address] [place] [address] [address] [place] [address] Provider Referral: Usama Cleaning MD Address: [address], [address] [place] [address] Provider Referral: Helio Esposito MD Address: [address] [place] [address] Provider Referral: Josef Islas MD Address: [address] [place] [address] Provider Referral: Qamar Roy MD Address: [address] [place] [address] Provider Referral: Roberto Nunes MD Address: [address] [place] [address] Provider Referral: Leonarda Beck MD Address: [address] [facility] [place] [address] Provider Referral: Marcos Arteaga Address: [address] [place] [address] [address] [place] [address] Departure FormsWORK/SCHOOL EXCUSE VARIABLE Discharge NoteI have [...] or a call to 911. at 1628RPT #:[id number] OF REPORTSt. Joseph [facility] department cmrsqj5825-41-68M89:14:00F.MWCY72711428-1248IXBdu ilable for patient xmucENFIQHDERHSJFO1223-02-79K44:28:17 [facility] 2023-04-04 13:21:00 [id number] kgAORtlOLR4DZF4uwh1hDkXVDNcrd CZ9CPbhH+n9WvEHsmblQj3u4gTR7089-95-58R81:21:18746 5-0010 [facility] [address] [place] [address] PATIENT NAME: LUIS MANUEL GARZON ADMIT DATE: 04/04/23ACCOUNT NO: [id number] ROOM NO: AGE: 27 SEX: F ADMITTING PHYSICIAN: ATTENDING PHYSICIAN: Chelo Barnard MD Order:[id number] Reason : CHEST PAIN Test Date/Time Stamp:MonApr 04 2023 13:21:34Blood Pressure : / mmHGVent. Rate : 080 BPM Atrial Rate : 080 BPM P-R Int : 156 ms QRS Dur : 082 ms QT Int : 354 ms P-R-T Axes : 040 042 020 degrees QTc Int : 408 ms Normal sinus rhythmNormal ECGNo previous ECGs availableConfirmed by MURRAY MARAVILLA, KAILA ([id number]) on 04/06/2023 7:49:03 AM Referred By: Self Referred Confirmed by:KAILA ROACH MD at 0749 PATIENT NAME: LUIS MANUEL GARZON .[id number] AVAvailable for patient [id number]:49:26 [facility] 2020-09-14 09:49:00 [id number] [id number] [facility] [address] [place] [id number] PATIENT NAME: LUIS MANUEL GARZON ADMIT DATE: 09/11/20ACCOUNT NO: [id number] ROOM NO: AGE: 24 REPORT TYPE: OPERATIVE REPORT SEX: F ADMITTING PHYSICIAN: ATTENDING PHYSICIAN:Tito Sy MD OPERATION DATE: 09/11/2020 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 SURGEON: Tito Sy MD. HOME CARE AIDE: None. TYPE OF ANESTHESIA: General and local. [...] thoroughly irrigated and local anesthetic was performed. Kesyhawnen was able to place the patient in an ulnar gutter splint after her skin wasclosed. The patient tolerated the procedure without any complications and afterthe tourniquet was deflated, she had brisk cap refill x5. PATIENT NAME: LUIS MANUEL GARZON Dictated By: Tito Sy MD WT: OP:RUBIA/HERIBERTO/NTSDD: 09/14/2020 09:49:40DT: 09/14/2020 10:52:45Conf#: [id number]/DID#: [id number] Authenticated and Edited by Tito Sy MD On 09/14/20 2:14:51 PM at 1418 PATIENT NAME: LUIS MANUEL GARZON [id number] lable for patient [id number]:18:20 [facility]"
[2024-01-04 01:49] LABS: Specific Gravity 1.012 (1.005-1.030)
[2024-01-04 01:58] LABS: Renal Epithelial <5 /HPF (None Seen); Specific Gravity 1.012 (1.005-1.030); Urine Bacteria <20 /HPF (<20); Urine Bilirubin NEGATIVE (Negative); Urine Blood Negative (Negative); Urine Clarity Turbid (Clear); Urine Color Colorless (Yellow); Urine Glucose NEGATIVE (Negative); Urine Protein NEGATIVE (Negative); Urine RBC None Seen /HPF (None Seen); Urine Urobilinogen Normal (Normal)
[2024-01-04 02:04] LABS: Barbiturates NEGATIVE (NEGATIVE); Benzodiazepines NEGATIVE (NEGATIVE); Cocaine NEGATIVE (NEGATIVE); METHAMPHETAM NEGATIVE (NEGATIVE); Methadone NEGATIVE (NEGATIVE); Opiates NEGATIVE (NEGATIVE); Phencyclidine NEGATIVE (NEGATIVE); THC Cannibis NEGATIVE (NEGATIVE)
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
[2024-01-04 02:57] VITALS: BP 126/100; TEMP 98.8; O2SAT 100
--- NOTE | 2024-01-04 11:37 | RAD REPORT ---
EXAM DESCRIPTION: XR Left Humerus, 2 Views CLINICAL HISTORY: PAIN TECHNIQUE: Frontal and lateral views of the left humerus. COMPARISON: No relevant prior studies available. FINDINGS: Bones/joints: Unremarkable. No acute fracture. No dislocation. Soft tissues: Unremarkable. * A single impression for all exams can be found at the end of this report EXAM DESCRIPTION: XR Left Forearm, 2 Views CLINICAL HISTORY: PAIN TECHNIQUE: Frontal and lateral views of the left forearm. COMPARISON: No relevant prior studies available. FINDINGS: Bones/joints: Unremarkable. No acute fracture. No dislocation. Soft tissues: Unremarkable. * A single impression for all exams can be found at the end of this report IMPRESSION: XR Left Humerus, 2 Views: No acute injury. XR Left Forearm, 2 Views: No acute injury. Electronically signed by: Yosvany Vazquez MD 01/04/2024 01:24 AM WATER RESTORATION TECHNICIAN Due to temporary technical issues with the PACS/Fluency reporting system, reports are being signed by the in house radiologist without review as a courtesy to ensure prompt reporting. The interpreting r adiologist is fully responsible for the content of the report.
--- NOTE | 2024-01-04 11:48 | RAD REPORT ---
EXAM DESCRIPTION: XR Left Humerus, 2 Views CLINICAL HISTORY: PAIN TECHNIQUE: Frontal and lateral views of the left humerus. COMPARISON: No relevant prior studies available. FINDINGS: Bones/joints: Unremarkable. No acute fracture. No dislocation. Soft tissues: Unremarkable. * A single impression for all exams can be found at the end of this report EXAM DESCRIPTION: XR Left Forearm, 2 Views CLINICAL HISTORY: PAIN TECHNIQUE: Frontal and lateral views of the left forearm. COMPARISON: No relevant prior studies available. FINDINGS: Bones/joints: Unremarkable. No acute fracture. No dislocation. Soft tissues: Unremarkable. * A single impression for all exams can be found at the end of this report IMPRESSION: XR Left Humerus, 2 Views: No acute injury. XR Left Forearm, 2 Views: No acute injury. Electronically signed by: Yosvany Vazquez MD 01/04/2024 01:24 AM REHABILITATION DIRECTOR Due to temporary technical issues with the PACS/Fluency reporting system, reports are being signed by the in house radiologist without review as a courtesy to ensure prompt reporting. The interpreting r adiologist is fully responsible for the content of the report.
--- NOTE | 2024-01-04 11:55 | RAD REPORT ---
EXAM DESCRIPTION: XR WRIST 3 OR MORE VIEWS RIGHT CLINICAL HISTORY: PAIN COMPARISON: None. TECHNIQUE: XR WRIST 3 OR MORE VIEWS RIGHT 01/04/2024 12:33 AM GUM REMOVER FINDINGS: There is no fracture. Joint spaces are preserved. Soft tissues are unremarkable. IMPRESSION: No acute osseous findings. Electronically signed by: Washington Chaudhary MD 01/04/2024 01:24 AM GUM REMOVER Due to temporary technical issues with the PACS/Fluency reporting system, reports are being signed by the in house radiologist without review as a courtesy to ensure prompt reporting. The interpreting r adiologist is fully responsible for the content of the report.
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
== END ==
LOC: ER 00:31
DX: M54.2 Cervicalgia (principal); S60.811A Abrasion of right wrist, initial encounter; M25.512 Pain in left shoulder; M25.532 Pain in left wrist; M79.642 Pain in left hand; V89.2XXA Person injured in unspecified motor-vehicle accident, traffic, initial encounter; Z91.048 Other nonmedicinal substance allergy status
CPT/HCPCS: 81001; 36415; 81025; 80307; 70450; 72125; 73130; 73090; 73060; 73110; 99284; 82077; J2405

== ENCOUNTER 2025-02-05 04:15 | Emergency (ER) | payer OTHER, SELFPAY ==
[2025-02-05] MEDS ORDERED: ONDANSETRON 4 MG/2 ML VIAL ONE (04:50)
[2025-02-05] MEDS ORDERED: NA CHLORIDE 0.9% 1,000 ML ONE (04:51)
[2025-02-05] MEDS ORDERED: METOCLOPRAMIDE 10 MG/2mL INJ ONE (04:51)
[2025-02-05] MEDS ORDERED: FAMOTIDINE 20 MG/2 ML VIAL IV ONE (04:51)
[2025-02-05 04:56] LABS: Absolute Basophils 0.1 K/uL (0-0.5); Absolute Eosinophils 0.1 K/uL (0-0.5); Absolute Lymphocytes (CBC) 2.8 K/uL (0.7-4.9); Absolute Monocytes 0.5 K/uL (0.1-1.3); Basophils % 0.7 % (0-1.3); Eosinophils % 1.2 % (0-4.4); Hematocrit 41.4 % (36.0-45.0); Hemoglobin 14.4 g/dL (12.0-15.0); MCH 29.9 pg (27.0-35.0); MCHC 34.8 g/dL (32.0-36.0); MCV 85.9 fL (80-100); MPV 8.7 fL (7.6-11.3); Monocytes % 4.9 % (3.3-12.3); Neutrophils % 66.2 % (41.7-73.7); Platelets 363 thou/uL (152-406); RBC Red Blood Cell Count 4.82 M/uL (3.86-4.86); Red Cell Distribution Width 13.2 % (12.1-15.2)
[2025-02-05 05:02] LABS: Specific Gravity 1.022 (1.005-1.030); Sqamous Epithelial <5 /HPF (None Seen); Urine Bacteria <20 /HPF (<20); Urine Bilirubin NEGATIVE (Negative); Urine Blood Negative (Negative); Urine Clarity Turbid (Clear); Urine Color Light-Yellow (Yellow); Urine Crystals Unidentified Few /HPF (None Seen); Urine Culture Reflex Order NOT NEEDED; Urine Glucose NEGATIVE (Negative); Urine Ketones NEGATIVE (Negative); Urine Microscopic Reflex YN ORDER UMIC; Urine Mucus 2+ /HPF (None Seen); Urine Nitrite NEGATIVE (Negative); Urine Protein NEGATIVE (Negative); Urine RBC <5 /HPF (None Seen); Urine Urobilinogen Normal (Normal); Urine WBC <5 /HPF (<5); Urine pH 5.5 (5.0-7.0)
[2025-02-05 05:03] LABS: Specific Gravity 1.022 (1.005-1.030)
[2025-02-05 05:19] LABS: ALT/SGPT 39 U/L (13-56); AST/SGOT 19 U/L (15-37); Albumin 3.6 g/dL (3.4-5.0); Albumin/Globulin Ratio 0.9 (1.1-1.8); Alkaline Phosphatase 52 U/L (45-117); Anion Gap 9.1 mEq/L (5.0-15.0); BUN Blood Urea Nitrogen 15 mg/dL (7-18); Bicarbonate 24 mEq/L (21-32); Bilirubin Total 0.2 mg/dL (0.2-1.0); Globulin 3.8 g/dL (2.3-3.5); Glomerular Filtration Rate 101 ml/min (=/>90); Glucose Level 106 mg/dL (74-106); Lipase 51 U/L (13-75); Potassium 4.1 mEq/L (3.5-5.1); Protein, Total 7.4 g/dL (6.4-8.2); Sodium Level 137 mEq/L (136-145)
[2025-02-05] MEDS ORDERED: KETOROLAC 30 MG/ML INJ ONE (05:20)
[2025-02-05 05:29] LABS: C-Reactive Protein < 2.90 mg/L (<3.00)
--- NOTE | 2025-02-05 06:26 | EDPHYS ---
Physician Documentation [facility] Name: Manuela Murphy Age: 29 yrs Sex: Female : 1995 Arrival Date: 02/05/2025 Time: 04:15 Bed 4 Private MD: ED Physician Viktor Calvo HPI: 02/05 04:18 This 29 yrs old Female presents to ER via Unassigned with complaints of Low sp4 Back Pain, Abdominal Pain. 21:46 29-year-old female presents with nausea vomiting abdominal pain onset 2 days ago sp4 associated with profuse vomiting abdominal discomfort back pain as well. Denied diarrhea. 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 - Infectious Disease History:: Denies. - Social history:: Smoking status: Reported history of juuling and/or vaping. Patient uses alcohol, occasionally. Patient/guardian denies using street drugs. - Family history:: not pertinent. ROS: 21:46 Constitutional: Positive nausea vomiting positive abdominal and back pain sp4 21:46 All other systems are negative, Exam: 21:46 Constitutional: This is a well developed, well nourished patient who is awake, alert, sp4 and in no acute distress. Head/Face: Normocephalic, atraumatic. Eyes: Pupils equal round and reactive to light, extra-ocular motions intact. Lids and lashes normal. Conjunctiva and sclera are not injected. Cornea within normal limits. Periorbital areas with no swelling, redness, or edema. ENT: Nares patent. No nasal discharge, no septal abnormalities noted. Tympanic membranes are normal and external auditory canals are clear. Oropharynx with no redness, swelling, or masses, exudates, or evidence of obstruction, uvula midline. Mucous membranes moist. Neck: Trachea midline, no thyromegaly or masses palpated, and no cervical lymphadenopathy. Supple, full range of motion without nuchal rigidity, or vertebral point tenderness. Chest/axilla: Normal chest wall appearance and motion. Nontender with no deformity. No lesions are appreciated. Cardiovascular: Regular rate and rhythm with a normal S1 and S2. No gallops, murmurs, or rubs. Normal PMI, no JVD. No pulse deficits. Respiratory: Lungs have equal breath sounds bilaterally, clear to auscultation and percussion. No rales, rhonchi or wheezes noted. No increased work of breathing, no retractions or nasal flaring. Abdomen/GI: Soft, with normal bowel sounds. No distension or tympany. No guarding or rebound. Positive abdominal discomfort to palpation without signs of peritonitis Back: No spinal tenderness. No costovertebral tenderness. Skin: Warm, dry with normal turgor. Normal color with no rashes, no lesions, and no evidence of cellulitis. MS/ Extremity: Pulses equal, no cyanosis. Neurovascular intact. Full, normal range of motion. Neuro: Awake and alert, GCS 15, oriented to person, place, time, and situation. Cranial nerves II-XII grossly intact. Motor strength 5/5 in all extremities. Sensory grossly intact. Psych: Awake, alert, with orientation to person, place and time. Behavior, mood, and affect are within normal limits Vital Signs: 04:31 BP 118 / 71; Pulse 81; Resp 18; Temp 97.4; Pulse Ox 100% on R/A; Weight 92.99 kg; br2 Height 6 ft. 0 in. ; Pain 6/10; 06:51 BP 111 / 67; Pulse 78; Resp 16; Pulse Ox 100% on R/A; Pain 1/10; dd2 04:31 Body Mass Index 27.80 (92.99 kg, 182.88 cm) br2 04:31 Pain Scale: Adult br2 06:51 Pain Scale: Adult dd2 Maribel Coma Score: 05:01 Eye Response: spontaneous(4). Motor Response: obeys commands(6). Verbal Response: dd2 oriented(5). Total: 15. 21:46 Eye Response: spontaneous(4). Motor Response: obeys commands(6). Verbal Response: sp4 oriented(5). Total: 15. MDM: 04:35 Medical Screening Exam initiated sp4 21:49 Differential diagnosis: arthritis, strain, sciatica, UTI. Data reviewed: vital signs, sp4 nurses notes, lab test result(s), CBC, electrolytes, hepatic panel. Consideration of Admission/Observation Escalation of care including admission/observation considered. ED course: . 02/05 04:35 Order name: CBC with Diff; Complete Time: 05:26 sp4 02/05 04:35 Order name: CMP; Complete Time: 06:22 sp4 02/05 04:35 Order name: Lipase; Complete Time: 06:22 sp4 02/05 04:35 Order name: Test, Urine; Complete Time: 05:26 sp4 02/05 04:35 Order name: Urinalysis w/ reflexes; Complete Time: 05:26 sp4 02/05 04:35 Order name: CRP; Complete Time: 06:22 sp4 02/05 04:35 Order name: IV Saline Lock; Complete Time: 04:53 sp4 02/05 04:35 Order name: Labs collected and sent; Complete Time: 04:53 sp4 Administered Medications: 04:58 Drug: metoCLOPramide IVP 10 mg IVP once; over 1 to 2 minutes Route: IVP; Site: right dd2 antecubital; 04:59 Drug: Famotidine IVP 20 mg IVP once; dilute with 10 mL 0.9% NaCl; give over 2 minutes dd2 Route: IVP; Site: right antecubital; 05:14 Follow up: Response: No adverse reaction dd2 04:59 Drug: Ondansetron IVP 8 mg IVP once; over 2 minutes Route: IVP; Site: right antecubital;dd2 05:14 Follow up: Response: No adverse reaction dd2 04:59 Drug: NS 0.9% IV 1000 ml IV at 1 bolus Per protocol; to be given as a bolus over 60 dd2 minutes Route: IV; Rate: 1 bolus; Site: right antecubital; 06:00 Follow up: IV Status: Completed infusion; IV Intake: 1000ml dd2 05:31 Drug: TORadol - Ketorolac IVP 30 mg IVP once Route: IVP; Site: right antecubital; dd2 05:46 Follow up: Response: No adverse reaction dd2 Disposition Summary: 02/05/25 06:26 Discharge Ordered Notes: Location: Home sp4 Problem: new sp4 Symptoms: have improved sp4 Condition: Stable sp4 Diagnosis - Acute viral gastroenteritis, acute nausea and vomiting sp4 Followup: sp4 - With: Private Physician - When: 7 - 10 days - Reason: Recheck today's complaints Discharge Instructions: - Discharge Summary Sheet sp4 - Viral Gastroenteritis, Adult, [id number] sp4 Forms: - Work release form sp4 - Patient Portal Instructions sp4 Prescriptions: - Lomotil 2.5-0.025 mg Oral tablet - take 1 tablet ORAL route every 6 hours As needed PRN diarrhea; 30 tablet; sp4 Refills: 0, Product Selection Permitted - promethazine 25 mg Oral tablet - take 1 tablet ORAL route every 6 hours As needed PRN nausea; 30 tablet; sp4 Refills: 0, Product Selection Permitted - ondansetron 8 mg Oral Tablet,disintegrating - take 1 tablet ORAL route every 8 hours PRN nausea; 30 tablet; Refills: 0, sp4 Product Selection Permitted Signatures: Dispatcher [employer] Viktor Felix MD MD sp4 Dariana Fernandez RN RN br2 AGUSTÍN MCGUIRE RN RN dd2
--- NOTE | 2025-02-05 06:26 | ER ---
Nurse's Notes [facility] Name: Manuela Murphy Age: 29 yrs Sex: Female : 1995 Arrival Date: 02/05/2025 Time: 04:15 Bed 4 Private MD: Diagnosis: Acute viral gastroenteritis, acute nausea and vomiting Presentation: 02/05 04:31 Chief complaint: Patient states: LUQ AND LLQ, NAUSEA/VOMITING THAT BEGAN AT 1AM. br2 Coronavirus screen: Client denies travel out of the [place] in the last 14 days. Ebola Screen: Patient denies exposure to infectious person. Initial Sepsis Screen: Does the patient meet any 2 criteria? No. Patient's initial sepsis screen is negative. Does the patient have a suspected source of infection? No. Patient's initial sepsis screen is negative. Risk Assessment: Do you want to hurt yourself or someone else? Patient reports no desire to harm self or others. Onset of symptoms was February 05, 2025 at 01:00. 04:31 Method Of Arrival: Wheelchair br2 04:31 Acuity: FRANCHESCA 3 br2 Triage Assessment: 04:41 General: Appears uncomfortable, Behavior is calm, cooperative. Pain: Complains of pain br2 in left upper quadrant and left lower quadrant. GI: Reports lower abdominal pain, upper abdominal pain, nausea, vomiting. 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 - Infectious Disease History:: Denies. - Social history:: Smoking status: Reported history of juuling and/or vaping. Patient uses alcohol, occasionally. Patient/guardian denies using street drugs. - Family history:: not pertinent. Screenin:01 [facility] ED Fall Risk Assessment (Adult) History of falling in the last 3 months, dd2 including since admission No falls in past 3 months (0 pts) Confusion or Disorientation No (0 pts) Intoxicated or Sedated No (0 pts) Impaired Gait No (0 pts) Mobility Assist Device Used No (0 pt) Altered Elimination No (0 pt) Score/Fall Risk Level 0 - 2 = Low Risk Oriented to surroundings, Maintained a safe environment, Educated pt \T\ family on fall prevention, incl call for assistance when getting out of bed, Assessed \T\ reinforced patient's understanding of fall precautions, Hourly rounding (assess needs \T\ fall precautionary measures) done. Abuse screen: Denies threats or abuse. Denies injuries from another. Nutritional screening: No deficits noted. Tuberculosis screening: No symptoms or risk factors identified. Assessment: 05:01 General: Appears in no apparent distress. uncomfortable. Pain: Complains of pain in dd2 left mid back and left lower quadrant and left upper quadrant Pain does not radiate. Pain currently is 8 out of 10 on a pain scale. Neuro: No deficits noted. Serrano Agitation-Sedation Scale (RASS): 0 - Alert and Calm Level of Consciousness is awake, alert, obeys commands, Oriented to person, place, time, situation, Appropriate for age. Cardiovascular: JVD is absent Patient's skin is warm and dry. Respiratory: Airway is patent Respiratory effort is even, unlabored, Respiratory pattern is regular, symmetrical. GI: Bowel sounds present X 4 quads. Abd is soft X 4 quads Abdomen is tender to palpation in left lower quadrant and left upper quadrant Reports lower abdominal pain, upper abdominal pain, nausea, vomiting, Patient currently denies constipation, diarrhea. : No deficits noted. No signs and/or symptoms were reported regarding the genitourinary system. EENT: No deficits noted. No signs and/or symptoms were reported regarding the EENT system. Derm: No deficits noted. No signs and/or symptoms reported regarding the dermatologic system. Musculoskeletal: Circulation, motion, and sensation intact. Range of motion: intact in all extremities, Tenderness present in left mid back. Vital Signs: 04:31 BP 118 / 71; Pulse 81; Resp 18; Temp 97.4; Pulse Ox 100% on R/A; Weight 92.99 kg; br2 Height 6 ft. 0 in. ; Pain 6/10; 06:51 BP 111 / 67; Pulse 78; Resp 16; Pulse Ox 100% on R/A; Pain 1/10; dd2 04:31 Body Mass Index 27.80 (92.99 kg, 182.88 cm) br2 04:31 Pain Scale: Adult br2 06:51 Pain Scale: Adult dd2 Maribel Coma Score: 05:01 Eye Response: spontaneous(4). Motor Response: obeys commands(6). Verbal Response: dd2 oriented(5). Total: 15. 21:46 Eye Response: spontaneous(4). Motor Response: obeys commands(6). Verbal Response: sp4 oriented(5). Total: 15. ED Course: 04:16 Patient arrived in ED. [id number] 04:17 Viktor Calvo MD is Attending Physician. sp4 04:28 AGUSTÍN MCGUIRE RN is Primary Nurse. dd2 04:29 Inserted saline lock: 20 gauge in right forearm, using aseptic technique. Blood rv1 collected. Flushed with 10 mL NS. 04:41 Triage completed. br2 04:41 Arm band placed on. br2 04:53 CRP Sent. rv1 04:53 CBC with Diff Sent. rv1 04:53 CMP Sent. rv1 04:53 Lipase Sent. rv1 04:53 Test, Urine Sent. rv1 04:53 Urinalysis w/ reflexes Sent. rv1 05:01 No provider procedures requiring assistance completed. Initial lab(s) drawn, by ED dd2 staff, sent to lab. Urine collected: clean catch specimen, cloudy. Patient maintains SpO2 saturation greater than 95% on room air. 05:01 Patient has correct armband on for positive identification. Bed in low position. Call dd2 light in reach. Side rails up X 1. Client placed on continuous cardiac and pulse oximetry monitoring. NIBP monitoring applied. Door closed. Noise minimized. Pillow given. Verbal reassurance given. 06:51 IV discontinued, intact, bleeding controlled, No redness/swelling at site. Pressure dd2 dressing applied. 06:51 Provided Education on: D/C EDUCATION. dd2 Administered Medications: 04:58 Drug: metoCLOPramide IVP 10 mg IVP once; over 1 to 2 minutes Route: IVP; Site: right dd2 antecubital; 04:59 Drug: Famotidine IVP 20 mg IVP once; dilute with 10 mL 0.9% NaCl; give over 2 minutes dd2 Route: IVP; Site: right antecubital; 05:14 Follow up: Response: No adverse reaction dd2 04:59 Drug: Ondansetron IVP 8 mg IVP once; over 2 minutes Route: IVP; Site: right antecubital;dd2 05:14 Follow up: Response: No adverse reaction dd2 04:59 Drug: NS 0.9% IV 1000 ml IV at 1 bolus Per protocol; to be given as a bolus over 60 dd2 minutes Route: IV; Rate: 1 bolus; Site: right antecubital; 06:00 Follow up: IV Status: Completed infusion; IV Intake: 1000ml dd2 05:31 Drug: TORadol - Ketorolac IVP 30 mg IVP once Route: IVP; Site: right antecubital; dd2 05:46 Follow up: Response: No adverse reaction dd2 Medication: 05:01 VIS not applicable for this client. dd2 Intake: 06:00 IV: 1000ml; Total: 1000ml. dd2 Outcome: 06:26 Discharge ordered by . sp4 06:51 Discharged to home ambulatory, dd2 06:51 Condition: improved 06:51 Discharge instructions given to patient, Instructed on discharge instructions, follow up and referral plans. medication usage, Demonstrated understanding of instructions, follow-up care, medications, Prescriptions given X 3, 06:52 Patient left the ED. dd2 Signatures: Vivian Shipman [email or web address] Pilar Christensen rvViktor Aggarwal MD MD sp4 Dariana Fernandez RN RN br2 AGUSTÍN MCGUIRE RN RN dd2
[2025-02-05 07:15] VITALS: TEMP 97.4; O2SAT 100
[2025-02-05 07:17] VITALS: BP 111/67
== END 2025-02-05 06:52 | disposition home or self-care (01) ==
LOC: ER 04:15
DX: A08.4 Viral intestinal infection, unspecified (principal); R11.2 Nausea with vomiting, unspecified
CPT/HCPCS: 36415; 80053; 81001; 81025; 83690; 85025; 86140; 96361; 96374; 96375; 99284; J2405; J2765; J7030

== ENCOUNTER 2025-04-02 11:52 | Emergency (ER) | payer OTHER ==
--- OUTSIDE RECORDS SUMMARY | 2025-04-02 11:59 | XMS REPORT | Continuity of Care Document ---
Author Name Unknown Address [address] [facility] [place] [address] [facility] Address 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 Name Role Phone Robert Gutierrez Primary Care Physician [phone] Robert Gutierrez Attending Clinician Unavailable Tito Sy Attending Clinician Unavailable JUJU BOOKER Attending Clinician Unavailable Juju Booker MD Attending Clinician [phone] Doctor Unassigned, [place] Attending Clinician U Chelo Villa Attending Clinician UnavailANYI Chavira Attending Clinician Unavailable Raj Jorgensen DO Attending Clinician [phone] Ori Elise LITTLEJOHN Attending Clinician [phone] Anyi Hammer MD Attending Clinician [phone] BRODY Attending Clinician Unavailable Corgayathri_Yeni Attending Clinician Unavailable Kirsten Gillespie Admitting Clinician Unavailable JUJU BOOKER Admitting Clinician Unavailable Clotilde Robles Admitting Clinician Unavailabl ANYI Vasquez Admitting Clinician Unavailable Anyi Hammer MD Admitting Clinician JALEN_C Admitting Clinician Unavailable Corgayathri_T Admitting Clinician Unavailable Payers Payer Name Policy Type Policy Number Effective Date Expirati on Date Source ALL ALBER 53 [id number] 2019 00:00:00 [place] [address] [id number] [facility] Problems Condition Name Condition Details Condition Category Status Onset Date Resolution Date Last Treatment Date Treating Clinician Comments Source Miscarriag e Miscarriag e Disease Active 03-21 00:00: 00 [facility] Obesity (BMI 30-39.9) Obesity (BMI 30-39.9) Disease Active 03-21 00:00: 00 [facility] Posttrauma tic stress disorder Posttrauma tic Stress Disorder Problem Active [facility]11 [facility] Depressive disorder Depressive Disorder Problem Active 01-11 00:00: 00 [facility] Attention deficit hyperactiv ity disorder Attention Deficit Hyperactiv ity Disorder Problem Active 01-11 00:00: 00 [facility] [id number] Chronic fatigue Problem [facility] Anemia Anemia, unspecifie d type Problem [facility] Habitual aborter-no t History of multiple miscarriag es Problem [facility] [id number] Low back pain, unspecifie d back pain laterality , unspecifie d chronicity , with sciatica presence unspecifie d Problem [facility] [id number] Lumbar radiculopa thy Problem [facility] Status migrainosu s Migraine, unspecifie d, not intractabl e, with status migrainosu s Problem [facility] [id number] Attention deficit hyperactiv ity disorder (ADHD), combined type Problem [facility] [id number] Generalize d anxiety disorder Problem [facility] [id number] Allergic rhinitis, unspecifie d seasonalit y, unspecifie d trigger Problem [facility] [id number] Mild intermitte nt asthma without complicati on Problem [facility] [id number] Chronic maxillary sinusitis Problem [facility] [id number] Nausea Problem [facility] [id number] Food sensitivit y headache Problem [facility] [id number] Gastroente ritis Problem [facility] [id number] Current moderate episode of major depressive disorder without prior episode Problem [facility] [id number] Insomnia, unspecifie d type Problem [facility] [id number] Spasm of GI tract Problem [facility] [id number] Bloody diarrhea Problem [facility] Allergies, Adverse Reactions, Alerts Allergy Name Allergy Type Status Severity Reaction(s) Onset Date Inactive Date Treating Clinician Comments Source IODINE DRUG INGREDI Active Other-Cmnt 03-21 00:00: 00 [facility] Iodine Propensi ty to adverse reaction s Active Other - See comments 03-21 00:00: 00 [facility] iodine DA Active [place] 2019-11 00:00: 00 [facility] gluten FA Active [place] 2019-11 00:00: 00 [facility] shellfis h derived FA Active [place] 2019-11 00:00: 00 [facility] iodine DA Active [place] itching 2019-11 00:00: 00 [facility] gluten FA Active [place] NAUSEA,VOMIT ING, GI IRRITATION, HEADACHE, JOINT SWELLING 2019-11 0 00:00: 00 [facility] shellfis h derived FA Active SV TONGUE SWELLS, MILD SOB, SCRATCHY THROAT 2019-11 00:00: 00 [facility] Iodine Allergy to substanc e Active [facility] Shellfis h Shellfis h Active Unknown [facility] Social History Social Habit Start Date Stop Date Quantity Comments Source Gender identity [facility] History of tobacco use Cigarette Smoker [facility] Alcohol intake 2023-04-19 00:00:00 2023-04-19 00:00:00 Ex-drinker (finding) [facility] History of Social function 2023-04-19 00:00:00 2023-04-19 00:00:00 [facility] Tobacco use and exposure 2023-04-19 00:00:00 2023-04-19 00:00:00 Smokeless tobacco non-user [facility] Exposure to SARS-CoV-2 (event) 2023-03-11 00:00:00 2023-03-21 08:38:00 Not sure [facility] Sex Assigned At 1995 00:00:00 1995 00:00:00 [facility] Smoking Status Start Date Stop Date Source Current Some Day Smoker [facility] Ex-smoker 2023-04-19 00:00:00 2023-04-19 00:00:00 [facility] Tobacco smoking consumption unknown [facility] Medications Ordered Medication Name Filled Medication Name Start Date Stop Date Current Medication? Ordering Clinician Indication Dosage Frequency Signature (SIG) Comments Components Source Pseudoeph-B romphen-DM 30-2-10 MG/5ML Pseudoeph-B romphen-DM 30-2-10 MG/5ML 11-18 00:00: 00 No Pseudoeph- Bromphen-D M 30-2-10 MG/5ML Vitamin D3 1.25 MG (08309 UT) Vitamin D3 1.25 MG (96445 UT) 04-20 00:00: 00 No 1{capsu le} Vitamin D3 1.25 MG (55906 UT) ALPRAZolam 0.5 mg tablet 04-19 14:26: 38 Yes .5mg Take 1 tablet by mouth as needed. [facility] SERTraline 100 mg tablet 04-19 14:26: 37 Yes 150mg Take 1.5 tablets by mouth at bedtime. [facility] SERTraline (ZOLOFT) 100 mg tablet 03-22 09:03: 54 Yes 150mg Take 1.5 tablets by mouth at bedtime. [facility] D5W-LR IV infusion 1,000 mL 03-22 02:15: 00 Yes 1000mL at 125 mL/hr, IV Infusion, CONTINUOUS , Starting on Mon03/21/23 at 2115, Until Discontinu ed, Routine [facility] SERTraline (ZOLOFT) tablet 150 mg 03-22 02:00: 00 Yes 150mg 150 mg, Oral, QHS, First dose on Mon03/21/23 at 2100, Until Discontinu ed, Routine [facility] ondansetron (ZOFRAN (PF)) injection 4 mg 03-22 01:47: 43 Yes 4mg 4 mg, Slow IV Push, Q6HPRN, Starting on Mon03/21/23 at 2047, Until Discontinu ed, Routine, Nausea and Vomiting (N/V) [facility] ibuprofen (IBU) tablet 600 mg 03-22 01:08: 15 Yes 600mg 600 mg, Oral, Q6HPRN, Starting on Mon03/21/23 at 2008, Until Discontinu ed, Routine, pain [facility] tranexamic acid (CYKLOKAPRO N) 1,000 mg in NaCl 0.9% (NS) 10 mL piggyback 03-21 18:45: 00 03-21 18:45 :01 No 1000mg 1,000 mg, Intravenou s, ONCE, 1 dose, On Mon03/21/23 at 1345, Administer over 10 Minutes, 10 mL [facility] miSOPROStoL (CYTOTEC) tablet 800 mcg 03-21 18:45: 00 03-21 18:18 :00 No 800ug 800 mcg, Vaginal, ONCE, 1 dose, On Mon03/21/23 at 1345, Routine [facility] ketorolac (TORADOL) injection 30 mg 03-21 18:45: 00 03-21 17:55 :00 No 30mg 30 mg, Slow IV Push, ONCE NOW, 1 dose, On Mon03/21/23 at 1345, Routine [facility] ondansetron (ZOFRAN (PF)) injection 4 mg 03-21 17:05: 00 03-21 17:05 :00 No 4mg 4 mg, Slow IV Push, ONCE, 1 dose, On Mon03/21/23 at 1215, VLADIMIR [facility] Adderall XR 10 MG Adderall XR 10 MG 9-16 00:00: 00 No 1{capsu le_in_t he_morn ing} QD Adderall XR 10 MG Adderall XR 20 MG Adderall XR 20 MG 2020-11 2- 00:00: 00 No 1{capsu le_in_t he_morn ing} QD Adderall XR 20 MG Kenalog (Triamcinol one) Kenalog (Triamcinol one) 2017-11 2- 00:00: 00 No 40mg [facility] Abilify 5 mg tablet Take 1 tablet every day by oral route. Abilify 5 mg tablet Take 1 tablet every day by oral route. No 1 Q1D Abilify 5 mg tablet Take 1 tablet every day by oral route. [facility] compounded medication Semaglutide /B12 0.3 ml SQ QW, start at 0.075 and increase weekly as tolerated. compounded medication Semaglutide /B12 0.3 ml SQ QW, start at 0.075 and increase weekly as tolerated. No compounded medication Semaglutid e/B12 0.3 ml SQ QW, start at 0.075 and increase weekly as tolerated. [facility] ondansetron 4 mg disintegrat ing tablet Place 1 tablet every 6-8 hours by translingua l route as needed. ondansetron 4 mg disintegrat ing tablet Place 1 tablet every 6-8 hours by translingua l route as needed. No 1 Q7H ondansetro n 4 mg disintegra ting tablet Place 1 tablet every 6-8 hours by translingu al route as needed. [facility] Xanax 0.5 mg tablet Take 1 tablet by oral route as needed. Xanax 0.5 mg tablet Take 1 tablet by oral route as needed. No 1 Xanax 0.5 mg tablet Take 1 tablet by oral route as needed. [facility] Zoloft 50 mg tablet Take 1 tablet every day by oral route. Zoloft 50 mg tablet Take 1 tablet every day by oral route. No 1 Q1D Zoloft 50 mg tablet Take 1 tablet every day by oral route. [facility] Singulair 10 MG Singulair 10 MG No 1{table t} QD Singulair 10 MG No 1{caps u le_as_n eeded} QID traZODone HCl 50 MG traZODone HCl 50 MG No 1{table t_at_be dtime_a s_neede d} QD traZODone HCl 50 MG Ambien 10 MG Ambien 10 MG No 1{table t_at_be dtime} QD Ambien 10 MG Xanax 0.5 MG Xanax 0.5 MG No 1{table t} BID Xanax 0.5 MG Albuterol Sulfate HFA 108 (90 Base) MCG/ACT Albuterol Sulfate HFA 108 (90 Base) MCG/ACT No 2{puffs _as_nee ded} QID Albuterol Sulfate HFA 108 (90 Base) MCG/ACT Zoloft 100 MG Zoloft 100 MG No 2{table ts} QD Zoloft 100 MG Progesteron e 100 MG Progesteron e 100 MG No Progestero ne 100 MG busPIRone HCl 10 MG busPIRone HCl 10 MG No 1{table t} QD busPIRone HCl 10 MG Azithromyci n 250 MG Azithromyci n 250 MG No QD Azithromyc in 250 MG Vital Signs Vital Name Observation Time Observation Value Comments S ource height 2024-11-18 11:00:00 70.00 [in_i] Com [facility] weight 2024-11-18 11:00:00 188 [lb_av] Comm on [facility] temperature 2024-11-18 11:00:00 98.2 [degF] Com [facility] bmi 2024-11-18 11:00:00 26.97 kg/m2 Comm on [facility] height 2024-11-12 09:40:00 70.00 [in_i] Com mon [facility] weight 2024-11-12 09:40:00 189 [lb_av] Comm on [facility] temperature 2024-11-12 09:40:00 98 [degF] Comm on [facility] bmi 2024-11-12 09:40:00 27.12 kg/m2 Comm on [facility] oximetry 2024-11-12 09:40:00 98 % Commo n [facility] blood pressure systolic 2024-11-12 09:40:00 112 mm[Hg] Common [facility] blood pressure diastolic 2024-11-12 09:40:00 60 mm[Hg] [facility] Systolic blood pressure 2023-04-19 19:29:00 118 mm[Hg] [facility] Diastolic blood pressure 2023-04-19 19:29:00 78 mm[Hg] [facility] Heart rate 2023-04-19 19:29:00 85 /min [facility] Body temperature 2023-04-19 19:29:00 36.94 [facility] Body height 2023-04-19 19:29:00 182.9 cm [facility] Body weight 2023-04-19 19:29:00 105.688 kg [facility] BMI 2023-04-19 19:29:00 31.60 kg/m2 [facility] Oxygen saturation in Arterial blood by Pulse oximetry 2023-04-19 19:29:00 100 /min [facility] height 2023-04-06 08:50:00 70.00 [in_i] Com [facility] weight 2023-04-06 08:50:00 230 [lb_av] Comm on [facility] temperature 2023-04-06 08:50:00 96.5 [degF] Com [facility] bmi 2023-04-06 08:50:00 33 kg/m2 [facility] oximetry 2023-04-06 08:50:00 100 % Comm n [facility] respiratory rate 2023-04-06 08:50:00 16 /min [facility] blood pressure systolic 2023-04-06 08:50:00 119 mm[Hg] [facility] blood pressure diastolic 2023-04-06 08:50:00 76 mm[Hg] [facility] Systolic blood pressure 2023-03-22 12:48:00 109 mm[Hg] [facility] Diastolic blood pressure 2023-03-22 12:48:00 59 mm[Hg] [facility] Heart rate 2023-03-22 12:48:00 67 /min [facility] Respiratory rate 2023-03-22 12:48:00 14 /min [facility] Body temperature 2023-03-22 10:00:00 37.22 [facility] Oxygen saturation in Arterial blood by Pulse oximetry 2023-03-22 10:00:00 100 /min [facility] Body height 2023-03-21 13:40:00 182.9 cm [facility] Body weight 2023-03-21 13:40:00 108.863 kg [facility] BMI 2023-03-21 13:40:00 32.55 kg/m2 [facility] BP Diastolic 2023-01-11 00:00:00 81 mm[Hg] [facility] Height 2023-01-11 00:00:00 72 [in_i] [facility] BMI (Body Mass Index) 2023-01-11 00:00:00 32.8 kg/m2 [facility] BP Systolic 2023-01-11 00:00:00 124 mm[Hg] [facility] Body Weight 2023-01-11 00:00:00 3872 [oz_av] [facility] height 2022-07-29 08:00:00 70.00 [in_i] Com [facility] weight 2022-07-29 08:00:00 220 [lb_av] Comm on [facility] bmi 2022-07-29 08:00:00 31.56 kg/m2 Comm on [facility] blood pressure systolic 2022-07-29 08:00:00 122 mm[Hg] [facility] blood pressure diastolic 2022-07-29 08:00:00 67 mm[Hg] [facility] height 2021-12-01 13:50:00 70.00 [in_i] Com [facility] weight 2021-12-01 13:50:00 220.2 [lb_av] [facility] 2021-12-01 13:50:00 98.1 [degF] Com [facility] bmi 2021-12-01 13:50:00 31.59 kg/m2 Comm on [facility] oximetry 2021-12-01 13:50:00 97 % Commo n [facility] respiratory rate 2021-12-01 13:50:00 17 /min [facility] blood pressure systolic 2021-12-01 13:50:00 121 mm[Hg] [facility] blood pressure diastolic 2021-12-01 13:50:00 65 mm[Hg] [facility] height 2021-10-25 08:40:00 70.00 [in_i] Com [facility] weight 2021-10-25 08:40:00 220 [lb_av] Comm on [facility] temperature 2021-10-25 08:40:00 98.3 [degF] Com [facility] bmi 2021-10-25 08:40:00 31.56 kg/m2 Comm on [facility] blood pressure systolic 2021-10-25 08:40:00 118 mm[Hg] [facility] blood pressure diastolic 2021-10-25 08:40:00 72 mm[Hg] [facility] height 2021-08-09 08:00:00 70.00 [in_i] Com mon [facility] weight 2021-08-09 08:00:00 227 [lb_av] Comm on [facility] temperature 2021-08-09 08:00:00 97 [degF] Comm on [facility] bmi 2021-08-09 08:00:00 32.57 kg/m2 Comm on [facility] Procedures Procedure Date / Time Performed Performing Clinician Source INSURANCE CORRESPONDENCE 2023-04-20 05:01:00 Doc tor Unassigned, [place] [facility] CONSENT/REFUSAL FOR DIAGNOSIS AND TREATMENT 2023-04-19 19:02:17 Doctor Unassigned, [place] [facility] REFERRAL- REQUEST/RESPONSE 2023-04-07 05:01:00 Doctor Unassigned, [place] [facility] CBC WITH DIFF 2023-03-22 00:21:00 RejiumAnyi [facility] PREPARE PACKED RBC 2023-03-21 20:29:31 Elise Rehman [facility] TRANSFUSE PACKED RBC 2023-03-21 18:48:00 Elise Rehman [facility] CBC WITH DIFF 2023-03-21 16:46:00 Elise Rehman [facility] US FIRST TRIMESTER LESS THAN 14 WEEKS WITH TRANSVAGINAL 2023-03-21 16:21:29 Elise Rehman [facility] ABORH CONFIRMATION (LAB ONLY) 2023-03-21 16:10:00 Elise Rehman [facility] COMP. METABOLIC PANEL ([id number]) 2023-03-21 14:14:00 Elise Rehman [facility] TOTAL BETA HCG ASSAY 2023-03-21 14:14:00 Elise Rehman [facility] CBC WITH DIFF 2023-03-21 14:14:00 Elise Rehman [facility] HB ABO GROUPING 2023-03-21 14:14:00 Elise Rehman [facility] CRITICAL CARE 2023-03-21 13:32:00 Elise Rehman [facility] Encounters Start Date/Time End Date/Time Encounter Type Admission Type Attending [facility] Facility Care Department Encounter ID Source 2024-11-12 07:54:00 Outpatient Gutierrez, Robert STLMLC STLMLC [id number] [facility] 2023-05-23 09:03:00 Outpatient Gutierrez, Robert STLMLC STLMLC [id number] [facility] 2023-04-07 13:54:00 Outpatient Gutierrez, Robert STLMLC STLMLC [id number] [facility] 2023-04-06 08:51:00 Outpatient Gutierrez, Robert STLMLC STLMLC [id number] [facility] 2022-08-26 10:26:01 Outpatient Gutierrez, Robert STLMLC STLMLC [id number] [facility] 2021-12-08 13:19:33 Outpatient Gutierrez, Robert STLMLC STLMLC [id number] [facility] 2021-12-08 13:18:51 Outpatient Gutierrez, Robert STLMLC STLMLC [id number] [facility] 2021-12-08 13:17:54 Outpatient Gutierrez, Robert STLMLC STLMLC [id number] [facility] 2021-12-08 12:59:24 Outpatient Gutierrez, Robert STLMLC STLMLC [id number] [facility] 2021-12-08 12:58:49 Outpatient Gutierrez, Robert STLMLC STLMLC [id number] [facility] 2021-12-08 12:26:05 Outpatient Gutierrez, Robert STLMLC STLMLC [id number] [facility] 2021-12-08 12:23:58 Outpatient Gutierrez, Robert STLC STLC [id number] [facility] 2021-12-08 12:13:27 Outpatient Gutierrez, Robert STLC STLC [id number] [facility] 2021-12-08 12:08:34 [facility] [id number] [facility] 2021-12-08 11:20:59 Outpatient Gutierrez, [facility] [id number] [facility] 2021-12-08 11:06:22 Outpatient Gutierrez, Robert STLC STLC [id number] [facility] 2021-12-08 11:06:13 Outpatient Gutierrez, Robert [facility] ST[facility] [id number] [facility] 2021-12-08 11:00:26 Outpatient Gutierrez, Robert [facility] [id number] [facility] 2020-09-11 11:30:00 Inpatient MG SyTito HCATO DAYS [id number] [facility] 2024-11-18 00:00:00 2024-11-18 00:00:00 (TEL) STLMLC STLMLC [id number] [facility] 2024-11-18 00:00:00 2024-11-18 00:00:00 OFFICE VISIT ESTAB PT LEVEL 3 STLMLC STLMLC [id number] [facility] 2024-11-12 00:00:00 2024-11-12 00:00:00 OFFICE VISIT ESTAB PT LEVEL 4 STLMLC STLMLC [id number] [facility] 2024-10-28 00:00:00 2024-10-28 00:00:00 (TEL) STLMLC STLMLC [id number] [facility] 2023-05-05 00:00:00 2023-05-05 00:00:00 [facility] [id number] [facility] 2023-05-02 08:00:00 2023-05-02 23:59:00 [facility] [id number] [facility] 2023-04-25 10:45:18 2023-04-25 23:59:00 [facility] [id number] [facility] 2023-04-25 00:00:00 2023-04-25 00:00:00 Patient Secure Msg Booker [facility] BUILDING [id number] [facility] 2023-04-20 00:00:00 2023-04-20 00:00:00 (TEL) STLMLC STLMLC [id number] [facility] 2023-04-20 00:00:00 2023-04-20 00:00:00 Orders Only Doctor Unassigned, [place] [facility] [id number] 350.1.13.10 [id number] [id number] [facility] 2023-04-19 14:40:00 2023-04-19 15:12:16 [facility] [id number] [facility] 2023-04-19 14:40:00 2023-04-19 15:12:16 Office Visit Tyler [facility] BUILDING [id number] [id number] [id number] [id number] [facility] 2023-04-19 00:00:00 2023-04-19 00:00:00 Orders Only Doctor Unassigned, [place] [facility] 1.840.114 350.1.13.10 4.2.7.2.686 [id number] [facility] 2023-04-07 00:00:00 2023-04-07 00:00:00 (TEL) [facility] [id number] [facility] 2023-04-07 00:00:00 2023-04-07 00:00:00 Orders Only Doctor Unassigned, [place] [facility] 1.840.114 350.1.13.10 4.2.7.2.686 [id number] [facility] 2023-04-07 00:00:00 2023-04-07 00:00:00 Telephone Juju [facility] 1.840.114 350.1.13.10 4.2.7.2.686 [id number] [facility] 2023-04-06 00:00:00 2023-04-06 00:00:00 OFFICE VISIT ESTAB PT LEVEL 4 [facility] [id number] [facility] 2023-04-05 00:00:00 2023-04-05 00:00:00 (TEL) [facility] ST[facility] [id number] [facility] 2023-04-04 12:57:00 2023-04-04 18:18:00 Emergency EM Chelo Barnard [facility] [id number] [facility] 2023-03-21 08:37:00 2023-03-22 08:30:00 Outpatient ANYI MADSEN [facility] AYAAN [id number] [facility] 2023-03-21 08:37:00 2023-03-22 08:30:00 Emergency Raj Jorgensen K Paige Adum, Vivian L [facility] 1.840.114 350.1.13.10 [id number] [id number] [facility] 2023-01-11 00:00:00 2023-01-11 00:00:00 Outpatient SISSON_C [facility] [id number] [facility] 2023-01-11 00:00:00 2023-01-11 00:00:00 Abby Maradiaga, MSN, MARKETING DATABASE CONSULTANT, FORMING DEPARTMENT END FINDER-C: [address], [address], [place] [address] , Ph. [facility], Abby Maradiaga, MSN, FORMING DEPARTMENT END FINDER-C [id number] [facility] 2023-01-03 00:00:00 2023-01-03 00:00:00 [id number] 2022-08-29 00:00:00 2022-08-29 00:00:00 (TEL) STLMLC STLMLC [id number] [facility] 2022-07-29 00:00:00 2022-07-29 00:00:00 OFFICE VISIT EST PT LEVEL 3 STLMLC STLMLC [id number] [facility] 2022-05-17 00:00:00 2022-05-17 00:00:00 (TEL) STLMLC STLMLC [id number] [facility] 2021-12-01 00:00:00 2021-12-01 00:00:00 PREV VISIT EST AGE 19-39 STLMLC STLMLC [id number] [facility] 2021-10-29 00:00:00 2021-10-29 00:00:00 (TEL) STLMLC STLMLC [id number] [facility] 2021-10-25 00:00:00 2021-10-25 00:00:00 OFFICE VISIT ESTAB PT LEVEL 4 STLMLC STLMLC [id number] [facility] 2021-08-09 00:00:00 2021-08-09 00:00:00 OFFICE VISIT ESTAB PT LEVEL 4 STLMLC STLMLC [id number] [facility] 2021-07-28 04:34:00 2021-07-28 04:34:00 Outpatient Corkran_T VFP VFP [id number] [facility] 2021-07-21 00:00:00 2021-07-21 00:00:00 Outpatient STLMLC STLMLC [id number] [facility] 2021-05-24 00:00:00 2021-05-24 00:00:00 Outpatient STLMLC STLMLC [id number] [facility] 2021-05-07 00:00:00 2021-05-07 00:00:00 Outpatient STLMLC STLMLC [id number] [facility] 2021-04-26 00:00:00 2021-04-26 00:00:00 Outpatient STLMLC STLMLC [id number] [facility] 2021-04-21 00:00:00 2021-04-21 00:00:00 Outpatient STLMLC STLMLC [id number] [facility] 2021-03-29 00:00:00 2021-03-29 00:00:00 Outpatient STLMLC STLMLC [id number] [facility] 2021-03-16 00:00:00 2021-03-16 00:00:00 Outpatient STLMLC STLMLC [id number] [facility] 2020-12-11 00:00:00 2020-12-11 00:00:00 Outpatient STLMLC STLMLC [id number] [facility] 2020-10-28 00:00:00 2020-10-28 00:00:00 Outpatient STLMLC STLMLC [id number] [facility] 2020-10-27 00:00:00 2020-10-27 00:00:00 Outpatient STLMLC STLMLC [id number] [facility] 2020-10-27 00:00:00 2020-10-27 00:00:00 Outpatient STLMLC STLMLC [id number] [facility] 2020-10-05 00:00:00 2020-10-05 00:00:00 Outpatient STLMLC STLMLC [id number] [facility] 2020-09-18 00:00:00 2020-09-18 00:00:00 Outpatient STLMLC STLMLC [id number] [facility] 2020-09-18 00:00:00 2020-09-18 00:00:00 Outpatient STLMLC STLMLC [id number] [facility] 2020-09-08 18:47:00 2020-09-08 18:47:00 Outpatient Yossi Tito HCACL LABO [id number] 29 [facility] 2020-08-08 00:00:00 2020-08-08 00:00:00 Outpatient STLMLC STLMLC [id number] [facility] 2020-08-07 00:00:00 2020-08-07 00:00:00 Outpatient STLMLC STLMLC [id number] [facility] 2020-07-17 11:15:00 2020-07-17 11:15:00 [facility] [id number] [facility] 2020-07-17 11:10:00 2020-07-17 11:10:[address] [facility] [facility] [id number] [facility] 2020-06-24 16:00:00 2020-06-24 16:00:[address] [facility] [id number] [facility] 2020-03-24 13:00:00 2020-03-24 13:00:[address] [facility] [facility] [address] [facility] [id number] [facility] 2020-01-21 13:26:00 2020-01-21 13:26:[address] [facility] [id number] [facility] 2019-12-24 16:00:00 2019-12-24 16:00:[address] [facility] [facility] [id number] [facility] 2019-11-26 10:30:00 2019-11-26 10:30:[address] [facility] [id number] [facility] 2019-10-16 08:00:00 2019-10-16 08:00:[address] [facility] [facility] [id number] [facility] 2019-09-16 15:15:00 2019-09-16 15:15:[address] [facility] [id number] [facility] 2019-09-11 17:08:00 2019-09-11 17:08:[address] [facility] [facility] [id number] [facility] 2019-08-06 08:00:00 2019-08-06 08:00:[address] [facility] [facility] [id number] [facility] 2019-07-04 09:30:00 2019-07-04 09:30:[address] [facility] [id number] [facility] 2019-06-25 14:45:00 2019-06-25 14:45:[address] [facility] [id number] [facility] 2019-06-05 13:00:00 2019-06-05 13:00:[address] [facility] [id number] [facility] 2019-04-24 10:15:00 2019-04-24 10:15:[address] [facility] [facility] [id number] [facility] 2019-03-21 09:15:00 2019-03-21 09:15:[address] [facility] [facility] [id number] [facility] 2019-02-27 09:00:00 2019-02-27 09:00:[address] [facility] [id number] [facility] 2019-02-22 15:16:00 2019-02-22 15:16:[address] [facility] [id number] [facility] 2019-01-10 08:45:00 2019-01-10 08:45:[address] [facility] [facility] [id number] [facility] 2018-12-13 10:00:00 2018-12-13 10:00:[address] [facility] [id number] [facility] 2018-11-19 14:51:00 2018-11-19 14:51:[address] [facility] [facility] [id number] [facility] 2018-11-15 10:45:00 2018-11-15 10:45:[address] [facility] [facility] [id number] [facility] 2018-10-26 10:29:00 2018-10-26 10:29:[address] [facility] [id number] [facility] 2018-07-02 14:45:00 2018-07-02 14:45:[address] [facility] [facility] [id number] [facility] 2018-05-15 14:15:00 2018-05-15 14:15:[address] [facility] [id number] [facility] Results Test Description Test Time Test Comments Results Result Co mments Source TROPONIN-I (HIGH SENSITIVITY)2023-04-04 16:15:00* Test Item Value Reference Range Interpretation Comme [facility] TROPONIN-I (HIGH SENSITIVITY) (test code = TROPI) 5.7 pg/mL <51.4 N Please Note:New method is in use for measuring Troponin Oct 28 2021Units are pg/mL which differs from the prior testmethodology (ng/mL) by a factor of 1000. [id number] 16:08:00* Test Item Value Reference Range Interpretation Comme [facility] LIPASE (test code = LIP) 131 units/L 73-393 N B-TYPE NATRIURETIC [id number] 15:43:00* Test Item Value Reference Range Interpretation Comme [facility] B-TYPE NATRIURETIC PEPTIDE ( test code = BNP) 2.69 pg/mL 0-100 N D-DIMER [id number] 15:09:00* Test Item Value Reference Range Interpretation Comme [facility] D-DIMER QUANT (test code = DDIMER) 219 ng/mLDDU <255 Reference Range in : <570 ng/ml A positive test does not provide a definitive diagnosis ofDVT and indicates the need for follow up clinical studies. The predictive value of a negative test is 98% for rulingout DVT. HCG [id number] 15:05:00* Test Item Value Reference Range Interpretation Comme [facility] HCG SERUM (test code = HCG) 7 [...] milliInternationalunits/mL SHOULD BE CONSIDERED NEGATIVE COMPREHENSIVE METABOLIC [id number] 14:57:00* Test Item Value Reference Range Interpretation [...] calculation forGFR is based on the CKD-EPI (202) calculation. This formulais race indifferent and is [...] = ALKP) 80 units/L 46-116 N URINALYSIS [id number] 14:49:00* Test Item Value Reference Range Interpretation [...] = EPIU) RARE #/HPF RARE-FEW CBC W/AUTO [id number] 14:38:00* Test Item Value Reference Range Interpretation [...] PLTMR) NORMAL NORMAL - XR CHEST 2 [id number] 00:00:00 [facility] 1995 Sex: FPatient Name: MANUELA GARZON Unit No: [id number] EXAMS: CPT CODE: [id number] XR CHEST 2 V 21870 PROCEDURE INFORMATION: Exam: XR Chest Exam date [...] Maldonado MD CC: Chelo Barnard MD; Clotilde marrero MD Technologist: Zina Leal, RT Trnscrbd D/ ([phone]) GCD.CPS Orig Print D/T: S: 04/04/2023 (1450) [facility] NAME: MANUELA GARZON Radiology Department PHYS: Chelo Downs MD [address] : 1995 AGE: 27 SEX: F [place], [place] [address] LOC: GINO PHONE #: [phone] EXAM DATE: 04/04/2023 STATUS: REG ER FAX #: [phone] RAD NO: Page 1 Signed ReportPrepare Packed RBC (in units), 2 Units 2023-03-21 20:29:31* Test Item Value Reference Range Interpretation Comme nts Cross Match Result (test code = 4409) Compatible ISBT Blood Type Code (test code = 573647) 6200 Unit Blood Type (test code = 4410) A Pos Unit Number (test code = 4411) [id number] Blood Expiration Date & Time (test code = 213882) [id number] Status Information (test code = 4412) Issued Product Identification (test code = 4413) Red Blood Cells Product Code (test code = 4414) [id number] Performed at [facility] B Laboratory Services - [facility] Blood [address] [place] [address] Free: [phone] No. [id number] [facility] WITH [id number] 17:28:33* Test Item Value Reference Range Interpretation [...] 33.4 g/dL 31.6-35.1 RDW-SD (test code = 56122-3) 42.7 fL 39.0-49.9 RDW-CV (test code = 788-0) 13.6 % 12.0-15.5 PLT (test code = 777-3) 324 See_Comment [Automated messa ge] The system which generated this result transmitted reference range: 166 - 358 10*3/?L. The reference range was not used to interpret this result as normal/abnormal. MPV (test code = 23732-4) 11.0 fL 9.5-12.9 NRBC/100 WBC (test code = 4863477594) 0.0 See_Comment [Automated [employer] ssage] The system which generated this result transmitted reference range: 0.0 - 10.0 /100 WBCs. The reference range was not used to interpret this result as normal/abnormal. NRBC x10^3 (test code = 8067807844) See_Comment [Automated messa ge] The system which generated this result transmitted reference range: 10*3/?L. The reference range was not used to interpret this result as normal/abnormal. GRAN MAT (NEUT) % (test code = 770-8) 74.5 % IMM GRAN % (test code = 7132151286) 0.40 % LYMPH % (test code = 736-9) 21.0 % MONO % (test code = 5905-5) 3.8 % EOS % (test code = 713-8) 0.1 % BASO % (test code = 706-2) 0.2 % GRAN MAT x10^3(ANC) (test code = 1309012902) 7.47 10*3/uL 1.88-7.09 H IMM GRAN x10^3 (test code = 1131033824) 0.04 10*3/uL 0.00-0.06 LYMPH x10^3 (test code = 731-0) 2.10 10*3/uL 1.32-3.29 MONO x10^3 (test code = 742-7) 0.38 10*3/uL 0.33-0.92 EOS x10^3 (test code = 711-2) 0.03-0.39 L BASO x10^3 (test code = 704-7) 0.01-0.07 Lab Interpretation (test code = 19978-2) [facility]normal [facility] HCG [id number] 15:38:52* Test Item Value Reference Range Interpretation Comme nts BETA HCG (test code = 7910763676) 3120.10 See_Comment [Automated [employer] ge] The system which generated this result transmitted reference range: Non- female and male patients: <5 mIU/mL. The reference range was not used to interpret this result as normal/abnormal. IDRIS (test code = IDRIS) Gestational Age ?Range (mIU/mL) 1-10 ?Weeks ?57-81021717-20 Weeks ?58603-98808015-01 Weeks ?8478-59480701-34 Weeks ?6631-325609 Biotin has been reported to cause a negative bias, interpret results relative to patient's use of biotin. [facility]. METABOLIC PANEL (93872)2023-03-21 15:14:31* Test Item Value Reference Range Interpretation Comme nts NA (test code = 2603416480) 137 mmol/L 135-145 K (test code = 1171633396) 4.1 mmol/L 3.5-5.0 CL (test code = 6236879386) 107 mmol/L 98-108 CO2 TOTAL (test code = 5484676514) 21 mmol/L 23-31 L AGAP (test code = 8037729118) 9 2-16 BUN (test code = 9605669029) 6 mg/dL 7-23 L GLUCOSE (test code = 3637009156) 108 mg/dL 70-110 CREATININE (test code = 9202372653) 0.60 mg/dL 0.50-1.04 TOTAL BILI (test code = 2602184669) 0.5 mg/dL 0.1-1.1 CALCIUM (test code = 8674382114) 8.7 mg/dL 8.6-10.6 T PROTEIN (test code = 4788376869) 6.3 g/dL 6.3-8.2 ALBUMIN (test code = 4883311169) 3.6 g/dL 3.5-5.0 ALK PHOS (test code = 2336119423) 48 U/L 34-122 ALTv (test code = 1742-6) 23 U/L 5-35 AST(SGOT) (test code = 7182743701) 26 U/L 13-40 eGFR (test code = 7060433939) 120.8 mL/min/1.73m2 IDRIS (test code = IDRIS) [...] imaging tests). Lab Interpretation (test code = 87099-5) Abnormal [facility] WITH [id number] 15:10:37* Test Item Value Reference Range Interpretation Comme nts WBC (test code = 6690-2) 10.84 See_Comment [Automated [employer] ge] The system which generated this result transmitted reference range: 4.30 - 11.10 10*3/?L. The reference range was not used to interpret this result as normal/abnormal. RBC (test code = 789-8) 3.90 See_Comment L [Automated [employer] ge] The system which generated this result [...] 35.0 g/dL 31.6-35.1 RDW-SD (test code = 94379-4) 42.1 fL 39.0-49.9 RDW-CV (test code = 788-0) 13.8 % 12.0-15.5 PLT (test code = 777-3) 348 See_Comment [Automated [employer] ge] The system which generated this result transmitted reference range: 166 - 358 10*3/?L. The reference range was not used to interpret this result as normal/abnormal. MPV (test code = 53459-5) 10.5 fL 9.5-12.9 NRBC/100 WBC (test code = 1934769948) 0.0 See_Comment [Automated [employer]bird ssage] The system which generated this result transmitted reference range: 0.0 - 10.0 /100 WBCs. The reference range was not used to interpret this result as normal/abnormal. NRBC x10^3 (test code = 6952279347) See_Comment [Automated messa ge] The system which generated this result transmitted reference range: 10*3/?L. The reference range was not used to interpret this result as normal/abnormal. GRAN MAT (NEUT) % (test code = 770-8) 77.7 % IMM GRAN % (test code = 7602701681) 0.40 % LYMPH % (test code = 736-9) 16.0 % MONO % (test code = 5905-5) 5.2 % EOS % (test code = 713-8) 0.4 % BASO % (test code = 706-2) 0.3 % GRAN MAT x10^3(ANC) (test code = 6130933339) 8.44 10*3/uL 1.88-7.09 H IMM GRAN x10^3 (test code = 8382903810) 0.04 10*3/uL 0.00-0.06 LYMPH x10^3 (test code = 731-0) 1.73 10*3/uL 1.32-3.29 MONO x10^3 (test code = 742-7) 0.56 10*3/uL 0.33-0.92 EOS x10^3 (test code = 711-2) 0.04 10*3/uL 0.03-0.39 BASO x10^3 (test code = 704-7) 0.03 10*3/uL 0.01-0.07 Lab Interpretation (test code = 56775-1) [facility]normal [facility] - ONCE [id number] 14:43:00 * Test Item Value Reference Range Interpretation Comme nts ABO & RH (test code = 20) A Positive IAT (test code = 1185) Negative [facility] Coronavirus 2019 [id number] 09:59:00* Test Item Value Reference Range Interpretation Comme nts Novel Coronavirus 2019 Inhouse (test code = COVNONPUI) Negative Negative Positive resul ts are indicative of the presence ccHIKL-IyU-1 RNA, clinical correlation with patient historyand other [...] moleculardiagnostic SARS-CoV-2 assay in vitro. Novel Coronavirus 2019 [id number] 09:58:00* Test Item Value Reference Range Interpretation Comme nts Novel Coronavirus 2019 Inhouse (test code = COVNONPUI) Negative Negative Positive resul ts are indicative of the presence qtSUNG-GwS-2 RNA, clinical correlation with patient historyand other [...] Notes Date/Time Note Provider Source 2023-04-04 15:14:00 [facility]) EMERGENCY PROVIDER REPORT REPORT#:[id number] REPORT STATUS: Signed DATE:04/04/23 TIME: 1513 PATIENT: MANUELA GARZON UNIT #: [id number] ROOM/BED: AGE: 27 SEX: F PCP PHYS: Kurt Gutierrez SERVICE AUTHOR: Chelo Barnard MD * ALL edits or amendments must be made on the electronic/computer document * HPI-Chest Pain 40 and Over Free Text HPI Notes Free Text HPI Notes 27-year-old female with a history of psychiatric disorders, [...] that revealed no retained products of conception. General Initial Greet Date/Time 04/04/23 1306 Presentation Chief Complaint Chest pain, Nausea, Shortness of breath Sudden in Onset? No )( Migration/Movement None Risk-Chest Pain 40 and Over Risk Stratification )( Coronary Artery Disease No risk factors )( Thoracic Aortic Dissection No risk factors )( Pulmonary Embolism No risk factors )( AMI-Aspirin Aspirin Last 24 Hrs None )( HEART for MACE )( HEART for MACE Response Value History Low index of suspicion 0 Total 0 Past Medical History - Adult Stated Complaint MISCARRIAGE 03/21,CHEST PAIN,BODYACHES,SPOTTING Allergies Coded Allergies: gluten (Severe, NAUSEA, VOMITING, GI IRRITATION, HEADACHE, JOINT SWELLING ) shellfish derived (Severe, TONGUE SWELLS, MILD SOB, SCRATCHY THROAT 09/08/20) iodine (Mild, itching 09/08/20) Home Medications Reported Medications SERTRALINE (ZOLOFT) 150 MG PO DAILY PNV WITH CA/IRON/FA/DHA (PRENATE ESSENTIAL) 1 CAP PO DAILY ALPRAZolam (XANAX) 1 MG PO BEDTIME PRN PRN INSOMNIA Discontinued Reported Medications GABAPENTIN (NEURONTIN) 300 MG PO TID IBUPROFEN (MOTRIN) [...] or older: Never Smoker Physical Exam Vital Signs Vital Signs First Documented: Result Date Time Pulse Ox 99 [...] Vital Signs Reviewed, Vital signs normal Focused PE General/Const General/Const Awake, Alert, No acute distress, Well appearing, Well developed , Well hydrated, Well nourished Eyes Eyes EOMI Resp/Chest Respiratory/Chest Breath sounds NL, Breath sounds = bilat, No respiratory distress, No rales, No rhonchi, No wheezing, No retractions Cardiovascular Cardiovascular Heart rate NL, Regular rhythm, Heart sounds NL, No gallop, No murmurs, No rubs Abdomen/GI Abdomen/GI Soft, Non-tender, No guarding, No rebound Text/Dict Notes Minimal suprapubic discomfort with palpation MS Back Back Full range of motion, Painless range of motion, Non-tender MS Lower Extrem Lower Ext/Pelvis/MS Inspection NL, Full range of motion, No swelling, Non- tender, No erythema Skin Skin Color NL, No rash Neurologic Neurologic Oriented X3, Speech NL, No motor deficits, No sensory deficits, CN II - XII intact Interpretation Diagnostics Lab Results Interpretation Results Laboratory Tests 04/04/231418: [Embedded Image Not Available] Laboratory Tests: 04/04 04/04 04/04 04/04 1419 1419 [...] % (Auto) (14.5 - 29.7 %) 28.7 [place] % (Auto) (3.6 - 10.2 %) 4.5 Eos % (Auto) (0.0 - 3.0 %) 1.1 Baso % (Auto) (0.1 - 0.9 %) 0.4 Neut # (Auto) (K/mm3) 5.4 Lymph # (Auto) (K/mm3) 2.4 [place] # (Auto) (K/mm3) 0.4 Eos # (Auto) (K/mm3) 0.09 Baso # (Auto) (K/mm3) 0.0 Miscellaneous Maternal Serum HCG 7 Urines Urine Color (YELLOW) STRAW Urine Appearance (CLEAR) CLEAR Urine pH (5 - 9) 7.0 Ur Specific [place] (1.001 - 1.035) 1.004 Urine Protein (NEG) NEGATIVE Urine Glucose (UA) (NEG) NEGATIVE Urine Ketones (NEG) NEGATIVE Urine Blood (NEG) NEG Urine Nitrite (NEG) NEG Urine Bilirubin (NEG) NEGATIVE Urine Urobilinogen (NEG mg/dL) NEGATIVE Ur Leukocyte Esterase (NEG) 2+ H Urine RBC (NONE SEEN #/hpf) 0-2 Urine WBC (NONE SEEN #/hpf) 6-10 H Ur Epithelial Cells (RARE - FEW #/HPF) RARE Recent Impressions: RADIOLOGY - XR CHEST 2 V 04/04 1550 Report Impression - Status: SIGNED Entered: 04/04/2023 1619 IMPRESSION: No acute cardiopulmonary findings. Impression By: Nito Maldonado MD ECG #1 Interpretation Text/Dict Note Normal sinus rhythm heart rate 80 NV 156 QRS 82 QT 354 QTc 4-week Re-Evaluation MDM Free Text MDM Notes Free Text MDM Notes 27-year-old female with recent miscarriage requiring 2 units of PRBCs and 6 today presents with persistent chest pain and shortness of breath with dyspnea on exertion and orthostatic sensation. Will check labs, chest x-ray, EKG. Will administer Toradol, Tylenol, Zofran, fluids for symptom relief Re-Evaluation/Progress #1 Text/Dict Note Patient is feeling well. Vital signs are stable. Chest x-ray unremarkable. Lab work unremarkable. EKG normal. Advised for patient to follow-up with PCP. Cardiology referral provided. Time of Re-Eval 1624 Re-Eval Status Improved Chest Pain MDM Note The patient is resting comfortably and feels better, [...] primary care physician, other designated physician or vp product. The patient and/or caregivers have expressed a clear and thorough understanding and agree to follow up as instructed. Low Risk R/O ACS/MN Note I discussed with the patient and/or caregiver the [...] follow up as instructed. PE R/O MDM Note There is no historical, physical exam, laboratory or [...] > 94%, no unilateral leg swelling, no hemoptysis, no recent trauma or surgery, no prior PE or DVT and no hormone use. Based upon this process, this patient is very low risk for a PE with less than a 2% chance of having a pulmonary embolism. ED Course Medication(s) Ordered Medication(s) Ordered: Central Nervous System Agents Sig/Alex Start time Last Medication Dose Route Stop Time Status Admin Acetaminophen 650 MG X1ED STA 04/04 1540 DC PO 04/04 1541 Ketorolac 30 MG X1ED STA 04/04 1540 DC Tromethamine IV 04/04 1541 Electrolytic, Caloric, And Irk Sig/Alex Start time Last Medication Dose Route Stop Time Status Admin Sodium Chloride 1,000 ML X1ED STA 04/04 1540 DC IV 04/04 1541 Gastrointestinal Drugs Sig/Alex Start time Last Medication Dose Route Stop Time Status Admin Ondansetron HCl 4 MG X1ED STA 04/04 1541 DC IV 04/04 1542 Patient Discharge Departure Vital Signs/Condition Vital Signs First Documented: Result Date Time Pulse Ox 99 [...] of this entry have been reviewed. Clinical Impression Clinical Impression Primary Impression: Chest pain Disposition Decision Discharge )( Discharged to Home Yes )( Time 1624 )( Date 04/04/23 Discharge/Care Plan (Auto) Prescriptions Current Visit Scripts IBUPROFEN (MOTRIN) 800 MG PO TID PRN PRN PAIN IBUPROFEN (MOTRIN) 800 MG PO TID PRN PRN PAIN #20 TABS ONDANSETRON ODT (ZOFRAN ODT) 4 MG PO Q6H PRN PRN NAUSEA/VOMITING ONDANSETRON ODT (ZOFRAN ODT) 4 MG PO Q6H PRN PRN NAUSEA/VOMITING #8 TABS Patient Instructions ED Chest Pain, Noncardiac Additional Instructions You may take Motrin 800 mg every 8 hours as needed for pain. May use Zofran every 6-8 hours for nausea. Please follow-up with your primary care doctor. Follow-up with cardiology per referral provided. Return immediately for any worsening symptoms. Referrals Provider Referral: Halima Bah MD Address: [address] [place] [address], [address] [place] [address] Provider Referral: Cedrick Oropeza MD Address: [address] [place] [address] Provider Referral: Cheko Moore MD Address: [address] [facility] [address] [place] [address] Provider Referral: Samantha Jarrell MD Address: [address] [place] [address] Provider Referral: Parish López Jr, MD Address: [address] [place] [address] [address] [place] [address] Provider Referral: Skinny Emery MD Address: [address] [place] [address] Provider Referral: Antonio Cota APRN Address: [address], [address] [place] [address] Provider Referral: Adama Kauffman MD Address: [address] [facility] [address] [place] [address] Provider Referral: Usama Cleaning MD Address: [address], [address] [place] [address] Provider Referral: Helio Esposito MD Address: [address] [place] [address] Provider Referral: Josef Islas MD Address: [address] [place] [address] Provider Referral: Qamar Roy MD Address: [address] [place] [address] Provider Referral: Roberto Nunes MD Address: [address] [place] [address] Provider Referral: Leonarda Beck MD Address: [address] [place] [address] [address] [place] [address] Provider Referral: Marcos Arteaga Address: [address] [place] [address] [address] [place] [address] Departure Forms WORK/SCHOOL EXCUSE VARIABLE Discharge Note I have spoken with the patient and/or caregivers. I have explained the patient's condition, diagnoses and treatment plan based on the information available to me at this time. I have answered the patient's and/or caregiver's questions and addressed any concerns. The patient and/or caregivers have as good an understanding of the patient's diagnosis, condition and treatment plan as can be expected at this point. The vital signs have been stable. The patient's condition is stable and appropriate for discharge from the emergency department. The patient will pursue further outpatient evaluation with the primary care physician or other designated or consulting physician as outlined in the discharge instructions. The patient and/or caregivers are agreeable to this plan of care and follow-up instructions have been explained in detail. The patient and/or caregivers have received these instructions in written format and have expressed an understanding of the discharge instructions. The patient and/or caregivers are aware that any significant change in condition or worsening of symptoms should prompt an immediate return to this or the closest emergency department or a call to 1. at 1628 RPT #:[id number] END OF REPORT [facility] 2023-04-04 13:21:00 [id number] [place] [address] PATIENT NAME: MANUELA GARZON ADMIT DATE: 04/04/23 ACCOUNT NO: [id number] ROOM NO: AGE: 27 SEX: F ADMITTING PHYSICIAN: ATTENDING PHYSICIAN: Chelo Barnard MD Order: [id number] Test Reason : CHEST PAIN Test Date/Time Stamp: MonApr 04 2023 13:21:34 Blood Pressure : / mmHG Vent. Rate : 080 BPM Atrial Rate : 080 BPM P-R Int : 156 ms QRS Dur : 082 ms QT Int : 354 ms P-R-T Axes : 040 042 020 degrees QTc Int : 408 ms Normal sinus rhythm Normal ECG No previous ECGs available Confirmed by KAILA ROACH MD ([id number]) on 04/06/2023 7:49:03 AM Referred By: Self Referred Confirmed by:KAILA ROACH MD at 0749 PATIENT NAME: MANUELA GARZON [facility] 2020-09-14 09:49:00 [id number] [place] [address] PATIENT NAME: MANUELA GARZON ADMIT DATE: 09/11/20 ACCOUNT NO: [id number] ROOM NO: AGE: 24 REPORT TYPE: OPERATIVE REPORT SEX: F ADMITTING PHYSICIAN: ATTENDING PHYSICIAN:Tito Sy MD OPERATION DATE: 09/11/2020 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 SURGEON: Tito Sy MD. SKIN CARE TECHNICIAN: None. TYPE OF ANESTHESIA: General and local. COMPLICATIONS: None. ESTIMATED BLOOD LOSS: Trace. INDICATIONS FOR PROCEDURE: Manuela Garzon is a 24-year-old female who was injured at work. She had a lot of ulnar-sided wrist pain and was having paresthesias. EMG revealed distal ulnar nerve compression at the wrist. We tried to treat her nonoperatively by using medications as well as wrist bracing without much improvement in her pain. Ultimately decided on surgery. PROCEDURE IN DETAIL: The patient was seen in the preoperative anesthesia care unit and the left wrist was marked. She was then brought back to the operating room and placed supine. A left upper arm tourniquet was placed and she was prepped and draped in the usual sterile fashion. The tourniquet was then inflated to 250 mmHg. I made a curvilinear incision in the palm and followed the flexor carpi ulnaris proximal to the wrist crease. Dissection just radial to the FCU was performed and I was able to find the neurovascular bundle. This was straight distally. Both the superficial and the deep branches of the ulnar nerve were traced and the tight fascia was released over the top. I was able to find the leading edge of the components and was able to release that to expose the deep branch of the ulnar nerve. There was no further compression after this was performed. The patient was then thoroughly irrigated and local anesthetic was performed. I then was able to place the patient in an ulnar gutter splint after her skin was closed. The patient tolerated the procedure without any complications and after the tourniquet was deflated, she had brisk cap refill x5. PATIENT NAME: MANUELA GARZON Dictated By: Tito Sy MD WT: OP:RUBIA/HERIBERTO/MAYRA Conf#: [id number]/DID#: [id number] Authenticated and Edited by Tito Sy MD On 09/14/20 2:14:51 PM at 1418 PATIENT NAME: [facility]"
[2025-04-02 12:26] LABS: Absolute Basophils 0.1 K/uL (0-0.5); Absolute Eosinophils 0.1 K/uL (0-0.5); Absolute Lymphocytes (CBC) 3.7 K/uL (0.7-4.9); Absolute Monocytes 0.6 K/uL (0.1-1.3); Absolute Neutrophil 7.2 K/uL (1.8-8.0); Basophils % 0.5 % (0-1.3); Eosinophils % 0.7 % (0-4.4); Hematocrit 37.6 % (36.0-45.0); Lymphocytes % 31.9 % (15.3-44.8); MCH 29.9 pg (27.0-35.0); MCHC 34.7 g/dL (32.0-36.0); MCV 86.2 fL (80-100); MPV 8.2 fL (7.6-11.3); Monocytes % 4.8 % (3.3-12.3); Neutrophils % 62.1 % (41.7-73.7); Platelets 381 thou/uL (152-406); RBC Red Blood Cell Count 4.36 M/uL (3.86-4.86); Red Cell Distribution Width 13.7 % (12.1-15.2)
[2025-04-02 12:37] LABS: PT Prothrombin Time 11.8 SECONDS (10-13.0); PTT, Activated Partial Thromb 29.6 SECONDS (27.2-37.4); Protime INR 1.04
[2025-04-02 12:45] LABS: Albumin 3.5 g/dL (3.4-5.0); Albumin/Globulin Ratio 0.9 (1.1-1.8); Anion Gap 8.6 mEq/L (5.0-15.0); Bilirubin Total 0.2 mg/dL (0.2-1.0); Globulin 3.7 g/dL (2.3-3.5); Potassium 3.6 mEq/L (3.5-5.1); Protein, Total 7.2 g/dL (6.4-8.2)
[2025-04-02] MEDS ORDERED: NA CHLORIDE 0.9% 100 ML ONE (12:45)
[2025-04-02] MEDS ORDERED: NA CHLORIDE 0.9% 250 ML ONE (12:45)
[2025-04-02] MEDS ORDERED: CEFEPIME 1 GM/VIAL ONE (12:45)
[2025-04-02] MEDS ORDERED: VANCOMYCIN 1 GM/VIAL ONE (12:45)
--- NOTE | 2025-04-02 13:06 | RAD REPORT ---
EXAMINATION: Head Brain Wo Cont CLINICAL INDICATION: Female, 29 years old.Suspected CSF leak nasal;Headache TECHNIQUE: Axial CT images from the skull base to the vertex without intravenous contrast. Coronal an d sagittal reformatted images were created from the data set. One or more of the following dose reduction techniques were used: Automated exposure control, adjustment of the mA and/or kV according to patient size, and/or iterative reconstruction. Unless otherwise specified, incidental findings do not require dedicated imaging follow-up. [id number]. COMPARISON: 10/14/2018 FINDINGS: INTRACRANIAL: No acute intracranial hemorrhage. No hydrocephalus. No mass effect or midline shift. No significant white matter disease.Megacisterna magna. Partially empty sella, typically normal variant VASCULATURE: No visualized abnormalities in the arteries or dural venous sinuses. SCALP/SKULL: No calvarial fracture identified. No acute soft tissue abnormality. SINUSES: The visualized paranasal sinuses are mostly clear. No significant mastoid fluid. IMPRESSION: No acute intracranial abnormality. No obvious bony defect at the skull base to identify a source of a possible CSF leak, per the clinica l indication. A sinus protocol CT may be able to better evaluate as the defects can be very subtle if present.
--- NOTE | 2025-04-02 14:26 | RAD REPORT ---
EXAM: Sinus Wo Cont HISTORY: Assess potential CSF leak COMPARISON: None TECHNIQUE: Multiple contiguous axial images were obtained and a CT of the face without contrast. Sagi ttal and coronal reformats were performed. Automated exposure control, adjustment of the mA and/or kV according to patient size, and/or iterative reconstruction FINDINGS: No facial fractures are identified. No facial soft tissue swelling is seen. The globes and retrobulbar soft tissues are unremarkable. The visualized paranasal sinuses are well aerated without evidence of opacification. Mild bilateral maxillary sinus mucosal thickening. No definite source of CSF leak identified. On imag e 20, series 203, possible dehiscence versus imperceptibly thin bone along the right and left aspect of the the perpendicular plate at the cribriform plate. The mastoid air cells are well aerated. Visualized intracranial structures are unremarkable. IMPRESSION: No clear defect to explain suspected CSF rhinorrhea. At the cribriform plate along the right and left aspect of the perpendicular plate, it is possible that there could be a small bony defect versus imperceptibly thin bone.
--- NOTE | 2025-04-02 15:12 | RAD REPORT ---
EXAMINATION: Lumbar Spine 3 Views CLINICAL INDICATION: Female, 29 years old. assessing for LP TECHNIQUE: AP, lateral, focused lateral lumbosacral views of the lumbar spine were obtained. [id number]. COMPARISON: No prior exam. FINDINGS: ALIGNMENT: Mild thoracolumbar curvature which may be positional. BONES: Vertebral bodies are normal in height. No aggressive osseous lesions. DEGENERATIVE: Slight disc height loss at L5-S1. SOFT TISSUE: No soft tissue abnormalities. IMPRESSION: No acute lumbar spine abnormality.
[2025-04-02] MEDS ORDERED: FENTANYL CITR 100 MCG/2 ML ONE (15:26)
[2025-04-02] MEDS ORDERED: MIDAZOLAM HCL 5 ML ONE (15:26)
[2025-04-02 16:22] LABS: CSF Glucose 55 mg/dL (40-70)
[2025-04-02 17:18] LABS: Body Fluid Source CSF; Color of fluid Colorless (COLORLESS); Tube # #4
[2025-04-02 17:19] LABS: Appearance CLEAR (CLEAR); Body Fluid WBC 1 /mm^3; Color of Supernate Not Xanthochromic (Not Xantho)
[2025-04-02 17:20] LABS: Appearance CLEAR (CLEAR); Body Fluid Source CSF; Body Fluid WBC 1 /mm^3; Color of Supernate Not Xanthochromic (Not Xantho); Color of fluid Colorless (COLORLESS); Fluid Total Volume 4 ml; Tube # #1
--- NOTE | 2025-04-02 17:40 | ER ---
Nurse's Notes [facility] Name: Manuela Murphy Age: 29 yrs Sex: Female : 1995 Arrival Date: 04/02/2025 Time: 11:52 Bed 14 Private MD: Diagnosis: Intractable headache, suspected CSF leak Presentation: 04/02 12:01 Chief complaint: Patient states: GABRIEL, fever, nasal drainage. CHF leak. Coronavirus ll1 screen: Client denies travel out of the [place] in the last 14 days. At this time, the client does not indicate any symptoms associated with coronavirus-19. Ebola Screen: Patient denies travel to an Ebola-affected area in the 21 days before illness onset. Initial Sepsis Screen: Does the patient meet any 2 criteria? No. Patient's initial sepsis screen is negative. Does the patient have a suspected source of infection? No. Patient's initial sepsis screen is negative. Risk Assessment: Do you want to hurt yourself or someone else? Patient reports no desire to harm self or others. Onset of symptoms was April 01, 2025. 12:01 Method Of Arrival: Ambulatory ll1 12:01 Acuity: FRANCHESCA 2 ll1 Triage Assessment: 14:00 General: Appears in no apparent distress. Pain: Denies pain. 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 - Infectious Disease History:: Denies. - Social history:: Smoking status: Reported history of juuling and/or vaping. Patient denies any tobacco usage or history of. Screenin:00 [facility] ED Fall Risk Assessment (Adult) History of falling in the last 3 months, kj2 including since admission No falls in past 3 months (0 pts) Confusion or Disorientation No (0 pts) Intoxicated or Sedated No (0 pts) Impaired Gait No (0 pts) Mobility Assist Device Used No (0 pt) Altered Elimination No (0 pt) Score/Fall Risk Level 0 - 2 = Low Risk Maintained a safe environment, Hourly rounding (assess needs \T\ fall precautionary measures) done. Abuse screen: Denies threats or abuse. Denies injuries from another. Nutritional screening: No deficits noted. Tuberculosis screening: No symptoms or risk factors identified. Assessment: 14:00 General: Appears in no apparent distress. Behavior is calm, cooperative. Neuro: Level kj2 of Consciousness is awake, alert, Oriented to person, place, time, situation. Cardiovascular: Patient's skin is warm and dry. Respiratory: Airway is patent. GI: : No signs and/or symptoms were reported regarding the genitourinary system. 15:00 Reassessment: Patient appears in no apparent distress at this time. Patient and/or kj2 family updated on plan of care and expected duration. Pain level reassessed. Patient is alert, oriented x 3, equal unlabored respirations, skin warm/dry/pink. 15:25 Reassessment: vancomycin stopped due to patient itching reaction, MD aware, benadryl kj2 will be given after Lumbar puncture. 15:39 Reassessment: Patient appears in no apparent distress at this time. LP started by . kj2 15:45 Reassessment: Patient appears in no apparent distress at this time. Patient and/or kj2 family updated on plan of care and expected duration. Pain level reassessed. 15:55 Reassessment: Patient appears in no apparent distress at this time. Patient and/or kj2 family updated on plan of care and expected duration. Pain level reassessed. Patient is alert, oriented x 3, equal unlabored respirations, skin warm/dry/pink. 16:14 Reassessment: Patient appears in no apparent distress at this time. Patient and/or kj2 family updated on plan of care and expected duration. Pain level reassessed. Patient is alert, oriented x 3, equal unlabored respirations, skin warm/dry/pink. 16:59 Reassessment: Patient appears in no apparent distress at this time. Patient and/or kj2 family updated on plan of care and expected duration. Pain level reassessed. Patient is alert, oriented x 3, equal unlabored respirations, skin warm/dry/pink. 18:00 Reassessment: Patient appears in no apparent distress at this time. Patient and/or kj2 family updated on plan of care and expected duration. Pain level reassessed. Patient is alert, oriented x 3, equal unlabored respirations, skin warm/dry/pink. 19:00 Reassessment: Patient appears in no apparent distress at this time. Patient and/or kj2 family updated on plan of care and expected duration. Pain level reassessed. Patient is alert, oriented x 3, equal unlabored respirations, skin warm/dry/pink. Vital Signs: 12:01 BP 112 / 72; Pulse 79; Resp 16; Temp 98.6; Pulse Ox 99% ; Weight 98.43 kg; Height 6 ft. ll1 0 in. ; 15:34 BP 124 / 70; Pulse 84; Resp 18; Temp 98.6; Pulse Ox 100% on 2 lpm NC; kj2 15:39 BP 102 / 56; Pulse 79; Resp 12; Pulse Ox 100% 2 lpm ; kj2 15:42 BP 103 / 66; Pulse 82; Resp 19; Pulse Ox 100% 2 lpm ; kj2 15:47 BP 104 / 79; Pulse 76; Resp 19; Pulse Ox 100% on 2 lpm NC; kj2 15:52 BP 106 / 92; Pulse 76; Resp 18; Pulse Ox 100% on 2 lpm NC; kj2 15:57 BP 110 / 69; Pulse 69; Resp 18; Pulse Ox 100% on 2 lpm NC; kj2 16:59 BP 111 / 62; Pulse 67; Resp 18; Pulse Ox 100% ; kj2 18:00 BP 121 / 68; Pulse 68; Resp 20; Pulse Ox 100% on R/A; kj2 19:00 BP 120 / 66; Pulse 72; Resp 20; Temp 98.4; Pulse Ox 100% on R/A; kj2 12:01 Body Mass Index 29.43 (98.43 kg, 182.88 cm) ll1 ED Course: 11:58 Patient arrived in ED. hb 11:58 Owen Daniel MD is Attending Physician. rt 11:58 Arm band placed on Patient placed in an exam room, on a stretcher. ll1 11:59 Attending Physician role handed off by Owen Daniel MD sp3 11:59 Jose Gutierrez MD is Attending Physician. sp3 12:02 Triage completed. ll1 12:12 Inserted saline lock: 20 gauge in right antecubital area, using aseptic technique. ss Blood collected. Flushed with 10 mL NS. 12:20 Bhanu Alvarado, RN is Primary Nurse. bp 12:52 CT Head Brain wo Cont In Process Unspecified. EDMS 13:37 CT Sinus Wo Cont In Process Unspecified. EDMS 14:00 Patient has correct armband on for positive identification. Provided Education on: call kj2 light. 15:09 Lumbar Spine 3 Views In Process Unspecified. EDMS 15:35 Assist provider with lumbar puncture:. kj2 19:14 Called [place] with EMS, gave 15-20 min ETA. rv1 19:42 Patient transferred, IV remains in place. kj2 Administered Medications: 12:30 Drug: Cefepime IVPB 1 grams IVPB at 200 ml/hr once over 30 mins; (mix in NS 100 mL) bp Route: IVPB; Rate: 200 ml/hr; Infused Over: 30 mins; Site: right antecubital; 19:03 Follow up: IV Status: Completed infusion; IV Intake: 100ml kj2 14:52 Drug: vancoMYCIN IVPB 1 grams IVPB once over 2 hrs Route: IVPB; Infused Over: 2 hrs; kj2 Site: right antecubital; 15:25 Follow up: IV Status: Order to discontinue infusion; IV Intake: 100ml ; IV Pause: kj2 04/02/2025 15:25; IV Pause Reason: Limited IV access/Medication interaction 18:09 Drug: HYDROmorphone IVP 1 mg IVP once Route: IVP; Site: right antecubital; kj2 19:03 Follow up: Response: No adverse reaction kj2 18:09 Drug: diphenhydrAMINE IVP 12.5 mg IVP once Route: IVP; Site: right antecubital; kj2 19:02 Follow up: Response: No adverse reaction kj2 18:10 Drug: Ondansetron IVP 4 mg IVP once; over 2 minutes Route: IVP; Site: right antecubital;kj2 19:02 Follow up: Response: No adverse reaction kj2 Medication: 19:08 VIS not applicable for this client. kj2 Intake: 15:25 IV: 100ml; Total: 100ml. kj2 19:03 IV: 100ml; Total: 200ml. kj2 Outcome: 17:39 ER care complete, transfer ordered by sp3 19:42 Transferred by [facility] kj2 19:42 Condition: stable 19:42 Instructed on the need for transfer, 19:45 Patient left the ED. kj2 Signatures: Dispatcher [employer] EDMS Tammy Glez, RN RN ss Vonda Garzon, RN RN Bhanu Chand, RN RN Jose M Ortega RN RN ll1 Jose Gutierrez MD MD sp3 Owen Daniel MD MD rt Fermin, Pilar rv1 Kate David RN RN kj2 Corrections: (The following items were deleted from the chart) 18:02 17:51 Report given to Nellie osullivan ll1
--- NOTE | 2025-04-02 17:40 | EDPHYS ---
Physician Documentation [facility] Name: Manuela Murphy Age: 29 yrs Sex: Female : 1995 Arrival Date: 04/02/2025 Time: 11:52 Bed 14 Private MD: ED Physician Jose Gutierrez HPI: 04/02 14:05 This 29 yrs old Female presents to ER via Ambulatory with complaints of headache, sp3 rhinorrhea. 14:05 29-year-old female with history of asthma, trigeminal neuralgia, migraine headaches, sp3 prior PTSD and anxiety, presents to the ED with chief complaint 1 day of headache and rhinorrhea/nasal fluid drainage. Symptoms initially started yesterday with fluid drainage only and subsequently advanced to headache after which she was seen by ENT who did a scope postulating that it would be a polyp however no polyp was found. Patient has continued to have this drainage. Patient was started on Rocephin by ENT. Today patient continued to have 7 out of 10 headache and episodic nasal drainage. Patient's mother is a nurse here in the ED and after consultation with me, I have advised her to come in for further evaluation. Patient has a headache and neck stiffness and also had a low-grade measured fever yesterday. No trauma reported. ROS negative for chest pain, shortness of breath, back pain, abdominal pain, vomiting, diarrhea, rash, syncope, known sick contacts, travel history, or any other signs or symptoms on ROS at this time. Patient is also on hormone regimen for infertility and attempt for IVF. Patient started on Abilify over the weekend 4 days ago in order to control anxiety to help attain successful IVF. Due to expressive aphasia and other neurological complaints subsequent to taking the Abilify, it was immediately stopped after 1 day. Now 3 days later these symptoms have started.. 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 - Infectious Disease History:: Denies. - Social history:: Smoking status: Reported history of juuling and/or vaping. Patient denies any tobacco usage or history of. ROS: 14:08 Constitutional: Negative for fever, chills, and weight loss, Eyes: Negative for injury, sp3 pain, redness, and discharge, Neck: Negative for injury, pain, and swelling, Cardiovascular: Negative for chest pain, palpitations, and edema, Respiratory: Negative for shortness of breath, cough, wheezing, and pleuritic chest pain, Abdomen/GI: Negative for abdominal pain, nausea, vomiting, diarrhea, and constipation, Back: Negative for injury and pain, MS/Extremity: Negative for injury and deformity, Skin: Negative for injury, rash, and discoloration, Psych: Negative for depression, anxiety, suicide ideation, homicidal ideation, and hallucinations, Allergy/Immunology: Negative for hives, rash, and allergies, Endocrine: Negative for neck swelling, polydipsia, polyuria, polyphagia, and marked weight changes, Hematologic/Lymphatic: Negative for swollen nodes, abnormal bleeding, and unusual bruising, 14:08 All other systems are negative, Exam: 14:08 Constitutional: This is a well developed, well nourished patient who is awake, alert, sp3 and in no acute distress. Head/Face: Normocephalic, atraumatic. Eyes: Pupils equal round and reactive to light, extra-ocular motions intact. Lids and lashes normal. Conjunctiva and sclera are non-icteric and not injected. Cornea within normal limits. Periorbital areas with no swelling, redness, or edema. Chest/axilla: Normal chest wall appearance and motion. Nontender with no deformity. No lesions are appreciated. Cardiovascular: Regular rate and rhythm with a normal S1 and S2. No gallops, murmurs, or rubs. Normal PMI, no JVD. No pulse deficits. Respiratory: Lungs have equal breath sounds bilaterally, clear to auscultation and percussion. No rales, rhonchi or wheezes noted. No increased work of breathing, no retractions or nasal flaring. Abdomen/GI: Soft, non-tender, with normal bowel sounds. No distension or tympany. No guarding or rebound. No evidence of tenderness throughout. Back: No spinal tenderness. No costovertebral tenderness. Full range of motion. Skin: Warm, dry with normal turgor. Normal color with no rashes, no lesions, and no evidence of cellulitis. MS/ Extremity: Pulses equal, no cyanosis. Neurovascular intact. Full, normal range of motion. Neuro: Awake and alert, GCS 15, oriented to person, place, time, and situation. Cranial nerves II-XII grossly intact. Motor strength 5/5 in all extremities. Sensory grossly intact. Cerebellar exam normal. Normal gait. Psych: Awake, alert, with orientation to person, place and time. Behavior, mood, and affect are within normal limits. 14:08 ENT: Patient has yellow clear fluid draining from nose that is positional.. 14:08 Neck: Patient reports stiffness on neck flexion., Vital Signs: 12:01 BP 112 / 72; Pulse 79; Resp 16; Temp 98.6; Pulse Ox 99% ; Weight 98.43 kg; Height 6 ft. ll1 0 in. ; 15:34 BP 124 / 70; Pulse 84; Resp 18; Temp 98.6; Pulse Ox 100% on 2 lpm NC; kj2 15:39 BP 102 / 56; Pulse 79; Resp 12; Pulse Ox 100% 2 lpm ; kj2 15:42 BP 103 / 66; Pulse 82; Resp 19; Pulse Ox 100% 2 lpm ; kj2 15:47 BP 104 / 79; Pulse 76; Resp 19; Pulse Ox 100% on 2 lpm NC; kj2 15:52 BP 106 / 92; Pulse 76; Resp 18; Pulse Ox 100% on 2 lpm NC; kj2 15:57 BP 110 / 69; Pulse 69; Resp 18; Pulse Ox 100% on 2 lpm NC; kj2 16:59 BP 111 / 62; Pulse 67; Resp 18; Pulse Ox 100% ; kj2 18:00 BP 121 / 68; Pulse 68; Resp 20; Pulse Ox 100% on R/A; kj2 19:00 BP 120 / 66; Pulse 72; Resp 20; Temp 98.4; Pulse Ox 100% on R/A; kj2 12:01 Body Mass Index 29.43 (98.43 kg, 182.88 cm) ll1 Procedures: 15:53 Lumbar Puncture: Patient placed in sitting position. Prepped with Betadine. Draped sp3 using sterile technique. clear fluid. Puncture site dressed with band aid, 4x4s, Patient tolerated well. MDM: 11:59 Medical Screening Exam initiated sp3 14:09 Data reviewed: vital signs, nurses notes, lab test result(s), radiologic studies. ED sp3 course: 29-year-old female with headache, neck stiffness, low-grade fever and fluid draining from her nose. Broad differential diagnosis exist including CSF leak, intracerebral infection, subarachnoid bleed yielding xanthochromia and yellow CSF. will obtain CT scan of the head and sinuses, routine labs, cultures and start antibiotics. Probable lumbar puncture to be performed once CTs reviewed. Disposition pending workup and patient course with possible admission for continued IV antibiotics as a precaution.. 14:48 ED course: CT head negative and CT sinus demonstrates possible area of defect. Nothing sp3 definitive. Laboratory values within normal limits except mild bump in WBC count. At this time we will obtain lateral lumbar spine to assess anatomy secondary to patient stating that she had difficulty in 2018 during a lumbar puncture procedure. Clear fluid from nose collected in sterile container and will be a send out lab to assess for CSF. Lumbar puncture will be attempted next.. 17:37 ED course: CSF demonstrates no xanthochromia and no signs of infection. I discussed the [address] Calvert neurosurgery who recommends transferring to [facility] for CT myelogram and further workup for potential CSF leak.. 04/02 12:00 Order name: Blood Culture Adult (2) [facility] 04/02 12:00 Order name: CBC with Diff; Complete Time: 12:49 [facility] 04/02 12:00 Order name: CMP; Complete Time: 12:49 [facility] 04/02 12:00 Order name: Lactate w/ 2H reflex if indic.; Complete Time: 12:49 [facility] 04/02 12:00 Order name: Protime (+inr); Complete Time: 12:49 [facility] 04/02 12:00 Order name: Ptt, Activated; Complete Time: 12:49 [facility] 04/02 12:13 Order name: Test, Serum; Complete Time: 12:49 [facility] 04/02 15:51 Order name: Csf Culture [facility] 04/02 15:51 Order name: Fluid Cell Count,Body: Cell counts on tubes 1 and 4 [facility] 04/02 15:51 Order name: Spinal Fluid Profile [facility] 04/02 12:00 Order name: CT Head Brain wo Cont; Complete Time: 13:07 [facility] 04/02 13:08 Order name: CT Sinus Wo Cont; Complete Time: 14:35 sp3 04/02 14:49 Order name: Lumbar Spine 3 Views; Complete Time: 15:15 EDMS 04/02 12:00 Order name: Cardiac monitoring; Complete Time: 12:21 sp3 04/02 12:00 Order name: IV Saline Lock - Large Bore; Complete Time: 12:21 sp3 04/02 12:00 Order name: Labs collected and sent; Complete Time: 12: sp3 04/02 12:00 Order name: O2 Sat Monitoring; Complete Time: 12: sp3 04/02 12:00 Order name: Vital Signs; Complete Time: 12:21 sp3 04/02 14:38 Order name: Lumbar Puncture Setup; Complete Time: 15:52 sp3 04/02 14:38 Order name: Lumbar Puncture Consent; Complete Time: 15:52 sp3 Administered Medications: 12:30 Drug: Cefepime IVPB 1 grams IVPB at 200 ml/hr once over 30 mins; (mix in NS 100 mL) bp Route: IVPB; Rate: 200 ml/hr; Infused Over: 30 mins; Site: right antecubital; 19:03 Follow up: IV Status: Completed infusion; IV Intake: 100ml kj2 14:52 Drug: vancoMYCIN IVPB 1 grams IVPB once over 2 hrs Route: IVPB; Infused Over: 2 hrs; kj2 Site: right antecubital; 15:25 Follow up: IV Status: Order to discontinue infusion; IV Intake: 100ml ; IV Pause: kj2 04/02/2025 15:25; IV Pause Reason: Limited IV access/Medication interaction 18:09 Drug: HYDROmorphone IVP 1 mg IVP once Route: IVP; Site: right antecubital; kj2 19:03 Follow up: Response: No adverse reaction kj2 18:09 Drug: diphenhydrAMINE IVP 12.5 mg IVP once Route: IVP; Site: right antecubital; kj2 19:02 Follow up: Response: No adverse reaction kj2 18:10 Drug: Ondansetron IVP 4 mg IVP once; over 2 minutes Route: IVP; Site: right antecubital;kj2 19:02 Follow up: Response: No adverse reaction kj2 Disposition Summary: 04/02/25 17:39 Transfer Ordered Notes: Transfer Location: [facility] sp3 Reason: Higher level of care sp3 Condition: Stable sp3 Problem: new sp3 Symptoms: have worsened sp3 Accepting Physician: Dr. Calvert(04/02/25 19:45) kj2 Diagnosis - Intractable headache, suspected CSF leak sp3 Forms: - Medication Reconciliation Form sp3 - SBAR form sp3 Signatures: Dispatcher [employer] EDMS Bhanu Alvarado, RN RN bp Jose M Campos RN RN ll1 Jose Gutierrez MD MD sp3 Kate David RN RN kj2 Corrections: (The following items were deleted from the chart) 12:00 12:00 BLOOD CULTURE*+BA.LAB.BRZ ordered. EDMS EDMS 12:00 12:00 CBC+H.LAB.BRZ ordered. EDMS EDMS 12:00 12:00 COMPREHENSIVE METABOLIC PANEL+C.LAB.BRZ ordered. EDMS EDMS 12:00 12:00 LACTATE+C.LAB.BRZ ordered. EDMS EDMS 12:00 12:00 PROTIME (+INR)+COAG.LAB.BRZ ordered. EDMS EDMS 12:00 12:00 PTT, ACTIVATED+COAG.LAB.BRZ ordered. EDMS EDMS 12:00 12:00 Head Brain Wo Cont+CT.RAD.BRZ ordered. EDMS EDMS 14:49 14:38 Lumbar Spine Single View+RAD.RAD.BRZ ordered. EDMS EDMS 15:51 15:51 CSF Culture+BA.LAB.BRZ ordered. EDMS EDMS 15:51 15:51 FLUID CELL COUNT,BODY+H.LAB.BRZ ordered. EDMS EDMS 15:51 15:51 SPINAL FLUID PROFILE+LAB.LAB.BRZ ordered. EDMS EDMS 15:51 15:51 FLUID CELL COUNT,BODY+H.LAB.BRZ ordered. EDMS EDMS 19:45 17:39 Dr. Calvert sp3 kj2
[2025-04-02] MEDS ORDERED: HYDROMORPHONE HCL 1 MG/ML INJ ONE (17:58)
[2025-04-02] MEDS ORDERED: DIPHENHYDRAMINE 50 MG/ML VIAL ONE (17:58)
[2025-04-02] MEDS ORDERED: ONDANSETRON 4 MG/2 ML VIAL ONE (17:58)
[2025-04-02 18:31] LABS: Body Fluid Lymphocytes 89 %; Fluid Total Cells Count 18; Fluid Total Cells Count 19
[2025-04-02 18:32] LABS: Body Fluid Lymphocytes 95 %
[2025-04-02 19:57] VITALS: O2SAT 100
[2025-04-02 20:11] VITALS: BP 120/66; TEMP 98.4
== END 2025-04-02 19:45 | disposition short-term general hospital (02) ==
LOC: ER 11:52
PROC: 00JU3ZZ Inspection of Spinal Canal, Percutaneous Approach (ICD-10-PCS; principal; 2025-04-02)
DX: G44.221 Chronic tension-type headache, intractable (principal); F43.10 Post-traumatic stress disorder, unspecified
CPT/HCPCS: 87040 ×2; 87070; 85025; 36415; 89050 ×2; 84703; 84157; 85610; 82945; 83605; 85730; 80053; 70450; 70486; 72100; 62270; J2250; J1200; J3010; J3370; J1171; J2405; J7050; J0692